=== PATIENT | female | born 1960 | race Caucasian/White ===

== ENCOUNTER 2016-10-16 04:15 | Observation (INO) | payer OTHER ==
--- NOTE | 2016-10-16 04:24 | ED ---
Chest Pain HPI - General Source: patient, RN notes reviewed Limitations: no limitations - History of Present Illness MD Complaint: chest pain Onset/Timin -: hour(s) Onset: during rest Pain Location: left chest Pain Radiation: LUE Severity: moderate Quality: aching Consistency: constant Improves With: nitroglycerin Worsens With: nothing Anginal Symptoms: nausea Treatments Prior to Arrival: aspirin, nitroglycerin, oxygen <Julio Loaiza - Last Filed: 10/16/16 04:29> - General Source: RN notes reviewed, old records reviewed <Max Ruiz - Last Filed: 10/16/16 09:16> - General Stated Complaint: Chest discomfort Time Seen by Provider: 10/16/16 04:17 - History of Present Illness Initial Comments: 55 female ER for evaluation of chest pain (Max Ruiz) Review of Systems ROS Other: All systems not noted in ROS Statement are negative. Constitutional: Denies: fever, chills Respiratory: Denies: cough, dyspnea Cardiovascular: Reports: chest pain. Denies: palpitations, edema, syncope Gastrointestinal: Reports: nausea. Denies: abdominal pain, vomiting, diarrhea, melena, hematochezia Genitourinary: Denies: dysuria, hematuria Musculoskeletal: Denies: back pain Skin: Denies: rash Neurological: Denies: headache, weakness, numbness <Julio Loaiza - Last Filed: 10/16/16 04:29> ROS Other: All systems not noted in ROS Statement are negative. <Max Ruiz - Last Filed: 10/16/16 09:16> ROS Statement: Those systems with pertinent positive or pertinent negative responses have been documented in the HPI. EKG Findings - EKG Results: EKG: interpreted by MARY APPIAH, sinus rhythm (Rate 70 bpm), normal axis, normal QRS, normal ST/T, no acute changes <Julio Loaiza - Last Filed: 10/16/16 04:29> General Exam General appearance: alert, in no apparent distress, anxious Head exam: Present: atraumatic Eye exam: Present: normal appearance. Absent: scleral icterus, conjunctival injection ENT exam: Present: normal oropharynx Neck exam: Present: normal inspection Respiratory exam: Present: normal lung sounds bilaterally, chest wall tenderness. Absent: respiratory distress, wheezes, rales, rhonchi, stridor, decreased breath sounds, prolonged expiratory Cardiovascular Exam: Present: regular rate, normal rhythm, normal heart sounds. Absent: systolic murmur, diastolic murmur, rubs, gallop GI/Abdominal exam: Present: soft. Absent: distended, tenderness, guarding, rebound, mass Extremities exam: Present: normal inspection, normal capillary refill. Absent: pedal edema, calf tenderness Back exam: Present: normal inspection. Absent: CVA tenderness (R), CVA tenderness (L) Neurological exam: Present: alert Psychiatric exam: Present: anxious Skin exam: Present: warm, dry, intact, normal color. Absent: rash <Julio Loaiza - Last Filed: 10/16/16 04:29> General appearance: alert, in no apparent distress Head exam: Present: atraumatic, normocephalic, normal inspection Eye exam: Present: normal appearance, PERRL, EOMI. Absent: scleral icterus, conjunctival injection, periorbital swelling ENT exam: Present: normal exam, mucous membranes moist Neck exam: Present: normal inspection. Absent: tenderness, meningismus, lymphadenopathy Respiratory exam: Present: normal lung sounds bilaterally. Absent: respiratory distress, wheezes, rales, rhonchi, stridor Cardiovascular Exam: Present: regular rate, normal rhythm, normal heart sounds. Absent: systolic murmur, diastolic murmur, rubs, gallop, clicks GI/Abdominal exam: Present: soft, normal bowel sounds. Absent: distended, tenderness, guarding, rebound, rigid Extremities exam: Present: normal inspection, full ROM, normal capillary refill. Absent: tenderness, pedal edema, joint swelling, calf tenderness Back exam: Present: normal inspection Neurological exam: Present: alert, oriented X3, CN II-XII intact Psychiatric exam: Present: normal affect, normal mood Skin exam: Present: warm, dry, intact, normal color. Absent: rash <Max Ruiz - Last Filed: 10/16/16 09:16> Course <Julio Loaiza - Last Filed: 10/16/16 04:29> <Max Ruiz - Last Filed: 10/16/16 09:16> Vital Signs 10/16/16 10/16/16 10/16/16 04:31 05:34 06:37 Temperature 97.9 F Pulse Rate 67 72 72 Respiratory 16 16 16 Rate Blood Pressure 96/54 101/58 105/61 O2 Sat by Pulse 96 98 97 Oximetry 10/16/16 07:58 Temperature 97.8 F Pulse Rate 66 Respiratory 16 Rate Blood Pressure 106/56 O2 Sat by Pulse 95 Oximetry - Reevaluation(s) Reevaluation #1: 10/16/16 09:15 At this time patient is without chest pain or shortness of breath (Max Ruiz) Chest Pain MDM <Julio Loaiza - Last Filed: 10/16/16 04:29> <Max Ruiz - Last Filed: 10/16/16 09:16> - MDM 55 female here with chest pain, retrosternal chest pain or shortness of breath, mildly elevated d-dimer negative CTA troponin is negative. Patient can be discharged home (Max Ruiz) Disposition <Julio Loaiza - Last Filed: 10/16/16 04:29> <Max Ruiz - Last Filed: 10/16/16 09:16> Clinical Impression: Chest pain, Atypical chest pain Disposition: HOME SELF-CARE Condition: Good Instructions: Chest Pain (ED) Referrals: Alexander Clement DO [Primary Care Provider] - 1-2 days
[2016-10-16 05:03] LABS: Basophils % (A) 1 %; CHCM 35.2; Eosinophils # (A) 0.2 k/uL (0-0.7); Eosinophils % (A) 4 %; HCT 41.3 % (34.0-46.0); HDW 2.47; Luc # (Auto) 0.11; Luc % (Auto) 2; Lymphocytes # (A) 1.7 k/uL (1.0-4.8); Lymphocytes % (A) 33 %; MCH 31.9 pg (25.0-35.0); MCHC 33.9 g/dL (31.0-37.0); MCV 94.1 fL (80.0-100.0); Monocytes # (A) 0.4 k/uL (0-1.0); Monocytes % (A) 7 %; Neutrophils # (A) 2.8 k/uL (1.3-7.7); Neutrophils % (A) 54 %; RBC 4.39 m/uL (3.80-5.40); WBC 5.2 k/uL (3.8-10.6); WBC (Perox) 5.35
[2016-10-16 05:13] LABS: ALT 20 U/L (9-52); AST 18 U/L (14-36); Alkaline Phosphatase 78 U/L (38-126); Amylase 78 U/L (30-110); Anion Gap 9 mmol/L; Blood Urea Nitrogen 14 mg/dL (7-17); Calcium 8.5 mg/dL (8.4-10.2); Carbon Dioxide 23 mmol/L (22-30); Chloride 111 mmol/L (98-107); Glucose 94 mg/dL (74-99); Magnesium 1.8 mg/dL (1.6-2.3); Non-African American GFR(MDRD) >60 (>60 ml/min/1.73 sqM); Sodium 143 mmol/L (137-145); Total Bilirubin 0.5 mg/dL (0.2-1.3); Total Protein 6.1 g/dL (6.3-8.2)
[2016-10-16 05:23] LABS: Creatine Kinase 147 U/L (30-135)
--- NOTE | 2016-10-16 05:26 | XR ---
EXAMINATION TYPE: XR chest 2V DATE OF EXAM: 10/16/2016 4:45 AM COMPARISON: 07/01/2013 HISTORY: Chest pain TECHNIQUE: Frontal and lateral views of the chest are obtained. FINDINGS: There is no focal pneumonia pleural effusion, or pneumothorax seen. Faint stable scarring and nodularity is noted in the left lung base. The cardiac silhouette size is within normal limits. The osseous structures are intact. IMPRESSION: 1. No acute cardiopulmonary process. 2. No significant interval change.
[2016-10-16] MEDS ORDERED: RX INFO: IV CONTRAST WAS GIVEN 1 EACH MISC MISCELLANE PRN (05:32)
[2016-10-16 05:36] LABS: Creatine Kinase MB 1.3 ng/mL (0.0-2.4); Troponin I <0.012 ng/mL (0.000-0.034)
--- NOTE | 2016-10-16 07:35 | CT ---
CT CHEST FOR PULMONARY EMBOLISM. EXAMINATION TYPE: CT chest angio for PE DATE OF EXAM: 10/16/2016 7:20 AM INDICATION: Lt side Chest pain CT DLP: 458.9 mGycm, Automated exposure control for dose reduction was used. CONTRAST: Patient injected with 72 mL of Omnipaque 350. COMPARISON: NONE TECHNIQUE: CT of the chest is performed on a spiral scan at 2 mm thick sections. Study is performed with intravenous contrast timed for evaluation for pulmonary embolism. This will limit additional po rtions of the evaluation. 3-D MIP images reconstructed by the technologist are reviewed on the compu ter in the coronal and sagittal planes. FINDINGS: No persistent filling defects are evident to suggest an acute pulmonary embolism. There is a 1.6 cm pretracheal lymph node. Multiple small lymph nodes are adjacent to the aortic arch. Enlarged aortopulmonic window lymph node measuring 1.5 cm is present. A 1.5 cm right suprahilar lymp h node is likely present. There appears to be adenopathy within the subcarinal region which may be th ickened. The ascending aorta diameter at the level of the main pulmonary artery is 3.8 cm. The main pulmonary artery diameter at the bifurcation is 2.7 cm. There is a 1.3 cm density within the periphery of the left lung is contains calcification measuring 5 00 Hounsfield units. Lung windows have some minimal compressive atelectasis within the dependent port ion. Limited CT section through the upper abdomen are unremarkable. IMPRESSIONS: 1. No acute pulmonary embolism. 2. Enlarged mediastinal adenopathy. 3. Probable granuloma left peripheral lung
[2016-10-16] MEDS ORDERED: NITROGLYCERIN SL TABS 0.4 MG TAB SUBLINGUAL PRN (09:21)
[2016-10-16] MEDS ORDERED: HEPARIN SODIUM,PORCINE 5,000 UNIT/ML 1 ML VIAL IV ONE (09:21)
[2016-10-16] MEDS ORDERED: ASPIRIN 81 MG CHEW PO STA (09:21)
[2016-10-16] MEDS ORDERED: HEPARIN SODIUM,PORCINE 5,000 UNIT/ML 1 ML VIAL IV PRN (09:21)
--- NOTE | 2016-10-16 09:21 | ED ---
Medical Decision Making - Medical Decision Making 55 female ER for evaluation again, patient was reevaluated prior to discharge, still with heavy chest pain sitting on her chest with shortness of breath and diaphoresis. At this time patient will be kept for cardiac observation, again CT is negative EKG shows no ST elevation, troponin was also negative, will start patient on anticoagulation with serial troponin testing - Lab Data Result diagrams: 10/16/16 04:51 10/16/16 04:51 Lab Results 10/16/16 10/16/16 10/16/16 Range/Units 04:51 04:51 04:51 WBC 5.2 (3.8-10.6) k/uL RBC 4.39 (3.80-5.40) m/uL Hgb 14.0 (11.4-16.0) gm/dL Hct 41.3 (34.0-46.0) % MCV 94.1 (80.0-100.0) fL MCH 31.9 (25.0-35.0) pg MCHC 33.9 (31.0-37.0) g/dL RDW 12.0 (11.5-15.5) % Plt Count 121 L (150-450) k/uL Neutrophils % 54 % Lymphocytes % 33 % Monocytes % 7 % Eosinophils % 4 % Basophils % 1 % Neutrophils # 2.8 (1.3-7.7) k/uL Lymphocytes # 1.7 (1.0-4.8) k/uL Monocytes # 0.4 (0-1.0) k/uL Eosinophils # 0.2 (0-0.7) k/uL Basophils # 0.0 (0-0.2) k/uL D-Dimer (<0.60) mg/L FEU Sodium 143 (137-145) mmol/L Potassium 4.0 (3.5-5.1) mmol/L Chloride 111 H (98-107) mmol/L Carbon Dioxide 23 (22-30) mmol/L Anion Gap 9 mmol/L BUN 14 (7-17) mg/dL Creatinine 0.74 (0.52-1.04) mg/dL Est GFR (MDRD) Af Amer >60 (>60 ml/min/1.73 sqM) Est GFR (MDRD) Non-Af >60 (>60 ml/min/1.73 sqM) Glucose 94 (74-99) mg/dL Calcium 8.5 (8.4-10.2) mg/dL Magnesium 1.8 (1.6-2.3) mg/dL Total Bilirubin 0.5 (0.2-1.3) mg/dL AST 18 (14-36) U/L ALT 20 (9-52) U/L Alkaline Phosphatase 78 (38-126) U/L Total Creatine Kinase 147 H (30-135) U/L CK-MB (CK-2) 1.3 (0.0-2.4) ng/mL CK-MB (CK-2) Rel Index 0.9 Troponin I <0.012 (0.000-0.034) ng/mL Total Protein 6.1 L (6.3-8.2) g/dL Albumin 3.3 L (3.5-5.0) g/dL Amylase 78 (30-110) U/L Lipase 92 (23-300) U/L 10/16/16 Range/Units 04:51 WBC (3.8-10.6) k/uL RBC (3.80-5.40) m/uL Hgb (11.4-16.0) gm/dL Hct (34.0-46.0) % MCV (80.0-100.0) fL MCH (25.0-35.0) pg MCHC (31.0-37.0) g/dL RDW (11.5-15.5) % Plt Count (150-450) k/uL Neutrophils % % Lymphocytes % % Monocytes % % Eosinophils % % Basophils % % Neutrophils # (1.3-7.7) k/uL Lymphocytes # (1.0-4.8) k/uL Monocytes # (0-1.0) k/uL Eosinophils # (0-0.7) k/uL Basophils # (0-0.2) k/uL D-Dimer 0.72 H (<0.60) mg/L FEU Sodium (137-145) mmol/L Potassium (3.5-5.1) mmol/L Chloride (98-107) mmol/L Carbon Dioxide (22-30) mmol/L Anion Gap mmol/L BUN (7-17) mg/dL Creatinine (0.52-1.04) mg/dL Est GFR (MDRD) Af Amer (>60 ml/min/1.73 sqM) Est GFR (MDRD) Non-Af (>60 ml/min/1.73 sqM) Glucose (74-99) mg/dL Calcium (8.4-10.2) mg/dL Magnesium (1.6-2.3) mg/dL Total Bilirubin (0.2-1.3) mg/dL AST (14-36) U/L ALT (9-52) U/L Alkaline Phosphatase (38-126) U/L Total Creatine Kinase (30-135) U/L CK-MB (CK-2) (0.0-2.4) ng/mL CK-MB (CK-2) Rel Index Troponin I (0.000-0.034) ng/mL Total Protein (6.3-8.2) g/dL Albumin (3.5-5.0) g/dL Amylase (30-110) U/L Lipase (23-300) U/L Critical Care Time Critical Care Time: Yes Total Critical Care Time: 31 Disposition Clinical Impression: Chest pain Disposition: ADMITTED IP TO THIS [facility] Condition: Undetermined Instructions: Chest Pain (ED) Referrals: Alexander Clement DO [Primary Care Provider] - 1-2 days
[2016-10-16] MEDS ORDERED: HYDROmorphone 1 MG/ML 1 ML SYRINGE IVP STA (09:24)
[2016-10-16] MEDS ORDERED: HYDROmorphone 1 MG/ML 1 ML SYRINGE IVP PRN (09:24)
[2016-10-16] MEDS ORDERED: HEPARIN SODIUM,PORCINE/D5W PMX 25,000 UNIT in DEXTROSE/WATER 1 500ML.BAG IV SCH (09:30)
[2016-10-16] MEDS: SODIUM CHLORIDE 0.9% 1,000 ML IV SCH ×2 (10:16→22:01)
[2016-10-16 11:27] LABS: Creatine Kinase 124 U/L (30-135)
[2016-10-16 11:40] LABS: Troponin I <0.012 ng/mL (0.000-0.034)
[2016-10-16] MEDS ORDERED: FLUoxetine HCL 20 MG CAP PO SCH (12:00)
[2016-10-16] MEDS: FOLIC ACID 1 MG TAB PO SCH (12:23)
[2016-10-16] MEDS: POTASSIUM CHLORIDE ER 10 MEQ TAB.ER.PRT PO SCH ×2 (12:24→22:01)
[2016-10-16] MEDS: ONDANSETRON ODT 4 MG TAB PO SCH ×3 (12:24→22:01)
[2016-10-16] MEDS: PANTOPRAZOLE 40 MG TABLET PO SCH (12:24)
[2016-10-16] MEDS: PREGABALIN 75 MG CAP PO SCH ×2 (12:24→22:01)
[2016-10-16] MEDS: DIPYRIDAMOLE-ASPIRIN 200-25 MG 1 EACH CPMP.12HR PO SCH ×2 (12:25→22:01)
[2016-10-16] MEDS: BACLOFEN 10 MG TAB PO SCH ×3 (12:25→22:01)
[2016-10-16] MEDS: FAMOTIDINE 20 MG TAB PO SCH ×2 (12:25→22:01)
[2016-10-16 17:58] LABS: Creatine Kinase 106 U/L (30-135)
[2016-10-16] MEDS: DESVENLAFAXINE SUCCINATE 50 MG TAB.ER.24H PO SCH (18:05)
[2016-10-16 18:10] LABS: Creatine Kinase MB 0.8 ng/mL (0.0-2.4); Troponin I <0.012 ng/mL (0.000-0.034)
--- NOTE | 2016-10-16 18:37 | HP ---
DATE OF ADMISSION: 10/16/2016 PRESENTING COMPLAINT: Chest pain. HISTORY OF PRESENTING COMPLAINT: This is a very pleasant 55-year-old patient of Dr. Clement who has a prior stroke with residual right-sided weakness, subtle weakness in the right arm and right leg. Also speech is affected. Patient also takes medication for GERD, depression, some muscle spasms. Patient presents with a heavy pressure, like somebody sitting on her chest, lasting for over 12 hours, pain going down the left arm, some shortness of breath. No dizziness. No perspiration. Patient is admitted for unstable angina, put on IV heparin. Patient has no prior cardiac history, but a family history on her mother's side. REVIEW OF SYSTEMS: CONSTITUTIONAL: Tired. HEENT: None. RESPIRATORY: As above. CARDIOVASCULAR: As above. GASTROINTESTINAL: None. GENITOURINARY: None. MUSCULOSKELETAL: Some aches and pains in the joints. DERMATOLOGICAL: None. HEMATOLOGICAL: None. LYMPHATICS: None. PSYCHIATRY: Depression. NEUROLOGICAL: Weakness of the right arm and leg. PAST MEDICAL HISTORY: 1. Stroke with right-sided weakness. 2. Depression. 3. Some muscle spasms. PAST SURGICAL HISTORY: As charted in electronic records. HOME MEDICATIONS: 1. Potassium 8 mEq p.o. b.i.d. 2. Zofran 4 mg p.o. t.i.d. 3. Prilosec 40 mg p.o. daily. 4. Motrin 800 mg p.o. t.i.d. 5. Hyoscyamine 0.125 mg sublingually q.4 p.r.n. 6. Zantac 150 mg p.o. b.i.d. 7. Lyrica 75 mg p.o. b.i.d. 8. Folic acid 1 mg p.o. daily. 9. Prozac 20 mg p.o. daily. 10. Aggrenox 1 capsule p.o. b.i.d. 11. Baclofen 10 mg p.o. t.i.d. 12. Lipitor 10 mg at bedtime. ALLERGIES: 1. CELEBREX. 2. CIPRO. 3. SULFA. 4. MORPHINE. 5. PYRIDIUM. On examination, temperature 97.9, pulse 57, respiratory rate 16, blood pressure 96/54, pulse ox 96% on room air. GENERAL APPEARANCE: Well built, BMI of 38.1. Lying in bed. Not in distress. EYES: Pupils equal. Conjunctivae normal. HEENT: Oral cavity normal. NECK: JVD not raised. Mass not palpable. RESPIRATORY: Effort normal. Lungs are clear. CARDIOVASCULAR: First and second sounds normal. No edema. ABDOMEN: Soft, nontender. Liver and spleen not palpable. LYMPHATIC: No lymph node palpable in neck or axillae. PSYCHIATRY: Alert and oriented x3. Mood and affect slightly low. NEUROLOGICAL: Speech is slightly slurred. Power in the right arm and right leg is 4/5. Decreased sensation on the right side, too. INVESTIGATIONS: White count 5.2, hemoglobin 14.0, potassium 4.0. Troponin less than 0.012 x2. Chest x-ray not able to show anything acute. EKG: Normal sinus rhythm. ASSESSMENT: 1. Possible unstable angina in a patient whose risk factors include a prior stroke, obesity, body mass index of 38.1 and a strong history on her mother's side. 2. Right hemiparesis from an old stroke. 3. Depression not otherwise specified. 4. Obesity; body mass index 38.1. 5. Family history on mother's side. Mother had her first heart attack in her 60s. SOCIAL HISTORY: . Does not smoke or drink alcohol. PLAN: Home medications are resumed. Patient is put on IV heparin and aspirin. Cardiology is consulted. Serial cardiac enzymes are in place. Patient will at least need a stress test if this is ruled out. Care was discussed with the patient.
[2016-10-16] MEDS ORDERED: ATORVASTATIN 10 MG TAB PO SCH (21:00)
[2016-10-16] MEDS ORDERED: DOBUTamine DRIP for NUC MED 500 MG in DEXTROSE/WATER 1 250ML.BAG IV ONE (21:26)
--- NOTE | 2016-10-16 22:14 | CONS ---
DATE OF CONSULTATION: Catina Kothari is a 55-year-old female who presented with severe pain in the chest lasting for quite some time. Nitroglycerin relieved it partially and then it came back once again in the emergency room. She underwent a CT of the chest which did not show any pulmonary embolism. She is tender over the chest on the left side and somewhat exquisitely over the left costochondral junctions. Her ECG shows sinus mechanism without any ST-segment abnormalities. Three cardiac enzymes are normal. Hemoglobin is normal. Electrolytes are normal. REVIEW OF SYSTEMS: No fever, chills, rigors. No cough or expectoration. No nausea, vomiting or diarrhea. No hematuria or dysuria. No seizures. Past history of stroke. Past history of possible ASD. She had a stroke on June 24, 2013. She had closure of this ASD two weeks later, and then she had another stroke in the month of July following that. She also has a past history of fibromyalgia. Lipid panel unknown. Medications were reviewed and include: 1. Atorvastatin. 2. Baclofen. 3. Folic acid. 4. Fluoxetine. 5. Pregabalin. 6. Lyrica. 7. Ranitidine. 8. Hyoscyamine. 9. Omeprazole. 10. Potassium. On examination, her blood pressure is 120/60 mmHg. Pulse rate is in the 50s. She is afebrile. Head and neck examination is normal. Heart sounds S1, S2 are soft. Breath sounds are normal. Lungs are clear on auscultation. Extremities are warm. No edema. Abdomen is soft, nontender. She is tender over the left chest wall. IMPRESSION: 1. Atypical chest discomfort, relieved with nitroglycerin. 2. History of cerebrovascular accident x2, one before the possible ASD closure, one after the ASD closure. SUGGEST: Lipid panel. Dobutamine stress echo tomorrow. She has not had an acute myocardial infarction.
[2016-10-17] MEDS: SODIUM CHLORIDE 0.9% 1,000 ML IV SCH (06:42)
[2016-10-17 07:40] LABS: Mean Platelet Volume 6.9
[2016-10-17 07:48] LABS: Cholesterol 171 mg/dL (<200); HDL Cholesterol 32 mg/dL (40-60); Triglycerides 135 mg/dL (<150)
[2016-10-17] MEDS ORDERED: ASPIRIN 325 MG TAB PO SCH (09:00)
[2016-10-17] MEDS: PREGABALIN 75 MG CAP PO SCH (11:03)
[2016-10-17] MEDS: FAMOTIDINE 20 MG TAB PO SCH (11:04)
[2016-10-17] MEDS: DESVENLAFAXINE SUCCINATE 50 MG TAB.ER.24H PO SCH (11:04)
[2016-10-17] MEDS: ONDANSETRON ODT 4 MG TAB PO SCH (11:04)
[2016-10-17] MEDS: PANTOPRAZOLE 40 MG TABLET PO SCH (11:04)
[2016-10-17] MEDS: DIPYRIDAMOLE-ASPIRIN 200-25 MG 1 EACH CPMP.12HR PO SCH (11:05)
[2016-10-17] MEDS: FOLIC ACID 1 MG TAB PO SCH (11:05)
[2016-10-17] MEDS: BACLOFEN 10 MG TAB PO SCH (11:05)
[2016-10-17] MEDS: POTASSIUM CHLORIDE ER 10 MEQ TAB.ER.PRT PO SCH (11:06)
--- NOTE | 2016-10-17 11:36 | ECHOS ---
DATE OF SERVICE: 10/17/2016 AGE: 55Y SEX: F HT: 66 WT: 236 lbs. Protocol Stanley: Others: Dobutamine Stress Echo Stage: Dur. of Exercise: *Heart Rate Blood Pressure *Rest: 74 Rest: 120/62 * *Max. Achieved: 146 Maximum BP: 174/110 85% PMHR: 139 100% PMHR: 164 *METS: INDICATIONS: Chest pain. MEDICATIONS: Atorvastatin, Baclofen, Lyrica, ranitidine, omeprazole. Mrs. Kothari is a 55-year-old female with history of hypertension and diabetes being evaluated for symptoms of chest pain. STRESS DATA: Baseline EKG showed sinus rhythm with normal AK interval and QRS duration. A standard dose of dobutamine was initiated and titrated to maximum of 30 mcg, achieving a maximum heart rate of 146 with a blood pressure of 174/110. EKGs did not reveal any significant changes from the baseline. ECHO DATA: Baseline echo images show normal wall motion and thickening. Exercise echo images with dobutamine at low-dose and high-dose showed augmentation of the wall motion and thickening in all the segments. FINAL IMPRESSION: 1. Negative dobutamine stress test. 2. Negative dobutamine stress echo.
[2016-10-17 12:28] VITALS: BP 121/72; PULSE 73; RESP 18; TEMP 98.9
[2016-10-17 13:30] VITALS: BMI 38.0
--- NOTE | 2016-10-18 16:34 | ECHOF ---
Referral Reason:Aortic Stenosis MEASUREMENTS -------- HEIGHT: 165.1 cm WEIGHT: 107.1 kg BP: RVIDd: 2.9 cm (< 3.3) IVSd: 1.5 cm (0.6 - 1.1) LVIDd: 2.2 cm (3.9 - 5.3) LVPWd: 1.3 cm (0.6 - 1.1) LAESV Index (A-L): 21.87 ml/m Ao Diam: 3.5 cm (2.0 - 3.7) MV EXCURSION: 17.701 mm (> 18.000) MV EF SLOPE: 64 mm/s (70 - 150) EPSS: 0.6 cm MV E Emiliano: 0.87 m/s MV DecT: 199 ms MV A Emiliano: 0.85 m/s MV E/A Ratio: 1.02 AV maxP.55 mmHg AV meanP.46 mmHg RAP: 5.00 mmHg RVSP: 34.27 mmHg FINDINGS -------- Sinus rhythm. This was a technically adequate study. There is mild concentric left ventricular hypertrophy. Overall left ventricular systolic function is low-normal with, an EF between 50 - 55 %. The right ventricle is normal in size. Normal LA size by volume 22+/-6 ml/m2. The right atrial size is normal. Aortic valve is trileaflet and is moderately thickened. There is moderate to severe aortic valve sclerosis. There is moderate aortic stenosis present. Peak/mean gradient across the Aortic Valve is 46.55mmHg / 23.46mmHg. Aov is stenotic with decrease opening. Mild mitral annular calcification present. Mild mitral regurgitation is present. Mild tricuspid regurgitation present. There is no evidence of pulmonary hypertension. The right ventricular systolic pressure, as measured by Doppler, is 34.27mmHg. There is no pulmonic regurgitation present. The aortic root size is normal. There is no pericardial effusion. CONCLUSIONS -------- 1. There is mild concentric left ventricular hypertrophy. 2. Mild tricuspid regurgitation present. 3. There is no evidence of pulmonary hypertension. 4. The right ventricular systolic pressure, as measured by Doppler, is 34.27mmHg. 5. Overall left ventricular systolic function is low-normal with, an EF between 50 - 55 %. 6. Aortic valve is trileaflet and is moderately thickened. 7. There is moderate to severe aortic valve sclerosis. 8. There is moderate aortic stenosis present. 9. Peak/mean gradient across the Aortic Valve is 46.55mmHg / 23.46mmHg. 10. Aov is stenotic with decrease opening. 11. Mild mitral annular calcification present. 12. Mild mitral regurgitation is present. APPLICATIONS INTERN: Glory Wynne RDCS
--- NOTE | 2016-10-18 16:54 | DS ---
DATE OF ADMISSION: 10/16/2016 DATE OF DISCHARGE: 10/17/2016 FINAL DIAGNOSES: 1. Stenosis, left anterior chest wall pain; could be musculoskeletal. 2. Right hemiparesis from old stroke. 3. Depression, not otherwise specified. 4. Obesity, body mass index 38.1. HOSPITAL COURSE: This patient presented with chest pain. Stress test was negative. Patient did undergo a dobutamine stress echocardiogram that was negative. Patient was feeling better today. On exam, lungs are clear. CARDIOVASCULAR: First and second seconds normal. DISCHARGE MEDICATIONS: 1. Lipitor 10 mg q.h.s. 2. Baclofen 10 mg p.o. t.i.d. 3. Aggrenox 1 capsule p.o. b.i.d. 4. Folic acid 1 mg daily. 5. Hyoscyamine 0.125 sublingual q.4 p.r.n. 6. Motrin 800 mg p.o. t.i.d. 7. Prilosec 40 mg p.o. daily. 8. Zofran 4 mg t.i.d. 9. Potassium 8 meq b.i.d. 10. Zantac 150 mg p.o. b.i.d. 11. Pristiq ER 50 mg daily. 12. Lyrica 75 mg p.o. b.i.d. Follow up with Dr. Clement in 3 days. On exam, lungs are clear. CARDIOVASCULAR: First and second sounds normal.
== END 2016-10-17 15:30 | disposition home or self-care (01) ==
LOC: EC 04:15 → 3SUR 09:21 → 3OBS 18:43
PROVIDERS: ADMIT Hospitalist; ATTEND Hospitalist
DX: R07.89 Other chest pain (principal); I69.351 Hemiplegia and hemiparesis following cerebral infarction affecting right dominant side; F32.9 Major depressive disorder, single episode, unspecified; E66.9 Obesity, unspecified; Z68.38 Body mass index [BMI] 38.0-38.9, adult; M62.838 Other muscle spasm; K21.9 Gastro-esophageal reflux disease without esophagitis; R61 Generalized hyperhidrosis; R06.02 Shortness of breath; R11.0 Nausea; Z79.899 Other long term (current) drug therapy; Z88.1 Allergy status to other antibiotic agents; Z88.5 Allergy status to narcotic agent; Z88.2 Allergy status to sulfonamides; Z88.8 Allergy status to other drugs, medicaments and biological substances
CPT/HCPCS: 36415; 94760; 93005; 93017; 93306; 93350; 85379; 80061; 80053; 82150; 82550; 82553; 83690; 83735; 84484; 85025; 85049; 85730 ×2; 71020; 71275; 99291; 96365; 96366 ×9; 96375; 96376; G0378 ×2; J1250 ×2; J1644 ×2; Q9967; J1170; 96361

== ENCOUNTER → 2016-12-11 | Outpatient (CLI) | payer OTHER ==
--- NOTE | 2016-12-11 18:07 | XR ---
EXAMINATION TYPE: XR shoulder complete LT DATE OF EXAM: 12/11/2016 5:43 PM COMPARISON: NONE HISTORY: Shoulder pain TECHNIQUE: 3 views FINDINGS: I see no fracture nor dislocation. There is mild spurring of the inferior glenoid labrum. T here are no pathologic calcifications at the greater tuberosity. IMPRESSION: Minimal spurring otherwise negative left shoulder exam.
== END ==
LOC: RADXRMAIN 17:29
PROVIDERS: ATTEND Family Medicine
DX: M77.9 Enthesopathy, unspecified (principal)

== ENCOUNTER → 2017-02-06 | Outpatient (CLI) | payer OTHER ==
--- NOTE | 2017-02-06 14:37 | MR ---
EXAMINATION TYPE: MR shoulder LT wo con DATE OF EXAM: 02/06/2017 2:24 PM COMPARISON: NONE HISTORY: Left shoulder pain TECHNIQUE: Multiplanar multispin echo imaging of the left shoulder was performed. FINDINGS: Rotator cuff : There is heterogeneity of the supraspinatus tendon with full thickness partial tear pr esent. No evidence for retracted component at this time. Mild tendinosis of subscapularis tendon. Inf raspinatus tendon is intact. Bursa: Small amount of fluid is seen within the subacromial subdeltoid bursa. Musculature: There is no muscular tear, contusion, or atrophy. Acromioclavicular joint : Subacromial spurring with lateral downsloping results in impingement. Moder ate AC joint arthropathy. Osseous structures : There are no fractures or regions of abnormal bone mar row signal intensity. Long biceps tendon : The biceps tendon is normally situated within the bicipital groove. No complete or partial biceps tendon tear is present. Small amount of fluid is seen within the biceps tendon hutton th which may reflect biceps teno- synovitis. Glenohumeral Joint fluid : There is no glenohumeral joint effusion. Cartilage and Bone : No focal hyaline cartilage defects are noted. No Hill-Sachs, reverse Hill-Sachs, or bony Bankart lesions are seen. Labrum : There are no SLAP or soft tissue Bankart lesions. No paralabral cysts are seen. OTHER FINDINGS : There is serpiginous abnormal bone marrow signal identified involving the humeral ne ck and extending into the proximal humeral diaphysis. This is felt to reflect bone marrow infarcts. IMPRESSION: 1. Full thickness partial tear supraspinatus tendon with superimposed tendinopathy and underlying imp ingement. 2. 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
== END | disposition home or self-care (01) ==
LOC: RADMRIMAIN 13:47
PROVIDERS: ATTEND Nurse Practitioner Family
DX: S46.012A Strain of muscle(s) and tendon(s) of the rotator cuff of left shoulder, initial encounter (principal); M75.22 Bicipital tendinitis, left shoulder

== ENCOUNTER → 2017-04-24 | Outpatient (CLI) | payer OTHER ==
[2017-04-24 10:29] LABS: Partial Thromboplastin Time 22.9 sec (22.0-30.0); Prothrombin Time 10.2 sec (9.0-12.0)
== END | disposition home or self-care (01) ==
LOC: LABWHC1 09:48
PROVIDERS: ATTEND Physical Medicine & Rehabilitation
DX: M54.2 Cervicalgia (principal); M50.121 Cervical disc disorder at C4-C5 level with radiculopathy; M50.122 Cervical disc disorder at C5-C6 level with radiculopathy; M50.123 Cervical disc disorder at C6-C7 level with radiculopathy; M50.222 Other cervical disc displacement at C5-C6 level; M50.223 Other cervical disc displacement at C6-C7 level; M25.511 Pain in right shoulder; M25.512 Pain in left shoulder; Z86.73 Personal history of transient ischemic attack (TIA), and cerebral infarction without residual deficits; Z79.01 Long term (current) use of anticoagulants
CPT/HCPCS: 36415; 85610; 85730

== ENCOUNTER → 2017-05-02 | Outpatient (CLI) | payer OTHER ==
--- NOTE | 2017-05-02 10:20 | XR ---
EXAMINATION TYPE: XR abdomen 2V DATE OF EXAM: 05/02/2017 COMPARISON: NONE HISTORY: Pain TECHNIQUE: Two view abdominal series FINDINGS: The osseous structures are intact. The bowel gas pattern is nonspecific. Findings suggest sacroiliit is. Calcification pelvis likely vascular. Arthropathy of the hips. Density along the right inferior p ubic ramus is nonspecific.. Radiopaque density overlying the right retrocardiac region and stable fro m previous chest x-ray. Correlate for previous cardiac valve surgery. IMPRESSION: 1. Nonspecific abdomen.
== END | disposition home or self-care (01) ==
LOC: RADXRMAIN 09:50
PROVIDERS: ATTEND Physician Assistant
DX: R10.9 Unspecified abdominal pain (principal)
CPT/HCPCS: 74020

== ENCOUNTER → 2017-05-08 | Outpatient (CLI) | payer OTHER ==
[2017-05-08 13:36] LABS: Partial Thromboplastin Time 22.9 sec (22.0-30.0); Prothrombin Time 10.1 sec (9.0-12.0)
== END | disposition home or self-care (01) ==
LOC: LABWHC1 12:42
PROVIDERS: ATTEND Physical Medicine & Rehabilitation
DX: M54.2 Cervicalgia (principal); M50.122 Cervical disc disorder at C5-C6 level with radiculopathy; M50.121 Cervical disc disorder at C4-C5 level with radiculopathy; M50.123 Cervical disc disorder at C6-C7 level with radiculopathy; M47.812 Spondylosis without myelopathy or radiculopathy, cervical region; M50.221 Other cervical disc displacement at C4-C5 level; M50.222 Other cervical disc displacement at C5-C6 level; M50.223 Other cervical disc displacement at C6-C7 level; M25.511 Pain in right shoulder; M25.512 Pain in left shoulder
CPT/HCPCS: 36415; 85610; 85730

== ENCOUNTER → 2017-10-12 | Outpatient (CLI) | payer OTHER ==
--- NOTE | 2017-10-12 17:30 | NM ---
EXAMINATION TYPE: NM hepatobiliary w EF DATE OF EXAM: 10/12/2017 COMPARISON: NONE HISTORY: TECHNIQUE: After the intravenous administration of 5.35 mCi Tc 99m Mebrofenin hepatobiliary scintigra phy is performed. Immediate images post injection. FINDINGS: There is normal tracer uptake in the liver which shows no focal defect. There is tracer in the gallbl adder at 15 minutes and in the small bowel at 15 minutes which excludes obstruction of the biliary tr ee. Tracers mostly cleared from the liver at one hour. The poststimulation images show gallbladder ejection fraction of 91%. IMPRESSION: Normal exam. Normal gallbladder ejection fraction.
== END | disposition home or self-care (01) ==
LOC: RADNMMAIN 14:53
PROVIDERS: ATTEND Family Medicine
DX: R10.13 Epigastric pain (principal)
CPT/HCPCS: 78226

== ENCOUNTER → 2017-11-09 | Outpatient (CLI) | payer OTHER ==
[2017-11-09 08:40] LABS: HCT 43.7 % (34.0-46.0); HGB 14.4 gm/dL (11.4-16.0); MCHC 32.9 g/dL (31.0-37.0); MCV 94.1 fL (80.0-100.0); Mean Platelet Volume 6.7; Platelet Count 159 k/uL (150-450); RBC 4.64 m/uL (3.80-5.40); RDW 12.7 % (11.5-15.5); WBC 4.7 k/uL (3.8-10.6)
[2017-11-09 08:44] LABS: Prothrombin Time 10.1 sec (9.0-12.0)
[2017-11-09 08:50] LABS: Appearance,Urine Cloudy (Clear); Bilirubin,Urine Negative (Negative); Blood,Urine Small (Negative); Color,Urine Yellow; Glucose,Urine (UA) Negative (Negative); Hyaline Casts,Urine 4 /lpf (0-2); Ketones,Urine Negative (Negative); Leukocyte Esterase,Urine Moderate (Negative); Mucus,Urine Moderate /hpf; PH, Urine 5.5 (5.0-8.0); Protein,Urine Trace (Negative); RBC,Urine 4 /hpf (0-5); Specific Gravity,Urine 1.017 (1.001-1.035); Squamous Epithelial Cell,Urine 25 /hpf (0-4); Urobilinogen,Urine <2.0 mg/dL (<2.0); WBC,Urine 9 /hpf (0-5)
[2017-11-09 09:00] LABS: ALT 31 U/L (9-52); AST 26 U/L (14-36); Albumin 3.7 g/dL (3.5-5.0); Alkaline Phosphatase 86 U/L (38-126); Anion Gap 9 mmol/L; Bilirubin, Delta 0.3 mg/dL (0.0-0.2); Bilirubin,Unconjugated 0.6 mg/dL (0.0-1.1); Blood Urea Nitrogen 11 mg/dL (7-17); Calcium 9.5 mg/dL (8.4-10.2); Carbon Dioxide 25 mmol/L (22-30); Chloride 109 mmol/L (98-107); Cholesterol 196 mg/dL (<200); Glucose 94 mg/dL (74-99); HDL Cholesterol 43 mg/dL (40-60); LDL Cholesterol,Calculated 114 mg/dL (0-99); Sodium 143 mmol/L (137-145); Total Bilirubin 0.9 mg/dL (0.2-1.3); Total Protein 6.6 g/dL (6.3-8.2); Triglycerides 195 mg/dL (<150)
== END | disposition home or self-care (01) ==
LOC: LABWHC1 08:11
PROVIDERS: ATTEND Internal Medicine Cardiovascular Disease
DX: I25.10 Atherosclerotic heart disease of native coronary artery without angina pectoris (principal); Z79.01 Long term (current) use of anticoagulants
CPT/HCPCS: 36415; 80053; 80061; 81001; 82248; 85027; 85610

== ENCOUNTER 2017-11-30 01:56 | Emergency (ER) | payer OTHER ==
[2017-11-30 02:04] VITALS: TEMP 97.7
[2017-11-30] MEDS ORDERED: FAMOTIDINE 20 MG/2 ML VIAL IV STA (02:14)
[2017-11-30] MEDS ORDERED: diphenhydrAMINE 50 MG/ML 1 ML VIAL IVP STA (02:14)
[2017-11-30] MEDS ORDERED: methylPREDNISolone SOD SUCCI 125 MG/2 ML VIAL IV STA (02:14)
[2017-11-30] MEDS ORDERED: LORazepam 2 MG/ML INJ IV STA ×2 (02:14→03:20)
--- NOTE | 2017-11-30 02:23 | ED ---
Allergic Reaction HPI - General Chief complaint: Allergic Reaction Stated complaint: poss med reaction, SABRINA Time Seen by Provider: 11/30/17 02:09 Source: patient Mode of arrival: ambulatory Limitations: no limitations - History of Present Illness Initial Comments: 56-year-old female patient presents to the emergency department today for evaluation of generalized itching, shortness of breath, difficulty swallowing. Patient states that she took [place] around 8:30 this evening. Developed symptoms around 11 PM. She states that she did take [place] previously and did have symptoms of itching however was also taking Valium and was unsure which medication caused the reaction. Patient states she did take a Benadryl tonight around 11:30. She states it did not help her symptoms at all. She denies any rash. Denies any difficulty speaking. Patient denies any recent fever, chills, chest pain, abdominal pain, nausea, vomiting, diarrhea, constipation, back pain , numbness, tingling, dizziness, weakness, hematuria, dysuria, urinary urgency, urinary frequency, headache, visual changes, or any other complaints. - Related Data Home Medications Medication Instructions Recorded Confirmed Atorvastatin Calcium [Lipitor] 10 mg PO HS 10/16/16 10/16/16 Baclofen 10 mg PO TID 10/16/16 10/16/16 Dipyridamole-Aspirin 200-25 mg 1 each PO BID 10/16/16 10/16/16 [Aggrenox 25MG -200MG] Folic Acid 1 mg PO DAILY 10/16/16 10/16/16 Hyoscyamine Sulfate [Hyoscyamine 0.125 mg SL Q4H PRN 10/16/16 10/16/16 Sulfate SL] Ibuprofen [Motrin] 800 mg PO TID 10/16/16 10/16/16 Omeprazole [PriLOSEC] 40 mg PO DAILY 10/16/16 10/16/16 Ondansetron Odt [Zofran ODT] 4 mg PO TID 10/16/16 10/16/16 Potassium Chloride [Klor-Con 8] 8 meq PO BID 10/16/16 10/16/16 Ranitidine HCl [Zantac] 150 mg PO BID 10/16/16 10/16/16 Previous Rx's Medication Instructions Recorded Desvenlafaxine Succinate [Pristiq 50 mg PO DAILY tab.er.24h 10/17/16 ER] Pregabalin [Lyrica] 75 mg PO BID cap 10/17/16 Famotidine [Pepcid] 20 mg PO DAILY #3 tablet 11/30/17 predniSONE 50 mg PO DAILY #3 tablet 11/30/17 Allergies Allergy/AdvReac Type Severity Reaction Status Date / Time acetaminophen [From [place]] Allergy Itching Verified 11/30/17 02:05 celecoxib [From Celebrex] Allergy Unknown Verified 11/30/17 02:05 ciprofloxacin [From Cipro] Allergy Unknown Verified 11/30/17 02:05 hydrocodone [From [place]] Allergy Itching Verified 11/30/17 02:05 Sulfa (Sulfonamide Allergy Unknown Verified 11/30/17 02:05 Antibiotics) morphine AdvReac Nausea Verified 11/30/17 02:05 phenazopyridine AdvReac Unknown Verified 11/30/17 02:05 [From Pyridium] Review of Systems ROS Statement: Those systems with pertinent positive or pertinent negative responses have been documented in the HPI. ROS Other: All systems not noted in ROS Statement are negative. Past Medical History Past Medical History: CVA/TIA, Fibromyalgia, Sleep Apnea/CPAP/BIPAP Additional Past Medical History / Comment(s): chronic back pain,"tremors",uti, rt side weaker since stroke and has some short term memory problems/ sarcoidosis , no cpap used, had a hole in heart(sx) History of Any Multi-Drug Resistant Organisms: None Reported Past Surgical History: Back Surgery, Hysterectomy, Tonsillectomy Additional Past Surgical History / Comment(s): deviated septum repaired, zaida cataracts, "hole in heart repaired", Neck surgery 10/01/17 Past Anesthesia/Blood Transfusion Reactions: Postoperative Nausea & Vomiting ( PONV) Past Psychological History: No Psychological Hx Reported Smoking Status: Never smoker Past Alcohol Use History: None Reported Past Drug Use History: None Reported - Past Family History Mother Family Medical History: Coronary Artery Disease (CAD), Myocardial Infarction ([place] ) Additional Family Medical History / Comment(s): grandmother,greatgrand mother and grandfather form mi Father History Unknown: Yes Additional Family Medical History / Comment(s): committed suicide General Exam Limitations: no limitations General appearance: alert, in no apparent distress, anxious, other (This is a well-developed, well-nourished adult female patient who is quite anxious during exam. Vital signs upon presentation are temperature 97.7F, pulse 83, respirations 24, blood pressure 171/78, pulse ox 100% on room air.) Eye exam: Present: normal appearance, PERRL, EOMI. Absent: scleral icterus, conjunctival injection, periorbital swelling ENT exam: Present: normal exam, normal oropharynx, mucous membranes moist, TM's normal bilaterally, other ([place] normal size, no tonsillar hypertrophy or throat swelling noted) Neck exam: Present: normal inspection, other (No swelling noted). Absent: tenderness, meningismus, lymphadenopathy Respiratory exam: Present: normal lung sounds bilaterally, other (Respirations are even and unlabored. No accessory muscle use. No evidence of respiratory distress.). Absent: respiratory distress, wheezes, rales, rhonchi, stridor Cardiovascular Exam: Present: regular rate, normal rhythm, normal heart sounds. Absent: systolic murmur, diastolic murmur, rubs, gallop, clicks GI/Abdominal exam: Present: soft, normal bowel sounds. Absent: distended, tenderness, guarding, rebound, rigid Neurological exam: Present: alert, oriented X3, CN II-XII intact Psychiatric exam: Present: anxious Skin exam: Present: warm, dry, intact, normal color. Absent: rash Course Vital Signs 11/30/17 11/30/17 02:00 03:01 Temperature 97.7 F Pulse Rate 83 70 Respiratory 24 17 Rate Blood Pressure 171/78 127/76 O2 Sat by Pulse 100 95 Oximetry Medical Decision Making - Medical Decision Making 56-year-old female patient presented to the emergency department today for evaluation of possible ALLERGIC reaction. Physical examination is unremarkable. Lungs are clear to auscultation with good air movement. Patient has no evidence of rash. Patient was given IV Solu-Medrol, Pepcid, and Benadryl here in the department. Patient was also quite anxious we did administer Ativan. Patient is feeling better at time of reevaluation. Breathing without difficulty. Vital signs are stable. We'll discharge her home at this time with a prescription for Pepcid and prednisone. She is instructed to continue taking Benadryl as needed. She is instructed to not take [place] any longer. She is instructed to follow-up with her primary care physician for recheck in one to days pitches instructed to return here immediately for any new, worsening, or concerning symptoms. She verbalizes understanding and agrees with this plan. Disposition Clinical Impression: Allergic reaction Disposition: HOME SELF-CARE Condition: Good Instructions: General Allergic Reaction (ED) Additional Instructions: Take medications as directed. Avoid use of [place] in the future. Return for any new, worsening, or concerning symptoms. Follow-up with her primary care physician for recheck in 1-2 days. Prescriptions: Famotidine [Pepcid] 20 mg PO DAILY #3 tablet predniSONE 50 mg PO DAILY #3 tablet Referrals: Alexander Clement DO [Primary Care Provider] - 1-2 days
[2017-11-30 03:03] VITALS: BP 127/76; PULSE 70; RESP 17
== END 2017-11-30 03:47 | disposition home or self-care (01) ==
LOC: EC 01:56
DX: T78.40XA Allergy, unspecified, initial encounter (principal); F41.9 Anxiety disorder, unspecified; G47.30 Sleep apnea, unspecified; Z99.89 Dependence on other enabling machines and devices; M79.7 Fibromyalgia; Z79.899 Other long term (current) drug therapy; Z79.1 Long term (current) use of non-steroidal anti-inflammatories (NSAID); Z79.82 Long term (current) use of aspirin; Z88.6 Allergy status to analgesic agent; Z88.1 Allergy status to other antibiotic agents; Z88.5 Allergy status to narcotic agent; Z88.2 Allergy status to sulfonamides; Z88.8 Allergy status to other drugs, medicaments and biological substances; Z86.73 Personal history of transient ischemic attack (TIA), and cerebral infarction without residual deficits
CPT/HCPCS: 99284; 96374; 96375 ×3; 96376; J2060; J1200; J2930

== ENCOUNTER 2017-12-06 10:22 | Emergency (ER) | payer OTHER ==
[2017-12-06] MEDS ORDERED: SODIUM CHLORIDE 0.9% 500 ML IV STA (10:39)
--- NOTE | 2017-12-06 11:00 | ED ---
General Adult HPI - General Stated complaint: Chest Pain/SOB Time Seen by Provider: 12/06/17 10:24 Source: RN notes reviewed, old records reviewed - History of Present Illness Initial comments: This is a 56-year-old female the ER for evaluation of chest pain today. Patient has severe anterior chest pain, patient states he feels better after pain medication on arrival. Patient has no high blood pressure normal cholesterol no diabetes. No significant history of chest pain or shortness of breath. Patient also complaining of severe abdominal pain. Patient states her bowel pain is a chronic acute on chronic issue for her. Chest pain is relation to valve replacement surgery that she is suspected to have some time next months. Patient denies any fevers. She is very emotional during conversation history taking. Crying. - Related Data Home Medications Medication Instructions Recorded Confirmed Dipyridamole-Aspirin 200-25 mg 1 cap PO BID 10/16/16 12/06/17 [Aggrenox 25MG -200MG] Potassium Chloride [Klor-Con 8] 8 meq PO BID 10/16/16 12/06/17 Magnesium Gluconate [Magonate] 500 mg PO DAILY 12/06/17 12/06/17 [place] Q-10 1 tab PO DAILY 12/06/17 12/06/17 Vitamin B Complex 1 cap PO DAILY 12/06/17 12/06/17 Vitamin D3(Unknown) 1 tab PO DAILY 12/06/17 12/06/17 Vitamin K-2 1 tab PO DAILY 12/06/17 12/06/17 Previous Rx's Medication Instructions Recorded Pregabalin [Lyrica] 75 mg PO BID cap 10/17/16 Allergies Allergy/AdvReac Type Severity Reaction Status Date / Time acetaminophen [From [place]] Allergy Itching Verified 12/06/17 11:10 celecoxib [From Celebrex] Allergy Unknown Verified 12/06/17 11:10 ciprofloxacin [From Cipro] Allergy Unknown Verified 12/06/17 11:10 hydrocodone [From [place]] Allergy Itching Verified 12/06/17 11:10 Sulfa (Sulfonamide Allergy Unknown Verified 12/06/17 11:10 Antibiotics) morphine AdvReac Nausea Verified 12/06/17 11:10 phenazopyridine AdvReac Unknown Verified 12/06/17 11:10 [From Pyridium] Review of Systems ROS Statement: Those systems with pertinent positive or pertinent negative responses have been documented in the HPI. ROS Other: All systems not noted in ROS Statement are negative. Past Medical History Past Medical History: CVA/TIA, Fibromyalgia, Sleep Apnea/CPAP/BIPAP Additional Past Medical History / Comment(s): chronic back pain,"tremors",uti, rt side weaker since stroke and has some short term memory problems/ sarcoidosis , no cpap used, had a hole in heart(sx) History of Any Multi-Drug Resistant Organisms: None Reported Past Surgical History: Back Surgery, Hysterectomy, Tonsillectomy Additional Past Surgical History / Comment(s): deviated septum repaired, zaida cataracts, "hole in heart repaired", Neck surgery 10/01/17 Past Anesthesia/Blood Transfusion Reactions: Postoperative Nausea & Vomiting ( PONV) Past Psychological History: No Psychological Hx Reported Smoking Status: Never smoker Past Alcohol Use History: None Reported Past Drug Use History: None Reported - Past Family History Mother Family Medical History: Coronary Artery Disease (CAD), Myocardial Infarction ([place] ) Additional Family Medical History / Comment(s): grandmother,greatgrand mother and grandfather form mi Father History Unknown: Yes Additional Family Medical History / Comment(s): committed suicide General Exam General appearance: alert, in no apparent distress Head exam: Present: atraumatic, normocephalic, normal inspection Eye exam: Present: normal appearance, PERRL, EOMI. Absent: scleral icterus, conjunctival injection, periorbital swelling ENT exam: Present: normal exam, mucous membranes moist Neck exam: Present: normal inspection. Absent: tenderness, meningismus, lymphadenopathy Respiratory exam: Present: normal lung sounds bilaterally. Absent: respiratory distress, wheezes, rales, rhonchi, stridor Cardiovascular Exam: Present: regular rate, normal rhythm, normal heart sounds. Absent: systolic murmur, diastolic murmur, rubs, gallop, clicks GI/Abdominal exam: Present: soft, normal bowel sounds. Absent: distended, tenderness, guarding, rebound, rigid Extremities exam: Present: normal inspection, full ROM, normal capillary refill. Absent: tenderness, pedal edema, joint swelling, calf tenderness Back exam: Present: normal inspection Neurological exam: Present: alert, oriented X3, CN II-XII intact Psychiatric exam: Present: normal affect, normal mood Skin exam: Present: warm, dry, intact, normal color. Absent: rash Course Vital Signs 12/06/17 12/06/17 12/06/17 11:06 11:40 12:34 Temperature 96.9 F L Pulse Rate 108 H 80 Respiratory 20 18 18 Rate Blood Pressure 108/68 140/70 O2 Sat by Pulse 97 97 Oximetry - Reevaluation(s) Reevaluation #1: 12/06/17 12:26 Medical records reviewed Reevaluation #2: 12/06/17 14:03 Patient had episode of altered mental state here in the ER, symptoms after giving Valium. Patient did respond appropriately to stimulation and is now awake and alert Reevaluation #3: 12/06/17 14:03 Spoke with patient regarding findings of CAT scan, patient is aware, family is aware and updated. Questions are answered Reevaluation #4: 12/06/17 14:04 Spoke with on-call here at this hospital, request transfer to [facility], patient does have cardiology at [facility] hospital currently Dr Briseno EKG Findings - EKG Comments: EKG Findings:: EKG shows sinus rhythm rate of 80, AK 1:30, QRS 72, QTc 439 Medical Decision Making - Medical Decision Making 56 female the ER for evaluation of chest and abdominal pain. 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 This is symptomatic. We will transfer patient for vascular surgery and radiology interventional radiology evaluation - Lab Data Result diagrams: 12/06/17 10:30 12/06/17 10:30 Lab Results 12/06/17 12/06/17 12/06/17 Range/Units 10:30 10:30 10:30 WBC 6.8 (3.8-10.6) k/uL RBC 5.14 (3.80-5.40) m/uL Hgb 15.9 (11.4-16.0) gm/dL Hct 48.0 H (34.0-46.0) % MCV 93.3 (80.0-100.0) fL MCH 30.9 (25.0-35.0) pg MCHC 33.1 (31.0-37.0) g/dL RDW 13.1 (11.5-15.5) % Plt Count 102 L (150-450) k/uL Neutrophils % 50 % Lymphocytes % 37 % Monocytes % 9 % Eosinophils % 1 % Basophils % 1 % Neutrophils # 3.4 (1.3-7.7) k/uL Lymphocytes # 2.5 (1.0-4.8) k/uL Monocytes # 0.6 (0-1.0) k/uL Eosinophils # 0.1 (0-0.7) k/uL Basophils # 0.0 (0-0.2) k/uL PT (9.0-12.0) sec INR (<1.2) APTT (22.0-30.0) sec D-Dimer (<0.60) mg/L FEU Sodium 141 (137-145) mmol/L Potassium 4.6 (3.5-5.1) mmol/L Chloride 106 (98-107) mmol/L Carbon Dioxide 23 (22-30) mmol/L Anion Gap 12 mmol/L BUN 20 H (7-17) mg/dL Creatinine 0.87 (0.52-1.04) mg/dL Est GFR (CKD-EPI)AfAm 86 (>60 ml/min/1.73 sqM) Est GFR (CKD-EPI)NonAf 74 (>60 ml/min/1.73 sqM) Glucose 114 H (74-99) mg/dL Calcium 9.7 (8.4-10.2) mg/dL Phosphorus 2.2 L (2.5-4.5) mg/dL Magnesium 2.2 (1.6-2.3) mg/dL Total Bilirubin 1.5 H (0.2-1.3) mg/dL AST 60 H (14-36) U/L ALT 62 H (9-52) U/L Alkaline Phosphatase 90 (38-126) U/L Total Creatine Kinase 58 (30-135) U/L CK-MB (CK-2) 0.5 (0.0-2.4) ng/mL CK-MB (CK-2) Rel Index 0.9 Troponin I 0.028 (0.000-0.034) ng/mL C-Reactive Protein (<10.0) mg/L NT-Pro-B Natriuret Pep pg/mL Total Protein 7.4 (6.3-8.2) g/dL Albumin 4.3 (3.5-5.0) g/dL Lipase (23-300) U/L 12/06/17 12/06/17 12/06/17 Range/Units 10:30 10:30 10:30 WBC (3.8-10.6) k/uL RBC (3.80-5.40) m/uL Hgb (11.4-16.0) gm/dL Hct (34.0-46.0) % MCV (80.0-100.0) fL MCH (25.0-35.0) pg MCHC (31.0-37.0) g/dL RDW (11.5-15.5) % Plt Count (150-450) k/uL Neutrophils % % Lymphocytes % % Monocytes % % Eosinophils % % Basophils % % Neutrophils # (1.3-7.7) k/uL Lymphocytes # (1.0-4.8) k/uL Monocytes # (0-1.0) k/uL Eosinophils # (0-0.7) k/uL Basophils # (0-0.2) k/uL PT 10.4 (9.0-12.0) sec INR 1.1 (<1.2) APTT 22.4 (22.0-30.0) sec D-Dimer 4.96 H (<0.60) mg/L FEU Sodium (137-145) mmol/L Potassium (3.5-5.1) mmol/L Chloride (98-107) mmol/L Carbon Dioxide (22-30) mmol/L Anion Gap mmol/L BUN (7-17) mg/dL Creatinine (0.52-1.04) mg/dL Est GFR (CKD-EPI)AfAm (>60 ml/min/1.73 sqM) Est GFR (CKD-EPI)NonAf (>60 ml/min/1.73 sqM) Glucose (74-99) mg/dL Calcium (8.4-10.2) mg/dL Phosphorus (2.5-4.5) mg/dL Magnesium (1.6-2.3) mg/dL Total Bilirubin (0.2-1.3) mg/dL AST (14-36) U/L ALT (9-52) U/L Alkaline Phosphatase (38-126) U/L Total Creatine Kinase (30-135) U/L CK-MB (CK-2) (0.0-2.4) ng/mL CK-MB (CK-2) Rel Index Troponin I (0.000-0.034) ng/mL C-Reactive Protein <5.0 (<10.0) mg/L NT-Pro-B Natriuret Pep 116 pg/mL Total Protein (6.3-8.2) g/dL Albumin (3.5-5.0) g/dL Lipase 110 (23-300) U/L - Radiology Data Radiology results: report reviewed (Chest x-ray negative CTA chest negative, CT brain negative, CT abdomen pelvis positive for IVC thrombosis), image reviewed Disposition Clinical Impression: Chest pain, Abdominal pain, IVC thrombosis Disposition: OTHER INSTITUTION NOT DEFINED Condition: Fair Referrals: Alexander Clement DO [Primary Care Provider] - 1-2 days - Out of Hospital Transfer - Req. Specs Out of Hospital Transfer - Requested Specifics: Other Emergency Center ([facility])
[2017-12-06 11:16] LABS: Basophils % (A) 1 %; Eosinophils # (A) 0.1 k/uL (0-0.7); Eosinophils % (A) 1 %; HGB 15.9 gm/dL (11.4-16.0); Lymphocytes # (A) 2.5 k/uL (1.0-4.8); Lymphocytes % (A) 37 %; MCH 30.9 pg (25.0-35.0); MCHC 33.1 g/dL (31.0-37.0); MCV 93.3 fL (80.0-100.0); Mean Platelet Volume 7.2; Monocytes # (A) 0.6 k/uL (0-1.0); Monocytes % (A) 9 %; Neutrophils # (A) 3.4 k/uL (1.3-7.7); Neutrophils % (A) 50 %; Platelet Count 102 k/uL (150-450); RBC 5.14 m/uL (3.80-5.40); RDW 13.1 % (11.5-15.5); WBC 6.8 k/uL (3.8-10.6)
[2017-12-06 11:29] LABS: INR 1.1 (<1.2); Prothrombin Time 10.4 sec (9.0-12.0)
[2017-12-06 11:32] LABS: Albumin 4.3 g/dL (3.5-5.0); Calcium 9.7 mg/dL (8.4-10.2); Magnesium 2.2 mg/dL (1.6-2.3); Phosphorus 2.2 mg/dL (2.5-4.5); Total Bilirubin 1.5 mg/dL (0.2-1.3); Total Protein 7.4 g/dL (6.3-8.2)
[2017-12-06 11:34] LABS: D-Dimer 4.96 mg/L FEU (<0.60)
[2017-12-06] MEDS ORDERED: DIAZEPAM 5 MG/ML 2 ML INJ IVP STA (11:34)
[2017-12-06] MEDS ORDERED: PANTOPRAZOLE 40 MG/10 ML VIAL IVP STA (11:34)
[2017-12-06] MEDS ORDERED: DICYCLOMINE 10 MG/ML 2 ML AMP IM STA (11:34)
[2017-12-06] MEDS ORDERED: RX INFO: IV CONTRAST WAS GIVEN 1 EACH MISC MISCELLANE PRN ×2 (11:34→11:45)
[2017-12-06 11:38] LABS: Partial Thromboplastin Time 22.4 sec (22.0-30.0)
--- NOTE | 2017-12-06 11:38 | XR ---
EXAMINATION TYPE: XR chest 2V DATE OF EXAM: 12/06/2017 COMPARISON: 10/16/2016 TECHNIQUE: PA and lateral views submitted. HISTORY: Weakness FINDINGS: The lungs are clear and there is no pneumothorax, pleural effusion, or focal pneumonia. Postsurgica l change overlying the cervical spine. There is a stable appearing mass within the left lower lobe. A rthropathy of the shoulders and hypertrophic and degenerative change of the spine. IMPRESSION: 1. No acute process. 2. Stable left lower lobe pulmonary nodule likely related to granuloma.
[2017-12-06 11:44] LABS: Potassium 4.6 mmol/L (3.5-5.1)
[2017-12-06 11:45] LABS: Creatine Kinase MB 0.5 ng/mL (0.0-2.4); Troponin I 0.028 ng/mL (0.000-0.034)
[2017-12-06] MEDS ORDERED: SODIUM CHLORIDE 0.9% 1,000 ML IV STA (11:46)
[2017-12-06 11:52] LABS: C Reactive Protein <5.0 mg/L (<10.0); Lipase 110 U/L (23-300)
--- NOTE | 2017-12-06 13:00 | CT ---
EXAMINATION TYPE: CT abdomen pelvis w con DATE OF EXAM: 12/06/2017 COMPARISON: NONE HISTORY: 56-year-old female with generalized pain, nausea, diarrhea TECHNIQUE: Contiguous axial scanning of the abdomen and pelvis following administration of 100 ml Omn ipaque 300 IV contrast. Delayed images through the kidneys and coronal/sagittal reconstructions perf ormed. CT DLP: 1821.47 mGycm Automated exposure control for dose reduction was used. FINDINGS: Heart is normal size without pericardial effusion. 1.3 cm calcified granuloma posterior left base and some mild strandy dependent atelectasis. Tiny hiatal hernia. No focal liver lesion or biliary ductal dilatation. Portal venous system is patent The gallbladder measures at the upper limits of normal in size at 3.9 cm wide. Faint dependent calcul i are suggested, axial image 37. No surrounding inflammatory changes. Prominent 8 mm debbie hepatic lymph node axial image 26 and prominent 9 mm left upper para-aortic lymp h node axial image 32. Findings are probably reactive/post inflammatory. Otherwise, no mesenteric or retroperitoneal lymphadenopathy. Mild atherosclerotic calcifications in the abdominal aorta without aneurysm. Adrenal glands, kidneys, spleen, pancreas show no gross abnormality. There is intraluminal filling defect within the IVC extending from the level of the renal veins down to the level of the confluence of the left common iliac artery stenting a total length in the IVC of 12.8 cm and in the left common iliac vein of 7 cm. Refer to coronal image 40 and 48 for some represen tative images. Also, axial image 60 and 41 for some artists' booking representative images. Mild stool burden. No pericolonic inflammatory change. Bladder urine distended. Uterus surgically absent. Both ovaries are visualized and appear unremarkabl e. No abnormal fluid collection in the pelvis. No pelvic lymphadenopathy. Bones: Mild degenerative changes left SI joint. Degenerative disc disease and endplate spondylosis L5 -S1. Additional endplate spondylosis lower thoracic spine. IMPRESSION: 1. 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 2. BORDERLINE HYDROPIC GALLBLADDER WITH SUGGESTION OF CHOLELITHIASIS. THE GALLBLADDER DISTENTION MAY RELATE TO FASTING STATE. IF RIGHT UPPER QUADRANT PAIN OR CONCERN FOR EARLY ACUTE CHOLECYSTITIS, FOLLO W-UP ULTRASOUND OR HIDA SCAN.
--- NOTE | 2017-12-06 13:11 | CT ---
EXAMINATION TYPE: CT angio chest DATE OF EXAM: 12/06/2017 COMPARISON: 10/16/2016 HISTORY: 56-year-old female SOB, elevated d dimer TECHNIQUE: Contiguous axial scanning of the chest performed with IV Contrast, patient injected with 1 00 mL of Omnipaque 300. Coronal/sagittal MIP reconstructions performed. CT DLP: 521.97 mGycm Automated exposure control for dose reduction was used. FINDINGS: Heart normal size without pericardial effusion. Ascending aorta ectatic and 3.8 cm conventional arch vessel branching anatomy. Satisfactory opacification of the pulmonary artery system. There is some respiratory motion artifacts limiting assessment of the lower lobes. No pulmonary embolus seen allowing for this limitation. Mediastinal and hilar lymphadenopathy redemonstrated. Some of these lymph nodes show faint internal c alcifications. In the right superior paratracheal region, this measures 1.2 cm, likely smaller from 1 .4 cm on 10/16/2016, 1.4 cm lower right paratracheal region, stable, 9 mm AP window, stable, 1.3 cm le ft tracheobronchial angle, minimally larger from 1.2 cm on 10/16/2016, 1.6 cm right hilum, stable, and 1.3 cm subcarinal region, slightly smaller from 1.4 cm. Mild diffuse bronchial wall thickening. Some groundglass densities in the lower lobes appear dependen tly located. No simona consolidation. Redemonstrated calcified 1.3 cm posterior left basilar pulmonary nodule suggestive of a calcified gra nuloma. Abdomen reported separately. Bones: Partially visualized ACDF hardware. Mild endplate spondylosis mid to lower thoracic spine. No osseous destructive process. IMPRESSION: 1. SOME RESPIRATORY MOTION ARTIFACTS. NO PULMONARY EMBOLUS SEEN ALLOWING FOR THIS LIMITATION. 2. REDEMONSTRATED MEDIASTINAL AND HILAR LYMPHADENOPATHY MEASURING UP TO 1.6 CM. THESE LYMPH NODES ARE LARGELY STABLE FROM 10/16/2016 AND SHOW VARYING DEGREES OF INTERNAL CALCIFICATION. FINDINGS SUGGEST S EQUELA OF PRIOR GRANULOMATOUS DISEASE INCLUDING PRIOR FUNGAL INFECTION AND SARCOIDOSIS. CLINICALLY CO RRELATE. 3. MILD DIFFUSE BRONCHIAL WALL THICKENING SUGGESTS BRONCHITIS OR ASTHMA. GROUNDGLASS IN THE LOWER LOB ES HAS A DEPENDENT DISTRIBUTION SUGGESTING GENERALIZED ATELECTASIS. DEVELOPING PNEUMONITIS CONSIDERED LESS LIKELY.
--- NOTE | 2017-12-06 13:45 | CT ---
EXAMINATION TYPE: CT brain w con DATE OF EXAM: 12/06/2017 COMPARISON: 06/26/2013 HISTORY: Altered mental changes Contrast: 100 cc of Omnipaque 350 CT DLP: 1017.9 mGycm Automated exposure control for dose reduction was used. CONTRAST: CT scan of the head is performed with IV Contrast, patient injected with 100 mL of Omnipaque 350. FINDINGS: Ventricular system is midline. There is no displacement. There is an area of low attenuation involvin g the left parietal lobe which is stable from the previous compatible with remote ischemia. There is diminished enhancement of the left MCA trifurcation branches. Calvarium intact. Faint low-attenuation within the white matter is nonspecific. No obvious acute intraparenchymal hemorrhage. Assessment for subdural hemorrhage and subarachnoid hem orrhage limited by contrast administration. IMPRESSION: Remote infarct involving the left parietal lobe. There is diminished enhancement of the branches of t he trifurcation of the left MCA. Recommend MRI for further assessment. Nonspecific white matter changes correlate with MRI.
[2017-12-06] MEDS ORDERED: ACETAMINOPHEN IV (For NPO) 1,000 MG in EMPTY BAG 1 BAG IVPB STA (15:07)
--- NOTE | 2017-12-06 16:44 | US ---
EXAMINATION TYPE: US gallbladder DATE OF EXAM: 12/06/2017 COMPARISON: CT same day CLINICAL HISTORY: 56-year-old female Pain. EC patient with severe epigastric pain x 4 months. TECHNIQUE: Multiple sonographic images of the right upper quadrant are obtained. FINDINGS: [employer] notes: Large body habitus Liver Length: 14.2 cm Gallbladder Wall: 0.2 cm; gallbladder length approximately 7.7cm in supine image CBD: 0.4 cm Right Kidney: 9.4 x 4.9 x 5.0 cm Pancreas: The pancreatic head and tail is obscured by shadowing from bowel gas. Liver: Echogenic and attenuating appearance may be artifactual due to patient's large body habitus. F atty infiltration is possible. Gallbladder: multiple shadowing stones. The majority are mobile though when the patient is placed and left lateral decubitus, some stones remain at the gallbladder neck region. Gallbladder is not abnorm ally distended on the present exam and there is no wall thickening. Evidence for sonographic Curtis's sign: Yes CBD: wnl Right Kidney: No hydronephrosis IMPRESSION: Cholelithiasis. There is positive sonographic Curtis sign and on left lateral decubitus, some stones remain at the gallbladder neck region. There is no abnormal distention, wall thickening, or perichole cystic fluid at this time. If concern for early acute cholecystitis, follow-up ultrasound or NICK paredes
[2017-12-06 17:08] VITALS: BP 136/72; PULSE 88; RESP 18; TEMP 98.9
== END 2017-12-06 17:09 | disposition other institution (70) ==
LOC: EC 10:22
DX: I82.220 Acute embolism and thrombosis of inferior vena cava (principal); M79.7 Fibromyalgia; Z86.73 Personal history of transient ischemic attack (TIA), and cerebral infarction without residual deficits; Z82.49 Family history of ischemic heart disease and other diseases of the circulatory system; Z79.899 Other long term (current) drug therapy; Z88.1 Allergy status to other antibiotic agents; Z88.2 Allergy status to sulfonamides; Z88.5 Allergy status to narcotic agent; Z88.6 Allergy status to analgesic agent; Z88.8 Allergy status to other drugs, medicaments and biological substances
CPT/HCPCS: 36415; 93005; 85379; 83880; 80053; 82550; 82553; 83690; 83735; 84100; 84484; 85025; 85610; 85730; 86140; 71046; 76705; 70460; 71275; 74177; 99285; 96374; 96375 ×2; 96361 ×2; 96372; J0500; J3360; Q9967; J0131; C9113

== ENCOUNTER 2017-12-12 08:21 | Observation (INO) | payer OTHER ==
[2017-12-12] MEDS ORDERED: MORPHINE SULFATE/PF 10MG/10ML VL IVP STA (08:58)
[2017-12-12] MEDS ORDERED: SODIUM CHLORIDE 0.9% 1,000 ML IV STA ×2 (08:58)
[2017-12-12] MEDS ORDERED: NITROGLYCERIN OINT 1 INCH/GM PACKET TOPICAL STA (08:58)
[2017-12-12] MEDS ORDERED: PANTOPRAZOLE 40 MG/10 ML VIAL IVP STA (09:04)
[2017-12-12] MEDS ORDERED: ONDANSETRON 4 MG/2 ML VIAL IVP STA (09:04)
[2017-12-12] MEDS ORDERED: fentaNYL (PF) 50 MCG/ML 2 ML AMP IV ONE (09:23)
[2017-12-12 09:26] LABS: Basophils % (A) 1 %; Eosinophils # (A) 0.1 k/uL (0-0.7); Eosinophils % (A) 3 %; HCT 41.8 % (34.0-46.0); HGB 14.6 gm/dL (11.4-16.0); Lymphocytes # (A) 1.5 k/uL (1.0-4.8); Lymphocytes % (A) 34 %; MCHC 34.9 g/dL (31.0-37.0); MCV 91.7 fL (80.0-100.0); Monocytes # (A) 0.3 k/uL (0-1.0); Monocytes % (A) 8 %; Neutrophils # (A) 2.3 k/uL (1.3-7.7); Neutrophils % (A) 52 %; Platelet Count 143 k/uL (150-450); RBC 4.56 m/uL (3.80-5.40); RDW 13.4 % (11.5-15.5); WBC 4.4 k/uL (3.8-10.6)
[2017-12-12 09:34] LABS: ALT 38 U/L (9-52); AST 26 U/L (14-36); Alkaline Phosphatase 101 U/L (38-126); Amylase 88 U/L (30-110); Anion Gap 11 mmol/L; Blood Urea Nitrogen 14 mg/dL (7-17); Calcium 9.7 mg/dL (8.4-10.2); Carbon Dioxide 22 mmol/L (22-30); Chloride 109 mmol/L (98-107); Glucose 99 mg/dL (74-99); Lipase 136 U/L (23-300); Magnesium 1.9 mg/dL (1.6-2.3); Potassium 4.1 mmol/L (3.5-5.1); Sodium 142 mmol/L (137-145); Total Bilirubin 1.3 mg/dL (0.2-1.3); Total Protein 6.8 g/dL (6.3-8.2)
[2017-12-12 09:46] LABS: Creatine Kinase 132 U/L (30-135)
[2017-12-12 09:52] LABS: D-Dimer 2.3 mg/L FEU (<0.60)
--- NOTE | 2017-12-12 09:54 | XR ---
EXAMINATION TYPE: XR chest 2V DATE OF EXAM: 12/12/2017 COMPARISON: Chest x-ray and CTA chest December 06, 2017. Older x-ray back through June 24, 2013. HISTORY: Chest pain. TECHNIQUE: Frontal and lateral views of the chest are obtained. FINDINGS: There is no focal air space opacity, pleural effusion, or pneumothorax seen. The cardiac silhouette size is within normal limits. Atrial septal closure device is redemonstrated seen best on lateral view, somewhat obscured by overlying EKG leads on frontal view. Post surgical change in the l ower cervical spine is redemonstrated. There is stable 1 cm nodule posterior left lower lobe unchange d from [address] consistent with benign etiology. IMPRESSION: No acute cardiopulmonary process.
--- NOTE | 2017-12-12 09:54 | XR ---
Abdomen HISTORY: Pain Frontal view of the abdomen on [address] abdomen pelvis dated 12/06/2017 There is a nodular density at the level of the left heart border measuring 14 mm compatible with left lower lobe granuloma. There is no evident bowel obstruction or pneumoperitoneum. Degenerative disc c hanges are present in the visualized spine, there is a scoliosis. Inferior vena cava filter is presen t. Tip of the filter is at the level of the L1 vertebral body, filter is tilted. IMPRESSION: Nonobstructive bowel gas pattern, follow-up as indicated. Inferior vena cava filter as de scribed, orientation could be due to luminal clot.
[2017-12-12 09:58] LABS: Creatine Kinase MB 0.8 ng/mL (0.0-2.4); Partial Thromboplastin Time 23.7 sec (22.0-30.0); Prothrombin Time 9.8 sec (9.0-12.0); Troponin I <0.012 ng/mL (0.000-0.034)
[2017-12-12 10:37] LABS: Appearance,Urine Clear (Clear); Bilirubin,Urine Negative (Negative); Blood,Urine Trace (Negative); Color,Urine Light Yellow; Glucose,Urine (UA) Negative (Negative); Ketones,Urine Negative (Negative); Leukocyte Esterase,Urine Negative (Negative); Nitrite,Urine Negative (Negative); PH, Urine 6.5 (5.0-8.0); Protein,Urine Negative (Negative); RBC,Urine 1 /hpf (0-5); Specific Gravity,Urine 1.005 (1.001-1.035); Urobilinogen,Urine <2.0 mg/dL (<2.0); WBC,Urine <1 /hpf (0-5)
--- NOTE | 2017-12-12 11:02 | ED ---
Chest Pain HPI - General Chief Complaint: Chest Pain Stated Complaint: chest pain, sob Time Seen by Provider: 12/12/17 08:34 Source: patient Mode of arrival: ambulatory Limitations: no limitations - History of Present Illness Initial Comments: CT edges O female has a history of CVA and TIA and sleep apnea was diagnosed with a pulmonary embolism, she was transferred to the EMS where she was taken care of by Dr. Andi Briseno at [facility], she was diagnosed with the pulmonary embolism she is on aliquots right nail 10 mg by mouth twice a day also complaining about the left upper quadrant area pain she has this pain going on for quite some time she said she had a lot of CAT scans done, chest pain is worse with a deep breaths. Right now she denies any headaches no blurred vision no slurred speech, does have a left upper quadrant pain him a no frequency urgency dysuria no symptoms of TIA or CVA - Related Data Home Medications Medication Instructions Recorded Confirmed Potassium Chloride [Klor-Con 8] 8 meq PO BID 10/16/16 12/12/17 Magnesium Gluconate [Magonate] 500 mg PO DAILY 12/06/17 12/12/17 ALPRAZolam [Xanax] 0.5 mg PO BID PRN 12/12/17 12/12/17 Apixaban [Eliquis] 10 mg PO BID 12/12/17 12/12/17 Folic Acid 0.4 mg PO DAILY 12/12/17 12/12/17 Previous Rx's Medication Instructions Recorded Pregabalin [Lyrica] 75 mg PO BID cap 10/17/16 Allergies Allergy/AdvReac Type Severity Reaction Status Date / Time acetaminophen [From [place]] Allergy Itching Verified 12/12/17 08:55 adhesive tape Allergy Rash/Hives Verified 12/12/17 08:55 celecoxib [From Celebrex] Allergy Unknown Verified 12/12/17 08:55 ciprofloxacin [From Cipro] Allergy Unknown Verified 12/12/17 08:55 hydrocodone [From [place]] Allergy Itching Verified 12/12/17 08:55 Sulfa (Sulfonamide Allergy Unknown Verified 12/12/17 08:55 Antibiotics) morphine AdvReac Nausea Verified 12/12/17 08:55 phenazopyridine AdvReac Unknown Verified 12/12/17 08:55 [From Pyridium] Review of Systems ROS Statement: Those systems with pertinent positive or pertinent negative responses have been documented in the HPI. ROS Other: All systems not noted in ROS Statement are negative. EKG Findings - EKG Comments: EKG Findings:: EKG is normal sinus rhythm ventricular rate is 82 WV interval is 148 QRS duration is 84 QT/QTC 390/460 review of this EKG does not reveal any ST elevation or ST depression Past Medical History Past Medical History: CVA/TIA, Fibromyalgia, Sleep Apnea/CPAP/BIPAP Additional Past Medical History / Comment(s): chronic back pain,"tremors",uti, rt side weaker since stroke and has some short term memory problems/ sarcoidosis , no cpap used, had a hole in heart(sx). 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 History of Any Multi-Drug Resistant Organisms: None Reported Past Surgical History: Back Surgery, Hysterectomy, Tonsillectomy Additional Past Surgical History / Comment(s): deviated septum repaired, zaida cataracts, "hole in heart repaired", Neck surgery 10/01/17 Past Anesthesia/Blood Transfusion Reactions: Postoperative Nausea & Vomiting ( PONV) Past Psychological History: No Psychological Hx Reported Smoking Status: Never smoker Past Alcohol Use History: None Reported Past Drug Use History: None Reported - Past Family History Mother Family Medical History: Coronary Artery Disease (CAD), Myocardial Infarction ([place] ) Additional Family Medical History / Comment(s): grandmother,greatgrand mother and grandfather form mi Father History Unknown: Yes Additional Family Medical History / Comment(s): committed suicide General Exam - General Exam Comments Initial Comments: General: The patient is awake and alert, in no distress, and does not appear acutely ill. Skin: Skin is warm and dry and no rashes or lesions are noted. Eye: Pupils are equal, round and reactive to light, extra-ocular movements are intact; there is normal conjunctiva bilaterally. Ears, nose, mouth and throat: There are moist mucous membranes and no oral lesions. Neck: The neck is supple, there is no tenderness or JVD. Cardiovascular: There is a regular rate and rhythm. No murmur, rub or gallop is appreciated. Respiratory: To auscultation bilateral, no wheezing no rhonchi no distress respiratory fair noticed Gastrointestinal: Tender in epigastric area and left upper quadrant area positive bowel sounds no guarding no rebounds Back: There is no tenderness to palpation in the midline. There is no obvious deformity. Musculoskeletal: Normal ROM, no tenderness, There is no pedal edema. There is no calf tenderness or swelling. No cords were appreciated. Neurological: CN II-XII intact, Cranial nerves III through XII are intact. There are no obvious motor or sensory deficits. Coordination appears grossly intact. Speech is normal. Psychiatric: Cooperative, appropriate mood & affect, normal judgment. Limitations: no limitations Course Vital Signs 12/12/17 12/12/17 12/12/17 08:30 09:36 10:20 Temperature 96.8 F L Pulse Rate 85 80 68 Respiratory 22 20 18 Rate Blood Pressure 152/85 156/95 149/67 O2 Sat by Pulse 98 97 98 Oximetry Sitting or abdominal pain I recommended CT of the abdomen, patient wants to hold off the CT she said she had a lot of computed tomography scan never had any scopes done considering that I will consult to Dr. Galeano/Alvin also spoke with the Dr. Andi Briseno from [facility], he said as far as elevated d-dimer is certain, she is on aliquis 10 mg by mouth twice a day he will see her on Sunday he is opposed to repeating the CT angiogram. I recommended to put her in the hospital for 3 sets of cardiac markers since she presented with the chest pain she agreed with the be admitted to under Dr. Farley's service since Dr. phelan is out-of-town and she will see cardiology Disposition Clinical Impression: Chest pain, Chronic abdominal pain Disposition: ADMITTED IP TO THIS [facility] Condition: Good Referrals: Alexander Clement DO [Primary Care Provider] - 1-2 days
[2017-12-12] MEDS ORDERED: NITROGLYCERIN SL TABS 0.4 MG TAB SUBLINGUAL PRN (11:46)
[2017-12-12] MEDS ORDERED: APIXABAN 5 MG TAB PO STA (12:16)
[2017-12-12 15:11] VITALS: BMI 35.6
[2017-12-12 15:15] LABS: Creatine Kinase 91 U/L (30-135)
[2017-12-12 15:28] LABS: Creatine Kinase MB 0.5 ng/mL (0.0-2.4); Troponin I <0.012 ng/mL (0.000-0.034)
--- NOTE | 2017-12-12 16:14 | P.HPIM ---
History of Present Illness 57-year-old female was recently diagnosed with pulmonary embolism extensive DVT extending from the right lower limb, involving the the inferior vena cava came in with compensative chest pain which never completely resolved and also abdominal pain which is chronic. Chest pain is precordial precordial nonexertional with some pleuritic competent, not associated with food patient was a had a stress test and extensive cardiac evaluation multiple cardiac surgeries along with closure of PFO. Patient extensively evaluated with abdominal CAT scans in the past patient is complaining of diffuse mostly in the left upper quadrant abdominal pain which is chronic /. Pain which is better now patient denied any cough runny nose fever chills. Patient denied any diarrhea nausea vomiting Review of Systems REVIEW OF SYSTEMS: CONSTITUTIONAL: No fever, no malaise, no fatigue. HEENT: No recent visual problems or hearing problems. Denied any sore throat. CARDIOVASCULAR: No orthopnea, PND, no palpitations, no syncope. PULMONARY: No shortness of breath, no cough, no hemoptysis. GASTROINTESTINAL: No diarrhea, no nausea, no vomiting, NEUROLOGICAL: No headaches, no weakness, no numbness. HEMATOLOGICAL: Denies any bleeding or petechiae. GENITOURINARY: Denies any burning micturition, frequency, or urgency. MUSCULOSKELETAL/RHEUMATOLOGICAL: Denies any joint pain, swelling, or any muscle pain. ENDOCRINE: Denies any polyuria or polydipsia. The rest of the 14-point review of systems is negative. Past Medical History Past Medical History: CVA/TIA, Fibromyalgia, GERD/Reflux, Memory Impairment, Sleep Apnea/CPAP/BIPAP Additional Past Medical History / Comment(s): 12/06/17 Pt transferred from [facility] ER to [facility] for a "large blood clot in my abdomin"-IVC thrombosis- had surgery/ discharged 12/09/17. Other hx: 2013 CVA x 2 with some R arm/R leg weakness and dysphasia when tired and some short term memory impairment, "hole in my heart" with surgical repair, chronic L upper abdominal pain for 2 yrs and has had cat scans/Hida scan which didn't show cause, numbness/tingling bilateral feet, TATUM without device at this time but did use Cpap in the past, R eye glaucoma with surgery, low back pain, past tremors, History of Any Multi-Drug Resistant Organisms: None Reported Past Surgical History: Adenoidectomy, Back Surgery, Hysterectomy, Tonsillectomy Additional Past Surgical History / Comment(s): 12/06/17 R groin access and IVC blood clot "broken up.", 09/2017 cervical fusion, lumbar surgery, [place], "hole in heart" repaired at [facility], deviated septum sx, bilateral cataract removal/lens, R eye laser sx for glaucoma, colonoscopy-normal,. Past Anesthesia/Blood Transfusion Reactions: Postoperative Nausea & Vomiting ( PONV) Past Psychological History: Anxiety Additional Psychological History / Comment(s): Pt resides with her spouse of 36yrs. She uses no assistive device. She has not driven in 3 months d/t health reasons but normally, did drive. Smoking Status: Never smoker Past Alcohol Use History: None Reported Past Drug Use History: None Reported - Past Family History Mother Family Medical History: Coronary Artery Disease (CAD), Myocardial Infarction ([place] ) Additional Family Medical History / Comment(s): grandmother,greatgrand mother and grandfather form mi Father History Unknown: Yes Additional Family Medical History / Comment(s): committed suicide Brother(s) Family Medical History: Coronary Artery Disease (CAD), Myocardial Infarction ([place] ) Additional Family Medical History / Comment(s): Brother at 59yrs from [place]/ cardiac arrest. Medications and Allergies Home Medications Medication Instructions Recorded Confirmed Type Potassium Chloride [Klor-Con 8] 8 meq PO BID 10/16/16 12/12/17 History Pregabalin [Lyrica] 75 mg PO BID cap 10/17/16 12/12/17 Rx Magnesium Gluconate [Magonate] 500 mg PO DAILY 12/06/17 12/12/17 History ALPRAZolam [Xanax] 0.5 mg PO BID PRN 12/12/17 12/12/17 History Apixaban [Eliquis] 10 mg PO BID 12/12/17 12/12/17 History Folic Acid 0.4 mg PO DAILY 12/12/17 12/12/17 History Allergies Allergy/AdvReac Type Severity Reaction Status Date / Time acetaminophen [From [place]] Allergy Itching Verified 12/12/17 08:55 adhesive tape Allergy Rash/Hives Verified 12/12/17 08:55 celecoxib [From Celebrex] Allergy Unknown Verified 03/21/18 08:55 ciprofloxacin [From Cipro] Allergy Unknown Verified 12/12/17 08:55 hydrocodone [From [place]] Allergy Itching Verified 12/12/17 08:55 Sulfa (Sulfonamide Allergy Unknown Verified 12/12/17 08:55 Antibiotics) morphine AdvReac Nausea Verified 12/12/17 08:55 phenazopyridine AdvReac Unknown Verified 12/12/17 08:55 [From Pyridium] Physical Exam Vitals: Vital Signs Temp Pulse Pulse Resp BP BP Pulse Ox 12/12/17 13:58 97.5 F L 64 90/51 96 12/12/17 12:58 97.9 F 69 18 125/76 98 12/12/17 11:48 68 18 126/82 97 12/12/17 10:20 68 18 149/67 98 12/12/17 09:36 80 20 156/95 97 12/12/17 08:30 96.8 F L 85 22 152/85 98 Intake and Output 12/12/17 12/12/17 12/12/17 06:59 14:59 22:59 Other: Weight 103.2 kg 103.2 kg PHYSICAL EXAMINATION: GENERAL: The patient is alert and oriented x3, not in any acute distress. Well developed, well nourished. HEENT: Pupils are round and equally reacting to light. EOMI. No scleral icterus. No conjunctival pallor. Normocephalic, atraumatic. No pharyngeal erythema. No thyromegaly. CARDIOVASCULAR: S1 and S2 present. No murmurs, rubs, or gallops. PULMONARY: Chest is clear to auscultation, no wheezing or crackles. ABDOMEN: Soft, nontender, nondistended, normoactive bowel sounds. No palpable organomegaly. MUSCULOSKELETAL: No joint swelling or deformity. EXTREMITIES: No cyanosis, clubbing, or pedal edema. NEUROLOGICAL: Gross neurological examination did not reveal any focal deficits. SKIN: No rashes. Results CBC & Chem 7: 12/12/17 08:30 12/12/17 08:30 Labs: Abnormal Lab Results - Last 24 Hours (Table) 12/12/17 12/12/17 12/12/17 Range/Units 08:30 08:30 08:30 Plt Count 143 L (150-450) k/uL D-Dimer 2.30 H (<0.60) mg/L FEU Chloride 109 H (98-107) mmol/L Urine Blood (Negative) 12/12/17 Range/Units 10:16 Plt Count (150-450) k/uL D-Dimer (<0.60) mg/L FEU Chloride (98-107) mmol/L Urine Blood Trace H (Negative) Thrombosis Risk Factor Assmnt - Choose All That Apply Any of the Below Risk Factors Present?: Yes Each Factor Represents 1 point: Acute CA, Age 41-60 years Other Risk Factors: Yes Each Risk Factor Represents 3 Points: History of DVT/PE Other congenital or acquired thrombophilia - If yes, enter type in comment: No Thrombosis Risk Factor Assessment Total Risk Factor Score: 5 Thrombosis Risk Factor Assessment Level: High Risk Assessment and Plan Plan: -Chest pain probably related to the previous pulmonary embolism patient is already on anticoagulation which will be continued. We will rule out acute coronary syndromes repeat 2 more sets of troponins if they're negative patient will be monitored overnight possibility of discharge tomorrow. -Abdominal pain underwent extensive evaluation etiology is unclear may be related to IVC clot for which patient underwent the intralesional thrombolytic therapy. -CVA/TIA in the past -Fibromyalgia Sleep apnea: Patient will be continued on continued on CPAP machine
[2017-12-12] MEDS ORDERED: traMADol 50 MG TAB PO PRN (16:42)
--- NOTE | 2017-12-12 19:00 | CONS ---
CONSULTATION This is a 57-year-old lady who has a history of migraine headaches and had a PFO closure performed by Dr. Aung Briseno in 2012. She was complaining of some abdominal discomfort and apparently came to [facility] about a week ago and was found to have a pulmonary embolism based on a chest CT angiography on 12/06/2017. At that time, no clear-cut pulmonary embolism was seen and the study was somewhat limited. Apparently, she was then transferred to [facility] at her request. The patient and her explained to me that after transfer to [facility], she was found to have a thrombus in the inferior vena cava extending from the left common iliac vein and she was then transferred from here to [facility] and underwent an ultrasound procedure to perform thrombolysis of the venous thrombus. Apparently this was performed at [facility] by Dr. Briseno. Since then, she has been discharged home, but presents here with complaints of having some abdominal discomfort and also chest discomfort. Her D-dimer is elevated, but this may be related to the clot that was seen about 6 days ago. She does not have any chest discomfort to suggest angina. Her EKG is normal. She is resting comfortably. She is now on Eliquis 10 mg b.i.d. She also apparently has a question of aortic stenosis as well which seems to be mild to moderate. She is being followed noninvasively for this. PAST MEDICAL HISTORY: 1. Recently, about a week ago she had an inferior vena cava thrombus and was transferred to [facility] for an ultrasound procedure to thrombolyse the venous clot. 2. History of mild to moderate aortic stenosis. 3. History of an unremarkable dobutamine echo about a year ago. 4. She also has some chronic pain syndrome and takes Lyrica as well. MEDICATIONS: At home include: 1. Folic acid. 2. Xanax. 3. Lyrica. 4. Potassium 8 mEq daily. 5. Magnesium supplements and. 6. Eliquis 10 mg b.i.d. for her recent IVC thrombus/DVT. LABORATORY DATA: Here suggests that her initial troponin is normal. There are no other significant abnormalities except D-dimer, which is understandably high because of a recent thrombus. EXAMINATION: Blood pressure is 124/70, pulse rate is 70 per minute, regular. HEENT: Unremarkable. Fundus was not examined by me. NECK: Supple. No JVD. I do not hear a carotid bruit. There is no thyromegaly. Heart reveals S1, S2 heard normally. There is an ejection systolic murmur at the base of the heart. Second heart sound is well preserved. Lungs are clear. Abdomen is soft. There is some mild tenderness. Bowel sounds are normal. Lower extremities reveal palpable pulses. No edema. Central nervous system is normal. EKG revealed a sinus mechanism with Q-waves in inferior leads and also poor R-wave progression. Lead placement may be inaccurate. IMPRESSION: 1. Abdominal pain with a recent inferior vena cava thrombus, status post lysis with ultrasound. 2. History of mild to moderate aortic stenosis, clinically appears mild. 3. Chronic pain syndrome. 4. No evidence to suggest ongoing acute myocardial ischemia. 5. This patient also underwent a patent foramen ovale closure in 2012, details unavailable. RECOMMENDATION: I am recommending that we perform an echocardiogram, serial troponins and based on clinical course, I will make further recommendations. The patient is already on Eliquis. No further anticoagulation is necessary. I discussed my thoughts in detail with the patient and her . Thank you very much for the consult. MMODL / IJN: [id number] /
[2017-12-12 19:39] VITALS: RESP 16
[2017-12-12] MEDS ORDERED: APIXABAN 5 MG TAB PO SCH (21:00)
[2017-12-12 21:06] LABS: Creatine Kinase 83 U/L (30-135)
[2017-12-12 21:20] LABS: Creatine Kinase MB 0.3 ng/mL (0.0-2.4); Troponin I <0.012 ng/mL (0.000-0.034)
[2017-12-12] MEDS: ALPRAZolam 0.5 MG TAB PO PRN (21:23)
[2017-12-12] MEDS: PREGABALIN 75 MG CAP PO SCH (21:23)
[2017-12-12] MEDS: POTASSIUM CHLORIDE ER 10 MEQ TAB.ER.PRT PO SCH (21:24)
[2017-12-13 02:37] LABS: Cholesterol 185 mg/dL (<200); HDL Cholesterol 44 mg/dL (40-60); LDL Cholesterol,Calculated 110 mg/dL (0-99); Triglycerides 153 mg/dL (<150)
[2017-12-13] MEDS ORDERED: APIXABAN 5 MG TAB PO SCH (09:30)
--- NOTE | 2017-12-13 10:36 | ECHOF ---
Referral Reason:chest pain MEASUREMENTS -------- HEIGHT: 170.2 cm WEIGHT: 103.0 kg BP: 125/76 RVIDd: 2.8 cm (< 3.3) IVSd: 1.2 cm (0.6 - 1.1) LVIDd: 4.5 cm (3.9 - 5.3) LVPWd: 1.2 cm (0.6 - 1.1) IVSs: 1.6 cm LVIDs: 3.2 cm LVPWs: 1.8 cm LA Diam: 3.4 cm (2.7 - 3.8) LAESV Index (A-L): 16.23 ml/m Ao Diam: 3.6 cm (2.0 - 3.7) AV Cusp: 2.1 cm (1.5 - 2.6) EPSS: 1.2 cm MV E Emiliano: 0.85 m/s MV DecT: 219 ms MV A Emiliano: 1.12 m/s MV E/A Ratio: 0.76 AV maxP.79 mmHg AV meanP.43 mmHg MV EF SLOPE: 35.77 mm/s (70 - 150) MV EXCURSION: 0.66 cm (> 18.000) FINDINGS -------- Sinus rhythm. This was a technically adequate study. The left ventricular size is normal. There is borderline concentric left ventricular hypertrophy. Overall left ventricular systolic function is normal with, an EF between 55 - 60 %. The right ventricle is normal in size and function. Normal LA size by volume 22+/-6 ml/m2. The right atrium is normal in size. Aortic valve is trileaflet and is moderately thickened. There is mild aortic stenosis present. Pe ak/mean gradient across the Aortic Valve is 28.79mmHg / 16.43mmHg. The mitral valve leaflets are mildly thickened. Mild mitral annular calcification present. There is trace to mild mitral regurgitation. The tricuspid valve appears structurally normal. There is no pulmonic regurgitation present. The aortic root size is normal. IVC Not well visulized. There is no pericardial effusion. CONCLUSIONS -------- 1. Sinus rhythm. 2. This was a technically adequate study. 3. The left ventricular size is normal. 4. There is borderline concentric left ventricular hypertrophy. 5. Overall left ventricular systolic function is normal with, an EF between 55 - 60 %. 6. The right ventricle is normal in size and function. 7. Normal LA size by volume 22+/-6 ml/m2. 8. The right atrium is normal in size. 9. Aortic valve is trileaflet and is moderately thickened. 10. There is mild aortic stenosis present. 11. Peak/mean gradient across the Aortic Valve is 28.79mmHg / 16.43mmHg. 12. The mitral valve leaflets are mildly thickened. 13. Mild mitral annular calcification present. 14. There is trace to mild mitral regurgitation. 15. The tricuspid valve appears structurally normal. 16. There is no pulmonic regurgitation present. 17. The aortic root size is normal. 18. IVC Not well visulized. 19. There is no pericardial effusion. HAND DECORATOR: MEGAN Park
[2017-12-13] MEDS: PREGABALIN 75 MG CAP PO SCH (11:14)
[2017-12-13] MEDS: POTASSIUM CHLORIDE ER 10 MEQ TAB.ER.PRT PO SCH (11:15)
--- NOTE | 2017-12-13 11:38 | P.CONS ---
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 CT abdomen and pelvis 1 week ago confirmed thrombosis. Consult requested for abdominal pain. Patient states she's had chronic abdominal pain for at least 2 years duration mostly in the mid epigastric upper abdominal region ranging down to the left side. Last colonoscopy at least 5 years ago maybe longer. No recent EGD. No history of alcoholism. No history of gastric surgeries. Denies changes in bowel habits. No weight loss. Denies some emesis analgesia melena. Hemoglobin 14.63 white count 4.4. Platelet 143. INR 1.0. Total bilirubin transaminases within normal limits. Ultrasound abdomen one week ago reported cholelithiasis. CBD 0.4 cm. Review of Systems Constitutional: Denies fever, chills, sweats, weight gain, or loss. HEENT: Memory impairment. Negative for migraines, blurred vision or loss, earaches, drainage, tinnitus, oral mucosal lesions, dysphagia, or odynophagia. CARDIAC: Negative for chest pain, arrhythmias, or palpitation. RESPIRATORY: Sleep apnea. Negative for shortness of breath, hemoptysis, cough, or sputum production. GI: See HPI for pertinent findings. : Negative for hematuria, urgency, frequency, polyuria, or dysuria. GYNc: Negative vaginal discharge. MUSCULOSKELETAL: Fibromyalgia. Negative for muscle aches, swelling, arthritis, and arthralgias. NEUROLOGIC: CVA/TIA.. ENDOCRINE: Negative for thyroid problems. SKIN: Negative for rash or itching. PSYCHIATRIC: Negative history for depression and anxiety Past Medical History Past Medical History: CVA/TIA, Fibromyalgia, GERD/Reflux, Memory Impairment, Sleep Apnea/CPAP/BIPAP Additional Past Medical History / Comment(s): 12/06/17 Pt transferred from [facility] ER to [facility] for a "large blood clot in my abdomin"-IVC thrombosis- had surgery/ discharged 12/09/17. Other hx: 2013 CVA x 2 with some R arm/R leg weakness and dysphasia when tired and some short term memory impairment, "hole in my heart" with surgical repair, chronic L upper abdominal pain for 2 yrs and has had cat scans/Hida scan which didn't show cause, numbness/tingling bilateral feet, TATUM without device at this time but did use Cpap in the past, R eye glaucoma with surgery, low back pain, past tremors, History of Any Multi-Drug Resistant Organisms: None Reported Past Surgical History: Adenoidectomy, Back Surgery, Hysterectomy, Tonsillectomy Additional Past Surgical History / Comment(s): 12/06/17 R groin access and IVC blood clot "broken up.", 09/2017 cervical fusion, lumbar surgery, [place], "hole in heart" repaired at [facility], deviated septum sx, bilateral cataract removal/lens, R eye laser sx for glaucoma, colonoscopy-normal,. Past Anesthesia/Blood Transfusion Reactions: Postoperative Nausea & Vomiting ( PONV) Past Psychological History: Anxiety Additional Psychological History / Comment(s): Pt resides with her spouse of 36yrs. She uses no assistive device. She has not driven in 3 months d/t health reasons but normally, did drive. Smoking Status: Never smoker Past Alcohol Use History: None Reported Past Drug Use History: None Reported - Past Family History Mother Family Medical History: Coronary Artery Disease (CAD), Myocardial Infarction ([place] ) Additional Family Medical History / Comment(s): grandmother,greatgrand mother and grandfather form mi Father History Unknown: Yes Additional Family Medical History / Comment(s): committed suicide Brother(s) Family Medical History: Coronary Artery Disease (CAD), Myocardial Infarction ([place] ) Additional Family Medical History / Comment(s): Brother at 59yrs from [place]/ cardiac arrest. Medications and Allergies Home Medications Medication Instructions Recorded Confirmed Type Potassium Chloride [Klor-Con 8] 8 meq PO BID 10/16/16 12/12/17 History Pregabalin [Lyrica] 75 mg PO BID cap 10/17/16 12/12/17 Rx Magnesium Gluconate [Magonate] 500 mg PO DAILY 12/06/17 12/12/17 History ALPRAZolam [Xanax] 0.5 mg PO BID PRN 12/12/17 12/12/17 History Apixaban [Eliquis] 10 mg PO BID 12/12/17 12/12/17 History Folic Acid 0.4 mg PO DAILY 12/12/17 12/12/17 History Allergies Allergy/AdvReac Type Severity Reaction Status Date / Time acetaminophen [From [place]] Allergy Itching Verified 12/12/17 08:55 adhesive tape Allergy Rash/Hives Verified 12/12/17 08:55 celecoxib [From Celebrex] Allergy Unknown Verified 12/12/17 08:55 ciprofloxacin [From Cipro] Allergy Unknown Verified 12/12/17 08:55 hydrocodone [From [place]] Allergy Itching Verified 12/12/17 08:55 Sulfa (Sulfonamide Allergy Unknown Verified 12/12/17 08:55 Antibiotics) morphine AdvReac Nausea Verified 12/12/17 08:55 phenazopyridine AdvReac Unknown Verified 12/12/17 08:55 [From Pyridium] Physical Exam Vitals: Vital Signs Temp Pulse Pulse Resp BP BP Pulse Ox 12/13/17 08:00 16 12/13/17 07:58 98 F 71 16 89/51 93 L 12/13/17 04:00 97.8 F 63 16 111/63 96 12/12/17 23:32 98.6 F 67 16 99/52 95 12/12/17 20:00 75 16 12/12/17 19:38 98.6 F 75 16 128/58 94 L 12/12/17 13:58 97.5 F L 64 90/51 96 12/12/17 12:58 97.9 F 69 18 125/76 98 12/12/17 11:48 68 18 126/82 97 Intake and Output 12/12/17 12/13/17 12/13/17 22:59 06:59 14:59 Intake Total 240 Balance 240 Intake: Oral 240 Other: Voiding Method Toilet Toilet Weight 103.2 kg General appearance: The patient is alert, oriented, in no acute distress. HET: Head is normocephalic and atraumatic. Pupils are equal and reactive. Oropharynx is clear without lesions. Neck: Supple without lymphadenopathy. Trachea midline. Heart: S1 S2. Regular rate and rhythm. Lungs: No crackles or wheezes are heard. Abdomen: Soft, mild tenderness to left midabdomen and right upper quadrant, nondistended with bowel sounds. No peritoneal signs. No palpable organomegaly or masses. Extremities: Normal skin color and turgor. No cyanosis, rash, ulceration, clubbing, or edema. Radial and pedal pulses are 2/4 bilaterally. Neurological: No focal deficits. Strength and sensation are grossly intact. Results CBC & Chem 7: 12/12/17 08:30 12/12/17 08:30 Labs: Abnormal Lab Results - Last 24 Hours (Table) 12/12/17 Range/Units 08:30 Triglycerides 153 H (<150) mg/dL LDL Cholesterol, Calc 110 H (0-99) mg/dL CT scan - abdomen: report reviewed (Dr. Shah) US - abdomen: report reviewed (Dr. Shah) Assessment and Plan (1) Chronic abdominal pain Narrative/Plan: 57-year-old female admitted with acute on chronic abdominal pain 2 years duration with recent left common iliac thrombosis requiring IVC and anticoagulation at outside facility one week ago. Current Visit: Yes Status: Acute Code(s): R10.9 - UNSPECIFIED ABDOMINAL PAIN ; G89.29 - OTHER CHRONIC PAIN SNOMED Code(s): 370178291 (2) Cholelithiasis Current Visit: Yes Status: Acute Code(s): K80.20 - CALCULUS OF GALLBLADDER W /O CHOLECYSTITIS W/O OBSTRUCTION SNOMED Code(s): 421879471 (3) IVC thrombosis Current Visit: No Status: Acute Code(s): I82.220 - ACUTE EMBOLISM AND THROMBOSIS OF INFERIOR VENA CAVA SNOMED Code(s): 253674622 Plan: 1. Recommend outpatient EGD colonoscopy for evaluation of chronic abdominal pain once she is reevaluated by her surgeon at [facility] next week. Patient will need clearance from primary as well as from her specialist at the [facility] discontinuing her anticoagulation prior to endoscopic exams. Return to office in 2-3 weeks for reevaluation and discussion of outpatient endoscopic exams. Discharge per medicine. Thank you for this kind referral and the opportunity to participate in the care of your patient. This consultation was discussed with Dr. Shah. The impression and plan of care have been directed as dictated.
--- NOTE | 2017-12-13 11:43 | PN ---
PROGRESS NOTE This is a 57-year-old lady who was admitted yesterday with atypical chest pain and also abdominal pain. Her abdominal pain has improved. Chest pain has resolved completely. Troponins are normal. About a week ago, she had an inferior vena cava clot which was addressed by ultrasound lysis by Dr. Briseno at [facility] about a week or so ago. She has multiple areas of bruising all over. She is resting comfortably without symptoms. She also has aortic stenosis, which I believe is mild clinically. Her blood pressure is 110/70, pulse rate is 70 per minute. There is no JVD or carotid bruit. There is a short systolic murmur at the base with preserved second heart sound. Lungs are clear. Abdomen and lower extremity exam is unchanged. Echo revealed a mean gradient of less than 20 mmHg across the aortic valve with normal LV function and right ventricle is also normal. IMPRESSION: 1. 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 2. Atypical chest pain with normal troponins. 3. Status post patent foramen ovale closure in 2013. No recent issues. Apparently coronary angiography was normal at that time per patient and . 4. Abdominal discomfort, which seems to have improved. RECOMMENDATION: I am recommending that patient can be discharged today with a reduced dose of Eliquis at 5 mg b.i.d. I am also suggesting that she should not have any intervention for the aortic valve, which she keeps on telling me that she is going to have an intervention performed. I explained to her the stenosis is mild and she should not have any intervention at this time as she is also asymptomatic from the aortic stenosis standpoint. She will follow up with her aspnet developer and primary care physician, both of whom are out of town. From a cardiac standpoint, no other specific intervention is necessary at this time. MMODL / IJN: [id number] /
[2017-12-13 11:53] VITALS: BP 129/67; PULSE 86; TEMP 98.2
[2017-12-13] MEDS ORDERED: MAGNESIUM OXIDE 400 MG TAB PO SCH (12:00)
[2017-12-13] MEDS ORDERED: FOLIC ACID 1 MG TAB PO SCH (12:00)
[2017-12-13] MEDS: ALPRAZolam 0.5 MG TAB PO PRN (12:57)
--- NOTE | 2017-12-14 06:49 | DS ---
DISCHARGE SUMMARY DATE OF ADMISSION: 12/12/17 DATE OF DISCHARGE: 12/13/17. FINAL DIAGNOSES: 1. Anterior chest wall pain probably musculoskeletal. 2. Recent inferior vena cava thrombus for which patient is on Eliquis. 3. [place] filter. 4. Obesity, BMI 35.6. 5. Chronic fibromyalgia. 6. Gastroesophageal reflux disease. HOSPITAL COURSE: This patient was very recently at [facility] and by Dr. Briseno underwent clot removal of the inferior vena cava though some of it was still there she informs me. She was put on Eliquis and did get a [place] filter. She is due to see him on Sunday. The patient has had some chest pain on and off for a long time and she said per Dr. Briseno she is supposed to have a possibly intervention to the aortic valve, but a 2- D echocardiogram done here did not show any significant aortic valve disease. I discussed this with Dr. Varun Miles from cardiology who okayed the patient to be discharged. The patient has also had chronic abdominal pain which is now worse when she came in. Seen by Dr. Shah's team. Will do an outpatient endoscopy on the patient. Otherwise, patient is feeling back to her baseline. EXAMINATION: LUNGS: Fair entry. ABDOMEN: Soft, minimal tenderness. PSYCH: Alert and oriented x3. CONSULTATION: 1. Dr. Shah from GI. 2. Dr. Varun Miles from Cardiology. DC MEDICATIONS: 1. Potassium 80 mEq b.i.d. 2. Lyrica 75 mg b.i.d. 3. Magnesium 500 mg p.o. daily. 4. Xanax 0.5 mg p.o. b.i.d. 5. Eliquis to continue. 6. Folic acid 0.4 mg daily. The patient is due to see Dr. Briseno in 2 days. FOLLOWUP: Follow up with Dr. Shah on 12/27/17. Follow Dr. Clement in 3 days. Discussion and discharge planning more than 35 minutes. MMODL / IJN: [id number] /
== END 2017-12-13 13:25 | disposition home or self-care (01) ==
LOC: EC 08:21 → 3OBS 11:46
PROVIDERS: ADMIT Hospitalist; ATTEND Hospitalist
DX: R07.89 Other chest pain (principal); I82.220 Acute embolism and thrombosis of inferior vena cava; Z95.828 Presence of other vascular implants and grafts; M79.7 Fibromyalgia; K21.9 Gastro-esophageal reflux disease without esophagitis; G47.33 Obstructive sleep apnea (adult) (pediatric); I35.0 Nonrheumatic aortic (valve) stenosis; G89.4 Chronic pain syndrome; R10.12 Left upper quadrant pain; K80.20 Calculus of gallbladder without cholecystitis without obstruction; E66.9 Obesity, unspecified; Z68.35 Body mass index [BMI] 35.0-35.9, adult; I69.359 Hemiplegia and hemiparesis following cerebral infarction affecting unspecified side; I69.321 Dysphasia following cerebral infarction; I69.311 Memory deficit following cerebral infarction; F41.9 Anxiety disorder, unspecified; Z79.01 Long term (current) use of anticoagulants; Z79.899 Other long term (current) drug therapy; Z88.6 Allergy status to analgesic agent; Z88.1 Allergy status to other antibiotic agents; Z88.5 Allergy status to narcotic agent; Z88.2 Allergy status to sulfonamides; Z88.8 Allergy status to other drugs, medicaments and biological substances; Z91.048 Other nonmedicinal substance allergy status; Z87.74 Personal history of (corrected) congenital malformations of heart and circulatory system; Z86.711 Personal history of pulmonary embolism; Z86.718 Personal history of other venous thrombosis and embolism; Z82.49 Family history of ischemic heart disease and other diseases of the circulatory system; Z81.8 Family history of other mental and behavioral disorders
CPT/HCPCS: 99285 ×2; 96374 ×2; 96375 ×3; 96361 ×7; 36415; 93005; 93306; 85379; 80061; 80053; 82150; 82550; 82553; 83605; 83690; 83735; 84484; 85025; 85610; 85730; 81001; 71046; 74018; G0378 ×2; J2405; J3010; C9113

== ENCOUNTER 2018-01-07 01:59 | Emergency (ER) | payer OTHER ==
[2018-01-07] MEDS ORDERED: MORPHINE SULFATE 4MG/4ML SYRG IVP STA ×2 (02:42→04:47)
[2018-01-07] MEDS ORDERED: SODIUM CHLORIDE 0.9% 500 ML IV STA (02:42)
[2018-01-07] MEDS ORDERED: ONDANSETRON 4 MG/2 ML VIAL IVP STA (02:42)
--- NOTE | 2018-01-07 03:01 | XR ---
EXAMINATION TYPE: XR KUB DATE OF EXAM: 01/07/2018 COMPARISON: 12/12/2017 HISTORY: Abdominal pain TECHNIQUE: 2 views FINDINGS: There is no sign of intestinal obstruction or pneumoperitoneum. Fecal pattern is normal. Astrid ng bases are clear. There is inferior vena cava filter noted. I see no pathologic calcifications over the kidneys. IMPRESSION: Nonacute abdomen. No change.
[2018-01-07 03:26] LABS: Basophils % (A) 1 %; Eosinophils # (A) 0.1 k/uL (0-0.7); Eosinophils % (A) 3 %; HCT 42.9 % (34.0-46.0); HGB 15.3 gm/dL (11.4-16.0); Lymphocytes % (A) 42 %; MCH 32.3 pg (25.0-35.0); MCHC 35.6 g/dL (31.0-37.0); MCV 90.7 fL (80.0-100.0); Monocytes # (A) 0.4 k/uL (0-1.0); Monocytes % (A) 9 %; Neutrophils % (A) 42 %; Platelet Count 106 k/uL (150-450); RBC 4.73 m/uL (3.80-5.40); WBC 4.7 k/uL (3.8-10.6)
[2018-01-07 03:29] LABS: Appearance,Urine Clear (Clear); Bacteria,Urine Rare /hpf; Bilirubin,Urine Negative (Negative); Blood,Urine Small (Negative); Color,Urine Yellow; Glucose,Urine (UA) Negative (Negative); Ketones,Urine Negative (Negative); Leukocyte Esterase,Urine Trace (Negative); Mucus,Urine Rare /hpf; Nitrite,Urine Negative (Negative); Protein,Urine Negative (Negative); RBC,Urine 1 /hpf (0-5); Specific Gravity,Urine 1.017 (1.001-1.035); Squamous Epithelial Cell,Urine 6 /hpf (0-4); Urobilinogen,Urine <2.0 mg/dL (<2.0); WBC,Urine 5 /hpf (0-5)
[2018-01-07 03:31] LABS: ALT 26 U/L (9-52); AST 26 U/L (14-36); Albumin 3.6 g/dL (3.5-5.0); Alkaline Phosphatase 85 U/L (38-126); Amylase 85 U/L (30-110); Anion Gap 11 mmol/L; Blood Urea Nitrogen 17 mg/dL (7-17); Calcium 9.6 mg/dL (8.4-10.2); Carbon Dioxide 25 mmol/L (22-30); Chloride 106 mmol/L (98-107); Glucose 97 mg/dL (74-99); Lipase 93 U/L (23-300); Potassium 3.8 mmol/L (3.5-5.1); Sodium 142 mmol/L (137-145); Total Bilirubin 0.6 mg/dL (0.2-1.3); Total Protein 6.4 g/dL (6.3-8.2)
[2018-01-07] MEDS ORDERED: RX INFO: IV CONTRAST WAS GIVEN 1 EACH MISC MISCELLANE PRN (04:00)
--- NOTE | 2018-01-07 04:15 | ED ---
Abdominal Pain HPI - General Chief Complaint: Abdominal Pain Stated Complaint: ABD PAIN Time Seen by Provider: 01/07/18 02:15 Source: patient Mode of arrival: ambulatory Limitations: no limitations - History of Present Illness Initial Comments: 57-year-old female patient presents to the emergency department today for complaints of severe right upper quadrant abdominal pain that radiates into her right flank. Patient states this pain started at around 11:30 this evening. States that she does have issues with abdominal pain however this is worse than usual. Patient reports that she was seen here and transferred to [facility] for a blood clot her abdomen. Patient states that at that visit her pain was generalized and this is more located to the right upper quadrant. Patient states she is nauseated but has not vomited. She denies any fever or chills. She denies any constipation or diarrhea. Patient denies any hematemesis, hematochezia, or melena. She denies any hematuria, dysuria, urinary frequency, urinary urgency. Patient denies any recent rash, shortness breath, chest pain, numbness, tingling, dizziness, weakness, hematuria, dysuria, urinary urgency, urinary frequency, headache, visual changes, or any other complaints. - Related Data Home Medications Medication Instructions Recorded Confirmed Potassium Chloride [Klor-Con 8] 8 meq PO BID 10/16/16 12/12/17 Magnesium Gluconate [Magonate] 500 mg PO DAILY 12/06/17 12/12/17 ALPRAZolam [Xanax] 0.5 mg PO BID PRN 12/12/17 12/12/17 Apixaban [Eliquis] 10 mg PO BID 12/12/17 12/12/17 Folic Acid 0.4 mg PO DAILY 12/12/17 12/12/17 Previous Rx's Medication Instructions Recorded Pregabalin [Lyrica] 75 mg PO BID cap 10/17/16 Allergies Allergy/AdvReac Type Severity Reaction Status Date / Time adhesive tape Allergy Rash/Hives Verified 01/07/18 02:09 celecoxib [From Celebrex] Allergy Unknown Verified 01/07/18 02:09 ciprofloxacin [From Cipro] Allergy Unknown Verified 01/07/18 02:09 Sulfa (Sulfonamide Allergy Unknown Verified 01/07/18 02:09 Antibiotics) morphine AdvReac Nausea Verified 01/07/18 02:09 phenazopyridine AdvReac Unknown Verified 01/07/18 02:09 [From Pyridium] Review of Systems ROS Statement: Those systems with pertinent positive or pertinent negative responses have been documented in the HPI. ROS Other: All systems not noted in ROS Statement are negative. Past Medical History Past Medical History: CVA/TIA, Fibromyalgia, GERD/Reflux, Memory Impairment, Sleep Apnea/CPAP/BIPAP Additional Past Medical History / Comment(s): 12/06/17 Pt transferred from [facility] ER to [facility] for a "large blood clot in my abdomin"-IVC thrombosis- had surgery/ discharged 12/09/17. Other hx: 2013 CVA x 2 with some R arm/R leg weakness and dysphasia when tired and some short term memory impairment, "hole in my heart" with surgical repair, chronic L upper abdominal pain for 2 yrs and has had cat scans/Hida scan which didn't show cause, numbness/tingling bilateral feet, TATUM without device at this time but did use Cpap in the past, R eye glaucoma with surgery, low back pain, past tremors, History of Any Multi-Drug Resistant Organisms: None Reported Past Surgical History: Adenoidectomy, Back Surgery, Hysterectomy, Tonsillectomy Additional Past Surgical History / Comment(s): 12/06/17 R groin access and IVC blood clot "broken up.", 09/2017 cervical fusion, lumbar surgery, [place], "hole in heart" repaired at [facility], deviated septum sx, bilateral cataract removal/lens, R eye laser sx for glaucoma, colonoscopy-normal,. Past Anesthesia/Blood Transfusion Reactions: Postoperative Nausea & Vomiting ( PONV) Past Psychological History: Anxiety Smoking Status: Never smoker Past Alcohol Use History: None Reported Past Drug Use History: None Reported - Past Family History Mother Family Medical History: Coronary Artery Disease (CAD), Myocardial Infarction ([place] ) Additional Family Medical History / Comment(s): grandmother,greatgrand mother and grandfather form mi Father History Unknown: Yes Additional Family Medical History / Comment(s): committed suicide Brother(s) Family Medical History: Coronary Artery Disease (CAD), Myocardial Infarction ([place] ) Additional Family Medical History / Comment(s): Brother at 59yrs from [place]/ cardiac arrest. General Exam Limitations: no limitations General appearance: alert, in no apparent distress, other (This is a well- developed, obese female patient in mild distress related to pain. Vital signs upon presentation are 297.0F, pulse 80, respirations 18, blood pressure 122/89 , pulse ox 97% on room air.) Eye exam: Present: normal appearance, PERRL, EOMI. Absent: scleral icterus, conjunctival injection, periorbital swelling ENT exam: Present: normal exam, normal oropharynx, mucous membranes moist Respiratory exam: Present: normal lung sounds bilaterally. Absent: respiratory distress, wheezes, rales, rhonchi, stridor Cardiovascular Exam: Present: regular rate, normal rhythm, normal heart sounds. Absent: systolic murmur, diastolic murmur, rubs, gallop, clicks GI/Abdominal exam: Present: soft, tenderness (Tenderness over the left lower quadrant, right upper quadrant, and right lower quadrant.), normal bowel sounds. Absent: distended, guarding, rebound, rigid Back exam: Present: normal inspection. Absent: CVA tenderness (R), CVA tenderness (L) Neurological exam: Present: alert, oriented X3, CN II-XII intact Psychiatric exam: Present: normal affect, normal mood Skin exam: Present: warm, dry, intact, normal color. Absent: rash Course Vital Signs 01/07/18 01/07/18 01/07/18 02:06 03:24 04:34 Temperature 97.0 F L 98.0 F 98.3 F Pulse Rate 80 68 76 Respiratory 18 16 18 Rate Blood Pressure 122/89 163/63 137/85 O2 Sat by Pulse 97 97 99 Oximetry Medical Decision Making - Medical Decision Making 57-year-old female patient presents to emergency department today for evaluation of right upper quadrant abdominal pain. Physical examination did reveal some generalized abdominal tenderness. Labs reviewed and are unremarkable. Urinalysis did show trace blood. CT of the abdomen and pelvis with contrast was obtained and showed no acute intra-abdominal process however did show an enlarged gallbladder which was consistent with her previous scan in November. Patient is feeling mildly improved. We did offer admission for further evaluation however patient requests to be discharged as she does have doctor's appointment this week that she cannot miss. Patient is seeing Dr. Shah outpatient, she is instructed to follow-up with him as soon as possible. She is instructed to follow-up with her primary care physician for recheck in 1-2 days. Return parameters discussed in detail. She verbalizes understanding and agrees this plan. - Lab Data Result diagrams: 01/07/18 03:04 01/07/18 03:04 Lab Results 01/07/18 01/07/18 01/07/18 Range/Units 03:04 03:04 03:04 WBC 4.7 (3.8-10.6) k/uL RBC 4.73 (3.80-5.40) m/uL Hgb 15.3 (11.4-16.0) gm/dL Hct 42.9 (34.0-46.0) % MCV 90.7 (80.0-100.0) fL MCH 32.3 (25.0-35.0) pg MCHC 35.6 (31.0-37.0) g/dL RDW 13.0 (11.5-15.5) % Plt Count 106 L (150-450) k/uL Neutrophils % 42 % Lymphocytes % 42 % Monocytes % 9 % Eosinophils % 3 % Basophils % 1 % Neutrophils # 2.0 (1.3-7.7) k/uL Lymphocytes # 2.0 (1.0-4.8) k/uL Monocytes # 0.4 (0-1.0) k/uL Eosinophils # 0.1 (0-0.7) k/uL Basophils # 0.0 (0-0.2) k/uL Sodium 142 (137-145) mmol/L Potassium 3.8 (3.5-5.1) mmol/L Chloride 106 (98-107) mmol/L Carbon Dioxide 25 (22-30) mmol/L Anion Gap 11 mmol/L BUN 17 (7-17) mg/dL Creatinine 0.80 (0.52-1.04) mg/dL Est GFR (CKD-EPI)AfAm >90 (>60 ml/min/1.73 sqM) Est GFR (CKD-EPI)NonAf 82 (>60 ml/min/1.73 sqM) Glucose 97 (74-99) mg/dL Plasma Lactic Acid Lee (0.7-2.0) mmol/L Calcium 9.6 (8.4-10.2) mg/dL Total Bilirubin 0.6 (0.2-1.3) mg/dL AST 26 (14-36) U/L ALT 26 (9-52) U/L Alkaline Phosphatase 85 (38-126) U/L Total Protein 6.4 (6.3-8.2) g/dL Albumin 3.6 (3.5-5.0) g/dL Amylase 85 (30-110) U/L Lipase 93 (23-300) U/L Urine Color Yellow Urine Appearance Clear (Clear) Urine pH 5.0 (5.0-8.0) Ur Specific [place] 1.017 (1.001-1.035) Urine Protein Negative (Negative) Urine Glucose (UA) Negative (Negative) Urine Ketones Negative (Negative) Urine Blood Small H (Negative) Urine Nitrite Negative (Negative) Urine Bilirubin Negative (Negative) Urine Urobilinogen <2.0 (<2.0) mg/dL Ur Leukocyte Esterase Trace H (Negative) Urine RBC 1 (0-5) /hpf Urine WBC 5 (0-5) /hpf Urine WBC Clumps Rare H (None) /hpf Ur Squamous Epith Cells 6 H (0-4) /hpf Urine Bacteria Rare H (None) /hpf Urine Mucus Rare H (None) /hpf // Range/Units 03:04 WBC (3.8-10.6) k/uL RBC (3.80-5.40) m/uL Hgb (11.4-16.0) gm/dL Hct (34.0-46.0) % MCV (80.0-100.0) fL MCH (25.0-35.0) pg MCHC (31.0-37.0) g/dL RDW (11.5-15.5) % Plt Count (150-450) k/uL Neutrophils % % Lymphocytes % % Monocytes % % Eosinophils % % Basophils % % Neutrophils # (1.3-7.7) k/uL Lymphocytes # (1.0-4.8) k/uL Monocytes # (0-1.0) k/uL Eosinophils # (0-0.7) k/uL Basophils # (0-0.2) k/uL Sodium (137-145) mmol/L Potassium (3.5-5.1) mmol/L Chloride (98-107) mmol/L Carbon Dioxide (22-30) mmol/L Anion Gap mmol/L BUN (7-17) mg/dL Creatinine (0.52-1.04) mg/dL Est GFR (CKD-EPI)AfAm (>60 ml/min/1.73 sqM) Est GFR (CKD-EPI)NonAf (>60 ml/min/1.73 sqM) Glucose (74-99) mg/dL Plasma Lactic Acid Lee 1.3 (0.7-2.0) mmol/L Calcium (8.4-10.2) mg/dL Total Bilirubin (0.2-1.3) mg/dL AST (14-36) U/L ALT (9-52) U/L Alkaline Phosphatase (38-126) U/L Total Protein (6.3-8.2) g/dL Albumin (3.5-5.0) g/dL Amylase (30-110) U/L Lipase (23-300) U/L Urine Color Urine Appearance (Clear) Urine pH (5.0-8.0) Ur Specific [place] (1.001-1.035) Urine Protein (Negative) Urine Glucose (UA) (Negative) Urine Ketones (Negative) Urine Blood (Negative) Urine Nitrite (Negative) Urine Bilirubin (Negative) Urine Urobilinogen (<2.0) mg/dL Ur Leukocyte Esterase (Negative) Urine RBC (0-5) /hpf Urine WBC (0-5) /hpf Urine WBC Clumps (None) /hpf Ur Squamous Epith Cells (0-4) /hpf Urine Bacteria (None) /hpf Urine Mucus (None) /hpf - Radiology Data Radiology results: report reviewed, image reviewed 2 views of the abdomen showed no sign of intestinal obstruction or pneumoperitoneum. Fecal pattern is normal. Lung bases are clear. There is inferior vena cava filter noted. I see no pathologic calcifications over the kidneys. Impression by Dr. Hargrove shows nonacute abdomen. No change. CT of the abdomen and pelvis with contrast was obtained. Report was reviewed in its entirety. Impression by Dr. Hargrove shows borderline enlarged gallbladder similar to last exam. No dilated ducts. No evidence of appendicitis. Disposition Clinical Impression: Abdominal pain Disposition: HOME SELF-CARE Condition: Good Instructions: Abdominal Pain (ED) Additional Instructions: Take home pain medications as directed. Call Dr. Shah for an appointment in the morning. Follow-up with your primary care physician for recheck in 1-2 days. Return here immediately for any new, worsening, or concerning symptoms. Referrals: Alexander Clement DO [Primary Care Provider] - 1-2 days Time of Disposition: 05:07
[2018-01-07 04:36] VITALS: BP 137/85; PULSE 76; RESP 18; TEMP 98.3
--- NOTE | 2018-01-07 04:37 | CT ---
EXAMINATION TYPE: CT abdomen pelvis w con DATE OF EXAM: 01/07/2018 COMPARISON: 12/06/2017 HISTORY: Right flank pain CT DLP: 1692.50 mGycm Automated exposure control for dose reduction was used. TECHNIQUE: Helical acquisition of images was performed from the lung bases through the pelvis. CONTRAST: Performed without Oral Contrast and with IV Contrast, patient injected with 100 mL of Isovue 300. FINDINGS: There is a 1 cm calcified granuloma in the left lower lobe. There is mild subsegmental atelectasis at the lung bases. Liver and spleen appear normal. Bile ducts are not dilated. There is inferior vena cava filter noted. There is no sign of a pancreatic mass. There is no retroperitoneal adenopathy. There is no ascites. There is no adrenal mass. Kidneys show satisfactory contrast opacification. There is no hydronephrosi s. Abdominal aorta is atheromatous. Enlarged gallbladder. No dilated ducts. This is of uncertain sign ificance. Appendix is not seen. There is no sign of appendicitis. Bladder distends smoothly. There is a small amount of air in the urinary bladder. There is no sign of a pelvic mass. Gallbladder measures 4.2 cm in diameter. There is no sign of free air. Spondylotic ch josee in the lumbar spine with narrowing at L5-S1 disc. No fracture seen. IMPRESSION: THERE IS BORDERLINE ENLARGED GALLBLADDER SIMILAR TO LAST EXAM. NO DILATED DUCTS. There is a small amount of air in the urinary bladder that could relate to catheterization. This is n ew compared to last exam.
== END 2018-01-07 05:24 | disposition home or self-care (01) ==
LOC: EC 01:59
DX: R10.11 Right upper quadrant pain (principal); R11.0 Nausea; G47.30 Sleep apnea, unspecified; Z99.89 Dependence on other enabling machines and devices; Z86.73 Personal history of transient ischemic attack (TIA), and cerebral infarction without residual deficits; Z79.01 Long term (current) use of anticoagulants; Z91.048 Other nonmedicinal substance allergy status; Z88.6 Allergy status to analgesic agent; Z88.1 Allergy status to other antibiotic agents; Z88.2 Allergy status to sulfonamides; Z88.5 Allergy status to narcotic agent; Z88.8 Allergy status to other drugs, medicaments and biological substances
CPT/HCPCS: 99285; 96374; 96375; 96376; 36415; 80053; 82150; 83605; 83690; 85025; 81001; 74018; 74177; J2405; Q9967; J2270

== ENCOUNTER 2018-01-14 13:01 | Day surgery (SDC) | payer OTHER ==
[2018-01-10 09:15] VITALS: BMI 35.5
[~2018-01-14 13:01] MED LIST: LACTATED RINGERS 1,000 ML IV SCH; LIDOCAINE 1% 20 ML VIAL (10MG/ML) FOR IV START INTRADERMA PRN; MIDAZOLAM 2 MG/2 ML VIAL IV PRN
[2018-01-14 13:46] VITALS: TEMP 97.7
[2018-01-14] MEDS ORDERED: LIDOCAINE 1% INJ 10MG/ML (20 ML MDV) ONE (14:11)
[2018-01-14] MEDS ORDERED: PROPOFOL 10 MG/ML 20 ML VIAL IV ONE (14:11)
[2018-01-14 14:52] VITALS: RESP 18
--- NOTE | 2018-01-14 15:00 | P.PCN ---
Date of Procedure: 01/14/18 Procedure(s) Performed: Procedure: 1. Esophagogastroduodenoscopy and biopsy. 2. Colonoscopy and polypectomy. Preoperative diagnosis: Epigastric pain and history of reflux with recent change in bowel habits. Postoperative diagnosis: 1. Sliding hiatal hernia with low-grade esophagitis butno strictures or Barth's esophagus. 2. Mild gastritis. 3. Colonoscopy reveals sigmoid diverticulosis and small splenic flexure polyp which was snared but no large polyps or cancer or other pathology. 4. Biopsies obtained from the duodenum, antrum, esophagus. Preparation HalfLytely prep. Sedation: Was provided by anesthesia. Brief clinical history: The patient is a 57-year-old female with chronic reflux symptoms and intermittent epigastric pains that have been worse since August. More recently she has been complaining of a sensation. This evaluation is to assess for complicated reflux disease colon neoplasia or other pathology. Procedure: With the patient on her left lateral decubitus position and after informed consent and adequate sedation, I passed the Olympus-GIF 160 video upper endoscope through the cricopharyngeus down the esophagus. GE junction was around 36 cm from the incisors and there was a 1-2 cm sliding hiatal hernia and low-grade distal esophagitis with a short linear erosion terminating at the level of the GE junction. There were no strictures or Barth's esophagus. The endoscope was then passed into the stomach which was insufflated with air and inspected in detail including the retroflex view in the cardia. There was mottling and erythema in the antrum but no ulcers or erosions. Pyloric channel , duodenal bulb, post bulbar area and descending duodenum appeared within normal limits. I obtained biopsies from the duodenum, antrum and esophagus then the endoscope was withdrawn and I proceeded with the colonoscopy. Perianal area did not show any fissures or fistulas. There were no masses felt on digital rectal examination. The Olympus CFQ 160L video colonoscope was then inserted in the rectum in the usual fashion and advanced to the cecum. There was a small polyp around the splenic flexure which was snared and retrieved by suction and there was sigmoid diverticular disease noted with no evidence of acute diverticulitis or strictures. I retroflexed the endoscope in the rectum before the endoscope was withdrawn. The patient tolerated the procedure well. Plan: I summarized the findings to the patient. Will await pathology results and make additional recommendations. We will keep you updated on her progress. I anticipate repeating her colonoscopy in 5 years.
[2018-01-14 15:08] VITALS: BP 122/88; PULSE 84
== END 2018-01-14 15:23 | disposition home or self-care (01) ==
LOC: ORWHC2ENDO 13:01
DX: K29.50 Unspecified chronic gastritis without bleeding (principal); K31.89 Other diseases of stomach and duodenum; K21.0 Gastro-esophageal reflux disease with esophagitis; K22.10 Ulcer of esophagus without bleeding; D12.3 Benign neoplasm of transverse colon; K44.9 Diaphragmatic hernia without obstruction or gangrene; K57.30 Diverticulosis of large intestine without perforation or abscess without bleeding; M79.7 Fibromyalgia; G47.33 Obstructive sleep apnea (adult) (pediatric); I69.351 Hemiplegia and hemiparesis following cerebral infarction affecting right dominant side; Z99.89 Dependence on other enabling machines and devices; Z79.01 Long term (current) use of anticoagulants; Z79.891 Long term (current) use of opiate analgesic; Z79.82 Long term (current) use of aspirin; Z79.899 Other long term (current) drug therapy; Z88.1 Allergy status to other antibiotic agents; Z88.5 Allergy status to narcotic agent; Z88.8 Allergy status to other drugs, medicaments and biological substances; Z88.2 Allergy status to sulfonamides; Z91.048 Other nonmedicinal substance allergy status
CPT/HCPCS: 45385; 43239; J2250; J2001; J2704; 88305; 88312

== ENCOUNTER 2018-01-15 10:14 | Observation (INO) | payer OTHER ==
--- NOTE | 2018-01-15 10:32 | ED ---
General Adult HPI - General Chief complaint: Chest Pain Stated complaint: CHEST PAIN Time Seen by Provider: 01/15/18 10:17 Source: EMS, RN notes reviewed, old records reviewed Mode of arrival: EMS Limitations: no limitations - History of Present Illness Initial comments: This is a 49-year-old female to the ER for evaluation of mental status, chest pain. Abdominal pain. Multiple complaints. Patient's brought in by is concerned of patient's mental status. Patient not acting appropriately ever since getting anesthesia yesterday. Patient herself is able to answer questions but is slow to respond, complains of abdominal pain which he she is still being evaluated for outpatient basis. - Related Data Home Medications Medication Instructions Recorded Confirmed Potassium Chloride [Klor-Con 8] 8 meq PO BID 10/16/16 01/15/18 ALPRAZolam [Xanax] 0.25 mg PO BID PRN 12/12/17 01/15/18 Apixaban [Eliquis] 5 mg PO BID 12/12/17 01/15/18 Folic Acid 0.4 mg PO DAILY 12/12/17 01/15/18 Amitriptyline HCl [Elavil] 25 mg PO HS 01/10/18 01/15/18 Aspirin [Adult Low Dose Aspirin EC] 81 mg PO DAILY 01/10/18 01/15/18 HYDROmorphone [Dilaudid] 1 - 2 mg PO Q8H PRN 01/10/18 01/15/18 Omeprazole [PriLOSEC] 20 mg PO AC-BID PRN 01/10/18 01/15/18 Magnesium Glycinate 450mg 450 mg PO DAILY 01/15/18 01/15/18 Pregabalin [Lyrica] 50 mg PO DAILY 01/15/18 01/15/18 Allergies Allergy/AdvReac Type Severity Reaction Status Date / Time adhesive tape Allergy Rash/Hives Verified 01/15/18 10:50 celecoxib [From Celebrex] Allergy Unknown Verified 01/15/18 10:50 ciprofloxacin [From Cipro] Allergy Unknown Verified 01/15/18 10:50 Sulfa (Sulfonamide Allergy Unknown Verified 01/15/18 10:50 Antibiotics) morphine AdvReac Vomiting Verified 01/15/18 10:50 phenazopyridine AdvReac Unknown Verified 01/15/18 10:50 [From Pyridium] Review of Systems ROS Statement: Those systems with pertinent positive or pertinent negative responses have been documented in the HPI. ROS Other: All systems not noted in ROS Statement are negative. 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 PFO, "hole in my heart" with surgical repair. chronic L upper abdominal pain for 2 yrs ON/OFF, THEN CONTINUOUS SINCE 08/2017. TATUM W/ NO TX CURRENTLY. HX R eye glaucoma. low back pain. past tremors. SHORTNESS OF BREATH. History of Any Multi-Drug Resistant Organisms: None Reported Past Surgical History: Adenoidectomy, Back Surgery, Hysterectomy, Tonsillectomy Additional Past Surgical History / Comment(s): 12/06/17 R groin access and IVC blood clot "broken up.", 09/2017 cervical fusion, lumbar surgery, [place], PFO "hole in heart" repaired [place] [facility] [place], deviated septum sx, bilateral cataract removal/lens, R eye laser sx for glaucoma, colonoscopy-normal. NEEDLE BIOPSY LUNG 01/09/18. Past Anesthesia/Blood Transfusion Reactions: Postoperative Nausea & Vomiting ( PONV) Past Psychological History: Anxiety Smoking Status: Never smoker Past Alcohol Use History: None Reported Past Drug Use History: None Reported - Past Family History Mother Family Medical History: Coronary Artery Disease (CAD), Myocardial Infarction (MT ) Additional Family Medical History / Comment(s): grandmother,greatgrand mother and grandfather form [place] Father History Unknown: Yes Additional Family Medical History / Comment(s): committed suicide Brother(s) Family Medical History: Coronary Artery Disease (CAD), Myocardial Infarction (MT ) Additional Family Medical History / Comment(s): Brother at 59yrs from [place]/ cardiac arrest. General Exam Limitations: altered mental status General appearance: alert, in no apparent distress Head exam: Present: atraumatic, normocephalic, normal inspection Eye exam: Present: normal appearance, PERRL, EOMI. Absent: scleral icterus, conjunctival injection, periorbital swelling ENT exam: Present: normal exam, mucous membranes moist Neck exam: Present: normal inspection. Absent: tenderness, meningismus, lymphadenopathy Respiratory exam: Present: normal lung sounds bilaterally. Absent: respiratory distress, wheezes, rales, rhonchi, stridor Cardiovascular Exam: Present: regular rate, normal rhythm, normal heart sounds. Absent: systolic murmur, diastolic murmur, rubs, gallop, clicks GI/Abdominal exam: Present: soft, normal bowel sounds. Absent: distended, tenderness, guarding, rebound, rigid Extremities exam: Present: normal inspection, full ROM, normal capillary refill. Absent: tenderness, pedal edema, joint swelling, calf tenderness Back exam: Present: normal inspection Neurological exam: Present: alert, oriented X3, CN II-XII intact Psychiatric exam: Present: normal affect, normal mood Skin exam: Present: warm, dry, intact, normal color. Absent: rash Course Vital Signs 01/15/18 01/15/18 01/15/18 10:16 10:21 11:21 Temperature 98.5 F Pulse Rate 83 90 Respiratory 16 16 Rate Blood Pressure 117/71 130/70 O2 Sat by Pulse 93 L 98 Oximetry 01/15/18 12:24 Temperature Pulse Rate 88 Respiratory 16 Rate Blood Pressure 131/99 O2 Sat by Pulse 98 Oximetry - Reevaluation(s) Reevaluation #1: 01/15/18 14:13 Patient with no significant improvement in mental status Reevaluation #2: 01/15/18 14:13 Patient's medical history and prior hospitalizations are reviewed EKG Findings - EKG Comments: EKG Findings:: EKG shows normal sinus rhythm rate of 90, ND 164, QRS 78, QTc was 452 Medical Decision Making - Medical Decision Making 49 female the ER for evaluation, acting appropriately, still respond, decreased mental state, complaining of chest pain. Patient difficult to get history, did have anesthesia yesterday with upper and lower GI, complex recent medical history. Patient will be admitted for monitoring of mental status - Lab Data Result diagrams: 01/15/18 10:25 01/15/18 10:25 Lab Results 01/15/18 01/15/18 01/15/18 Range/Units 10:25 10:25 10:25 WBC 4.7 (3.8-10.6) k/uL RBC 4.87 (3.80-5.40) m/uL Hgb 14.8 (11.4-16.0) gm/dL Hct 44.6 (34.0-46.0) % MCV 91.6 (80.0-100.0) fL MCH 30.4 (25.0-35.0) pg MCHC 33.1 (31.0-37.0) g/dL RDW 13.1 (11.5-15.5) % Plt Count 118 L (150-450) k/uL Neutrophils % 55 % Lymphocytes % 32 % Monocytes % 8 % Eosinophils % 3 % Basophils % 0 % Neutrophils # 2.6 (1.3-7.7) k/uL Lymphocytes # 1.5 (1.0-4.8) k/uL Monocytes # 0.4 (0-1.0) k/uL Eosinophils # 0.1 (0-0.7) k/uL Basophils # 0.0 (0-0.2) k/uL PT (9.0-12.0) sec INR (<1.2) APTT (22.0-30.0) sec Sodium 144 (137-145) mmol/L Potassium 4.0 (3.5-5.1) mmol/L Chloride 107 (98-107) mmol/L Carbon Dioxide 23 (22-30) mmol/L Anion Gap 14 mmol/L BUN 15 (7-17) mg/dL Creatinine 0.87 (0.52-1.04) mg/dL Est GFR (CKD-EPI)AfAm 85 (>60 ml/min/1.73 sqM) Est GFR (CKD-EPI)NonAf 74 (>60 ml/min/1.73 sqM) Glucose 101 H (74-99) mg/dL Calcium 9.1 (8.4-10.2) mg/dL Magnesium 1.9 (1.6-2.3) mg/dL Total Bilirubin 1.7 H (0.2-1.3) mg/dL AST 21 (14-36) U/L ALT 26 (9-52) U/L Alkaline Phosphatase 75 (38-126) U/L Total Creatine Kinase 41 (30-135) U/L CK-MB (CK-2) 0.5 (0.0-2.4) ng/mL CK-MB (CK-2) Rel Index 1.2 Troponin I <0.012 (0.000-0.034) ng/mL Total Protein 6.1 L (6.3-8.2) g/dL Albumin 3.8 (3.5-5.0) g/dL Lipase 97 (23-300) U/L Urine Color Urine Appearance (Clear) Urine pH (5.0-8.0) Ur Specific [place] (1.001-1.035) Urine Protein (Negative) Urine Glucose (UA) (Negative) Urine Ketones (Negative) Urine Blood (Negative) Urine Nitrite (Negative) Urine Bilirubin (Negative) Urine Urobilinogen (<2.0) mg/dL Ur Leukocyte Esterase (Negative) Urine RBC (0-5) /hpf Urine WBC (0-5) /hpf Ur Squamous Epith Cells (0-4) /hpf Urine Mucus (None) /hpf Influenza Type A RNA (Not Detectd) Influenza Type B (PCR) (Not Detectd) 01/15/18 01/15/18 01/15/18 Range/Units 10:25 11:30 12:20 WBC (3.8-10.6) k/uL RBC (3.80-5.40) m/uL Hgb (11.4-16.0) gm/dL Hct (34.0-46.0) % MCV (80.0-100.0) fL MCH (25.0-35.0) pg MCHC (31.0-37.0) g/dL RDW (11.5-15.5) % Plt Count (150-450) k/uL Neutrophils % % Lymphocytes % % Monocytes % % Eosinophils % % Basophils % % Neutrophils # (1.3-7.7) k/uL Lymphocytes # (1.0-4.8) k/uL Monocytes # (0-1.0) k/uL Eosinophils # (0-0.7) k/uL Basophils # (0-0.2) k/uL PT 10.5 (9.0-12.0) sec INR 1.1 (<1.2) APTT 22.8 (22.0-30.0) sec Sodium (137-145) mmol/L Potassium (3.5-5.1) mmol/L Chloride (98-107) mmol/L Carbon Dioxide (22-30) mmol/L Anion Gap mmol/L BUN (7-17) mg/dL Creatinine (0.52-1.04) mg/dL Est GFR (CKD-EPI)AfAm (>60 ml/min/1.73 sqM) Est GFR (CKD-EPI)NonAf (>60 ml/min/1.73 sqM) Glucose (74-99) mg/dL Calcium (8.4-10.2) mg/dL Magnesium (1.6-2.3) mg/dL Total Bilirubin (0.2-1.3) mg/dL AST (14-36) U/L ALT (9-52) U/L Alkaline Phosphatase (38-126) U/L Total Creatine Kinase (30-135) U/L CK-MB (CK-2) (0.0-2.4) ng/mL CK-MB (CK-2) Rel Index Troponin I (0.000-0.034) ng/mL Total Protein (6.3-8.2) g/dL Albumin (3.5-5.0) g/dL Lipase (23-300) U/L Urine Color Yellow Urine Appearance Clear (Clear) Urine pH 5.5 (5.0-8.0) Ur Specific [place] 1.020 (1.001-1.035) Urine Protein Negative (Negative) Urine Glucose (UA) Negative (Negative) Urine Ketones 1+ H (Negative) Urine Blood Small H (Negative) Urine Nitrite Negative (Negative) Urine Bilirubin Negative (Negative) Urine Urobilinogen <2.0 (<2.0) mg/dL Ur Leukocyte Esterase Trace H (Negative) Urine RBC 3 (0-5) /hpf Urine WBC 1 (0-5) /hpf Ur Squamous Epith Cells 3 (0-4) /hpf Urine Mucus Rare H (None) /hpf Influenza Type A RNA Not Detected (Not Detectd) Influenza Type B (PCR) Not Detected (Not Detectd) - Radiology Data Radiology results: report reviewed (Chest x-rays negative for acute disease), image reviewed Disposition Clinical Impression: Abdominal pain, Atypical chest pain, Altered mental state, Delirium Disposition: ADMITTED IP TO THIS [facility] Condition: Fair Is patient prescribed a controlled substance at d/c from ED?: No Referrals: Alexander Clement DO [Primary Care Provider] - 1-2 days
[2018-01-15 10:34] LABS: Basophils % (A) 0 %; Eosinophils # (A) 0.1 k/uL (0-0.7); Eosinophils % (A) 3 %; HCT 44.6 % (34.0-46.0); HGB 14.8 gm/dL (11.4-16.0); Lymphocytes # (A) 1.5 k/uL (1.0-4.8); Lymphocytes % (A) 32 %; MCH 30.4 pg (25.0-35.0); MCHC 33.1 g/dL (31.0-37.0); MCV 91.6 fL (80.0-100.0); Mean Platelet Volume 7.1; Monocytes # (A) 0.4 k/uL (0-1.0); Monocytes % (A) 8 %; Neutrophils # (A) 2.6 k/uL (1.3-7.7); Neutrophils % (A) 55 %; Platelet Count 118 k/uL (150-450); RBC 4.87 m/uL (3.80-5.40); RDW 13.1 % (11.5-15.5); WBC 4.7 k/uL (3.8-10.6)
[2018-01-15 10:44] LABS: INR 1.1 (<1.2); Partial Thromboplastin Time 22.8 sec (22.0-30.0); Prothrombin Time 10.5 sec (9.0-12.0)
[2018-01-15 10:45] LABS: Albumin 3.8 g/dL (3.5-5.0); Calcium 9.1 mg/dL (8.4-10.2); Magnesium 1.9 mg/dL (1.6-2.3); Total Bilirubin 1.7 mg/dL (0.2-1.3); Total Protein 6.1 g/dL (6.3-8.2)
--- NOTE | 2018-01-15 10:53 | XR ---
EXAMINATION TYPE: XR chest 2V DATE OF EXAM: 01/15/2018 COMPARISON: 12/12/2017 HISTORY: Chest Pain TECHNIQUE: Frontal and lateral views of the chest are obtained. FINDINGS: Scattered senescent parenchymal changes noted. Chronic nodule left lower lobe. No evidence for infiltrate. No evidence for atelectasis. Heart size is stable. Mediastinal structures are stable and grossly unremarkable. No evidence for hilar prominence. Degenerative changes dorsal spine. IMPRESSION: 1. No evidence for acute pulmonary disease.
[2018-01-15 11:17] LABS: Creatine Kinase 41 U/L (30-135)
[2018-01-15 11:29] LABS: Creatine Kinase MB 0.5 ng/mL (0.0-2.4); Troponin I <0.012 ng/mL (0.000-0.034)
[2018-01-15 12:35] LABS: Appearance,Urine Clear (Clear); Bilirubin,Urine Negative (Negative); Blood,Urine Small (Negative); Color,Urine Yellow; Glucose,Urine (UA) Negative (Negative); Ketones,Urine 1+ (Negative); Leukocyte Esterase,Urine Trace (Negative); Mucus,Urine Rare /hpf; Nitrite,Urine Negative (Negative); PH, Urine 5.5 (5.0-8.0); Protein,Urine Negative (Negative); RBC,Urine 3 /hpf (0-5); Squamous Epithelial Cell,Urine 3 /hpf (0-4); Urobilinogen,Urine <2.0 mg/dL (<2.0); WBC,Urine 1 /hpf (0-5)
[2018-01-15] MEDS ORDERED: PANTOPRAZOLE 40 MG TABLET PO PRN (14:31)
[2018-01-15] MEDS ORDERED: HYDROmorphone 2 MG TAB PO PRN (14:33)
[2018-01-15] MEDS: ALPRAZolam 0.5 MG TAB PO PRN (14:44)
[2018-01-15 17:30] LABS: Creatine Kinase 34 U/L (30-135)
[2018-01-15 17:41] LABS: Creatine Kinase MB 0.4 ng/mL (0.0-2.4); Troponin I <0.012 ng/mL (0.000-0.034)
[2018-01-15] MEDS: APIXABAN 5 MG TAB PO SCH (20:36)
[2018-01-15] MEDS: POTASSIUM CHLORIDE ER 10 MEQ TAB.ER.PRT PO SCH (20:36)
[2018-01-15] MEDS ORDERED: PREGABALIN 50 MG CAP PO STA (20:51)
[2018-01-15] MEDS ORDERED: AMITRIPTYLINE HCL 25 MG TAB PO SCH (21:00)
--- NOTE | 2018-01-15 22:02 | MR ---
EXAMINATION TYPE: MR brain wo con DATE OF EXAM: 01/15/2018 COMPARISON: NONE HISTORY: Weakness Standard multiplanar, multisequence MRI departmental protocol Multiplanar, multisequence images of the brain were acquired. Diffusion weighted imaging was performe d. FINDINGS: On the T2 and FLAIR images there is some gyriform irregular area of increased signal in the left anterior temporal lobe consistent with old or subacute infarct. There is some enlargement of th e left sylvian fissure compared to the right consistent with some atrophy. There is no midline shift. Diffusion images show decreased signal in the left temporal lobe. There is no sign of intracranial h emorrhage. Corpus callosum appears normal. Brainstem is intact. There is no mass effect. IMPRESSION: There is old or subacute left temporal lobe 3 cm infarct that is not changed in size compared to the head CT scan of 12/06/2017. No sign of an acute infarct.
--- NOTE | 2018-01-15 22:19 | MR ---
EXAMINATION TYPE: MR angio neck wo/w con DATE OF EXAM: 01/15/2018 COMPARISON: Carotid ultrasound June 25, 2013. HISTORY: Carotid disease per order. Chest pain with confusion and lightheadedness. Possible CVA. CONTRAST: Standard multiplanar, multisequence MRI departmental protocol utilizing 10 mL intravenous Gadavist ga dolinium contrast. FINDINGS: Arch vessel takeoffs is not included making evaluation suboptimal. The right common carotid artery shows normal origin from the right brachiocephalic artery. There is no significant stenosis i n the right common carotid artery including at right carotid bulb. There is patent right external car otid artery without significant stenosis. There is no significant stenosis visualized portion of the right internal carotid artery up to level of [place]. There is no significant plaque or stenosis in visualized portion of left common and internal carotid artery including a level of carotid bulb. There is patent external carotid artery without significant stenosis. Portion of right vertebral artery is not visualized presumed due to blooming artifact seen best image 37 series 301. Visualized portion of both vertebral arteries otherwise are patent to basilar junctio n. There is codominant vertebrobasilar system seen. IMPRESSION: Slightly suboptimal study without significant stenosis seen in common or internal carotid arteries bi laterally.
--- NOTE | 2018-01-15 22:37 | HP ---
HISTORY AND PHYSICAL DATE OF ADMISSION: 01/15/2018 DATE OF SERVICE: 01/15/2018. PRESENTING COMPLAINT: This is a very pleasant 57-year-old patient of Dr. Clement. Patient has a rather extensive medical history. 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 Briseno in the [place] area, and a lot of clot was extracted. The patient eventually did get a [place] filter. Chronic stable medical conditions also include fibromyalgia, GERD, and has chronic abdominal pain; in fact, last week she had EGD and colonoscopy done by Dr. Shah that were unremarkable. Patient also has a history of P[place] in [place] [facility] [place] 2 [place] had a lymph node biopsy for sarcoidosis that she was informed was apparently negative. Patient has been rather concerned about her medications and tried to scale back. Did stop her Lyrica abruptly, which Dr. Clement was trying to wean off. The patient was on the phone this morning with her daughter and felt a bit foggy and speech was not right. Also she felt a bit of squeezing sensation in the chest that was short-lived, for a few seconds. The pain did not radiate to the neck or arm. There was no sweating or perspiration. Patient denied any weakness in any arm or leg, though patient has some chronic weakness on the right arm from prior stroke. The patient's is at the bedside. The patient's speech did significantly improve. REVIEW OF SYSTEMS: CONSTITUTIONAL: None. HEENT: As above. RESPIRATORY: None. CARDIOVASCULAR: As above. GASTROINTESTINAL: Heartburn. GENITOURINARY: None. MUSCULOSKELETAL: Some pain in the joints. DERMATOLOGICAL: None. HEMATOLOGICAL: None. LYMPHATICS: None. PSYCHIATRY: Very anxious. NEUROLOGICAL: As above and some chronic right-sided weakness. PAST MEDICAL HISTORY: 1. IVC thrombus. 2. [place] filter. 3. Fibromyalgia. 4. GERD. 5. Obstructive sleep apnea; does not use CPAP machine. 6. Chronic abdominal pain. 7. Stroke with residual right-sided weakness. 8. PFO repair in 2012. 9. Lymph node biopsy recently, reported to be negative for sarcoidosis. PAST SURGICAL HISTORY: 1. Adenoidectomy. 2. Back surgery. 3. Hysterectomy. 4. Tonsillectomy. 5. EGD and colonoscopy yesterday with polypectomy. 6. Lung lymph node biopsy. 7. IVC clot removed. 8. PFC repair at [facility] [place]. 9. Cervical fusion. 10.Lumbar surgery. 11.Bilateral cataract removal. 12.Right laser surgery for glaucoma. SOCIAL HISTORY: . 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 No smoking. No alcohol. FAMILY HISTORY: Coronary artery disease. Mother of heart attack at age of 64. Maternal grandmother of a heart attack at age of 63. HOME MEDICATIONS: 1. Lyrica 50 mg a day. 2. Klor-Con 80 mEq p.o. b.i.d. 3. Prilosec 20 mg b.i.d. p.r.n. 4. Magnesium 450 mg p.o. daily. 5. Dilaudid 1-2 mg p.o. q.8 p.r.n., which also patient has tried not to take. 6. Folic acid 0.4 mg p.o. daily. 7. Aspirin 81 mg p.o. daily. 8. Eliquis 5 mg p.o. b.i.d. 9. Elavil 25 mg at bedtime. 10.Xanax 0.25 p.o. b.i.d. p.r.n. ALLERGIES: 1. ADHESIVE TAPE. 2. CELEBREX. 3. CIPRO. 4. SULFA. 5. MORPHINE. 6. PYRIDIUM. PHYSICAL EXAMINATION: Temperature 97.3, pulse 91, respiration 18, blood pressure 127/71, pulse ox 96% on 2 L. GENERAL APPEARANCE: Well built; BMI 35.6. Lying in bed. Anxious-appearing. EYES: Pupils equal. Conjunctivae normal. HEENT: External appearance of nose and ears normal. Oral cavity normal. NECK: JVD not raised. Mass not palpable. RESPIRATORY: Effort normal. Lungs are clear. CARDIOVASCULAR: First and second sounds normal. No edema. ABDOMEN: Minimal tenderness. Soft. Liver and spleen not palpable. LYMPHATIC: No lymph node palpable in neck or axillae. PSYCHIATRY: Alert and oriented x3. Mood and affect anxious-appearing. NEUROLOGICAL: Pupils equal. Cranial nerves grossly intact. Power and sensation grossly intact. Speech is a little bit slow, but otherwise pretty clear. INVESTIGATIONS: White count 4.7, hemoglobin 14.8, potassium 4.0. EKG normal sinus rhythm. ASSESSMENT: 1. This is a patient who presented this morning with some change in speech and foggy feeling. Patient has been rather anxious; also had some trickle of chest pressure that lasted for a very short time. Symptoms all could be psychosomatic, as that is her basic disposition, but will rule out a stroke. Patient is already on aspirin and Eliquis. 2. IVC thrombus with thrombectomy and a [place] filter. 3. Chronic fibromyalgia. 4. Gastroesophageal reflux disease. 5. Chronic abdominal pain. Workup has been negative until now. 6. Stroke with some mild right-sided weakness which is chronic. 7. Obesity with body mass index of 35.6. PLAN: Will do an urgent MRI of the brain and angiography of the carotids. Home medications are resumed. Patient is already on aspirin and Lipitor. Did talk to the patient and her at length. I asked her to try different modalities to keep her mind calm. Will also get a psychiatry consultation for the same. Will also order a 2D echocardiogram. MMCHRISTIEL / IJN: [id number] /
[2018-01-15 22:46] LABS: Creatine Kinase 38 U/L (30-135)
[2018-01-15 22:59] LABS: Troponin I <0.012 ng/mL (0.000-0.034)
[2018-01-15 23:07] LABS: Creatine Kinase MB 0.4 ng/mL (0.0-2.4)
[2018-01-16 03:33] LABS: Cholesterol 172 mg/dL (<200); HDL Cholesterol 36 mg/dL (40-60); LDL Cholesterol,Calculated 114 mg/dL (0-99); Triglycerides 109 mg/dL (<150)
[2018-01-16 07:52] VITALS: RESP 18
[2018-01-16] MEDS ORDERED: PREGABALIN 50 MG CAP PO SCH (09:00)
[2018-01-16] MEDS ORDERED: FOLIC ACID 1 MG TAB PO SCH (09:00)
[2018-01-16] MEDS ORDERED: MAGNESIUM OXIDE 400 MG TAB PO SCH (09:00)
[2018-01-16] MEDS ORDERED: ASPIRIN 81 MG PO SCH (09:00)
[2018-01-16] MEDS: APIXABAN 5 MG TAB PO SCH (10:06)
[2018-01-16] MEDS: POTASSIUM CHLORIDE ER 10 MEQ TAB.ER.PRT PO SCH (10:27)
[2018-01-16] MEDS: ALPRAZolam 0.5 MG TAB PO PRN (11:18)
[2018-01-16 11:50] VITALS: BP 132/68; PULSE 85; TEMP 97.6
[2018-01-16 13:06] VITALS: BMI 35.5
--- NOTE | 2018-01-16 13:18 | P.CONS ---
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 She underwent outpatient EGD colonoscopy screening Sunday for evaluation of abdominal pain with findings of sliding hiatal hernia with low-grade esophagitis no evidence of Barth's or peptic ulcer disease, colonic diverticulosis, snare splenic flexure polypectomy biopsies tubular adenoma. Admitted with mental status changes still reports same type of chronic abdominal pain prior to colonoscopy; no changes in quality or intensity. She was provided amitriptyline 7-10 days prior to EGD colonoscopy without much improvement. Intermittent constipation no diarrhea. Denies fever or hematemesis hematochezia melena. Pain is generalized but focused mostly in the lower abdomen infraumbilical region. White count 4.7. Hemoglobin 14.8. Platelet 118. Urinalysis small amount of blood trace leukocyte esterase. Brain MRI old or subacute left temporal infarct no sign of acute infarct. Neck MRA slight suboptimal study without significant stenosis. Review of Systems Constitutional: Denies fever, chills, sweats, weight gain, or loss. HEENT: Memory impairment. Negative for migraines, blurred vision or loss, earaches, drainage, tinnitus, oral mucosal lesions, dysphagia, or odynophagia. CARDIAC: Negative for chest pain, arrhythmias, or palpitation. RESPIRATORY: Sleep apnea. Negative for shortness of breath, hemoptysis, cough, or sputum production. GI: See HPI for pertinent findings. : Negative for hematuria, urgency, frequency, polyuria, or dysuria. GYNc: Negative vaginal discharge. MUSCULOSKELETAL: Fibromyalgia. Negative for muscle aches, swelling, arthritis, and arthralgias. NEUROLOGIC: CVA/TIA.. ENDOCRINE: Negative for thyroid problems. SKIN: Negative for rash or itching. PSYCHIATRIC: Negative history for depression and anxiety Past Medical History Past Medical History: CVA/TIA, Fibromyalgia, GERD/Reflux, Memory Impairment, Sleep Apnea/CPAP/BIPAP Additional Past Medical History / Comment(s): 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 History of Any Multi-Drug Resistant Organisms: None Reported Past Surgical History: Adenoidectomy, Back Surgery, Hysterectomy, Tonsillectomy Additional Past Surgical History / Comment(s): EGD with bx/colonoscopy with polypectomy-no result known yet, 01/09/18 needle biopsy lungs d/t enlarged lymph nodes-no result known yet, 12/06/17 R groin accessed and IVC clot "broken up and removed but some pieces left", GFF, [place] [facility] [place] cervical fusion, lumbar surgery, deviated septal surgery, bilateral cataract removal with lens, R eye laser surgery for glaucoma, benign skin lesion removed. Past Anesthesia/Blood Transfusion Reactions: Postoperative Nausea & Vomiting ( PONV) Smoking Status: Never smoker - Past Family History Mother Family Medical History: Coronary Artery Disease (CAD), Myocardial Infarction ([place] ) Additional Family Medical History / Comment(s): Mother at the age of 64yrs from [place]. Maternal grandmother from a [place] at the age of 63 yrs. Father History Unknown: Yes Additional Family Medical History / Comment(s): committed suicide Brother(s) Family Medical History: Coronary Artery Disease (CAD), Myocardial Infarction ([place] ) Additional Family Medical History / Comment(s): Brother at 59yrs from [place]/ cardiac arrest. Medications and Allergies Home Medications Medication Instructions Recorded Confirmed Type Potassium Chloride [Klor-Con 8] 8 meq PO BID 10/16/16 01/15/18 History Apixaban [Eliquis] 5 mg PO BID 12/12/17 01/15/18 History Folic Acid 0.4 mg PO DAILY 12/12/17 01/15/18 History Amitriptyline HCl [Elavil] 25 mg PO HS 01/10/18 01/15/18 History Aspirin [Adult Low Dose Aspirin EC] 81 mg PO DAILY 01/10/18 01/15/18 History HYDROmorphone [Dilaudid] 1 - 2 mg PO Q8H PRN 01/10/18 01/15/18 History Omeprazole [PriLOSEC] 20 mg PO AC-BID PRN 01/10/18 01/15/18 History Magnesium Glycinate 450mg 450 mg PO DAILY 01/15/18 01/15/18 History Pregabalin [Lyrica] 50 mg PO DAILY 01/15/18 01/15/18 History ALPRAZolam [Xanax] 0.25 mg PO HS #0 01/16/18 01/15/18 Rx Citalopram Hydrobromide [CeleXA] 10 mg PO DAILY #30 tab 01/16/18 Rx Dicyclomine [Bentyl] 10 mg PO TID #30 cap 01/16/18 Rx Allergies Allergy/AdvReac Type Severity Reaction Status Date / Time adhesive tape Allergy Rash/Hives Verified 01/15/18 10:50 celecoxib [From Celebrex] Allergy Unknown Verified 01/15/18 10:50 ciprofloxacin [From Cipro] Allergy Unknown Verified 01/15/18 10:50 Sulfa (Sulfonamide Allergy Unknown Verified 01/15/18 10:50 Antibiotics) morphine AdvReac Vomiting Verified 01/15/18 10:50 phenazopyridine AdvReac Unknown Verified 01/15/18 10:50 [From Pyridium] Physical Exam Vitals: Vital Signs Temp Pulse Pulse Resp BP BP BP 01/16/18 11:15 97.6 F 85 18 132/68 01/16/18 07:20 98.1 F 69 18 99/54 01/16/18 04:00 74 16 01/16/18 00:00 70 16 01/15/18 23:53 98.2 F 74 16 113/58 01/15/18 20:00 74 16 01/15/18 18:55 103 H 16 126/76 01/15/18 15:30 84 16 124/69 01/15/18 14:39 97.3 F L 91 18 127/71 Pulse Ox 01/16/18 11:15 97 01/16/18 07:20 95 01/16/18 04:00 01/16/18 00:00 01/15/18 23:53 100 01/15/18 20:00 01/15/18 18:55 97 01/15/18 15:30 95 01/15/18 14:39 96 Intake and Output 01/15/18 01/16/18 01/16/18 22:59 06:59 14:59 Intake Total 1520 100 240 Balance 1520 100 240 Intake: Oral 1520 100 240 Other: Voiding Method Toilet Toilet Toilet # Voids 2 1 Weight 102.965 kg Results CBC & Chem 7: 01/15/18 10:25 01/15/18 10:25 Labs: Abnormal Lab Results - Last 24 Hours (Table) 01/15/18 Range/Units 10:25 LDL Cholesterol, Calc 114 H (0-99) mg/dL HDL Cholesterol 36 L (40-60) mg/dL Microbiology - Last 24 Hours (Table) 01/15/18 12:20 Urine Culture - Preliminary Urine,Voided Assessment and Plan (1) Abdominal pain Narrative/Plan: Chronic abdominal pain 2 years duration intermittent constipation possible IBS- D status post EGD colonoscopy 2 days ago with no evidence of peptic ulcer disease, colonic diverticulosis snare splenic flexure polypectomy. Status: Acute Code(s): R10.9 - UNSPECIFIED ABDOMINAL PAIN SNOMED Code(s): 78806455 (2) Altered mental state Status: Acute Code(s): R41.82 - ALTERED MENTAL STATUS, UNSPECIFIED SNOMED Code(s): 363123268 Plan: 1. Continue amitriptyline. She is scheduled to be reevaluated in the GI office on January 24. 2. Diet as tolerated. 3. Bentyl 10 mg 3 times daily. Thank you for this kind referral and the opportunity to participate in the care of your patient. This consultation was discussed with Dr. Patel. The impression and plan of care have been directed as dictated.
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
[2018-01-16] MEDS ORDERED: DICYCLOMINE 10 MG CAP PO SCH (16:00)
--- NOTE | 2018-01-16 20:42 | DS ---
DISCHARGE SUMMARY DATE OF ADMISSION: January 15, 2018. DATE OF DISCHARGE: January 16, 2018. FINAL DIAGNOSES: 1. Possible transient ischemic attack. 2. History of IVC thrombus with thrombectomy and a Girma filter placement and chronically on Eliquis. 3. Chronic fibromyalgia. 4. Gastroesophageal reflux disease. 5. Chronic abdominal pain, could be irritable bowel syndrome. 6. Chronic weakness on the right side from stroke. 7. Obesity; BMI 35.6. 8. Unspecified depressive disorder and unspecified anxiety disorder. HOSPITAL COURSE: This patient presented with some uncontrolled anxiety, seen by Dr. Quiroz. Started on Celexa. Xanax to be stopped in 1 week's time. Also patient had some change in his speech and felt weak. MRI did not show any acute stroke. MRA of the neck did not show any carotid stenosis. The patient has also had chronic abdominal pain, just had the EGD and colonoscopy by Dr. Shah. Seen by GI service, was put on Bentyl. Did talk to patient at length about stress leave mechanisms including mindfulness and she also is getting help from her who is also a spirits model. The patient doing much better today. EXAMINATION: Lungs are clear. Cardiovascular: 1st and 2nd sounds normal. ABDOMEN: Soft, nontender, tolerating a diet. DISCHARGE MEDICATIONS: 1. Klor-Con 8 mEq p.o. b.i.d. 2. Eliquis 5 mg b.i.d. 3. Folic acid 0.4 mg a day. 4. Elavil 25 mg p.o. q.h.s. 5. Aspirin 81 mg p.o. daily. 6. Dilaudid as before. 7. Prilosec 20 mg a.c. b.i.d. p.r.n. 8. Magnesium 450 mg p.o. daily. 9. Lyrica 50 mg p.o. daily. 10.Xanax 0.25 p.o. q.h.s. for 7 days and then stop. 11.Celexa 10 mg p.o. daily. 12.Bentyl 10 mg t.i.d. Follow with Dr. Shah on January 24, 2018. FOLLOW UP: With Dr. Clement in 2-3 days. Follow up with psychiatrist in 1-[address] Clement. MMODL / IJN: [id number] /
[2018-01-17] MEDS ORDERED: CITALOPRAM HYDROBROMIDE 10 MG TAB PO SCH (09:00)
== END 2018-01-16 16:05 | disposition home or self-care (01) ==
LOC: EC 10:14 → 3OBS 14:09
PROVIDERS: ADMIT Hospitalist; ATTEND Hospitalist
DX: R41.82 Altered mental status, unspecified (principal); R10.84 Generalized abdominal pain; R47.9 Unspecified speech disturbances; R07.89 Other chest pain; M79.7 Fibromyalgia; I69.351 Hemiplegia and hemiparesis following cerebral infarction affecting right dominant side; Z68.35 Body mass index [BMI] 35.0-35.9, adult; E66.9 Obesity, unspecified; F41.9 Anxiety disorder, unspecified; F32.9 Major depressive disorder, single episode, unspecified; K21.0 Gastro-esophageal reflux disease with esophagitis; K59.00 Constipation, unspecified; R41.3 Other amnesia; D86.9 Sarcoidosis, unspecified; I69.321 Dysphasia following cerebral infarction; G89.29 Other chronic pain; G47.33 Obstructive sleep apnea (adult) (pediatric); Z88.1 Allergy status to other antibiotic agents; Z88.5 Allergy status to narcotic agent; Z88.2 Allergy status to sulfonamides; Z88.8 Allergy status to other drugs, medicaments and biological substances; Z91.048 Other nonmedicinal substance allergy status; Z79.899 Other long term (current) drug therapy; Z79.82 Long term (current) use of aspirin; Z79.01 Long term (current) use of anticoagulants; Z82.49 Family history of ischemic heart disease and other diseases of the circulatory system; Z82.41 Family history of sudden cardiac death; Z95.828 Presence of other vascular implants and grafts; Z86.718 Personal history of other venous thrombosis and embolism; Z86.010 Personal history of colon polyps; Z87.74 Personal history of (corrected) congenital malformations of heart and circulatory system
CPT/HCPCS: 99285 ×2; 36415; 93005; 80061; 80053; 82550; 82553; 83690; 83735; 84484; 85025; 85610; 85730; 81001; 87086; 87077; 87186; 87502; 71046; 70549; 70551; G0378 ×2; A9581

== ENCOUNTER 2018-01-19 05:57 | Observation (INO) | payer OTHER ==
[2018-01-19] MEDS ORDERED: SODIUM CHLORIDE 0.9% 1,000 ML IV STA (06:21)
[2018-01-19] MEDS: ALPRAZolam 1 MG TAB PO STA ×2 (06:35→06:47)
--- NOTE | 2018-01-19 06:55 | ED ---
General Adult HPI - General Chief complaint: Recheck/Abnormal Lab/Rx Stated complaint: anxiety Time Seen by Provider: 01/19/18 06:09 Source: patient Mode of arrival: wheelchair Limitations: no limitations - History of Present Illness Initial comments: 57 years old female woke up this morning with the shakes in anxiety recently she has been trying to come off for multiple medications that includes gabapentin, Lyrica, Xanax and a Dilaudid loss and exposed about 18 hours ago she is quite shaky and quite agitated and she is requesting help to get off of these medications she noticed palpitation. She was recently hospitalized. Denies any neck stiffness no chest pain anxious no shortness of breath no pleuritic chest pain no abdominal pain no frequency urgency dysuria no symptoms of TIA or CVA - Related Data Home Medications Medication Instructions Recorded Confirmed Potassium Chloride [Klor-Con 8] 8 meq PO BID 10/16/16 01/15/18 Apixaban [Eliquis] 5 mg PO BID 12/12/17 01/15/18 Folic Acid 0.4 mg PO DAILY 12/12/17 01/15/18 Amitriptyline HCl [Elavil] 25 mg PO HS 01/10/18 01/15/18 Aspirin [Adult Low Dose Aspirin EC] 81 mg PO DAILY 01/10/18 01/15/18 HYDROmorphone [Dilaudid] 1 - 2 mg PO Q8H PRN 01/10/18 01/15/18 Omeprazole [PriLOSEC] 20 mg PO AC-BID PRN 01/10/18 01/15/18 Magnesium Glycinate 450mg 450 mg PO DAILY 01/15/18 01/15/18 Pregabalin [Lyrica] 50 mg PO DAILY 01/15/18 01/15/18 Previous Rx's Medication Instructions Recorded ALPRAZolam [Xanax] 0.25 mg PO HS #0 01/16/18 Citalopram Hydrobromide [CeleXA] 10 mg PO DAILY #30 tab 01/16/18 Dicyclomine [Bentyl] 10 mg PO TID #30 cap 01/16/18 Allergies Allergy/AdvReac Type Severity Reaction Status Date / Time adhesive tape Allergy Rash/Hives Verified 01/19/18 06:03 celecoxib [From Celebrex] Allergy Unknown Verified 01/19/18 06:03 ciprofloxacin [From Cipro] Allergy Unknown Verified 01/19/18 06:03 Sulfa (Sulfonamide Allergy Unknown Verified 01/19/18 06:03 Antibiotics) morphine AdvReac Vomiting Verified 01/19/18 06:03 phenazopyridine AdvReac Unknown Verified 01/19/18 06:03 [From Pyridium] Review of Systems ROS Statement: Those systems with pertinent positive or pertinent negative responses have been documented in the HPI. ROS Other: All systems not noted in ROS Statement are negative. 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 History of Any Multi-Drug Resistant Organisms: None Reported Past Surgical History: Adenoidectomy, Back Surgery, Hysterectomy, Tonsillectomy Additional Past Surgical History / Comment(s): EGD with bx/colonoscopy with polypectomy-no result known yet, 01/09/18 needle biopsy lungs d/t enlarged lymph nodes-no result known yet, 12/06/17 R groin accessed and IVC clot "broken up and removed but some pieces left", GFF, PFO repair at [facility] [place], 09/2017 cervical fusion, lumbar surgery, deviated septal surgery, bilateral cataract removal with lens, R eye laser surgery for glaucoma, benign skin lesion removed. Past Anesthesia/Blood Transfusion Reactions: Postoperative Nausea & Vomiting ( PONV) Past Psychological History: Anxiety, Depression Smoking Status: Never smoker Past Alcohol Use History: None Reported Past Drug Use History: None Reported - Past Family History Mother Family Medical History: Coronary Artery Disease (CAD), [place] ([place] ) Additional Family Medical History / Comment(s): Mother at the age of 64yrs from [place]. Maternal grandmother from a [place] at the age of 63 yrs. Father History Unknown: Yes Additional Family Medical History / Comment(s): committed suicide Brother(s) Family Medical History: Coronary Artery Disease (CAD), [place]ocardial Infarction [place] ) Additional Family Medical History / Comment(s): Brother at 59yrs from [place]/ cardiac arrest. General Exam - General Exam Comments Initial Comments: General: The patient is awake and alert, she is quite anxious and quite shaky Skin: Skin is warm and dry and no rashes or lesions are noted. Eye: Pupils are equal, round and reactive to light, extra-ocular movements are intact; there is normal conjunctiva bilaterally. Ears, nose, mouth and throat: There are moist mucous membranes and no oral lesions. Neck: The neck is supple, there is no tenderness or JVD. Cardiovascular: There is a regular rate and rhythm. Noticed tachycardia Respiratory: To auscultation bilateral, no wheezing no rhonchi no distress respiratory fair noticed Gastrointestinal: Soft, non-distended, non-tender abdomen without masses or organomegaly noted. There is no rebound or guarding present. Bowel sounds are unremarkable. Back: There is no tenderness to palpation in the midline. There is no obvious deformity. Musculoskeletal: Normal ROM, no tenderness, There is no pedal edema. There is no calf tenderness or swelling. No cords were appreciated. Neurological: CN II-XII intact, Cranial nerves III through XII are intact. There are no obvious motor or sensory deficits. Coordination appears grossly intact. Speech is normal. Psychiatric: Cooperative, very anxious, shaking denies any suicidal or homicidal ideation but definitely tears Limitations: no limitations Course Vital Signs 01/19/18 01/19/18 05:59 06:58 Temperature 97.7 F Pulse Rate 105 H Respiratory 18 Rate Blood Pressure 196/93 136/75 O2 Sat by Pulse 98 Oximetry She was quite distressed her blood pressure was about 200 systolic when she was in the ER and she was tachycardic and she was shaking all over she has stopped taking her Dilaudid Xanax R, she feels that she cannot handle this at home and requesting admission to the hospital, she be admitted to Dr. Farley service Medical Decision Making - Lab Data Result diagrams: 01/19/18 06:53 01/19/18 06:53 Lab Results 01/19/18 01/19/18 Range/Units 06:53 06:53 WBC 5.8 (3.8-10.6) k/uL RBC 4.79 (3.80-5.40) m/uL Hgb 14.8 (11.4-16.0) gm/dL Hct 43.5 (34.0-46.0) % MCV 90.8 (80.0-100.0) fL MCH 30.9 (25.0-35.0) pg MCHC 34.1 (31.0-37.0) g/dL RDW 12.9 (11.5-15.5) % Plt Count 111 L (150-450) k/uL Neutrophils % 63 % Lymphocytes % 26 % Monocytes % 8 % Eosinophils % 1 % Basophils % 0 % Neutrophils # 3.6 (1.3-7.7) k/uL Lymphocytes # 1.5 (1.0-4.8) k/uL Monocytes # 0.4 (0-1.0) k/uL Eosinophils # 0.0 (0-0.7) k/uL Basophils # 0.0 (0-0.2) k/uL Sodium 146 H (137-145) mmol/L Potassium 3.7 (3.5-5.1) mmol/L Chloride 111 H (98-107) mmol/L Carbon Dioxide 21 L (22-30) mmol/L Anion Gap 14 mmol/L BUN 15 (7-17) mg/dL Creatinine 0.74 (0.52-1.04) mg/dL Est GFR (CKD-EPI)AfAm >90 (>60 ml/min/1.73 sqM) Est GFR (CKD-EPI)NonAf >90 (>60 ml/min/1.73 sqM) Glucose 101 H (74-99) mg/dL Calcium 9.3 (8.4-10.2) mg/dL Magnesium 1.9 (1.6-2.3) mg/dL Total Bilirubin 1.0 (0.2-1.3) mg/dL AST 24 (14-36) U/L ALT 26 (9-52) U/L Alkaline Phosphatase 66 (38-126) U/L Total Protein 6.1 L (6.3-8.2) g/dL Albumin 3.7 (3.5-5.0) g/dL Disposition Clinical Impression: Hypertension, Acute drug withdrawal syndrome Disposition: ADMITTED IP TO THIS [facility] Condition: Good Referrals: Alexander Clement DO [Primary Care Provider] - 1-2 days
[2018-01-19 07:25] LABS: Basophils % (A) 0 %; Eosinophils % (A) 1 %; HCT 43.5 % (34.0-46.0); HGB 14.8 gm/dL (11.4-16.0); Lymphocytes # (A) 1.5 k/uL (1.0-4.8); Lymphocytes % (A) 26 %; MCH 30.9 pg (25.0-35.0); MCHC 34.1 g/dL (31.0-37.0); MCV 90.8 fL (80.0-100.0); Mean Platelet Volume 7.4; Monocytes # (A) 0.4 k/uL (0-1.0); Monocytes % (A) 8 %; Neutrophils # (A) 3.6 k/uL (1.3-7.7); Neutrophils % (A) 63 %; Platelet Count 111 k/uL (150-450); RBC 4.79 m/uL (3.80-5.40); RDW 12.9 % (11.5-15.5); WBC 5.8 k/uL (3.8-10.6)
[2018-01-19 07:35] LABS: ALT 26 U/L (9-52); AST 24 U/L (14-36); Albumin 3.7 g/dL (3.5-5.0); Alkaline Phosphatase 66 U/L (38-126); Anion Gap 14 mmol/L; Blood Urea Nitrogen 15 mg/dL (7-17); Calcium 9.3 mg/dL (8.4-10.2); Carbon Dioxide 21 mmol/L (22-30); Chloride 111 mmol/L (98-107); Glucose 101 mg/dL (74-99); Magnesium 1.9 mg/dL (1.6-2.3); Potassium 3.7 mmol/L (3.5-5.1); Sodium 146 mmol/L (137-145); Total Protein 6.1 g/dL (6.3-8.2)
[2018-01-19] MEDS ORDERED: SODIUM CHLORIDE 0.9% 1,000 ML IV ONE (08:04)
[2018-01-19] MEDS ORDERED: PANTOPRAZOLE 40 MG TABLET PO PRN (08:06)
[2018-01-19] MEDS ORDERED: ALPRAZolam 0.25 MG TAB PO PRN (08:08)
[2018-01-19] MEDS ORDERED: cloNIDine HCL 0.1 MG TAB PO STA (08:10)
[2018-01-19] MEDS: APIXABAN 5 MG TAB PO SCH ×2 (10:45→20:06)
[2018-01-19] MEDS: POTASSIUM CHLORIDE ER 10 MEQ TAB.ER.PRT PO SCH ×2 (10:46→20:06)
[2018-01-19] MEDS: MAGNESIUM OXIDE 400 MG TAB PO SCH (10:46)
[2018-01-19] MEDS: DICYCLOMINE 10 MG CAP PO SCH ×3 (10:46→20:06)
[2018-01-19] MEDS: ASPIRIN 81 MG PO SCH (10:46)
[2018-01-19] MEDS: CITALOPRAM HYDROBROMIDE 10 MG TAB PO SCH (10:46)
[2018-01-19 12:55] VITALS: BMI 35.5
[2018-01-19] MEDS: PREGABALIN 50 MG CAP PO SCH ×3 (12:56→20:06)
--- NOTE | 2018-01-19 14:22 | P.HPIM ---
History of Present Illness This is a pleasant 37 years old lady with past medical history of CVA/TIA, with residual right hemiplegia,, right eye glaucoma over 6-8 months duration she's follow up with an top icer and has been stable since her last appointment 2 months ago and her next appointment is going to be on February 2018 , fibromyalgia was coronary For 2 years prior to that she was on gabapentin which she liked but her doctor stopped it for her, GERD, sleep apnea not on CPAP/BiPAP , history of inguinal clots on liquids, chronic lower abdominal pain she was recently hospitalized in or to [facility], underwent EGD and colonoscopy and she has follow-up appointments with GI as an outpatient, her abdominal pain in stable, no nausea vomiting, she has some constipation Patient was on Brittany for 2 years patient thought that its contributed to her room gradually progressive vision as she has history of glaucoma so she didn't want to continue monitoring her doctor start tapering her toes and she is coming down from 100 mg twice daily day now is taking 50 mg once a day supposedly till next Sunday She was taking Dilaudid 1 mg once daily for 2 weeks and then stopped it another 2 weeks ago and her doctor put her on Xanax 0.25 mg once a day yesterday she stopped taking the Xanax and she started having with towel symptoms kind of picture with tremor and generalized abdominal pain that's when she decided to come to the emergency room Patient states she is also taking baby aspirin, Patient denies seizure, she feels somewhat anxious but not over psychosis or depression In the emergency room patient got 1 mg of Xanax when the ED physician noticed her blood pressure was uncontrolled and high Review of Systems 14 point system review were negative excess was mentioned in the HPI Past Medical History Past Medical History: CVA/TIA, Fibromyalgia, GERD/Reflux, Memory Impairment, Sleep Apnea/CPAP/BIPAP Additional Past Medical History / Comment(s): 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 History of Any Multi-Drug Resistant Organisms: None Reported Past Surgical History: Adenoidectomy, Back Surgery, Hysterectomy, Tonsillectomy Additional Past Surgical History / Comment(s): EGD with bx/colonoscopy with polypectomy-no result known yet, 01/09/18 needle biopsy lungs d/t enlarged lymph nodes-no result known yet, 12/06/17 R groin accessed and IVC clot "broken up and removed but some pieces left", GFF, PFO repair at [facility] [place], 09/2017 cervical fusion, lumbar surgery, deviated septal surgery, bilateral cataract removal with lens, R eye laser surgery for glaucoma, benign skin lesion removed. Past Anesthesia/Blood Transfusion Reactions: Postoperative Nausea & Vomiting ( PONV) Past Psychological History: Anxiety, Depression Additional Psychological History / Comment(s): Pt resides with her spouse of 36yrs. She uses no assistive device. She has not driven in 3 months d/t health reasons but normally, did drive. Smoking Status: Never smoker Past Alcohol Use History: None Reported Past Drug Use History: None Reported - Past Family History Mother Family Medical History: Coronary Artery Disease (CAD), Myocardial Infarction ([place] ) Additional Family Medical History / Comment(s): Mother at the age of 64yrs from [place]. Maternal grandmother from a [place] at the age of 63 yrs. Father History Unknown: Yes Additional Family Medical History / Comment(s): committed suicide Brother(s) Family Medical History: Coronary Artery Disease (CAD), [place]ocardial Infarction ([place] ) Additional Family Medical History / Comment(s): Brother at 59yrs from [place]/ cardiac arrest. Medications and Allergies Home Medications Medication Instructions Recorded Confirmed Type Potassium Chloride [Klor-Con 8] 8 meq PO BID 10/16/16 01/19/18 History Apixaban [Eliquis] 5 mg PO BID 12/12/17 01/19/18 History Folic Acid 0.4 mg PO DAILY 12/12/17 01/19/18 History Aspirin [Adult Low Dose Aspirin EC] 81 mg PO DAILY 01/10/18 01/19/18 History Magnesium Glycinate 450mg 450 mg PO DAILY 01/15/18 01/19/18 History Pregabalin [Lyrica] 50 mg PO DAILY 01/15/18 01/19/18 History ALPRAZolam [Xanax] 0.25 mg PO HS #0 01/16/18 01/19/18 Rx Citalopram Hydrobromide [CeleXA] 10 mg PO DAILY #30 tab 01/16/18 01/19/18 Rx Dicyclomine [Bentyl] 10 mg PO TID #30 cap 01/16/18 01/19/18 Rx Allergies Allergy/AdvReac Type Severity Reaction Status Date / Time adhesive tape Allergy Rash/Hives Verified 01/19/18 10:50 celecoxib [From Celebrex] Allergy Unknown Verified 01/19/18 10:50 ciprofloxacin [From Cipro] Allergy Unknown Verified 01/19/18 10:50 Sulfa (Sulfonamide Allergy Unknown Verified 01/19/18 10:50 Antibiotics) morphine AdvReac Vomiting Verified 01/19/18 10:50 phenazopyridine AdvReac Unknown Verified 01/19/18 10:50 [From Pyridium] Physical Exam Vitals: Vital Signs Temp Pulse Pulse Resp BP BP Pulse Ox 01/19/18 13:10 73 16 01/19/18 12:16 97.9 F 73 16 127/73 97 01/19/18 12:10 98.0 F 82 16 132/84 99 01/19/18 10:48 95 18 113/78 98 01/19/18 09:00 70 18 103/63 96 01/19/18 08:18 97.9 F 65 18 125/76 98 01/19/18 06:58 136/75 01/19/18 05:59 97.7 F 105 H 18 196/93 98 Intake and Output 01/18/18 01/19/18 01/19/18 22:59 06:59 14:59 Other: Voiding Method Toilet Weight 102.965 kg 102.965 kg Constitutional: No acute distress, conversant, pleasant Eyes: Anicteric sclerae, moist conjunctiva, no lid-lag PERRLA ENMT: NC/AT Oropharynx clear, no erythema, exudates Neck: Supple, FROM, no masses, or JVD No carotid bruits No thyromegaly Lungs: Clear to auscultation Clear to percussion Normal respiratory effort, no accessory muscle use Cardiovascular: Heart regular in rate and rhythm, No murmurs, gallops, or rubs No peripheral edema Abdominal: Soft - Lower abdominal tenderness, no guarding, rebound or rigidity Abdomen moving with respiration Normoactive bowel sounds No hepatomegaly, No splenomegaly No palpable mass No abdominal wall hernia noted Skin: Normal temperature, tone, texture, turgor No induration No subcutaneous nodules No rash, lesions No ulcers Extremities: No digital cyanosis No clubbing Pedal pulses intact and symmetrical Radial pulses intact and symmetrical Normal gait and station No calf tenderness Psychiatric: Alert and oriented to person, place and time Appropriate affect Intact judgement Neuro: Muscles Strength 5/5 in all 4 extremities Sensation to light touch grossly present throughout Cranial nerves II-XII grossly intact No focal sensory deficits Results CBC & Chem 7: 01/19/18 06:53 01/19/18 06:53 Labs: Abnormal Lab Results - Last 24 Hours (Table) 01/19/18 01/19/18 Range/Units 06:53 06:53 Plt Count 111 L (150-450) k/uL Sodium 146 H (137-145) mmol/L Chloride 111 H (98-107) mmol/L Carbon Dioxide 21 L (22-30) mmol/L Glucose 101 H (74-99) mg/dL Total Protein 6.1 L (6.3-8.2) g/dL Thrombosis Risk Factor Assmnt - Choose All That Apply Any of the Below Risk Factors Present?: Yes Each Factor Represents 1 point: Age 41-60 years, Obesity (BMI >25) Other Risk Factors: No Other congenital or acquired thrombophilia - If yes, enter type in comment: No Thrombosis Risk Factor Assessment Total Risk Factor Score: 2 Thrombosis Risk Factor Assessment Level: Low Risk Assessment and Plan Assessment: Benzodiazepines withdrawal lyrica withdrawal Chronic abdominal pain History of inguinal hernia on liquids Plan: Patient's her symptoms of generalized abdominal pain and tremor of the hands and head were significantly improved after starting Xanax in the emergency room , we'll put her on Benzodiazepine prn, continue with IV hydration, seizure precaution and keep monitoring
[2018-01-19] MEDS ORDERED: LORazepam 2 MG/ML INJ IV PRN (15:35)
[2018-01-19] MEDS: FOLIC ACID 1 MG TAB PO SCH (16:13)
[2018-01-19] MEDS ORDERED: ALPRAZolam 0.25 MG TAB PO SCH (21:00)
[2018-01-19] MEDS: AMITRIPTYLINE HCL 25 MG TAB PO SCH (22:24)
[2018-01-20] MEDS: DICYCLOMINE 10 MG CAP PO SCH ×3 (09:25→20:42)
[2018-01-20] MEDS: ASPIRIN 81 MG PO SCH (09:25)
[2018-01-20] MEDS: APIXABAN 5 MG TAB PO SCH ×2 (09:25→20:42)
[2018-01-20] MEDS: MAGNESIUM OXIDE 400 MG TAB PO SCH (09:25)
[2018-01-20] MEDS: PREGABALIN 50 MG CAP PO SCH (09:25)
[2018-01-20] MEDS: CITALOPRAM HYDROBROMIDE 10 MG TAB PO SCH (09:25)
[2018-01-20] MEDS: POTASSIUM CHLORIDE ER 10 MEQ TAB.ER.PRT PO SCH ×2 (09:25→20:42)
--- NOTE | 2018-01-20 11:20 | P.CN ---
Psychiatric Consult - . Consult date: 01/20/18 Consult:: 01/20/18 11:09 Patient was seen today. Patient was seen by Dr. moon. on 01/16/2018 please refer to that note for complete details. Patient currently reports feeling anxious. She reports she had been through multiple surgeries recently . she has multiple medical problems. She reports feeling overwhelmed with all of these medical problems. She stated that Xanax hasn't been helping her with her anxiety. She has asked for Valium. She stated she wants to be happy again. She denies current suicidal or homicidal ideations. She describes her anxiety as feeling shaky. She reports difficulty sleeping at night. She reports Xanax is not helping her to sleep well at night. She reports good appetite. She reports being compliant with the Celexa as prescribed. She denies feeling hopeless or worthless. She is 57-year-old female. She appears in fair grooming and hygiene. She maintains good eye contact. No abnormal movements noted. Her speech is linear and goal directed her thought process is I need to Valium to be happy again. Her mood is reported as anxious and affect appropriate. She denies current auditory or visual hallucinations. Denies paranoia. He is alert and oriented 4. She denies current suicidal or homicidal ideations. Insight and judgment are fair. Diagnosis Adjustment disorder with anxious mood. Plan Increase the dose of Celexa to 20 mg by mouth daily Will recommend Klonopin 0.5 mg by mouth daily at bedtime Follow-up with outpatient mental health clinic
[2018-01-20] MEDS: FOLIC ACID 1 MG TAB PO SCH (16:19)
--- NOTE | 2018-01-20 17:08 | P.PN ---
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 and has been stable since her last appointment 2 months ago and her next appointment is going to be on February 2018 , fibromyalgia was coronary For 2 years prior to that she was on gabapentin which she liked but her doctor stopped it for her, GERD, sleep apnea not on CPAP/BiPAP , history of inguinal clots on liquids, chronic lower abdominal pain she was recently hospitalized in or to [facility], underwent EGD and colonoscopy and she has follow-up appointments with GI as an outpatient, her abdominal pain in stable, no nausea vomiting, she has some constipation Patient was on Brittany for 2 years patient thought that its contributed to her room gradually progressive vision as she has history of glaucoma so she didn't want to continue monitoring her doctor start tapering her toes and she is coming down from 100 mg twice daily day now is taking 50 mg once a day supposedly till next Sunday She was taking Dilaudid 1 mg once daily for 2 weeks and then stopped it another 2 weeks ago and her doctor put her on Xanax 0.25 mg once a day yesterday she stopped taking the Xanax and she started having with towel symptoms kind of picture with tremor and generalized abdominal pain that's when she decided to come to the emergency room Patient states she is also taking baby aspirin, Patient denies seizure, she feels somewhat anxious but not over psychosis or depression In the emergency room patient got 1 mg of Xanax when the ED physician noticed her blood pressure was uncontrolled and high Subjective: Patient is seen and examined by me at bedside No new complaints No CP/SOB, no change in urine or bowel habits, no fever Objective - Vital Signs Vital signs: Vital Signs Temp 98.1 F 01/20/18 16:00 Pulse 81 01/20/18 16:00 Resp 16 01/20/18 16:00 BP 111/63 01/20/18 16:00 Pulse Ox 92 L 01/20/18 16:00 Intake & Output 01/19/18 01/20/18 01/20/18 18:59 06:59 18:59 Weight 102.965 kg 102.965 kg Other: Voiding Method Toilet Toilet Toilet # Voids 1 - Exam Constitutional: No acute distress, conversant, pleasant Eyes: Anicteric sclerae, moist conjunctiva, no lid-lag PERRLA ENMT: NC/AT Oropharynx clear, no erythema, exudates Neck: Supple, FROM, no masses, or JVD No carotid bruits No thyromegaly Lungs: Clear to auscultation Clear to percussion Normal respiratory effort, no accessory muscle use Cardiovascular: Heart regular in rate and rhythm, No murmurs, gallops, or rubs No peripheral edema Abdominal: Soft - Lower abdominal tenderness, no guarding, rebound or rigidity Abdomen moving with respiration Normoactive bowel sounds No hepatomegaly, No splenomegaly No palpable mass No abdominal wall hernia noted Skin: Normal temperature, tone, texture, turgor No induration No subcutaneous nodules No rash, lesions No ulcers Extremities: No digital cyanosis No clubbing Pedal pulses intact and symmetrical Radial pulses intact and symmetrical Normal gait and station No calf tenderness Psychiatric: Alert and oriented to person, place and time Appropriate affect Intact judgement Neuro: Muscles Strength 5/5 in all 4 extremities Sensation to light touch grossly present throughout Cranial nerves II-XII grossly intact No focal sensory deficits - Labs CBC & Chem 7: 01/19/18 06:53 01/19/18 06:53 Assessment and Plan Assessment: Benzodiazepines withdrawal lyrica withdrawal Chronic abdominal pain adjustment disorder with anxious mood Plan: Patient's her symptoms of generalized abdominal pain and tremor of the hands and head were significantly improved after starting Xanax in the emergency room , we'll put her on Benzodiazepine prn, continue with IV hydration, seizure precaution and keep monitoring Psychiatric evaluation is appreciated, mostly patient have adjustment disorder with anxious mood, and the recommended to increase the dose of Celexa to 20 mg daily and add clonidine 0.5 mg daily at bedtime and follow-up as an outpatient, discussed with patient and has been at bedside and patient request this recommendation and they agree For her my fibromyalgia she is off Lyrica right now, patient wants to start gabapentin because it worked for her before, we will start small dose and as for follow-up DC Xanax, and Lyrica up and patient request Recommend PT OT evaluation Start IV hydration The above problems and management plan was discussed with the patient and she verbalized understanding and acceptance
[2018-01-20] MEDS: GABAPENTIN 100 MG CAP PO SCH ×2 (18:14→20:42)
[2018-01-20] MEDS: DEXTROSE 5%-0.45% NACL 1,000 ML IV SCH (18:14)
[2018-01-20] MEDS: clonazePAM 0.5 MG TAB PO SCH (20:41)
[2018-01-20] MEDS: AMITRIPTYLINE HCL 25 MG TAB PO SCH (23:35)
[2018-01-21] MEDS: MAGNESIUM OXIDE 400 MG TAB PO SCH (07:54)
[2018-01-21] MEDS: CITALOPRAM HYDROBROMIDE 20 MG TAB PO SCH (07:54)
[2018-01-21] MEDS: GABAPENTIN 100 MG CAP PO SCH ×3 (07:54→20:47)
[2018-01-21] MEDS: APIXABAN 5 MG TAB PO SCH ×2 (07:54→20:47)
[2018-01-21] MEDS: ASPIRIN 81 MG PO SCH (07:54)
[2018-01-21] MEDS: DEXTROSE 5%-0.45% NACL 1,000 ML IV SCH ×2 (07:55→20:48)
[2018-01-21] MEDS: POTASSIUM CHLORIDE ER 10 MEQ TAB.ER.PRT PO SCH ×2 (07:55→20:47)
[2018-01-21] MEDS: DICYCLOMINE 10 MG CAP PO SCH ×3 (07:55→20:47)
[2018-01-21 08:01] LABS: Basophils % (A) 1 %; Eosinophils # (A) 0.1 k/uL (0-0.7); Eosinophils % (A) 2 %; HCT 43.8 % (34.0-46.0); HGB 14.8 gm/dL (11.4-16.0); Lymphocytes # (A) 1.7 k/uL (1.0-4.8); Lymphocytes % (A) 42 %; MCH 31.2 pg (25.0-35.0); MCHC 33.8 g/dL (31.0-37.0); MCV 92.5 fL (80.0-100.0); Mean Platelet Volume 7.2; Monocytes # (A) 0.3 k/uL (0-1.0); Monocytes % (A) 8 %; Neutrophils # (A) 1.8 k/uL (1.3-7.7); Neutrophils % (A) 44 %; Platelet Count 116 k/uL (150-450); RBC 4.73 m/uL (3.80-5.40); RDW 12.8 % (11.5-15.5)
[2018-01-21 08:19] LABS: Calcium 9.4 mg/dL (8.4-10.2); Potassium 4.1 mmol/L (3.5-5.1)
[2018-01-21] MEDS ORDERED: PREGABALIN 50 MG CAP PO SCH (09:00)
[2018-01-21] MEDS: FOLIC ACID 1 MG TAB PO SCH (12:39)
[2018-01-21] MEDS: clonazePAM 0.5 MG TAB PO SCH (20:47)
[2018-01-21] MEDS: AMITRIPTYLINE HCL 25 MG TAB PO SCH (20:47)
--- NOTE | 2018-01-21 22:30 | P.PN ---
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 she's follow up with an thermocouple tester and has been stable since her last appointment 2 months ago and her next appointment is going to be on February 2018 , fibromyalgia was coronary For 2 years prior to that she was on gabapentin which she liked but her doctor stopped it for her, GERD, sleep apnea not on CPAP/BiPAP , history of inguinal clots on liquids, chronic lower abdominal pain she was recently hospitalized in or to [facility], underwent EGD and colonoscopy and she has follow-up appointments with GI as an outpatient, her abdominal pain in stable, no nausea vomiting, she has some constipation Patient was on Brittany for 2 years patient thought that its contributed to her room gradually progressive vision as she has history of glaucoma so she didn't want to continue monitoring her doctor start tapering her toes and she is coming down from 100 mg twice daily day now is taking 50 mg once a day supposedly till next Sunday She was taking Dilaudid 1 mg once daily for 2 weeks and then stopped it another 2 weeks ago and her doctor put her on Xanax 0.25 mg once a day yesterday she stopped taking the Xanax and she started having with towel symptoms kind of picture with tremor and generalized abdominal pain that's when she decided to come to the emergency room Patient states she is also taking baby aspirin, Patient denies seizure, she feels somewhat anxious but not over psychosis or depression In the emergency room patient got 1 mg of Xanax when the ED physician noticed her blood pressure was uncontrolled and high Subjective: Patient is seen and examined by me at bedside No new complaints No CP/SOB, no change in urine or bowel habits, no fever pt was feeling better this morning , became increasingly anxious towards expected discharge today, in the afternoon , she has many irregular twitching from her anxiety, although she said at the end to discharge her , it was felt it is unsafe to discharge the pt in such condition , psych consult and f/u is called by staff it was not felt to be malingering Objective - Vital Signs Vital signs: Vital Signs Temp 98.7 F 01/21/18 20:00 Pulse 87 01/21/18 20:00 Resp 16 01/21/18 20:00 BP 126/76 01/21/18 20:00 Pulse Ox 97 01/21/18 20:00 Intake & Output 01/21/18 01/21/18 01/22/18 06:59 18:59 06:59 Intake Total 440 Balance 440 Weight 102.965 kg Intake: Oral 240 Other 200 Other: Voiding Method Toilet Toilet # Voids 1 - Exam Constitutional: No acute distress, conversant, pleasant Eyes: Anicteric sclerae, moist conjunctiva, no lid-lag PERRLA ENMT: NC/AT Oropharynx clear, no erythema, exudates Neck: Supple, FROM, no masses, or JVD No carotid bruits No thyromegaly Lungs: Clear to auscultation Clear to percussion Normal respiratory effort, no accessory muscle use Cardiovascular: Heart regular in rate and rhythm, No murmurs, gallops, or rubs No peripheral edema Abdominal: Soft - Lower abdominal tenderness, no guarding, rebound or rigidity Abdomen moving with respiration Normoactive bowel sounds No hepatomegaly, No splenomegaly No palpable mass No abdominal wall hernia noted Skin: Normal temperature, tone, texture, turgor No induration No subcutaneous nodules No rash, lesions No ulcers Extremities: No digital cyanosis No clubbing Pedal pulses intact and symmetrical Radial pulses intact and symmetrical Normal gait and station No calf tenderness Psychiatric: Alert and oriented to person, place and time Appropriate affect Intact judgement Neuro: Muscles Strength 5/5 in all 4 extremities Sensation to light touch grossly present throughout Cranial nerves II-XII grossly intact No focal sensory deficits - Labs CBC & Chem 7: 01/21/18 07:16 01/21/18 07:16 Labs: Abnormal Lab Results - Last 24 Hours (Table) 01/21/18 Range/Units 07:16 Plt Count 116 L (150-450) k/uL Assessment and Plan Assessment: Benzodiazepines withdrawal lyrica withdrawal Chronic abdominal pain adjustment disorder with anxious mood Plan: Patient's her symptoms of generalized abdominal pain and tremor of the hands and head were significantly improved after klonopin however pt became increasingly agitated consider psych f/u c/w gabapentin PT note is reviewed pt agrees to stay for further monitoring and management The above problems and management plan was discussed with the patient and she verbalized understanding and acceptance
[2018-01-22 08:17] VITALS: RESP 18
[2018-01-22] MEDS: MAGNESIUM OXIDE 400 MG TAB PO SCH (08:26)
[2018-01-22] MEDS: DICYCLOMINE 10 MG CAP PO SCH ×3 (08:26→21:01)
[2018-01-22] MEDS: POTASSIUM CHLORIDE ER 10 MEQ TAB.ER.PRT PO SCH ×2 (08:26→21:01)
[2018-01-22] MEDS: ASPIRIN 81 MG PO SCH (08:26)
[2018-01-22] MEDS: GABAPENTIN 100 MG CAP PO SCH ×2 (08:26→17:27)
[2018-01-22] MEDS: APIXABAN 5 MG TAB PO SCH ×2 (08:26→21:01)
[2018-01-22] MEDS: CITALOPRAM HYDROBROMIDE 20 MG TAB PO SCH (08:27)
[2018-01-22] MEDS: FOLIC ACID 1 MG TAB PO SCH (11:25)
[2018-01-22 17:21] VITALS: BP 126/80; PULSE 85; TEMP 98.8
[2018-01-22] MEDS: clonazePAM 0.5 MG TAB PO SCH (21:01)
[2018-01-22] MEDS: AMITRIPTYLINE HCL 25 MG TAB PO SCH (21:01)
--- NOTE | 2018-01-25 22:04 | P.DS ---
Providers Date of admission: 01/19/18 08:06 Attending physician: Wesley Farley Consults: 01/19/18 14:29 Consult Physician Routine Consulting Provider: Kike Zeng Consult Reason/Comments: withdrawal Do you want consulting provider notified?: Yes 01/21/18 19:57 Consult Physician Routine Consulting Provider: Kike Zeng Consult Reason/Comments: RE-EVALUATE FOR INCREASED ANXIETY Do you want consulting provider notified?: Yes Primary care physician: Alexander [facility] Hospital Course: This is a pleasant 57 years old lady with past medical history of CVA/TIA, with residual right hemiplegia,, right eye glaucoma over 6-8 months duration she's follow up with an chargemaster specialist and has been stable since her last appointment 2 months ago and her next appointment is going to be on February 2018 , fibromyalgia was going on For 2 years prior to that she was on gabapentin which she liked but her doctor stopped it for her, GERD, sleep apnea not on CPAP/BiPAP , history of inguinal clots on Eliquis, chronic lower abdominal pain she was recently hospitalized in or to [facility], underwent EGD and colonoscopy and she has follow-up appointments with GI as an outpatient, her abdominal pain in stable, no nausea vomiting, she has some constipation Patient was on Lyrica for 2 years patient thought that its contributed to her gradually progressive vision difficulty though pt states it has been stable over the last two months as she has history of glaucoma so she didn't want to continue monitoring her doctor start tapering her toes and she is coming down from 100 mg twice daily day now is taking 50 mg once a day supposedly till next Sunday She was taking Dilaudid 1 mg once daily for 2 weeks and then stopped it another 2 weeks ago and her doctor put her on Xanax 0.25 mg once a day earlier she stopped taking the Xanax and she started having with symptoms of tremor and generalized body pain that's when she decided to come to the emergency room In the emergency room patient got 1 mg of Xanax when the ED physician noticed her blood pressure was uncontrolled and high, her symptoms were resolved and, psychiatrist evaluated the pt and diagnosed her with (( adjustment disorder with anxious mood)) and the recommended to increase the dose of Celexa to 20 mg daily and add Klonopin 0.5 mg daily at bedtime and follow-up as an outpatient, discussed with patient and at bedside and patient request this recommendation and they agree For her my fibromyalgia she is off Lyrica right now, patient wants to start gabapentin because it worked for her before, we will start small dose and as for follow-up we DC Xanax, and Lyrica upon patient request Physical therapist recommended home with no therapy pt showed interval improvement , her body pains are significantly improved with some residual fibromyalgia pain, no more tremor on the day of discharge pt became increasingly anxious by the evening time she started to have anxious shaking of her body and arm without losing consciousness and when had to calm her down for her to stop and pt decided she is not ready for dc and wants to see the psychiatrist again , next day the pt RN called the psych dunbar and informed her twice that the psychiatrist will to come to see her the same day however it was late evening and the psychiatrist did not show up the pt and at bed side wanted to leave (as per staff) and contacted the physician satellite instruction facilitator who discharged her over the phone, I called Catina Garner next day she told me she has already went to her pcp doctor who did not help her and stated she had pain all over her body , I advised pt to call 911and come to ED and explained to her the risks including but limited to or organ dysfunction and she verbalized understanding but refused to follow my advice , I offered to give her prescription for Neurontin , klonopin or even lyrica but she refused stated she has already came to ED 5-6 times and that cost her money, I told the pt to call her pcp as an alternative or go to urgent care , she replied her doctor works at urgent care and she does not think her pcp will help her as she already visited her pcp i advised pt to f/u with her psychiatrist kayla too Patient Condition at Discharge: Good Plan - Discharge Summary Discharge Rx Participant: No New Discharge Prescriptions: No Action Potassium Chloride [Klor-Con 8] 8 meq PO BID Folic Acid 0.4 mg PO DAILY Apixaban [Eliquis] 5 mg PO BID Aspirin [Adult Low Dose Aspirin EC] 81 mg PO DAILY Magnesium Glycinate 450mg 450 mg PO DAILY Citalopram Hydrobromide [CeleXA] 10 mg PO DAILY #30 tab Dicyclomine [Bentyl] 10 mg PO TID #30 cap ALPRAZolam [Xanax] 0.25 mg PO HS #0 Discharge Medication List Potassium Chloride [Klor-Con 8] 8 meq PO BID 10/16/16 [History] Apixaban [Eliquis] 5 mg PO BID 12/12/17 [History] Folic Acid 0.4 mg PO DAILY 12/12/17 [History] Aspirin [Adult Low Dose Aspirin EC] 81 mg PO DAILY 01/10/18 [History] Magnesium Glycinate 450mg 450 mg PO DAILY 01/15/18 [History] ALPRAZolam [Xanax] 0.25 mg PO HS #0 01/16/18 [Rx] Citalopram Hydrobromide [CeleXA] 10 mg PO DAILY #30 tab 01/16/18 [Rx] Dicyclomine [Bentyl] 10 mg PO TID #30 cap 01/16/18 [Rx] Follow up Appointment(s)/Referral(s): Alexander Clement DO [Primary Care Provider] - 1-2 days (Reschedule appointment ) Patient Instructions/Handouts: Anxiety (GEN) Activity/Diet/Wound Care/Special Instructions: [facility] [address] [phone] Appointment date: February 06, 2018 Appointment time is 11:30 - please arrive at 11:00am Dr Gomes will call in script tomorrow for Neurontin Discharge Disposition: HOME SELF-CARE
== END 2018-01-22 21:30 | disposition home or self-care (01) ==
LOC: EC 05:57 → 3OBS 08:06
PROVIDERS: ADMIT Hospitalist; ATTEND Hospitalist
DX: F13.239 Sedative, hypnotic or anxiolytic dependence with withdrawal, unspecified (principal); F19.239 Other psychoactive substance dependence with withdrawal, unspecified; I10 Essential (primary) hypertension; F43.22 Adjustment disorder with anxiety; I69.351 Hemiplegia and hemiparesis following cerebral infarction affecting right dominant side; H40.9 Unspecified glaucoma; K21.9 Gastro-esophageal reflux disease without esophagitis; M79.7 Fibromyalgia; G47.33 Obstructive sleep apnea (adult) (pediatric); G89.29 Other chronic pain; R10.84 Generalized abdominal pain; R41.3 Other amnesia; D86.9 Sarcoidosis, unspecified; K57.90 Diverticulosis of intestine, part unspecified, without perforation or abscess without bleeding; K59.00 Constipation, unspecified; E66.9 Obesity, unspecified; Z68.35 Body mass index [BMI] 35.0-35.9, adult; T42.4X6A Underdosing of benzodiazepines, initial encounter; T42.6X6A Underdosing of other antiepileptic and sedative-hypnotic drugs, initial encounter; Z91.128 Patient's intentional underdosing of medication regimen for other reason; Z79.82 Long term (current) use of aspirin; Z79.01 Long term (current) use of anticoagulants; Z79.899 Other long term (current) drug therapy; Z88.6 Allergy status to analgesic agent; Z88.1 Allergy status to other antibiotic agents; Z88.5 Allergy status to narcotic agent; Z88.2 Allergy status to sulfonamides; Z91.048 Other nonmedicinal substance allergy status; Z82.49 Family history of ischemic heart disease and other diseases of the circulatory system; Z86.010 Personal history of colon polyps; Z87.74 Personal history of (corrected) congenital malformations of heart and circulatory system; Z81.8 Family history of other mental and behavioral disorders
CPT/HCPCS: 36415; 80048; 80053; 83735; 84484; 85025; 93005; 96361; 96374; 99284

== ENCOUNTER → 2018-06-12 | Outpatient (CLI) | payer OTHER ==
--- NOTE | 2018-06-13 13:48 | ECHOF ---
Referral Reason:G44.209 tension headache MEASUREMENTS -------- HEIGHT: 170.2 cm WEIGHT: 88.9 kg BP: IVSd: 1.4 cm (0.6 - 1.1) LVIDd: 3.6 cm (3.9 - 5.3) LVPWd: 1.1 cm (0.6 - 1.1) IVSs: 1.5 cm LVIDs: 2.6 cm LVPWs: 1.4 cm LA Diam: 3.1 cm (2.7 - 3.8) LAESV Index (A-L): 21.11 ml/m Ao Diam: 3.6 cm (2.0 - 3.7) AV Cusp: 1.1 cm (1.5 - 2.6) LA Diam: 2.6 cm (2.7 - 3.8) EPSS: 0.3 cm MV E Emiliano: 0.76 m/s MV DecT: 215 ms MV A Emiliano: 0.86 m/s MV E/A Ratio: 0.88 AV maxP.59 mmHg AV meanP.54 mmHg RAP: 5.00 mmHg RVSP: 22.74 mmHg MV EF SLOPE: 112.85 mm/s (70 - 150) MV EXCURSION: 1.73 cm (> 18.000) FINDINGS -------- Sinus rhythm. This was a technically adequate study. The left ventricular size is normal. There is mild concentric left ventricular hypertrophy. Overa ll left ventricular systolic function is low-normal with, an EF between 50 - 55 %. The right ventricle is normal in size. The left atrial size is normal. The right atrial size is normal. Pt Had ASD Closure: not sure of year. There is no evidence of aortic regurgitation. There is hnzttbkn-ql-jbkzut aortic stenosis present. Peak/mean gradient across the Aortic Valve is 40.59mmHg / 26.54mmHg. AOV is possible Bicuspid. Mild mitral annular calcification present. No mitral regurgitation. Mild tricuspid regurgitation present. There is no evidence of pulmonary hypertension. The right v entricular systolic pressure, as measured by Doppler, is 22.74mmHg. There is no pulmonic regurgitation present. The aortic root size is normal. There is no pericardial effusion. CONCLUSIONS -------- 1. Sinus rhythm. 2. This was a technically adequate study. 3. The left ventricular size is normal. 4. There is mild concentric left ventricular hypertrophy. 5. Overall left ventricular systolic function is low-normal with, an EF between 50 - 55 %. 6. The right ventricle is normal in size. 7. The left atrial size is normal. 8. The right atrial size is normal. 9. Pt Had ASD Closure: not sure of year. 10. There is no evidence of aortic regurgitation. 11. There is mmvorzrq-jt-zazyao aortic stenosis present. 12. Peak/mean gradient across the Aortic Valve is 40.59mmHg / 26.54mmHg. 13. AOV is possible Bicuspid. 14. Mild mitral annular calcification present. 15. No mitral regurgitation. 16. Mild tricuspid regurgitation present. 17. There is no evidence of pulmonary hypertension. 18. The right ventricular systolic pressure, as measured by Doppler, is 22.74mmHg. 19. There is no pulmonic regurgitation present. 20. The aortic root size is normal. 21. There is no pericardial effusion. HEAD HOLDER: Glory Wynne RDCS
== END | disposition home or self-care (01) ==
LOC: RADECHMAIN 11:31
PROVIDERS: ATTEND Psychiatry & Neurology Neurology
DX: I07.1 Rheumatic tricuspid insufficiency (principal); I35.0 Nonrheumatic aortic (valve) stenosis; I05.9 Rheumatic mitral valve disease, unspecified; Q21.1 Atrial septal defect; G44.209 Tension-type headache, unspecified, not intractable; J45.909 Unspecified asthma, uncomplicated; I63.312 Cerebral infarction due to thrombosis of left middle cerebral artery; M79.7 Fibromyalgia; G40.309 Generalized idiopathic epilepsy and epileptic syndromes, not intractable, without status epilepticus; M54.9 Dorsalgia, unspecified; G25.0 Essential tremor
CPT/HCPCS: 93306

== ENCOUNTER → 2018-07-12 | Outpatient (CLI) | payer OTHER ==
--- NOTE | 2018-07-15 13:50 | MM ---
Reason for exam: screening (asymptomatic). Last mammogram was performed 2 years and 5 months ago. Physical Findings: A clinical breast exam by your physician is recommended on an annual basis and results should be correlated with mammographic findings. MG Screening Mammo w CAD Bilateral CC, MLO, and XCCL view(s) were taken. Prior study comparison: January 27, 2016, mammogram, performed at [facility]. January 10, 2011, mammogram, performed at [facility]. There is a low density oval circumscribed left mass at anterior depth in the lower inner quadrant. There is a new 3mm group of calcifications at 12 o'clock posterior depth. ASSESSMENT: Incomplete: need additional imaging evaluation, BI-RAD 0 RECOMMENDATION: Special view mammogram of both breasts. If lesion persists on supplemental views, image directed ultrasound is recommended. [facility] will attempt to contact patient to return for supplemental views and ultrasound if indicated.
== END | disposition home or self-care (01) ==
LOC: RADMAMWWP 14:47
PROVIDERS: ATTEND Family Medicine
DX: Z12.31 Encounter for screening mammogram for malignant neoplasm of breast (principal)
CPT/HCPCS: 77067

== ENCOUNTER → 2018-07-24 | Outpatient (CLI) | payer OTHER ==
--- NOTE | 2018-07-25 09:24 | MM ---
Reason for exam: additional evaluation requested from abnormal screening. Last mammogram was performed less than 1 month ago. Physical Findings: Nurse did not find any significant physical abnormalities on exam. MG Work Up Mamm w CAD BILAT Bilateral spot compression CC, spot compression MLO, and LM view(s) were taken. CC with magnification and LM with magnification view(s) were taken of the right breast. Prior study comparison: July 12, 2018, bilateral MG screening mammo w CAD. January 27, 2016, mammogram, performed at [facility]. There are scattered fibroglandular densities. Right: new indeterminate calcifications, biopsy is recommended. Left: nodular less conspicuous, 6 month follow up recommended. These results were verbally communicated with the patient and result sheet given to the patient on 07/24/18. ASSESSMENT: Suspicious, BI-RAD 4 - Right RECOMMENDATION: Stereotactic core biopsy of the right breast. Called Dr. Clement with mammographic findings and has scheduled an appointment for the patient for 08/08/18 at 8:[address] Rendon. Biopsy scheduled for 08/20/18 at 8:00. PRELIMINARY REPORT CALLED AND FAXED TO DR. RENDON ON 07/25/18.
== END | disposition home or self-care (01) ==
LOC: RADMAMWWP 08:41
PROVIDERS: ATTEND Family Medicine
DX: R92.8 Other abnormal and inconclusive findings on diagnostic imaging of breast (principal)
CPT/HCPCS: 77066

== ENCOUNTER → 2018-08-08 | Outpatient (CLI) | payer OTHER ==
[2018-08-08 09:01] VITALS: BP 123/64; PULSE 75; RESP 18; TEMP 96.3; BMI 30.5
--- NOTE | 2018-08-08 09:44 | P.GSHP ---
History of Present Illness H&P Date: 08/08/18 Chief Complaint: mammographic abnormality of hte right breast The patient is a 57-year-old white female who had a routine bilateral screening mammogram performed on . Based on this the patient was recommended to have bilateral diagnostic additional views performed. On the additional views she was noted to have a 3 mm group of calcifications at 12:00 in the right breast. In the left breast with G had initially seen a small nodular area this was less conspicuous and six-month follow-up was recommended. The patient denies any trauma to her breast. She didn't does not feel anything of concern in her breast. She has no nipple discharge of concern. She has no history of recent infection in her breasts. Family history: Negative for cancer Hormonal history: Menarche: 11 Pregnancies: 2, first at 25, she did not breast-feed Menopause: Hysterectomy at 46 her ovaries were not removed this was done for bleeding control pills: For approximately 5 years Hormones: Negative Past surgical history: 1. back surgery 2. neck surgery 3. cataracts bilateral 4. deviated septum 5. tonsil 6. hysterectomy partial 7. heart repair/ a patch placed for defect 8. edna filter placed Past medical history: 1. CVA times two/ right sided lack of feeling 2. memory short term deficiet 3. DVT a greenfiled placed 4. recent TIA 5. patient needs aortic valve replaced Medications: 1. eliquis 2. plavix 3. baby aspirin see list Other medications to be noted Social history: Smoke: Negative Alcohol: Negative Drugs: Negative - Constitutional Comment: weakness related to CVA Constitutional: Reports weakness - EENT Comment: glaucoma right eye Eyes: right blurred vision, bilateral as per HPI Ears: bilateral: decreased hearing Ears, nose, mouth and throat: Denies headache, Denies sore throat - Breasts Breasts: bilateral: as per HPI - Cardiovascular Cardiovascular: Reports as per HPI - Respiratory Comment: lung biopsy positive sarcoid Respiratory: Denies cough, Denies 7 - Gastrointestinal Gastrointestinal: Denies abdominal pain, Denies diarrhea, Denies nausea, Denies vomiting - Genitourinary (Female) Comment: UTI in past Genitourinary: Reports kidney stones - Menstruation Menstruation: Reports post hysterectomy - Musculoskeletal Comment: bulging disc Musculoskeletal: Reports muscle weakness - Integumentary Integumentary: Denies pruritus, Denies rash - Neurological Comment: CVA, TIA - Psychiatric Psychiatric: Reports anxiety, Reports depression - Endocrine Endocrine: Reports weight change - Hematologic/Lymphatic Hematologic/Lymphatic: Reports as per HPI - Allergic/Immunologic Allergic/Immunologic: Reports as per HPI Past Medical History Past Medical History: CVA/TIA, Fibromyalgia, GERD/Reflux, Memory Impairment, Sleep Apnea/CPAP/BIPAP Additional Past Medical History / Comment(s): CVA x 2 with some R arm/leg weakness and mild dysphasia, 12/06/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 History of Any Multi-Drug Resistant Organisms: None Reported Past Surgical History: Adenoidectomy, Back Surgery, Hysterectomy, Tonsillectomy Additional Past Surgical History / Comment(s): 01/14/18 EGD with bx/colonoscopy with polypectomy benign, 01/09/18 needle biopsy lungs d/t enlarged lymph nodes benign, 12/06/17 R groin accessed and IVC clot "broken up and removed but some pieces left", GFF, PFO repair at [facility], 09/2017 cervical fusion, lumbar surgery 1988, deviated septal surgery, bilateral cataract removal with lens, R eye laser surgery for glaucoma, benign skin lesion removed. Past Anesthesia/Blood Transfusion Reactions: Postoperative Nausea & Vomiting ( PONV) Past Psychological History: Anxiety, Depression Additional Psychological History / Comment(s): Pt resides with her spouse of 36yrs. She uses no assistive device. She has not driven in 3 months d/t health reasons but normally, did drive. Smoking Status: Never smoker Past Alcohol Use History: None Reported Past Drug Use History: None Reported - Past Family History Mother Family Medical History: Coronary Artery Disease (CAD), Myocardial Infarction ([place] ) Additional Family Medical History / Comment(s): Mother at the age of 64yrs from [place]. Maternal grandmother from a [place] at the age of 63 yrs. Father History Unknown: Yes Additional Family Medical History / Comment(s): committed suicide Brother(s) Family Medical History: Coronary Artery Disease (CAD), Myocardial Infarction ([place] ) Additional Family Medical History / Comment(s): Brother at 59yrs from [place]/ cardiac arrest. Sister(s) Additional Family Medical History / Comment(s): multiple sclerosis Medications and Allergies Home Medications Medication Instructions Recorded Confirmed Type Potassium Chloride [Klor-Con 8] 8 meq PO BID 10/16/16 08/08/18 History Apixaban [Eliquis] 5 mg PO BID 12/12/17 08/08/18 History Folic Acid 0.4 mg PO DAILY 12/12/17 08/08/18 History Aspirin [Adult Low Dose Aspirin EC] 81 mg PO DAILY 01/10/18 08/08/18 History Magnesium Glycinate 450mg 450 mg PO DAILY 01/15/18 08/08/18 History Cholecalciferol (Vitamin D3) 1 tab PO QAM 07/30/18 08/08/18 History [Vitamin D3] Clopidogrel [Plavix] 1 tab PO QAM 07/30/18 08/08/18 History Cranberry Fruit Concentrate 1 tab PO BID 07/30/18 08/08/18 History [Cranberry] Gabapentin [Neurontin] 100 mg PO BID 07/30/18 08/08/18 History busPIRone HCL [Buspar] 1 tab PO BID 07/30/18 08/08/18 History Citalopram Hydrobromide [CeleXA] 10 mg PO QAM 08/08/18 08/08/18 History Allergies Allergy/AdvReac Type Severity Reaction Status Date / Time adhesive tape Allergy Rash/Hives Verified 08/08/18 08:46 celecoxib [From Celebrex] Allergy Unknown Verified 08/08/18 08:46 ciprofloxacin [From Cipro] Allergy Unknown Verified 08/08/18 08:46 Sulfa (Sulfonamide Allergy Unknown Verified 08/08/18 08:46 Antibiotics) morphine AdvReac Vomiting Verified 08/08/18 08:46 phenazopyridine AdvReac Unknown Verified 08/08/18 08:46 [From Pyridium] Surgical - Exam Vital Signs Temp Pulse Resp BP Pulse Ox 96.3 F L 75 18 123/64 97 08/08/18 08:49 08/08/18 08:49 08/08/18 08:49 08/08/18 08:49 08/08/18 08:49 BMI 30.5 - General well developed, well nourished, no distress - Eyes normal ocular movement - ENT normal pinna - Neck no masses, trachea midline - Respiratory normal respiratory effort, clear to auscultation - Cardiovascular Rhythm: regular Heart Sounds: normal: S1, S2 - Abdomen Abdomen: soft - Integumentary normal turger - Musculoskeletal normal gait - Psychiatric oriented to time, oriented to person, oriented to place, speech is normal, memory intact breast exam: Right breast: Multi-positional exam no dominant masses or nodules of concern Right axilla: No adenopathy of concern Left breast: Mild ecchymosis, multi-positional exam no dominant masses or nodules of concern Left axilla: No adenopathy of concern Results mammogram reports reviewed Assessment and Plan Assessment: Impression: 1. abnormal mammogram right 2. anticoagulated 3. needs aortic valve replacement 4. prior CVA 5. prior TIA 6. cataracts Plan: 1. Stereotactic core biopsy right breast 2. Bilateral mammogram at 6 months depending on results of sterotactic core biopsy 3. Medical management of medical problems Risk and benefits of the procedure have been discussed with the patient and her sister. They understand and wish to proceed. Alternatives including open surgical biopsy or watchful waiting have been discussed but not recommended. Of greatest concern is the fact that the patient is on Plavix, aspirin, and Ellik course. She has discussed with her street cleaning equipment operator and we'll stop the Plavix and aspirin for 7 days prior to the procedure. She will stop the Ellik was for 48 hours prior to the procedure. I have asked her about bridging with Lovenox and she said her street cleaning equipment operator did not recommend this. The procedure is scheduled for the near future. CC: Dr. Jennifer Clement
== END ==
LOC: WWCWWP 08:39
PROVIDERS: ATTEND Surgery
DX: Z53.9 Procedure and treatment not carried out, unspecified reason (principal)

== ENCOUNTER → 2018-08-20 | Day surgery (SDC) | payer OTHER ==
[2018-08-20 07:48] VITALS: RESP 16; BMI 30.5
--- NOTE | 2018-08-20 09:10 | P.PCN ---
Date of Procedure: 08/20/18 Preoperative Diagnosis: Mammographic abnormality right breast Postoperative Diagnosis: Same, microcalcifications right breast, lesion located in the upper mid breast Procedure(s) Performed: Stereotactic core biopsy right breast Anesthesia: local Surgeon: Teresita Rendon Estimated Blood Loss (ml): 3 Pathology: other (Breast tissue) Condition: stable Disposition: same day Indications for Procedure: New indeterminant microcalcifications right breast Operative Findings: Microcalcifications noted and radiographs specimen Description of Procedure: The patient was taken to the stereotactic core biopsy room. She had previously undergone a breast biopsy in which no dominant masses or nodules of concern were noted in either breast. No adenopathy of concern was noted in the axilla. Her mammograms were reviewed. There was a new area of microcalcification which is indeterminate in the right breast in the upper mid breast. Risk and benefits of the procedure including alternatives were discussed with the patient. The patient wished to proceed. The patient was positioned on the stereotactic core biopsy table. Secondary to the location of the lesion in the breast hour initial attempt was to locate this from a CC from above position. Unfortunately there were blood vessels in this area causing us to reposition the patient. The patient was repositioned from a medial to lateral approach. In the medial to lateral approach the lesion was identified on caseworker film. Stereotactic pair was then obtained. The lesion was targeted. The skin was prepped using Betadine. 1% lidocaine 20 mL was utilized to anesthetize the area. The needle was driven to the correct coordinates. Pre-fire films were obtained. On the prefire films there was concern that the lesion was not in the correct location. The needle was withdrawn. The lesion was retargeted, again using a medial to lateral approach. The breast was reprepped at this time using alcohol. The needle was able to be inserted in the same puncture site. The needle was driven to the correct targets. Prefire films were obtained. The needle was noted to be in the correct location. The needle was fired and post-fire films were obtained. The needle again was noted to be in the correct location. Core biopsies were obtained from the 3 through 9 o'clock position. Radiograph of the specimen revealed the area of concern had been sampled. The needle used was a 9-gauge vacuum-assisted rotating needle. The area sampled was marked using a secure ale top panama hat smearer. The specimen was sent to pathology. The patient tolerated the procedure in stable condition. There were no immediate postoperative complications. The patient will follow-up with Dr. Barth in 1 week.
[2018-08-20 09:48] VITALS: BP 117/79; PULSE 67; TEMP 97.7
--- NOTE | 2018-08-20 17:30 | MM ---
EXAMINATION TYPE: MG stereo VAD BX RT DATE OF EXAM: 08/20/2018 COMPARISON: Mammogram 07/24/2018 CLINICAL HISTORY: Abnormal mammogram with calcifications TECHNIQUE: Stereotactic guided core biopsy of right breast. FINDINGS: The procedure was performed by the surgeon. Targeting was provided by surgery. Specimen is presented contains multiple calcifications within the specimen. Postprocedure mammogram was obtained mammotome clip is in the expected region of the resected calcifications. IMPRESSION: 1. Successful stereotactic core biopsy right breast calcifications Recommendations: 1. Recommendations are pending pathology results. Pathology Results: Benign RIGHT BREAST, STEREOTACTIC CORE BIOPSY: Nodular fat necrosis with inflammation, histiocytes and fibrosis. Negative for malignancy. Recommendation Follow up mammogram of the right breast in 6 months. OMARI
== END ==
LOC: RADMAMWWP 07:20
PROVIDERS: ATTEND Surgery
DX: N64.1 Fat necrosis of breast (principal); N60.31 Fibrosclerosis of right breast; R92.8 Other abnormal and inconclusive findings on diagnostic imaging of breast
CPT/HCPCS: 88305; 19081; A4648; J2001

== ENCOUNTER → 2018-08-29 | Outpatient (CLI) | payer OTHER ==
[2018-08-29 09:35] VITALS: BP 120/79; PULSE 66; RESP 16; TEMP 98.2; BMI 30.5
--- NOTE | 2018-08-29 11:08 | P.PN ---
Subjective Progress Note Date: 08/29/18 Principal diagnosis: Status post stereotactic core biopsy of the right breast 37-year-old white female status post right breast are detected core biopsy. The procedure was performed on 1120 718. Pathology was benign nodular fat necrsis with inflamation. She has no complaints related to the procedure. Objective - Vital Signs Vital signs: Vital Signs Temp 98.2 F 08/29/18 09:26 Pulse 66 08/29/18 09:26 Resp 16 08/29/18 09:26 BP 120/79 08/29/18 09:26 Pulse Ox 98 08/29/18 09:26 Intake & Output 08/28/18 08/29/18 08/29/18 18:59 06:59 18:59 Weight 88.451 kg - Constitutional General appearance: Present: thin - EENT Eyes: Present: EOMI ENT: Present: hearing grossly normal - Respiratory Respiratory: bilateral: CTA - Cardiovascular Rhythm: regular Heart sounds: normal: S1, S2 - Gastrointestinal General gastrointestinal: Present: soft - Integumentary Integumentary Comment(s): Mild ecchymosis no hematoma no infection - Musculoskeletal Musculoskeletal: Present: gait normal - Psychiatric Psychiatric: Present: A&O x's 3, appropriate affect, intact judgment & insight Assessment and Plan Assessment: Impression: 1. Benign stereotactic core biopsy right breast 2. Patient for bilateral mammogram in 6 months Plan: 1. bilateral mammogram in 6 months 2. physican visit in 6 months CC: DR. Clement
== END ==
LOC: WWCWWP 08:41
PROVIDERS: ATTEND Surgery
DX: Z53.9 Procedure and treatment not carried out, unspecified reason (principal)

== ENCOUNTER 2018-10-06 11:12 | Emergency (ER) | payer OTHER ==
[2018-10-06] MEDS ORDERED: MECLIZINE 12.5 MG TAB PO STA (11:57)
[2018-10-06] MEDS ORDERED: SODIUM CHLORIDE 0.9% 1,000 ML IV STA (11:57)
--- NOTE | 2018-10-06 12:03 | ED ---
Dizziness HPI - General Chief Complaint: Dizziness Stated Complaint: DIZZINESS Time Seen by Provider: 10/06/18 11:32 Source: patient, RN notes reviewed Mode of arrival: wheelchair Limitations: no limitations - History of Present Illness Initial Comments: This is a 57-year-old female with a history of multiple medical problems including a stroke from a PFO in 2012 is now status post PFO repair she did have from this some right-sided residual deficits and speech problems especially when she is tired from (resolved she states she woke up yesterday morning with dizziness that persisted throughout the day and continue this morning when she woke up. She gets dizzy with moving her eyes somewhat but mostly with moving her head left to right and up and down. She has some trouble walking. Denies any headache blurry vision neck or back pain chest pain abdominal pain no deficits to her upper or lower extremities fevers chills nausea vomiting sweats. No recent upper respiratory infections. She was seen in outpatient clinic and evaluated and sent here for further evaluation for dizziness. She states that the dizziness is really bad when she moves her head some what when she stands up and a little bit when she sits up. She denies any dysuria hematuria she did have a UTI about one month ago. No other complaints at this time no other modifying factors she does state however that with her last stroke she did have similar dizziness after the strokes occurred. MD Complaint: dizziness, difficulty walking - Related Data Home Medications Medication Instructions Recorded Confirmed Potassium Chloride [Klor-Con 8] 8 meq PO BID 10/16/16 10/06/18 Apixaban [Eliquis] 5 mg PO BID 12/12/17 10/06/18 Aspirin [Adult Low Dose Aspirin EC] 81 mg PO DAILY 01/10/18 10/06/18 Clopidogrel [Plavix] 75 mg PO DAILY 07/30/18 10/06/18 Cranberry Fruit Concentrate 450 mg PO DAILY 07/30/18 10/06/18 [Cranberry] Gabapentin [Neurontin] 100 mg PO TID 07/30/18 10/06/18 busPIRone HCL [Buspar] 7.5 mg PO BID 07/30/18 10/06/18 Cholecalciferol [Vitamin D3] 5,000 unit PO DAILY 10/06/18 10/06/18 Citalopram Hydrobromide [CeleXA] 20 mg PO DAILY 10/06/18 10/06/18 Folic Acid 1 mg PO DAILY 10/06/18 10/06/18 Allergies Allergy/AdvReac Type Severity Reaction Status Date / Time adhesive tape Allergy Rash/Hives Verified 10/06/18 12:44 celecoxib [From Celebrex] Allergy Unknown Verified 10/06/18 12:44 ciprofloxacin [From Cipro] Allergy Unknown Verified 10/06/18 12:44 Sulfa (Sulfonamide Allergy Unknown Verified 10/06/18 12:44 Antibiotics) morphine AdvReac Vomiting Verified 10/06/18 12:44 phenazopyridine AdvReac Unknown Verified 10/06/18 12:44 [From Pyridium] Review of Systems ROS Statement: Those systems with pertinent positive or pertinent negative responses have been documented in the HPI. ROS Other: All systems not noted in ROS Statement are negative. Past Medical History Past Medical History: CVA/TIA, Fibromyalgia, Memory Impairment, Sleep Apnea/CPAP /BIPAP Additional Past Medical History / Comment(s): CVA x 2 with some R arm/leg weakness and mild dysphasia. 12/06/2017 IVC filter blood clot left femoral. sarcoidosis involving lungs. PFO with surgery. chronic L abdominal pain past 2 yrs but constant since 08/2017. R eye glaucoma. hiatal hernia. colon polyp removed 01/14/18. occasional low back pain. tremors but states with anxiety. TATUM no longer needs to use CPAP History of Any Multi-Drug Resistant Organisms: None Reported Past Surgical History: Adenoidectomy, Back Surgery, Hysterectomy, Tonsillectomy Additional Past Surgical History / Comment(s): 01/14/18 EGD with bx/colonoscopy with polypectomy benign, 01/09/18 needle biopsy lungs d/t enlarged lymph nodes benign, 12/06/17 R groin accessed and IVC clot "broken up and removed but some pieces left", GFF, PFO repair [place] [facility] [place] 09/2017 cervical fusion, lumbar surgery 1988, deviated septal surgery, bilateral cataract removal with lens, R eye laser surgery for glaucoma, benign skin lesion removed. Past Anesthesia/Blood Transfusion Reactions: Postoperative Nausea & Vomiting ( PONV) Past Psychological History: Anxiety, Depression Smoking Status: Never smoker Past Alcohol Use History: None Reported Past Drug Use History: None Reported - Past Family History Mother Family Medical History: Coronary Artery Disease (CAD), Myocardial Infarction ([place] ) Additional Family Medical History / Comment(s): Mother at the age of 64yrs from [place]. Maternal grandmother from a [place] at the age of 63 yrs. Father History Unknown: Yes Additional Family Medical History / Comment(s): committed suicide Brother(s) Family Medical History: Coronary Artery Disease (CAD), Myocardial Infarction ([place] ) Additional Family Medical History / Comment(s): Brother at 59yrs from [place]/ cardiac arrest. Sister(s) Additional Family Medical History / Comment(s): multiple sclerosis General Exam - General Exam Comments Initial Comments: This is a well-developed well-nourished awake alert oriented 3 female Limitations: no limitations General appearance: alert, in no apparent distress Head exam: Present: atraumatic, normocephalic, normal inspection Eye exam: Present: normal appearance, PERRL, EOMI. Absent: scleral icterus, conjunctival injection, periorbital swelling ENT exam: Present: normal exam, mucous membranes moist, other (Answer poorly visualized due to cerumen however no gross abnormalities are noted) Neck exam: Present: normal inspection, full ROM, other (No stridor JVD or bruits ). Absent: tenderness, meningismus, lymphadenopathy Respiratory exam: Present: normal lung sounds bilaterally. Absent: respiratory distress, wheezes, rales, rhonchi, stridor Cardiovascular Exam: Present: regular rate, normal rhythm, normal heart sounds. Absent: systolic murmur, diastolic murmur, rubs, gallop, clicks GI/Abdominal exam: Present: soft, normal bowel sounds. Absent: distended, tenderness, guarding, rebound, rigid, bruit, pulsatile mass Extremities exam: Present: normal inspection, full ROM, normal capillary refill. Absent: tenderness, pedal edema, joint swelling, calf tenderness Back exam: Present: normal inspection Neurological exam: Present: alert, oriented X3, CN II-XII intact Psychiatric exam: Present: normal affect, normal mood Skin exam: Present: warm, dry, intact, normal color. Absent: rash Course Vital Signs 10/06/18 10/06/18 10/06/18 11:17 12:15 13:25 Temperature 97.9 F Pulse Rate 66 77 Pulse Rate [ 66 Sitting] Pulse Rate [ 76 Standing] Pulse Rate [ 62 Supine] Respiratory 18 14 18 Rate Blood Pressure 144/85 188/119 Blood Pressure 123/73 [Sitting] Blood Pressure 135/93 [Standing] Blood Pressure 126/69 [Supine] O2 Sat by Pulse 98 95 Oximetry 10/06/18 10/06/18 10/06/18 13:45 14:00 14:15 Temperature Pulse Rate Pulse Rate [ Sitting] Pulse Rate [ Standing] Pulse Rate [ 67 63 64 Supine] Respiratory 20 18 18 Rate Blood Pressure Blood Pressure [Sitting] Blood Pressure [Standing] Blood Pressure 139/83 138/80 134/66 [Supine] O2 Sat by Pulse Oximetry 10/06/18 10/06/18 14:30 14:45 Temperature Pulse Rate Pulse Rate [ Sitting] Pulse Rate [ Standing] Pulse Rate [ 66 64 Supine] Respiratory 18 18 Rate Blood Pressure Blood Pressure [Sitting] Blood Pressure [Standing] Blood Pressure 138/64 139/64 [Supine] O2 Sat by Pulse Oximetry - Reevaluation(s) Reevaluation #1: 10/06/18 13:24 Patient has sudden onset of difficulty with speech and some right upper extremity weakness compared to her earlier exam also some shaking of her lower extremities. Her cognition also seems depressed compared to her original exam. A code stroke was called. I did review the initial plain brain CT no obvious abnormalities are seen official reading is pending. A CT angios of the head neck has been ordered. Reevaluation #2: 10/06/18 13:45 Patient did have an NIH score of 6 Reevaluation #3: 10/06/18 13:47 Reevaluation patient after return from CAT scan reveals no improvement at this time. Reevaluation #4: 10/06/18 15:19 Reevaluation patient reveals improvement in her symptoms. Her speech is return motor strength is returning her tremor that she had her lower extremities have resolved. I did an extensive discussion with Dr. Cespedes regarding the findings both CTs were negative for acute findings at this time. Patient does require inpatient evaluation this is not available at this facility at this time. Family has requested transfer to [facility] as her neurologist Dr. Gallagher works here. I did discuss the case with Dr. Bennett who is her partner covering today she is agreed to accept the patient transfer for consultation I also did discuss the case with Dr. Major who is the ER physician was agreed to accept the patient in transfer ER to ER. Reevaluation #5: 10/06/18 15:24 Of note the patient was not a candidate for TPA she is on eliguis EKG Findings - EKG Results: EKG: interpreted by TD, sinus rhythm (Sinus bradycardia 58. Interval 170 QRS duration 80 QT since QTC 446/437 nonspecific inferior changes) Medical Decision Making - Medical Decision Making I did a long discussion with the family regarding the findings. I did reevaluate the patient on multiple occasions she has improved she'll be transferred to [facility] for evaluation by neurology. - Lab Data Result diagrams: 10/06/18 12:52 10/06/18 12:52 Lab Results 10/06/18 10/06/18 10/06/18 Range/Units 12:52 12:52 12:52 WBC 5.1 (3.8-10.6) k/uL RBC 4.66 (3.80-5.40) m/uL Hgb 15.1 (11.4-16.0) gm/dL Hct 45.4 (34.0-46.0) % MCV 97.4 (80.0-100.0) fL MCH 32.5 (25.0-35.0) pg MCHC 33.3 (31.0-37.0) g/dL RDW 15.1 (11.5-15.5) % Plt Count 153 (150-450) k/uL Neutrophils % 61 % Lymphocytes % 31 % Monocytes % 5 % Eosinophils % 1 % Basophils % 1 % Neutrophils # 3.1 (1.3-7.7) k/uL Lymphocytes # 1.6 (1.0-4.8) k/uL Monocytes # 0.2 (0-1.0) k/uL Eosinophils # 0.1 (0-0.7) k/uL Basophils # 0.0 (0-0.2) k/uL PT 10.8 (9.0-12.0) sec INR 1.0 (<1.2) Sodium 140 (137-145) mmol/L Potassium 4.4 (3.5-5.1) mmol/L Chloride 109 H (98-107) mmol/L Carbon Dioxide 27 (22-30) mmol/L Anion Gap 4 mmol/L BUN 16 (7-17) mg/dL Creatinine 0.70 (0.52-1.04) mg/dL Est GFR (CKD-EPI)AfAm >90 (>60 ml/min/1.73 sqM) Est GFR (CKD-EPI)NonAf >90 (>60 ml/min/1.73 sqM) Glucose 97 (74-99) mg/dL Calcium 9.6 (8.4-10.2) mg/dL Magnesium 2.1 (1.6-2.3) mg/dL Total Bilirubin 0.8 (0.2-1.3) mg/dL AST 21 (14-36) U/L ALT 23 (9-52) U/L Alkaline Phosphatase 91 (38-126) U/L Total Creatine Kinase (30-135) U/L CK-MB (CK-2) (0.0-2.4) ng/mL CK-MB (CK-2) Rel Index Troponin I (0.000-0.034) ng/mL Total Protein 6.9 (6.3-8.2) g/dL Albumin 4.1 (3.5-5.0) g/dL Urine Color Urine Appearance (Clear) Urine pH (5.0-8.0) Ur Specific [place] (1.001-1.035) Urine Protein (Negative) Urine Glucose (UA) (Negative) Urine Ketones (Negative) Urine Blood (Negative) Urine Nitrite (Negative) Urine Bilirubin (Negative) Urine Urobilinogen (<2.0) mg/dL Ur Leukocyte Esterase (Negative) Urine RBC (0-5) /hpf Urine WBC (0-5) /hpf Ur Squamous Epith Cells (0-4) /hpf Urine Mucus (None) /hpf 10/06/18 10/06/18 Range/Units 12:52 14:20 WBC (3.8-10.6) k/uL RBC (3.80-5.40) m/uL Hgb (11.4-16.0) gm/dL Hct (34.0-46.0) % MCV (80.0-100.0) fL MCH (25.0-35.0) pg MCHC (31.0-37.0) g/dL RDW (11.5-15.5) % Plt Count (150-450) k/uL Neutrophils % % Lymphocytes % % Monocytes % % Eosinophils % % Basophils % % Neutrophils # (1.3-7.7) k/uL Lymphocytes # (1.0-4.8) k/uL Monocytes # (0-1.0) k/uL Eosinophils # (0-0.7) k/uL Basophils # (0-0.2) k/uL PT (9.0-12.0) sec INR (<1.2) Sodium (137-145) mmol/L Potassium (3.5-5.1) mmol/L Chloride (98-107) mmol/L Carbon Dioxide (22-30) mmol/L Anion Gap mmol/L BUN (7-17) mg/dL Creatinine (0.52-1.04) mg/dL Est GFR (CKD-EPI)AfAm (>60 ml/min/1.73 sqM) Est GFR (CKD-EPI)NonAf (>60 ml/min/1.73 sqM) Glucose (74-99) mg/dL Calcium (8.4-10.2) mg/dL Magnesium (1.6-2.3) mg/dL Total Bilirubin (0.2-1.3) mg/dL AST (14-36) U/L ALT (9-52) U/L Alkaline Phosphatase (38-126) U/L Total Creatine Kinase 58 (30-135) U/L CK-MB (CK-2) 0.5 (0.0-2.4) ng/mL CK-MB (CK-2) Rel Index 0.9 Troponin I <0.012 (0.000-0.034) ng/mL Total Protein (6.3-8.2) g/dL Albumin (3.5-5.0) g/dL Urine Color Light Yellow Urine Appearance Clear (Clear) Urine pH 6.0 (5.0-8.0) Ur Specific [place] 1.016 (1.001-1.035) Urine Protein Negative (Negative) Urine Glucose (UA) Negative (Negative) Urine Ketones Negative (Negative) Urine Blood Trace H (Negative) Urine Nitrite Negative (Negative) Urine Bilirubin Negative (Negative) Urine Urobilinogen <2.0 (<2.0) mg/dL Ur Leukocyte Esterase Small H (Negative) Urine RBC 4 (0-5) /hpf Urine WBC 3 (0-5) /hpf Ur Squamous Epith Cells 1 (0-4) /hpf Urine Mucus Rare H (None) /hpf - Radiology Data Radiology results: report reviewed (I did review the imaging and reports no evidence of acute findings.), image reviewed Critical Care Time Critical Care Time: Yes Critical Care Time: 45 minutes of critical care time which includes initial presentation with history physical labs x-rays multiple reevaluation of the patient to responsive therapy discussion with Dr. Gonzalez on [address] Bennett and discussion with Dr. Major as well as multiple reevaluation the patient again and discussed with multiple family members. Review of old charting available transfer forms and documentation of the above. yes Disposition Clinical Impression: Transient ischemic attack (TIA) Disposition: OTHER INSTITUTION NOT DEFINED Condition: Stable Referrals: Alexander Clement DO [Primary Care Provider] - 1-2 days - Out of Hospital Transfer - Req. Specs Out of Hospital Transfer - Requested Specifics: Other Emergency Center
[2018-10-06 13:07] LABS: Basophils % (A) 1 %; Eosinophils # (A) 0.1 k/uL (0-0.7); Eosinophils % (A) 1 %; HCT 45.4 % (34.0-46.0); HGB 15.1 gm/dL (11.4-16.0); Lymphocytes # (A) 1.6 k/uL (1.0-4.8); Lymphocytes % (A) 31 %; MCH 32.5 pg (25.0-35.0); MCHC 33.3 g/dL (31.0-37.0); MCV 97.4 fL (80.0-100.0); Mean Platelet Volume 8.2; Monocytes # (A) 0.2 k/uL (0-1.0); Monocytes % (A) 5 %; Neutrophils # (A) 3.1 k/uL (1.3-7.7); Neutrophils % (A) 61 %; Platelet Count 153 k/uL (150-450); RBC 4.66 m/uL (3.80-5.40); RDW 15.1 % (11.5-15.5); WBC 5.1 k/uL (3.8-10.6)
[2018-10-06 13:18] LABS: ALT 23 U/L (9-52); AST 21 U/L (14-36); Albumin 4.1 g/dL (3.5-5.0); Alkaline Phosphatase 91 U/L (38-126); Anion Gap 4 mmol/L; Blood Urea Nitrogen 16 mg/dL (7-17); Calcium 9.6 mg/dL (8.4-10.2); Carbon Dioxide 27 mmol/L (22-30); Chloride 109 mmol/L (98-107); Glucose 97 mg/dL (74-99); Magnesium 2.1 mg/dL (1.6-2.3); Potassium 4.4 mmol/L (3.5-5.1); Sodium 140 mmol/L (137-145); Total Bilirubin 0.8 mg/dL (0.2-1.3); Total Protein 6.9 g/dL (6.3-8.2)
[2018-10-06 13:27] LABS: Creatine Kinase 58 U/L (30-135); Prothrombin Time 10.8 sec (9.0-12.0)
--- NOTE | 2018-10-06 13:33 | CT ---
EXAMINATION TYPE: CT brain wo con DATE OF EXAM: 10/06/2018 COMPARISON: Previous study dated 12/06/2017. HISTORY: Dizziness without injury CT DLP: 1068.4 mGycm Automated exposure control for dose reduction was used. FINDINGS: There is a stable infarct in the left parietal lobe anteriorly. Central structures are midline. There is no evidence of hydrocephalus. No acute focal lesion, mass ef fect or midline shift is seen. I do not see evidence of intracranial blood. Visualized portions of the paranasal sinuses and mastoids are clear. IMPRESSION: 1. NO ACUTE INTRACRANIAL ABNORMALITY. 2. OLD LEFT PARIETAL INFARCT.
[2018-10-06 13:39] LABS: Creatine Kinase MB 0.5 ng/mL (0.0-2.4); Troponin I <0.012 ng/mL (0.000-0.034)
--- NOTE | 2018-10-06 13:39 | XR ---
EXAMINATION TYPE: XR chest 2V DATE OF EXAM: 10/06/2018 HISTORY: cough. REFERENCE: Previous study dated 01/15/2018. FINDINGS: There is a stable left sided lung nodule. The lungs are otherwise clear. Pleural spaces are clear. The heart is not enlarged. Incidental note is made of a previous ACDF in the lower cervical s pine. IMPRESSION: NO INTERVAL CHANGE IN THE APPEARANCE OF THE CHEST.
--- NOTE | 2018-10-06 14:17 | CT ---
EXAMINATION TYPE: CT angio head neck DATE OF EXAM: 10/06/2018 HISTORY: Code stroke COMPARISON: CT brain 10/06/2018 CT DLP: 470.7 mGycm. Automated Exposure Control for Dose Reduction was Utilized. TECHNIQUE: CTA scan of the neck is performed with IV Contrast, patient injected with 65 mL of Isovue 370, axial images are obtained, coronal and sagittal reformatted images are reviewed. Three-D recons tructed images are created on an independent workstation and reviewed. FINDINGS: Carotid/Vascular Structures: Normal three-vessel aortic arch. The bilateral vertebral arteries are pa tent and join to form the basilar artery as expected. The bilateral common carotid arteries are paten t. Origin of the bilateral external carotid arteries are patent. Less then 50% luminal narrowing at t he origin of the right internal carotid artery. No hemodynamically significant luminal narrowing of t he left common carotid artery. The picayune of [place] is intact. The middle cerebral arteries, anterior cerebral arteries and posterio r cerebral arteries are patent. Remote ischemia in the left parietal lobe is unchanged. Other: Limited evaluation of lung apices is unremarkable. The visualized portions of the descending a brijesh are within normal limits. Multilevel degenerative changes are seen throughout the spine. Anterior fixation of C5-7. IMPRESSION: 1. No hemodynamically significant arterial narrowing identified in the neck. 2. No large vessel intracranial arterial narrowing. 3. Less than 50% luminal narrowing of the proximal right internal carotid artery.
[2018-10-06 14:26] VITALS: RESP 18
[2018-10-06 14:41] LABS: Appearance,Urine Clear (Clear); Bilirubin,Urine Negative (Negative); Blood,Urine Trace (Negative); Color,Urine Light Yellow; Glucose,Urine (UA) Negative (Negative); Ketones,Urine Negative (Negative); Leukocyte Esterase,Urine Small (Negative); Mucus,Urine Rare /hpf; Nitrite,Urine Negative (Negative); Protein,Urine Negative (Negative); RBC,Urine 4 /hpf (0-5); Specific Gravity,Urine 1.016 (1.001-1.035); Squamous Epithelial Cell,Urine 1 /hpf (0-4); Urobilinogen,Urine <2.0 mg/dL (<2.0); WBC,Urine 3 /hpf (0-5)
[2018-10-06] MEDS ORDERED: LORazepam 2 MG/ML INJ IV STA (15:29)
[2018-10-06 16:34] VITALS: BP 124/72; PULSE 66; TEMP 98
[2018-10-06 17:06] LABS: Glucose,Whole Blood 95 mg/dL (75-99)
== END 2018-10-06 16:52 | disposition short-term general hospital (02) ==
LOC: EC 11:12
DX: G45.9 Transient cerebral ischemic attack, unspecified (principal); R29.706 NIHSS score 6; G47.33 Obstructive sleep apnea (adult) (pediatric); F41.9 Anxiety disorder, unspecified; F32.9 Major depressive disorder, single episode, unspecified; M79.7 Fibromyalgia; Z79.01 Long term (current) use of anticoagulants; Z79.82 Long term (current) use of aspirin; Z79.02 Long term (current) use of antithrombotics/antiplatelets; Z79.899 Other long term (current) drug therapy; Z88.1 Allergy status to other antibiotic agents; Z88.2 Allergy status to sulfonamides; Z88.5 Allergy status to narcotic agent; Z88.8 Allergy status to other drugs, medicaments and biological substances; Z91.048 Other nonmedicinal substance allergy status; Z87.74 Personal history of (corrected) congenital malformations of heart and circulatory system
CPT/HCPCS: 36415; 93005; 80053; 82550; 82553; 83735; 84484; 85025; 85610; 81001; 71046; 70496; 70450; 70498; 99291; 96374; 96361 ×3; J2060; Q9967

== ENCOUNTER → 2019-03-25 | Outpatient (CLI) | payer OTHER ==
[2019-03-25 16:16] LABS: Basophils % (A) 0 %; Eosinophils # (A) 0.1 k/uL (0-0.7); Eosinophils % (A) 3 %; HGB 14.2 gm/dL (11.4-16.0); Lymphocytes # (A) 2.2 k/uL (1.0-4.8); Lymphocytes % (A) 39 %; MCH 30.7 pg (25.0-35.0); MCHC 32.3 g/dL (31.0-37.0); Mean Platelet Volume 6.6; Monocytes # (A) 0.4 k/uL (0-1.0); Monocytes % (A) 7 %; Neutrophils # (A) 2.8 k/uL (1.3-7.7); Neutrophils % (A) 49 %; Platelet Count 155 k/uL (150-450); RBC 4.63 m/uL (3.80-5.40); RDW 12.9 % (11.5-15.5); WBC 5.7 k/uL (3.8-10.6)
[2019-03-25 16:26] LABS: ALT 15 U/L (9-52); AST 26 U/L (14-36); African American GFR (CKD) >90 (>60 ml/min/1.73 sqM); Alkaline Phosphatase 82 U/L (38-126); Anion Gap 6 mmol/L; Blood Urea Nitrogen 17 mg/dL (7-17); Calcium 9.2 mg/dL (8.4-10.2); Carbon Dioxide 25 mmol/L (22-30); Chloride 110 mmol/L (98-107); Glucose 94 mg/dL (74-99); Potassium 4.3 mmol/L (3.5-5.1); Sodium 141 mmol/L (137-145); Total Bilirubin 0.6 mg/dL (0.2-1.3); Total Protein 6.8 g/dL (6.3-8.2)
--- NOTE | 2019-03-25 16:26 | CT ---
EXAMINATION TYPE: CT abdomen pelvis wo con DATE OF EXAM: 03/25/2019 COMPARISON: Prior CT 01/07/2018 HISTORY: RLQ/flank pain. hx of stones. CT DLP: 1039 mGycm Automated exposure control for dose reduction was used. TECHNIQUE: Helical acquisition of images from the lung bases through the pelvis. FINDINGS: Lack of contrast could compromise sensitivity. Densities present at the interatrial locatio n likely due to septal defect repair. Calcified left hilar node is present. Inferior vena cava filter is present. LUNG BASES: Calcified left lower lobe lung nodule is present. No pleural or pericardial effusion. AORTA: No significant abnormality is appreciated. LIVER/GB: Dependent hyperdensity in the gallbladder compatible with stones. Liver is unremarkable on this noncontrast exam. PANCREAS: No significant abnormality is seen. SPLEEN: No significant abnormality is seen. ADRENALS: No significant abnormality is seen. KIDNEYS: No evident renal stone or hydronephrosis, no ureteral calculus. REPRODUCTIVE ORGANS: Not seen URINARY BLADDER: No significant abnormality is seen. BOWEL: Some diverticular changes present, probable calcified diverticulum in the pelvis. The appendi x is not seen. Some small bowel loops in the left upper quadrant show questionable wall thickening. FREE AIR: No Free Air is visible. ASCITES: None visible. PELVIC ADENOPATHY: None visualized. RETROPERITONEAL ADENOPATHY: Retroperitoneal node in the periaortic location shows a short axis measu rement of 11 mm.. OSSEOUS STRUCTURES: Degenerative disc changes and facet arthropathy at the lower lumbar spine. IMPRESSION: NONCONTRAST EXAM. CORRELATE FOR POSSIBLE ENTERITIS. PROBABLE CHOLELITHIASIS. OLD GRANULOMATOUS DISEAS E. Additional findings above.
== END | disposition home or self-care (01) ==
LOC: RADCTMAIN 15:30
PROVIDERS: ATTEND Nurse Practitioner Adult Health
DX: D71 Functional disorders of polymorphonuclear neutrophils (principal); R10.31 Right lower quadrant pain
CPT/HCPCS: 36415; 74176; 80053; 85025

== ENCOUNTER → 2019-05-01 | Outpatient (CLI) | payer OTHER ==
--- NOTE | 2019-05-01 14:25 | MM ---
Reason for exam: additional evaluation requested from prior study. Last mammogram was performed 9 months ago. History: Patient is postmenopausal. Benign MG stereo VAD BX RT of the right breast, August 20, 2018. Physical Findings: Nurse did not find any significant physical abnormalities on exam. MG Diagnostic Mammo w CAD VICK Bilateral CC and MLO view(s) were taken. Prior study comparison: July 24, 2018, bilateral MG work up mamm w CAD BILAT. July 12, 2018, bilateral MG screening mammo w CAD. There are scattered fibroglandular densities. There are benign appearing round calcifications in the right breast. There is no discrete abnormality. These results were verbally communicated with the patient and result sheet given to the patient on 05/01/19. ASSESSMENT: Benign, BI-RAD 2 RECOMMENDATION: Return to routine screening mammogram schedule for both breasts.
== END ==
LOC: RADMAMWWP 12:57
PROVIDERS: ATTEND Surgery
DX: R92.8 Other abnormal and inconclusive findings on diagnostic imaging of breast (principal)
CPT/HCPCS: 77066

== ENCOUNTER → 2019-05-01 | Outpatient (CLI) | payer OTHER ==
[2019-05-01 15:42] LABS: Appearance,Urine Clear (Clear); Bilirubin,Urine Negative (Negative); Blood,Urine Small (Negative); Color,Urine Yellow; Glucose,Urine (UA) Negative (Negative); Ketones,Urine Negative (Negative); Leukocyte Esterase,Urine Moderate (Negative); Mucus,Urine Moderate /hpf; Nitrite,Urine Negative (Negative); PH, Urine 5.5 (5.0-8.0); Protein,Urine Negative (Negative); RBC,Urine 15 /hpf (0-5); Specific Gravity,Urine 1.028 (1.001-1.035); Squamous Epithelial Cell,Urine 2 /hpf (0-4); WBC,Urine 2 /hpf (0-5)
== END | disposition home or self-care (01) ==
LOC: LABWHC1 14:03
PROVIDERS: ATTEND Urology
DX: R31.21 Asymptomatic microscopic hematuria (principal); R82.8 Abnormal findings on cytological and histological examination of urine
CPT/HCPCS: 81001

== ENCOUNTER 2019-05-27 09:09 | Emergency (ER) | payer OTHER ==
[2019-05-27 09:13] VITALS: RESP 18
--- NOTE | 2019-05-27 09:25 | ED ---
Wound/Laceration HPI - General Chief Complaint: Wound/Laceration Stated Complaint: fall, facial injury Time Seen by Provider: 05/27/19 09:20 Source: patient Mode of arrival: wheelchair Limitations: no limitations - History of Present Illness Initial Comments: 58-year-old female with history of "clotting disorder', currently on Plavix eliquis and aspirin presents emergency department for fall with forehead laceration. Patient states that at 7:30 AM she went to get up from her bed when she tripped falling into the nightstand striking her forehead. Patient denies loss of consciousness. Patient states she did have one episode of vomiting. She states that she did have a slight headache at first however patient states that has subsided. Patient denies any nausea any additional episodes of vomiting she denies any neck pain injury to the upper or lower extremities or back. Patient states that she felt the laceration to her forehead might need r epair and that is why she presents emergency department for evaluation. Patient has no other complaints, upon arrival patient appears well-no obvious focal deficits. - Related Data Home Medications Medication Instructions Recorded Confirmed Potassium Chloride [Klor-Con 8] 8 meq PO BID 10/16/16 05/27/19 Apixaban [Eliquis] 5 mg PO BID 12/12/17 05/27/19 Aspirin [Adult Low Dose Aspirin EC] 81 mg PO DAILY 01/10/18 05/27/19 Clopidogrel [Plavix] 75 mg PO DAILY 07/30/18 05/27/19 Gabapentin [Neurontin] 100 mg PO TID 07/30/18 05/27/19 Citalopram Hydrobromide [CeleXA] 20 mg PO DAILY 10/06/18 05/27/19 Folic Acid 1 mg PO DAILY 10/06/18 05/27/19 L.acidoph,Paracasei, B.lactis 1 cap PO DAILY 05/27/19 05/27/19 [Probiotic] Allergies Allergy/AdvReac Type Severity Reaction Status Date / Time adhesive tape Allergy Rash/Hives Verified 05/27/19 10:20 celecoxib [From Celebrex] Allergy Unknown Verified 05/27/19 10:20 ciprofloxacin [From Cipro] Allergy Unknown Verified 05/27/19 10:20 Sulfa (Sulfonamide Allergy Unknown Verified 05/27/19 10:20 Antibiotics) morphine AdvReac Vomiting Verified 05/27/19 10:20 phenazopyridine AdvReac Unknown Verified 05/27/19 10:20 [From Pyridium] Review of Systems ROS Statement: Those systems with pertinent positive or pertinent negative responses have been documented in the HPI. ROS Other: All systems not noted in ROS Statement are negative. 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 12/06/2017 IVC filter blood clot left femoral. sarcoidosis involving lungs. PFO with surgery. chronic L abdominal pain past 2 yrs but constant since 08/2017. R eye glaucoma. hiatal hernia. colon polyp removed 01/14/18. occasional low back pain. tremors but states with anxiety. TATUM no longer needs to use CPAP History of Any Multi-Drug Resistant Organisms: None Reported Past Surgical History: Adenoidectomy, Back Surgery, Hysterectomy, Tonsillectomy Additional Past Surgical History / Comment(s): 01/14/18 EGD with bx/colonoscopy with polypectomy benign, 01/09/18 needle biopsy lungs d/t enlarged lymph nodes benign, 12/06/17 R groin accessed and IVC clot "broken up and removed but some pieces left", GFF, PFO repair at [facility] [place], 09/2017 cervical fusion, lumbar surgery 1988, deviated septal surgery, bilateral cataract removal with lens, R eye laser surgery for glaucoma, benign skin lesion removed. Past Anesthesia/Blood Transfusion Reactions: Postoperative Nausea & Vomiting (PONV) Past Psychological History: Anxiety, Depression Smoking Status: Never smoker Past Alcohol Use History: None Reported Past Drug Use History: None Reported - Past Family History Mother Family Medical History: Coronary Artery Disease (CAD), Myocardial Infarction ([place]) Additional Family Medical History / Comment(s): Mother at the age of 64yrs from [place]. Maternal grandmother from a [place] at the age of 63 yrs. Father History Unknown: Yes Additional Family Medical History / Comment(s): committed suicide Brother(s) Family Medical History: Coronary Artery Disease (CAD), Myocardial Infarction ([place]) Additional Family Medical History / Comment(s): Brother at 59yrs from [place]/cardiac arrest. Sister(s) Additional Family Medical History / Comment(s): multiple sclerosis General Exam - General Exam Comments Initial Comments: General: The patient is awake and alert, in no distress, and does not appear acutely ill. Eye: +3 mm pupils are equal, round and reactive to light, extra-ocular movements are intact. No nystagmus. There is normal conjunctiva bilaterally. No signs of icterus. Ears, nose, mouth and throat: There are moist mucous membranes and no oral lesions. No raccoon or Vega sign. No tenderness midline or paravertebral cervical spine. Patient is able to fully range the cervical spine without discomfort. Neck: The neck is supple, there is no tenderness or JVD. Cardiovascular: There is a regular rate and rhythm. No murmur, rub or gallop is appreciated. Respiratory: Lungs are clear to auscultation, respirations are non-labored, br eath sounds are equal. No wheezes, stridor, rales, or rhonchi. Gastrointestinal: Soft, non-distended, non-tender abdomen without masses or organomegaly noted. There is no rebound or guarding present. Musculoskeletal: normal inspection of the cervical thoracic and lumbar spine or paravertebral midline tenderness. Normal ROM, no tenderness. Strength 5/5 of the upper and lower extremities equal and comparison bilaterally . Sensation intact of the UE however more prominent of the left UE (residual deficit from previous stroke-patient states sensation at base line). No drift of the UE or LE. Finger to nose and heel to navarro coordinated. +2 radial pulses equal bilaterally 2+. Neurological: A&O x 3. CN II-XII intact, There are no obvious motor or sensory deficits. Coordination appears grossly intact. Speech is normal. Skin: Skin is warm and dry and no rashes. 2cm laceration of the forehead center, surrounding hematoma, no exposure of skull. bleeding controlled. Psychiatric: Cooperative, appropriate mood & affect, normal judgment. Limitations: no limitations Course Vital Signs 05/27/19 05/27/19 09:11 11:20 Temperature 98.0 F 98.5 F Pulse Rate 60 67 Respiratory 18 18 Rate Blood Pressure 121/84 128/76 O2 Sat by Pulse 99 99 Oximetry Procedures - Laceration Laceration #1 Consent Obtained: verbal consent Indication: laceration Site: face (center of forehead above eyebrow line. ) Size (cm): 2 Description: linear Depth: simple, single layer Anesthetic Used: lidocaine 1% Anesthesia Technique: local infiltration Amount (mls): 3 Pre-repair: wound explored, irrigated extensively, deep structures intact Type of Sutures: nylon Size of Sutures: 6-0 Number of Sutures: 6 Technique: simple, interrupted Patient Tolerated Procedure: well, no complications Additional Comments: Prior to closure wound was extensively irrigated and cleansed with iodine. Medical Decision Making - Medical Decision Making Well appearing 58-year-old female presenting for follow-up head injury. Patient on multiple anticoagulants. Patient had no LOC. Fall from standing. Laceration with hematoma to forehead. No clinical signs of skull fracture. Patient does have decreased sensation of the entire right side of her body which she states is residual from previous CVA, otherwise patient is no focal neurological deficits appears well no headache no dizziness nausea. Patient had one episode of vomiting no additional. CT of the brain and C-spine revealed no acute o sseous or intracranial process. No evidence of hemorrhage. Patient laceration was repaired. Tetanus updated. Discussed case with attending provider Dr. Rod who recommends patient hold eliquis for 24 hours. Patient verbalized understanding of plan and return parameters. Patient at this time is requesting discharge, she appears well, continues to be asymptomatic at this time do feel patient is stable for discharge with primary care follow-up in 2-3 days. Disposition Clinical Impression: Laceration of head, Head injury, Fall, Traumatic hematoma of forehead Disposition: HOME SELF-CARE Condition: Good Instructions (If sedation given, give patient instructions): Care For Your Stitches (ED), Head Injury (ED), Facial Laceration (ED) Additional Instructions: Please use medication as discussed. Please follow-up with family doctor in the next 2 days, please follow-up in 5 days for suture removal. Please return to emergency room if the symptoms increase or worsen or for any other concerns--headache, vomiting, dizziness Is patient prescribed a controlled substance at d/c from ED?: No Referrals: Alexander Clement DO [Primary Care Provider] - 1-2 days Time of Disposition: 10:41
[2019-05-27] MEDS ORDERED: LIDOCAINE 1% INJ 10MG/ML (20 ML MDV) SQ ONE (09:32)
[2019-05-27] MEDS ORDERED: DIPH,PERTUS(ACELL)TETVAC-LF 0.5 ML VIAL IM ONE (09:32)
--- NOTE | 2019-05-27 10:01 | CT ---
EXAMINATION TYPE: CT brain cspine wo con DATE OF EXAM: 05/27/2019 COMPARISON: 10/06/2018 HISTORY: Fall today with frontal injury and laceration. CT DLP: 1492.4 mGycm Automated exposure control for dose reduction was used. TECHNIQUE: CT scan of the head and cervical spine are performed without contrast. FINDINGS: There is no acute intracranial hemorrhage, mass effect, or midline shift identified. Ther e is an area of low attenuation left parietal white matter compatible with remote ischemia which is s table from the prior exam. No midline shift or mass effect. There is loss the normal cervical lordosis. Due to artifact resolution evaluation the spinal canal no ndiagnostic. Grossly no compression deformities. Postsurgical changes at levels C5-C7. Uncovertebral joint hypertrophy C5-6 results in right-sided foraminal encroachment. There is posterior spondylosis and spurring encroaching upon the thecal sac at C6-C7 and suggestion of canal stenosis. Multilevel fa cet arthropathy and uncovertebral joint hypertrophy noted. There is prominence of the visualized portion of the ascending aorta. Calcified lymph nodes in the ri ght paratracheal region noted. Atherosclerotic change of the carotid arteries one of the screws of th e anterior fixation plate at C5 level somewhat laterally aligned relative to the right margin of the vertebral body correlate clinically. No priors available for comparison IMPRESSION: 1. There is no acute fracture or dislocation evident in the cervical spine. Postsurgical changes as d iscussed above with multilevel degenerative disc disease, facet arthropathy and uncovertebral joint h ypertrophy. 2. No acute intracranial hemorrhage, mass effect, or midline shift is seen. Stable remote infarct lef t parietal lobe. 3. Calcified lymph nodes in the mediastinum suggestive of granulomatous disease.
[2019-05-27 11:40] VITALS: BP 128/76; PULSE 67; TEMP 98.5
== END 2019-05-27 11:20 | disposition home or self-care (01) ==
LOC: EC 09:09
DX: S01.81XA Laceration without foreign body of other part of head, initial encounter (principal); M79.7 Fibromyalgia; F41.9 Anxiety disorder, unspecified; F32.9 Major depressive disorder, single episode, unspecified; G47.33 Obstructive sleep apnea (adult) (pediatric); Z99.89 Dependence on other enabling machines and devices; Z86.73 Personal history of transient ischemic attack (TIA), and cerebral infarction without residual deficits; Z79.01 Long term (current) use of anticoagulants; Z79.82 Long term (current) use of aspirin; Z79.02 Long term (current) use of antithrombotics/antiplatelets; Z79.899 Other long term (current) drug therapy; Z91.048 Other nonmedicinal substance allergy status; Z88.6 Allergy status to analgesic agent; Z88.1 Allergy status to other antibiotic agents; Z88.2 Allergy status to sulfonamides; Z88.5 Allergy status to narcotic agent; Z88.8 Allergy status to other drugs, medicaments and biological substances; Z23 Encounter for immunization; W01.10XA Fall on same level from slipping, tripping and stumbling with subsequent striking against unspecified object, initial encounter; Y92.009 Unspecified place in unspecified non-institutional (private) residence as the place of occurrence of the external cause
CPT/HCPCS: 72125; 70450; 90715; 99283; 12011; 90471; J2001

== ENCOUNTER 2019-07-18 15:07 | Emergency (ER) | payer OTHER ==
[2019-07-18 15:35] VITALS: RESP 18
--- NOTE | 2019-07-18 17:30 | US ---
EXAMINATION TYPE: US venous doppler duplex LE DATE OF EXAM: 07/18/2019 5:14 PM COMPARISON: NONE CLINICAL HISTORY: bilat leg pain. Bilateral leg pain, pt states h/o DVT left leg x 2-3 years ago, has IVC filter in place SIDE PERFORMED: Bilateral TECHNIQUE: The lower extremity deep venous system is examined utilizing real time linear array sonog florentin with graded compression, doppler sonography and color-flow sonography. VESSELS IMAGED: External Iliac Vein (EIV) Common Femoral Vein Deep Femoral Vein Greater Saphenous Vein * Femoral Vein Popliteal Vein Small Saphenous Vein * Proximal Calf Veins (* superficial vessels) FINDINGS: Grayscale, color doppler, spectral doppler imaging performed of the deep veins of the lower extremities. There is normal flow, compressibility, vascular waveforms. IMPRESSION: Negative for DVT, bilateral lower extremities.
--- NOTE | 2019-07-18 18:19 | ED ---
General Adult HPI - General Chief complaint: Extremity Injury, Lower Stated complaint: Leg pain Time Seen by Provider: 07/18/19 16:24 Source: patient Mode of arrival: wheelchair Limitations: no limitations - History of Present Illness Initial comments: Patient is 58-year-old female with history of fibromyalgia and clotting disorder is presenting to the emergency department with a chief complaint of lower extremity pain. Patient reports this is not well for about the past 2 weeks with gradual increase in severity. Patient reports constant pain everywhere on the bilateral lower extremities with no alleviating or exacerbating factors. Patient reports difficulty with ambulation due to the pain. Patient reports a history of DVT on bilateral lower extremities. Patient also reports pain in bilateral calf regions. Patient also reports a tremor prior to ED arrival that has resolved since. Patient also reports decrease in sensation in the right lower and upper extremities due to her most recent CVA. Patient denies lower extremities edema. Patient reports that she already takes gabapentin for nerve pain. - Related Data Home Medications Medication Instructions Recorded Confirmed Potassium Chloride [Klor-Con 8] 8 meq PO BID 10/16/16 05/27/19 Apixaban [Eliquis] 5 mg PO BID 12/12/17 05/27/19 Aspirin [Adult Low Dose Aspirin EC] 81 mg PO DAILY 01/10/18 05/27/19 Clopidogrel [Plavix] 75 mg PO DAILY 07/30/18 05/27/19 Gabapentin [Neurontin] 100 mg PO TID 07/30/18 05/27/19 Citalopram Hydrobromide [CeleXA] 20 mg PO DAILY 10/06/18 05/27/19 Folic Acid 1 mg PO DAILY 10/06/18 05/27/19 L.acidoph,Paracasei, B.lactis 1 cap PO DAILY 05/27/19 05/27/19 [Probiotic] Allergies Allergy/AdvReac Type Severity Reaction Status Date / Time adhesive tape Allergy Rash/Hives Verified 07/18/19 15:35 celecoxib [From Celebrex] Allergy Unknown Verified 07/18/19 15:35 ciprofloxacin [From Cipro] Allergy Unknown Verified 07/18/19 15:35 Sulfa (Sulfonamide Allergy Unknown Verified 07/18/19 15:35 Antibiotics) morphine AdvReac Vomiting Verified 07/18/19 15:35 phenazopyridine AdvReac Unknown Verified 07/18/19 15:35 [From Pyridium] Review of Systems ROS Statement: Those systems with pertinent positive or pertinent negative responses have been documented in the HPI. ROS Other: All systems not noted in ROS Statement are negative. Past Medical History Past Medical History: CVA/TIA, Fibromyalgia, Memory Impairment, Sleep Apnea/CPAP/BIPAP Additional Past Medical History / Comment(s): CVA x 2 with some R arm/leg w eakness and mild dysphasia. 12/06/2017 IVC filter blood clot left femoral. sarcoidosis involving lungs. PFO with surgery. chronic L abdominal pain past 2 yrs but constant since 08/2017. R eye glaucoma. hiatal hernia. colon polyp removed 01/14/18. occasional low back pain. tremors but states with anxiety. TATUM no longer needs to use CPAP History of Any Multi-Drug Resistant Organisms: None Reported Past Surgical History: Adenoidectomy, Back Surgery, Cholecystectomy, Hysterectomy, Tonsillectomy Additional Past Surgical History / Comment(s): 01/14/18 EGD with bx/colonoscopy with polypectomy benign, 01/09/18 needle biopsy lungs d/t enlarged lymph nodes benign, 12/06/17 R groin accessed and IVC clot "broken up and removed but some pieces left", GFF, [place] [facility] [place] cervical fusion, lumbar surgery 1988, deviated septal surgery, bilateral cataract removal with lens, R eye laser surgery for glaucoma, benign skin lesion removed. Past Anesthesia/Blood Transfusion Reactions: Postoperative Nausea & Vomiting (PONV) Past Psychological History: Anxiety, Depression Smoking Status: Never smoker Past Alcohol Use History: None Reported Past Drug Use History: None Reported - Past Family History Mother Family Medical History: Coronary Artery Disease (CAD), Myocardial Infarction ([place]) Additional Family Medical History / Comment(s): Mother at the age of 64yrs from [place]. Maternal grandmother from a [place] at the age of 63 yrs. Father History Unknown: Yes Additional Family Medical History / Comment(s): committed suicide Brother(s) Family Medical History: Coronary Artery Disease (CAD), Myocardial Infarction ([place]) Additional Family Medical History / Comment(s): Brother at 59yrs from [place]/cardiac arrest. Sister(s) Additional Family Medical History / Comment(s): multiple sclerosis General Exam Limitations: no limitations General appearance: alert, in no apparent distress Head exam: Present: atraumatic, normocephalic, normal inspection Eye exam: Present: normal appearance Pupils: Present: normal accommodation ENT exam: Present: normal exam, mucous membranes moist, normal external ear exam Neck exam: Present: normal inspection, full ROM Respiratory exam: Present: normal lung sounds bilaterally Cardiovascular Exam: Present: regular rate, normal rhythm, normal heart sounds Extremities exam: Present: normal inspection, full ROM, tenderness (Diffuse tenderness of bilateral lower extremity with even the slightest palpation.), normal capillary refill, calf tenderness (Positive Homans bilaterally.), other (+2 ulnar and radial pulses bilaterally.). Absent: pedal edema, joint swelling Back exam: Present: normal inspection, full ROM Neurological exam: Present: alert, oriented X3 Psychiatric exam: Present: normal affect, normal mood Skin exam: Present: warm, intact, normal color. Absent: rash Course Vital Signs 07/18/19 15:32 Temperature 98.2 F Pulse Rate 83 Respiratory 18 Rate Blood Pressure 131/80 O2 Sat by Pulse 98 Oximetry Medical Decision Making - Medical Decision Making patient is a 58-year-old female with history of clotting disorder and fibromyalgia is presenting to the emergency department with a chief complaint of bilateral lower extremity pain. On physical examination patient appears to have pain even with the slightest touch. Although she does have full strength.. Patient has decreased sensation in the right lower extremity is her baseline. Considering the patient has a clotting disorder and a history of DVT, Doppler ultrasound bilateral lower extremities was obtained. Doppler ultrasound is negative for DVT. I advised the patient to follow-up with neurology for further management. The initial complaint of tremors has now resolved and it was not there on initial evaluation. Patient has no headaches, shortness of breath chest pain at this time. Strict return parameters were thoroughly discussed the patient is understanding and agreeable. Case discussed physician. Disposition Clinical Impression: Lower extremity pain, bilateral Disposition: HOME SELF-CARE Condition: Stable Instructions (If sedation given, give patient instructions): Leg Pain (ED) Additional Instructions: Please follow up with a neurologist. Please return to emergency department if symptoms worsen. Is patient prescribed a controlled substance at d/c from ED?: No Referrals: Alexander Clement DO [Primary Care Provider] - 1-2 days Time of Disposition: 18:18
[2019-07-18 19:08] VITALS: BP 141/89; PULSE 79; TEMP 98.3
== END 2019-07-18 19:08 | disposition home or self-care (01) ==
LOC: EC 15:07
DX: M79.604 Pain in right leg (principal); M79.605 Pain in left leg; M79.7 Fibromyalgia; F41.9 Anxiety disorder, unspecified; F32.9 Major depressive disorder, single episode, unspecified; G47.33 Obstructive sleep apnea (adult) (pediatric); Z79.01 Long term (current) use of anticoagulants; Z79.02 Long term (current) use of antithrombotics/antiplatelets; Z79.82 Long term (current) use of aspirin; Z79.899 Other long term (current) drug therapy; Z88.1 Allergy status to other antibiotic agents; Z88.2 Allergy status to sulfonamides; Z88.5 Allergy status to narcotic agent; Z91.048 Other nonmedicinal substance allergy status; Z88.8 Allergy status to other drugs, medicaments and biological substances; Z88.6 Allergy status to analgesic agent; Z86.718 Personal history of other venous thrombosis and embolism; Z86.73 Personal history of transient ischemic attack (TIA), and cerebral infarction without residual deficits
CPT/HCPCS: 93970; 99283

== ENCOUNTER → 2019-08-29 | Outpatient (CLI) | payer OTHER ==
--- NOTE | 2019-08-29 09:55 | US ---
EXAMINATION TYPE: US abdomen complete DATE OF EXAM: 08/29/2019 COMPARISON: CT 2019, US 2018 CLINICAL HISTORY: R10.11 RT UPPER QUADRANT PAIN. Intermittent right flank pain ever since gallbladder removed in March 2019. EXAM MEASUREMENTS: Liver Length: 14.7 cm CBD: 0.9 cm Spleen: 10.3 cm Right Kidney: 9.7 x 4.6 x 4.3 cm Left Kidney: 10.9 x 4.4 x 4.6 cm Difficult and limited study due to patient body habitus Pancreas: visualized portions appear hyperechoic, limited by overlying midline bowel gas Liver: There is increased echogenicity of the hepatic parenchyma with diminished visualization of th e portal triads most commonly relating to hepatic steatosis and limiting evaluation for underlying he patic masses. Gallbladder: surgically absent Evidence for sonographic Curtis's sign: no CBD: Upper limits of normal for post cholecystectomy, limited by overlying bowel gas Spleen: wnl Right Kidney: wnl Left Kidney: wnl Upper IVC: wnl Abd Aorta: wnl The intrahepatic portion of the IVC and proximal abdominal aorta are within normal limits. Gallbladde r surgically absent. Common bile duct is unremarkable. The visualized portions of the pancreas are h omogenous. The spleen is unremarkable. Kidneys are symmetric and free of hydronephrosis. No renal lesions are seen. IMPRESSION: 1. Sonographic findings most commonly related to hepatic steatosis. Correlate with liver function jose ts. 2. Common bile duct is upper limits of normal for postcholecystectomy status. MRCP could ensure no do wnstream stricture or calculus. 3. No fluid collection in the gallbladder fossa to suggest abscess or biloma status post cholecystect alice.
== END | disposition home or self-care (01) ==
LOC: RADUSWWP 08:46
PROVIDERS: ATTEND Family Medicine
DX: R10.11 Right upper quadrant pain (principal); Z90.49 Acquired absence of other specified parts of digestive tract
CPT/HCPCS: 76700

== ENCOUNTER → 2019-10-17 | Outpatient (CLI) | payer OTHER ==
--- NOTE | 2019-10-17 15:42 | CT ---
EXAMINATION TYPE: CT brain wo con DATE OF EXAM: 10/17/2019 HISTORY: slurred speech, hx of cva CT DLP: 1072.3 mGycm. Automated Exposure Control for Dose Reduction was Utilized. TECHNIQUE: CT scan of the head is performed without contrast. COMPARISON: Prior CT brain May 27, 2019 FINDINGS: There is no acute intracranial hemorrhage or midline shift identified. There is diffuse v entricular and sulcal prominence consistent with diffuse age-related cerebral atrophy. There is low- attenuation in the periventricular white matter consistent with chronic small vessel ischemic change. Old infarct left frontal temporal junction air image 32 is redemonstrated. The globes are intact an d the visualized sinuses are clear. IMPRESSION: No acute intracranial hemorrhage or midline shift. There is mild diffuse age-related ce rebral atrophy and chronic small vessel ischemic change along with old frontal temporal infarct are a ll redemonstrated. No significant change from prior.
== END | disposition home or self-care (01) ==
LOC: RADCTMAIN 15:12
PROVIDERS: ATTEND Family Medicine
DX: G31.1 Senile degeneration of brain, not elsewhere classified (principal)
CPT/HCPCS: 70450

== ENCOUNTER 2019-11-15 22:12 | Observation (INO) | payer OTHER ==
[2019-11-15 22:18] VITALS: RESP 18
[2019-11-15] MEDS ORDERED: SODIUM CHLORIDE 0.9% 1,000 ML IV STA (22:36)
[2019-11-15] MEDS ORDERED: ASPIRIN 81 MG PO STA (22:36)
[2019-11-15] MEDS ORDERED: NITROGLYCERIN SL TABS 0.4 MG TAB SUBLINGUAL STA (22:36)
--- NOTE | 2019-11-15 22:44 | ED ---
General Adult HPI - General Source: patient, family, RN notes reviewed, old records reviewed Mode of arrival: wheelchair Limitations: no limitations <Rashid Marsh - Last Filed: 11/16/19 02:07> <Jenn Hardy - Last Filed: 11/18/19 00:00> - General Chief complaint: Chest Pain Stated complaint: Chest pain Time Seen by Provider: 11/15/19 22:23 - History of Present Illness Initial comments: 58-year-old female patient past medical history of CVA secondary to PFO which was repaired, aortic stenosis, history of unknown clotting disorder, DVT with Souris filter placement anticoagulated on L Harrison, also on Plavix and aspirin daily presents to ED for chief complaint chest pain. Patient reports that occurred at rest, began 20 minutes prior to presentation. Described it as substernal, squeezing in nature. At time of evaluation it is much improved and minimal. Denies any previous coronary artery disease. Denies any complaints this time. Systemic: Pt denies fatigue, fever/chills, rash. Pt denies weakness, night sweats, weight loss. Neuro: Pt denies headache, visual disturbances, syncope or pre-syncope. HEENT: Pt denies ocular discharge or irritation, otalgia, rhinorrhea, pharyngitis or notable lymphadenopathy. Cardiopulmonary: Pt denies SOB, heart palpitations, dyspnea on exertion. Abdominal/GI: Pt denies abdominal pain, n/v/d. : Pt denies dysuria, burning w/ urination, frequency/urgency. Denies new onset urinary or bowel incontinence. MSK: Pt denies myalgia, loss of strength or function in extremities. Neuro: Pt denies new onset weakness, paresthesias. (Rashid Marsh) - Related Data Home Medications Medication Instructions Recorded Confirmed Potassium Chloride [Klor-Con 8] 8 meq PO BID 10/16/16 11/16/19 Apixaban [Eliquis] 5 mg PO BID 12/12/17 11/16/19 Aspirin [Adult Low Dose Aspirin EC] 81 mg PO DAILY 01/10/18 11/16/19 Clopidogrel [Plavix] 75 mg PO DAILY 07/30/18 11/16/19 Gabapentin [Neurontin] 100 mg PO BID 07/30/18 11/16/19 Citalopram Hydrobromide [CeleXA] 20 mg PO DAILY 10/06/18 11/16/19 Folic Acid 1 mg PO DAILY 10/06/18 11/16/19 Buprenorphine [Buprenorphine 1 patch TRANSDERM TU 11/16/19 11/16/19 10MCG/HR] Allergies Allergy/AdvReac Type Severity Reaction Status Date / Time adhesive tape Allergy Rash/Hives Verified 11/16/19 12:27 celecoxib [From Celebrex] Allergy Unknown Verified 11/16/19 12:27 ciprofloxacin [From Cipro] Allergy Unknown Verified 11/16/19 12:27 Sulfa (Sulfonamide Allergy Unknown Verified 11/16/19 12:27 Antibiotics) morphine AdvReac Vomiting Verified 11/16/19 12:27 phenazopyridine AdvReac Unknown Verified 11/16/19 12:27 [From Pyridium] Review of Systems ROS Other: All systems not noted in ROS Statement are negative. <Rashid Marsh - Last Filed: 11/16/19 02:07> ROS Other: All systems not noted in ROS Statement are negative. <Jenn Hardy - Last Filed: 11/18/19 00:00> ROS Statement: Those systems with pertinent positive or pertinent negative responses have been documented in the HPI. 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 12/06/2017 IVC filter blood clot left femoral. sarcoidosis involving lungs. PFO with surgery. chronic L abdominal pain past 2 yrs but constant since 08/2017. R eye glaucoma. hiatal hernia. colon polyp removed 01/14/18. occasional low back pain. tremors but states with anxiety. TATUM no longer needs to use CPAP History of Any Multi-Drug Resistant Organisms: None Reported Past Surgical History: Adenoidectomy, Back Surgery, Cholecystectomy, Hyste rectomy, Tonsillectomy Additional Past Surgical History / Comment(s): 01/14/18 EGD with bx/colonoscopy with polypectomy benign, 01/09/18 needle biopsy lungs d/t enlarged lymph nodes benign, 12/06/17 R groin accessed and IVC clot "broken up and removed but some pieces left", GFF, [place] [facility] [place]2017 cervical fusion, lumbar surgery 1988, deviated septal surgery, bilateral cataract removal with lens, R eye laser surgery for glaucoma, benign skin lesion removed. Past Anesthesia/Blood Transfusion Reactions: Postoperative Nausea & Vomiting (PONV) Past Psychological History: Anxiety, Depression Smoking Status: Never smoker Past Alcohol Use History: None Reported Past Drug Use History: None Reported - Past Family History Mother Family Medical History: Coronary Artery Disease (CAD), Myocardial Infarction ([place]) Additional Family Medical History / Comment(s): Mother at the age of 64yrs from [place]. Maternal grandmother from a [place] at the age of 63 yrs. Father History Unknown: Yes Additional Family Medical History / Comment(s): committed suicide Brother(s) Family Medical History: Coronary Artery Disease (CAD), Myocardial Infarction ([place]) Additional Family Medical History / Comment(s): Brother at 59yrs from [place]/cardiac arrest. Sister(s) Additional Family Medical History / Comment(s): multiple sclerosis <Rashid Marsh - Sudarshan Filed: 11/16/19 02:07> General Exam Limitations: no limitations <Rashid Marsh - Last Filed: 11/16/19 02:07> - General Exam Comments Initial Comments: Constitutional: NAD, AOX3, Pt has pleasant affect. HEENT: NC/AT, trachea midline, neck supple, no lymphadenopathy. Posterior pharynx non erythematous, without exudates. External ears appear normal, without discharge. Mucous membranes moist. Eyes PERRLA, EOM intact. There is no scleral icterus. No pallor noted. Cardiopulmonary: RRR, no murmurs, rubs or gallops, no JVD noted. Lungs CTAB in anterior and posterior rock. No peripheral edema. Abdominal exam: Abdomen soft and non-distended. Abdomen non-tender to palpation in all 4 quadrants. Bowel sounds active in LLQ. No hepatosplenomegaly. No ecchymosis Neuro: CN II-XII grossly intact. No nuchal rigidity. No raccon eyes, no horton sign, no hemotympanum. No cervical spinal tenderness. MSK: No posterior calf tenderness bilaterally, homans sign negative bilaterally. Posterior tibialis and radial pulse +2 bilaterally. Sensation intact in upper and lower extremities. Full active ROM in upper and lower extremities, 5/5 st regnth. (Rashid Marsh) Course Vital Signs 11/15/19 11/15/19 02 22:14 23:33 00:11 Temperature 98.7 F Pulse Rate 76 72 90 Respiratory 18 18 18 Rate Blood Pressure 144/91 140/87 137/85 O2 Sat by Pulse 96 96 94 L Oximetry Medical Decision Making - Lab Data Result diagrams: 11/15/19 23:34 11/15/19 23:34 - EKG Data -: EKG Interpreted by Me (and Dr. Hardy ) <Rashid Marsh - Last Filed: 11/16/19 02:07> - Lab Data Result diagrams: 11/15/19 23:34 11/15/19 23:34 <Jenn Hardy - Last Filed: 11/18/19 00:00> - Medical Decision Making 58-year-old female patient past medical history of CVA secondary to PFO which was repaired, aortic stenosis, history of unknown clotting disorder, DVT with Girma filter placement anticoagulated on L Harrison, also on Plavix and aspirin daily presents to ED for chief complaint chest pain. Patient reports that occurred at rest, began 20 minutes prior to presentation. Described it as substernal, squeezing in nature. At time of evaluation it is much improved and minimal. Denies any previous coronary artery disease. Denies any complaints this time. Patient will signs are stable, afebrile. Physical exam demonstrate acute pathology. Laboratory investigations are unremarkable. EKG is nonischemic. Troponin negative. Patient does have risk factors for coronary artery disease, will be admitted for. She'll troponin. Cardiology evaluation. Case discussed with Dr. Hardy. (Rashid Marsh) I was available for consultation in the emergency department. The history and physical exam were done by the midlevel provider. I was consulted for this patients care. I reviewed the case with the midlevel provider and based on their presentation of the patient, I agree with the assessment, medical decision making and plan of care as documented. I evaluated the patient myself. She does present with burning CP which began just prior to arrival. She has a heart score of 3 therefore we did recommend serial troponins for which the patient agreed. Patient admitted to Dr. Reyes who accepted admission. Chart was dictated using [employer] dictation software. Attempts were made to correct any dictation errors however some typographical errors may persist. (Jenn Hardy) - Lab Data Lab Results 11/15/19 11/15/19 11/15/19 Range/Units 23:34 23:34 23:34 WBC 5.4 (3.8-10.6) k/uL RBC 4.44 (3.80-5.40) m/uL Hgb 13.8 (11.4-16.0) gm/dL Hct 41.0 (34.0-46.0) % MCV 92.2 (80.0-100.0) fL MCH 31.2 (25.0-35.0) pg MCHC 33.8 (31.0-37.0) g/dL RDW 12.2 (11.5-15.5) % Plt Count 108 L (150-450) k/uL Neutrophils % 47 % Lymphocytes % 41 % Monocytes % 6 % Eosinophils % 2 % Basophils % 1 % Neutrophils # 2.6 (1.3-7.7) k/uL Lymphocytes # 2.2 (1.0-4.8) k/uL Monocytes # 0.3 (0-1.0) k/uL Eosinophils # 0.1 (0-0.7) k/uL Basophils # 0.0 (0-0.2) k/uL PT 10.2 (9.0-12.0) sec INR 1.0 (<1.2) APTT 25.1 (22.0-30.0) sec Sodium 136 L (137-145) mmol/L Potassium 3.8 (3.5-5.1) mmol/L Chloride 107 (98-107) mmol/L Carbon Dioxide 25 (22-30) mmol/L Anion Gap 4 mmol/L BUN 15 (7-17) mg/dL Creatinine 0.69 (0.52-1.04) mg/dL Est GFR (CKD-EPI)AfAm >90 (>60 ml/min/1.73 sqM) Est GFR (CKD-EPI)NonAf >90 (>60 ml/min/1.73 sqM) Glucose 104 H (74-99) mg/dL Calcium 8.8 (8.4-10.2) mg/dL Magnesium 1.8 (1.6-2.3) mg/dL Total Bilirubin 0.6 (0.2-1.3) mg/dL AST 22 (14-36) U/L ALT 10 (4-34) U/L Alkaline Phosphatase 86 (38-126) U/L Troponin I (0.000-0.034) ng/mL NT-Pro-B Natriuret Pep pg/mL Total Protein 6.2 L (6.3-8.2) g/dL Albumin 3.5 (3.5-5.0) g/dL 11/15/19 11/15/19 Range/Units 23:34 23:34 WBC (3.8-10.6) k/uL RBC (3.80-5.40) m/uL Hgb (11.4-16.0) gm/dL Hct (34.0-46.0) % MCV (80.0-100.0) fL MCH (25.0-35.0) pg MCHC (31.0-37.0) g/dL RDW (11.5-15.5) % Plt Count (150-450) k/uL Neutrophils % % Lymphocytes % % Monocytes % % Eosinophils % % Basophils % % Neutrophils # (1.3-7.7) k/uL Lymphocytes # (1.0-4.8) k/uL Monocytes # (0-1.0) k/uL Eosinophils # (0-0.7) k/uL Basophils # (0-0.2) k/uL PT (9.0-12.0) sec INR (<1.2) APTT (22.0-30.0) sec Sodium (137-145) mmol/L Potassium (3.5-5.1) mmol/L Chloride (98-107) mmol/L Carbon Dioxide (22-30) mmol/L Anion Gap mmol/L BUN (7-17) mg/dL Creatinine (0.52-1.04) mg/dL Est GFR (CKD-EPI)AfAm (>60 ml/min/1.73 sqM) Est GFR (CKD-EPI)NonAf (>60 ml/min/1.73 sqM) Glucose (74-99) mg/dL Calcium (8.4-10.2) mg/dL Magnesium (1.6-2.3) mg/dL Total Bilirubin (0.2-1.3) mg/dL AST (14-36) U/L ALT (4-34) U/L Alkaline Phosphatase (38-126) U/L Troponin I <0.012 (0.000-0.034) ng/mL NT-Pro-B Natriuret Pep 152 pg/mL Total Protein (6.3-8.2) g/dL Albumin (3.5-5.0) g/dL - EKG Data EKG Comments: Ventricular rate 80, CA interval 178, QRS 78, QT/QTC 352/45. Normal sinus rhythm, normal EKG, no concern for acute ischemia. (Rashid Marsh) Disposition Is patient prescribed a controlled substance at d/c from ED?: No <Rashid Marsh - Last Filed: 11/16/19 02:07> <Jenn Hardy - Last Filed: 11/18/19 00:00> Clinical Impression: Chest pain Disposition: ADMITTED IP TO THIS HOSP Condition: Stable
--- NOTE | 2019-11-15 23:26 | XR ---
EXAMINATION TYPE: XR chest 2V DATE OF EXAM: 11/15/2019 COMPARISON: 10/06/2018 HISTORY: Chest pain TECHNIQUE: 2 views FINDINGS: Heart is normal. Lungs are clear of infiltrate. There is previous cardiac surgery. There ar e chest leads. There is 1 cm nodular density left lower lobe that is quite dense and probably a granu jeff. Unchanged. Bony thorax is intact. IMPRESSION: No active cardiopulmonary disease. Normal heart. No change.
[2019-11-15 23:43] LABS: Basophils % (A) 1 %; Eosinophils # (A) 0.1 k/uL (0-0.7); Eosinophils % (A) 2 %; HGB 13.8 gm/dL (11.4-16.0); Lymphocytes # (A) 2.2 k/uL (1.0-4.8); Lymphocytes % (A) 41 %; MCH 31.2 pg (25.0-35.0); MCHC 33.8 g/dL (31.0-37.0); MCV 92.2 fL (80.0-100.0); Mean Platelet Volume 7.4; Monocytes # (A) 0.3 k/uL (0-1.0); Monocytes % (A) 6 %; Neutrophils # (A) 2.6 k/uL (1.3-7.7); Neutrophils % (A) 47 %; Platelet Count 108 k/uL (150-450); RBC 4.44 m/uL (3.80-5.40); RDW 12.2 % (11.5-15.5); WBC 5.4 k/uL (3.8-10.6)
[2019-11-15 23:55] LABS: ALT 10 U/L (4-34); AST 22 U/L (14-36); African American GFR (CKD) >90 (>60 ml/min/1.73 sqM); Albumin 3.5 g/dL (3.5-5.0); Alkaline Phosphatase 86 U/L (38-126); Anion Gap 4 mmol/L; Blood Urea Nitrogen 15 mg/dL (7-17); Calcium 8.8 mg/dL (8.4-10.2); Carbon Dioxide 25 mmol/L (22-30); Chloride 107 mmol/L (98-107); Glucose 104 mg/dL (74-99); Magnesium 1.8 mg/dL (1.6-2.3); Non-African American GFR(CKD) >90 (>60 ml/min/1.73 sqM); Potassium 3.8 mmol/L (3.5-5.1); Sodium 136 mmol/L (137-145); Total Bilirubin 0.6 mg/dL (0.2-1.3); Total Protein 6.2 g/dL (6.3-8.2)
[2019-11-16 00:09] LABS: Partial Thromboplastin Time 25.1 sec (22.0-30.0); Prothrombin Time 10.2 sec (9.0-12.0)
[2019-11-16] MEDS ORDERED: NITROGLYCERIN SL TABS 0.4 MG TAB SUBLINGUAL PRN (02:07)
[2019-11-16 07:32] VITALS: BP 108/73; PULSE 61; TEMP 97.8
--- NOTE | 2019-11-16 09:22 | P.CRDCN ---
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 The patie nt was in her usual state of health when she was in a green party yesterday when she started experiencing discomfort mainly in the epigastric area and beneath the left breast. She described her discomfort as sharp, and sometimes dull, without any radiation to the arms or neck or shoulders, and without any associated symptoms of shortness of breath, sweating, dizziness, or syncope. Currently she is chest pain-free. The EKG showed sinus rhythm without any significant ST or T-wave abnormalities. The blood work did not indicate any heart attack and as a matter of fact the patient was ruled out for acute coronary event. On examination she does have a systolic murmur consistent with aortic stenosis. The last echocardiogram was from 2018 when it showed normal left ventricular systolic function with evidence of moderate aortic stenosis. I had a long discussion with the patient regarding the next step including proceeding with a stress test but the patient stated that she does have an appointment with her primary final inspector truck trailer at [facility] this coming was then she would like to see him. I'm going to get the patient up and around and if she is asymptomatic she possibly can go home and follow-up with her primary final inspector truck trailer Past Medical History Past Medical History: CVA/TIA, Fibromyalgia, Memory Impairment, Sleep Apnea/CPAP/BIPAP Additional Past Medical History / Comment(s): CVA x 2 with some R arm/leg weakn ess and mild dysphasia. 12/06/2017 IVC filter blood clot left femoral. sarcoidosis involving lungs. PFO with surgery. chronic L abdominal pain past 2 yrs but constant since 08/2017. R eye glaucoma. hiatal hernia. colon polyp removed 01/14/18. occasional low back pain. tremors but states with anxiety. TATUM no longer needs to use CPAP History of Any Multi-Drug Resistant Organisms: None Reported Past Surgical History: Adenoidectomy, Back Surgery, Cholecystectomy, Hysterectomy, Tonsillectomy Additional Past Surgical History / Comment(s): 4/23/18 EGD with bx/colonoscopy with polypectomy benign, 01/09/18 needle biopsy lungs d/t enlarged lymph nodes benign, 12/06/17 R groin accessed and IVC clot "broken up and removed but some pieces left", GFF, PFO repair at [facility] [place], 09/2017 cervical fusion, lumbar surgery 1988, deviated septal surgery, bilateral cataract removal with lens, R eye laser surgery for glaucoma, benign skin lesion removed. Past Anesthesia/Blood Transfusion Reactions: Postoperative Nausea & Vomiting (PONV) Past Psychological History: Anxiety, Depression Additional Psychological History / Comment(s): Pt resides with her spouse of 36yrs. She uses no assistive device. Smoking Status: Never smoker Past Alcohol Use History: None Reported Past Drug Use History: None Reported - Past Family History Mother Family Medical History: Coronary Artery Disease (CAD), Myocardial Infarction ([place]) Additional Family Medical History / Comment(s): Mother at the age of 64yrs from [place]. Maternal grandmother from a [place] at the age of 63 yrs. Father History Unknown: Yes Additional Family Medical History / Comment(s): committed suicide Brother(s) Family Medical History: Coronary Artery Disease (CAD), Myocardial Infarction ([place]) Additional Family Medical History / Comment(s): Brother at 59yrs from [place]/cardiac arrest. Sister(s) Additional Family Medical History / Comment(s): multiple sclerosis Medications and Allergies Home Medications Medication Instructions Recorded Confirmed Type Potassium Chloride [Klor-Con 8] 8 meq PO BID 10/16/16 11/16/19 History Apixaban [Eliquis] 5 mg PO BID 12/12/17 11/16/19 History Aspirin [Adult Low Dose Aspirin EC] 81 mg PO DAILY 01/10/18 11/16/19 History Clopidogrel [Plavix] 75 mg PO DAILY 07/30/18 11/16/19 History Gabapentin [Neurontin] 100 mg PO BID 07/30/18 11/16/19 History Citalopram Hydrobromide [CeleXA] 20 mg PO DAILY 10/06/18 11/16/19 History Folic Acid 1 mg PO DAILY 10/06/18 11/16/19 History Buprenorphine [Buprenorphine 1 patch TRANSDERM WEEKLY 11/16/19 11/16/19 History 10MCG/HR] Allergies Allergy/AdvReac Type Severity Reaction Status Date / Time adhesive tape Allergy Rash/Hives Verified 11/15/19 22:18 celecoxib [From Celebrex] Allergy Unknown Verified 11/15/19 22:18 ciprofloxacin [From Cipro] Allergy Unknown Verified 11/15/19 22:18 Sulfa (Sulfonamide Allergy Unknown Verified 11/15/19 22:18 Antibiotics) morphine AdvReac Vomiting Verified 11/15/19 22:18 phenazopyridine AdvReac Unknown Verified 11/15/19 22:18 [From Pyridium] Physical Exam Vitals: Vital Signs Temp Pulse Pulse Resp BP BP Pulse Ox 11/16/19 07:30 97.8 F 61 18 108/73 100 11/16/19 03:39 60 18 11/16/19 02:45 98.2 F 60 18 148/81 99 11/16/19 00:11 90 18 137/85 94 L 11/15/19 23:33 72 18 140/87 96 11/15/19 22:14 98.7 F 76 18 144/91 96 Intake and Output 11/15/19 11/16/19 11/16/19 22:59 06:59 14:59 Other: # Voids 1 Weight 97.522 kg 95.4 kg - Constitutional General appearance: no acute distress - Respiratory Respiratory: bilateral: CTA - Cardiovascular Rhythm: regular Heart sounds: normal: S1, S2 Abnormal Heart Sounds: systolic murmur Results 11/15/19 23:34 11/15/19 23:34 Cardiac Enzymes 11/15/19 11/15/19 11/16/19 Range/Units 23:34 23:34 05:09 AST 22 (14-36) U/L Troponin I <0.012 <0.012 (0.000-0.034) ng/mL Coagulation 11/15/19 Range/Units 23:34 PT 10.2 (9.0-12.0) sec APTT 25.1 (22.0-30.0) sec CBC 11/15/19 Range/Units 23:34 WBC 5.4 (3.8-10.6) k/uL RBC 4.44 (3.80-5.40) m/uL Hgb 13.8 (11.4-16.0) gm/dL Hct 41.0 (34.0-46.0) % Plt Count 108 L (150-450) k/uL Comprehensive Metabolic Panel 11/15/19 Range/Units 23:34 Sodium 136 L (137-145) mmol/L Potassium 3.8 (3.5-5.1) mmol/L Chloride 107 (98-107) mmol/L Carbon Dioxide 25 (22-30) mmol/L BUN 15 (7-17) mg/dL Creatinine 0.69 (0.52-1.04) mg/dL Glucose 104 H (74-99) mg/dL Calcium 8.8 (8.4-10.2) mg/dL AST 22 (14-36) U/L ALT 10 (4-34) U/L Alkaline Phosphatase 86 (38-126) U/L Total Protein 6.2 L (6.3-8.2) g/dL Albumin 3.5 (3.5-5.0) g/dL Current Medications Generic Name Dose Route Start Last Admin Trade Name Freq PRN Reason Stop Dose Admin Aspirin 325 mg 11/17/19 09:00 Aspirin PO DAILY ROMAN Nitroglycerin 0.4 mg 11/16/19 02:07 Nitrostat SUBLINGUAL Q5M PRN Chest Pain Intake and Output 11/15/19 11/16/19 11/16/19 22:59 06:59 14:59 Other: # Voids 1 Weight 97.522 kg 95.4 kg 11/15/19 23:34 11/15/19 23:34 Assessment and Plan Assessment: Assessment #1 atypical chest discomfort which has resolved #2 moderate aortic stenosis #3 history of patent foramen ovale #4 history of IVC filter plan Plan #1 acute coronary syndrome was ruled out #2 the patient would like to be discharged home
--- NOTE | 2019-11-16 12:28 | P.HPIM ---
History of Present Illness H&P Date: 11/16/19 Chief Complaint: Chest pain History of present complaint: This is a very pleasant 58-year-old patient of Dr. Jennifer Clement. 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 Briseno. 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 Patient does not have any prior cardiac history. Patient developed yesterday pain below the left breast and in the epigastric area. Has some numbness tingling 2 right arm. Lasted for about an hour. No shortness of breath no dizziness no lightheadedness. Patient did feel a bit tired. Percent had a stress test quite a while ago. Symptoms completely resolved. Review of systems: GEN.: Tired EYES: None HEENT: None NECK: None RESPIRATORY: None CARDIOVASCULAR: As above GASTROINTESTINAL: None GENITOURINARY: None MUSCULOSKELETAL: None LYMPHATICS: None HEMATOLOGICAL: None PSYCHIATRY: None NEUROLOGICAL: Chronic right-sided weakness] Past medical history to include: CVA, fibromyalgia, obstructive sleep apnea-does not use CPAP, right-sided weakness from a prior stroke, IVC blood clot with a filter in November 2017, sarcoidosis, PFO surgery, hiatal hernia, Social history: . No smoking or alcohol. Physical examination: VITAL SIGNS: 98.7, 76, 18, 144/91, 96% room air GENERAL: BMI 32.9, sitting up, not in distress. EYES: Pupils equal. Conjunctiva normal. HEENT: External appearance of nose and ears normal, oral cavity grossly normal. NECK: JVD not raised; masses not palpable. HEART: First and second heart sounds are normal; no edema. LUNGS: Respiratory rate normal; clear to auscultation. ABDOMEN: Soft, nontender, liver spleen not palpable, no masses palpable. PSYCH: Alert and oriented x3; mood and affect normal. NEUROLOGICAL: [Cranial nerves grossly intact; no facial asymmetry, power on the right side 4/5 LYMPHATICS: No lymph nodes palpable in the axilla and neck INVESTIGATIONS, reviewed in the clinical context: White count 5.4 hemoglobin 10.8 platelets 108 potassium 3.8 crit 0.69 Troponin I 2 negative ProBNP 152 EKG tracing personally reviewed by me-normal sinus rhythm Chest x-ray film personally reviewed by me-lung rock clear Assessment: -Left anterior chest wall pain below the left breast in the epigastric area, with some atypical features rule out a cardiac cause. -Chronic fibromyalgia -Obstructive sleep apnea does not use CPAP -Right hemiparesis from prior stroke -History of IVC blood clot was removed with a IVC filter -Sarcoidosis of the lungs -History of PFO with surgery -Hiatal hernia -Anxiety depression otherwise specified Plan: Serial cardiac enzymes and place. Cardiology was consulted. Home medications resumed. Care was discussed with the patient. Patient probably needed an outpatient stress test. 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 12/06/2017 IVC filter blood clot left femoral. s arcoidosis involving lungs. PFO with surgery. chronic L abdominal pain past 2 yrs but constant since 08/2017. R eye glaucoma. hiatal hernia. colon polyp removed 01/14/18. occasional low back pain. tremors but states with anxiety. TATUM no longer needs to use CPAP History of Any Multi-Drug Resistant Organisms: None Reported Past Surgical History: Adenoidectomy, Back Surgery, Cholecystectomy, Hysterectomy, Tonsillectomy Additional Past Surgical History / Comment(s): 01/14/18 EGD with bx/colonoscopy with polypectomy benign, 01/09/18 needle biopsy lungs d/t enlarged lymph nodes benign, 12/06/17 R groin accessed and IVC clot "broken up and removed but some pieces left", GFF, PFO repair at [facility] [place], 09/2017 cervical fusion, lumbar surgery 1988, deviated septal surgery, bilateral cataract removal with lens, R eye laser surgery for glaucoma, benign skin lesion removed. Past Anesthesia/Blood Transfusion Reactions: Postoperative Nausea & Vomiting (PONV) Past Psychological History: Anxiety, Depression Additional Psychological History / Comment(s): Pt resides with her spouse of 36yrs. She uses no assistive device. Smoking Status: Never smoker Past Alcohol Use History: None Reported Past Drug Use History: None Reported - Past Family History Mother Family Medical History: Coronary Artery Disease (CAD), Myocardial Infarction ([place]) Additional Family Medical History / Comment(s): Mother at the age of 64yrs from [place]. Maternal grandmother from a [place] at the age of 63 yrs. Father History Unknown: Yes Additional Family Medical History / Comment(s): committed suicide Brother(s) Family Medical History: Coronary Artery Disease (CAD), Myocardial Infarction ([place]) Additional Family Medical History / Comment(s): Brother at 59yrs from [place]/cardiac arrest. Sister(s) Additional Family Medical History / Comment(s): multiple sclerosis Medications and Allergies Home Medications Medication Instructions Recorded Confirmed Type Potassium Chloride [Klor-Con 8] 8 meq PO BID 10/16/16 11/16/19 History Apixaban [Eliquis] 5 mg PO BID 12/12/17 11/16/19 History Aspirin [Adult Low Dose Aspirin EC] 81 mg PO DAILY 01/10/18 11/16/19 History Clopidogrel [Plavix] 75 mg PO DAILY 07/30/18 11/16/19 History Gabapentin [Neurontin] 100 mg PO BID 07/30/18 11/16/19 History Citalopram Hydrobromide [CeleXA] 20 mg PO DAILY 10/06/18 11/16/19 History Folic Acid 1 mg PO DAILY 10/06/18 11/16/19 History Buprenorphine [Buprenorphine 1 patch TRANSDERM WEEKLY 11/16/19 11/16/19 History 10MCG/HR] Allergies Allergy/AdvReac Type Severity Reaction Status Date / Time adhesive tape Allergy Rash/Hives Verified 11/15/19 22:18 celecoxib [From Celebrex] Allergy Unknown Verified 11/15/19 22:18 ciprofloxacin [From Cipro] Allergy Unknown Verified 11/15/19 22:18 Sulfa (Sulfonamide Allergy Unknown Verified 11/15/19 22:18 Antibiotics) morphine AdvReac Vomiting Verified 11/15/19 22:18 phenazopyridine AdvReac Unknown Verified 11/15/19 22:18 [From Pyridium] Physical Exam Vitals: Vital Signs Temp Pulse Pulse Resp BP BP Pulse Ox 11/16/19 07:30 97.8 F 61 18 108/73 100 11/16/19 03:39 60 18 11/16/19 02:45 98.2 F 60 18 148/81 99 11/16/19 00:11 90 18 137/85 94 L 11/15/19 23:33 72 18 140/87 96 11/15/19 22:14 98.7 F 76 18 144/91 96 Intake and Output 11/15/19 11/16/19 11/16/19 22:59 06:59 14:59 Other: Voiding Method Toilet # Voids 1 Weight 97.522 kg 95.4 kg Results CBC & Chem 7: 11/15/19 23:34 11/15/19 23:34 Labs: Abnormal Lab Results - Last 24 Hours (Table) 11/15/19 11/15/19 Range/Units 23:34 23:34 Plt Count 108 L (150-450) k/uL Sodium 136 L (137-145) mmol/L Glucose 104 H (74-99) mg/dL Total Protein 6.2 L (6.3-8.2) g/dL Thrombosis Risk Factor Assmnt - Choose All That Apply Any of the Below Risk Factors Present?: Yes Each Factor Represents 1 point: Acute [place], Age 41-60 years, Obesity (BMI >25) Other Risk Factors: Yes Each Risk Factor Represents 3 Points: History of DVT/PE Other congenital or acquired thrombophilia - If yes, enter type in comment: No Thrombosis Risk Factor Assessment Total Risk Factor Score: 6 Thrombosis Risk Factor Assessment Level: High Risk
[2019-11-16] MEDS ORDERED: GABAPENTIN 100 MG CAP PO SCH (12:30)
[2019-11-16] MEDS ORDERED: APIXABAN 5 MG TAB PO SCH (12:30)
[2019-11-16] MEDS ORDERED: CITALOPRAM HYDROBROMIDE 20 MG TAB PO SCH (12:30)
[2019-11-16] MEDS ORDERED: FOLIC ACID 1 MG TAB PO SCH (12:30)
[2019-11-16] MEDS ORDERED: CLOPIDOGREL 75 MG TAB PO SCH (12:30)
[2019-11-16] MEDS ORDERED: POTASSIUM CHLORIDE ER 10 MEQ TAB.ER.PRT PO SCH (21:00)
[2019-11-17] MEDS ORDERED: ASPIRIN 81 MG PO SCH (09:00)
[2019-11-17] MEDS ORDERED: ASPIRIN 325 MG TAB PO SCH (09:00)
--- NOTE | 2019-11-17 23:36 | P.DS ---
Providers Date of admission: 11/16/19 02:06 Expected date of discharge: 11/16/19 Attending physician: Valentino Reyes Consults: 11/16/19 02:07 Consult Physician Urgent Consulting Provider: Dalila Miles Consult Reason/Comments: chest pain Do you want consulting provider notified?: Yes Primary care physician: Alexander Clement [facility] Course: Chief Complaint: Chest pain History of present complaint: This is a very pleasant 58-year-old patient of Dr. Jennifer Clement. 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 Patient does not have any prior cardiac history. Patient developed yesterday pain below the left breast and in the epigastric area. Has some numbness tingling 2 right arm. Lasted for about an hour. No shortness of breath no dizziness no lightheadedness. Patient did feel a bit tired. had a stress test quite a while ago. Symptoms completely resolved. Patient seen by cardiology Dr. Hayes. Patient is to follow up with her own hat sprayer. Discussed with her. Consultation: Dr. Hayes From cardiology Physical examination: VITAL SIGNS: 97.8, 61, 18, 1 rate was 83, 100% on room air GENERAL: Sitting up, comfortable. EYES: Pupils equal. Conjunctiva normal. HEENT: External appearance of nose and ears normal, oral cavity grossly normal. NECK: JVD not raised; masses not palpable. HEART: First and second heart sounds are normal; no edema. LUNGS: Respiratory rate normal; clear to auscultation. ABDOMEN: Soft, nontender, liver spleen not palpable, no masses palpable. PSYCH: Alert and oriented x3; mood and affect normal. NEUROLOGICAL: [Cranial nerves grossly intact; no facial asymmetry, power on the right side 4/5 INVESTIGATIONS, reviewed in the clinical context: White count 5.4 hemoglobin 10.8 platelets 108 potassium 3.8 crit 0.69 Troponin I 3 negative ProBNP 152 EKG tracing personally reviewed by me-normal sinus rhythm Chest x-ray film personally reviewed by me-lung rock clear Assessment: -Left anterior chest wall pain below the left breast in the epigastric area, with some atypical features. -Chronic fibromyalgia -Obstructive sleep apnea does not use CPAP -Right hemiparesis from prior stroke -History of IVC blood clot was removed with a IVC filter -Sarcoidosis of the lungs -History of PFO with surgery -Hiatal hernia -Anxiety depression otherwise specified Disposition: Home Patient Condition at Discharge: Stable Plan - Discharge Summary Discharge Rx Participant: No New Discharge Prescriptions: Continue Potassium Chloride [Klor-Con 8] 8 meq PO BID Apixaban [Eliquis] 5 mg PO BID Aspirin [Adult Low Dose Aspirin EC] 81 mg PO DAILY Gabapentin [Neurontin] 100 mg PO BID Clopidogrel [Plavix] 75 mg PO DAILY Citalopram Hydrobromide [CeleXA] 20 mg PO DAILY Folic Acid 1 mg PO DAILY Buprenorphine [Buprenorphine 10MCG/HR] 1 patch TRANSDERM Discharge Medication List Potassium Chloride [Klor-Con 8] 8 meq PO BID 10/16/16 [History] Apixaban [Eliquis] 5 mg PO BID 12/12/17 [History] Aspirin [Adult Low Dose Aspirin EC] 81 mg PO DAILY 01/10/18 [History] Clopidogrel [Plavix] 75 mg PO DAILY 07/30/18 [History] Gabapentin [Neurontin] 100 mg PO BID 07/30/18 [History] Citalopram Hydrobromide [CeleXA] 20 mg PO DAILY 10/06/18 [History] Folic Acid 1 mg PO DAILY 10/06/18 [History] Buprenorphine [Buprenorphine 10MCG/HR] 1 patch TRANSDERM TU 11/16/19 [History] Follow up Appointment(s)/Referral(s): Alexander Clement DO [Primary Care Provider] - 1-2 days Patient Instructions/Handouts: Chest Pain (DC) Discharge Disposition: HOME SELF-CARE
== END 2019-11-16 12:10 | disposition home or self-care (01) ==
LOC: EC 22:12 → 1SOBS 11-16 02:06
PROVIDERS: ADMIT Hospitalist; ATTEND Hospitalist
DX: R07.89 Other chest pain (principal); M79.7 Fibromyalgia; G47.33 Obstructive sleep apnea (adult) (pediatric); I69.849 Monoplegia of lower limb following other cerebrovascular disease affecting unspecified side; D86.9 Sarcoidosis, unspecified; K44.9 Diaphragmatic hernia without obstruction or gangrene; I69.398 Other sequelae of cerebral infarction; R53.1 Weakness; R47.02 Dysphasia; H40.9 Unspecified glaucoma; Z90.710 Acquired absence of both cervix and uterus; I35.0 Nonrheumatic aortic (valve) stenosis; Z87.19 Personal history of other diseases of the digestive system; F41.8 Other specified anxiety disorders; Q21.1 Atrial septal defect; K21.9 Gastro-esophageal reflux disease without esophagitis; Z86.718 Personal history of other venous thrombosis and embolism; Z79.01 Long term (current) use of anticoagulants; Z79.02 Long term (current) use of antithrombotics/antiplatelets; Z79.899 Other long term (current) drug therapy; Z79.82 Long term (current) use of aspirin; Z82.0 Family history of epilepsy and other diseases of the nervous system; Z82.41 Family history of sudden cardiac death; Z82.49 Family history of ischemic heart disease and other diseases of the circulatory system; Z87.74 Personal history of (corrected) congenital malformations of heart and circulatory system; Z95.828 Presence of other vascular implants and grafts
CPT/HCPCS: 93005 ×2; 99285; 36415; 83880; 80053; 83735; 84484 ×2; 85025; 85610; 85730; 71046; G0378

== ENCOUNTER → 2020-03-25 | Outpatient (CLI) | payer OTHER ==
--- NOTE | 2020-03-25 16:33 | US ---
EXAMINATION TYPE: US kidneys/renal and bladder DATE OF EXAM: 03/25/2020 COMPARISON: 08/29/2019 CLINICAL HISTORY: 59-year-old female R10.9 Bilateral flank pain. Flank pain TECHNIQUE: Multiple sonographic images of the kidneys and bladder are obtained. FINDINGS: EXAM MEASUREMENTS: Right Kidney: 9.2 x 4.4 x 4.5 cm Left Kidney: 9.5 x 5.2 x 4.3 cm No hydronephrosis. Bladder: wnl Bilateral Jets seen: Yes IMPRESSION: No hydronephrosis.
== END | disposition home or self-care (01) ==
LOC: RADUSWWP 15:36
PROVIDERS: ATTEND Urology
DX: R10.9 Unspecified abdominal pain (principal)
CPT/HCPCS: 76770

== ENCOUNTER → 2020-05-11 | Outpatient (CLI) | payer OTHER ==
--- NOTE | 2020-05-11 10:17 | MR ---
EXAMINATION TYPE: MR MRCP DATE OF EXAM: 05/11/2020 COMPARISON: 08/29/2019 ultrasound HISTORY: Rt Upper Quad Pain Standard multiplanar, multisequence MRI departmental protocol Multiplanar, multisequence images of the MRCP were acquired. FINDINGS: CBD measures 1 cm at the upper limits of normal for postcholecystectomy patients. Postcholecystectomy changes noted. There is a 1 cm pulmonary nodule left lower lobe There is no hydronephrosis. No renal mass. Adrenal glands have a normal morphology. Pancreas has a no rmal appearance. Aorta and IVC of normal caliber. Bowel gas pattern nonspecific. No pathologic adenop athy. Hypertrophic changes of the spine. Heart size is enlarged. IMPRESSION: 1. Postcholecystectomy CBD at the upper limits of normal for postcholecystectomy patients. 2. There is a 1 cm left lower lobe pulmonary nodule for which CT scan of the chest is recommended.
== END | disposition home or self-care (01) ==
LOC: RADMRIMAIN 08:10
PROVIDERS: ATTEND Internal Medicine Gastroenterology
DX: R10.11 Right upper quadrant pain (principal); Z90.49 Acquired absence of other specified parts of digestive tract
CPT/HCPCS: 74181

== ENCOUNTER → 2020-07-15 | Outpatient (CLI) | payer OTHER ==
--- NOTE | 2020-07-15 18:00 | ECHOF ---
Referral Reason:I51.7 cardiomegaly MEASUREMENTS -------- HEIGHT: 170.2 cm WEIGHT: 95.3 kg BP: RVIDd: 3.2 cm (< 3.3) IVSd: 1.2 cm (0.6 - 1.1) LVIDd: 4.0 cm (3.9 - 5.3) LVPWd: 1.2 cm (0.6 - 1.1) IVSs: 1.3 cm LVIDs: 2.8 cm LVPWs: 1.2 cm LA Diam: 4.2 cm (2.7 - 3.8) LAESV Index (A-L): 31.09 ml/m Ao Diam: 3.4 cm (2.0 - 3.7) MV E Emiliano: 0.46 m/s MV DecT: 261 ms MV A Emiliano: 0.80 m/s MV E/A Ratio: 0.57 AV maxP.31 mmHg AV meanP.73 mmHg RAP: 5.00 mmHg RVSP: 27.57 mmHg FINDINGS -------- Sinus rhythm. This was a technically adequate study. The left ventricular size is normal. There is mild concentric left ventricular hypertrophy. Overa ll left ventricular systolic function is low-normal with, an EF between 50 - 55 %. The right ventricle is normal in size. The left atrium is mildly dilated. LA is midly dilated 29-33ml/m2. The right atrial size is normal. There is mild aortic regurgitation. There is moderate aortic stenosis present. Peak/mean gradient across the Aortic Valve is 48.31mmHg / 29.73mmHg. Can't exclude possible Bicuspid Aov. Mild mitral regurgitation is present. Mild tricuspid regurgitation present. Right ventricular systolic pressure is normal at < 35 mmHg. There is no pulmonic regurgitation present. The aortic root size is normal. There is no pericardial effusion. CONCLUSIONS -------- 1. The left ventricular size is normal. 2. There is mild concentric left ventricular hypertrophy. 3. Overall left ventricular systolic function is low-normal with, an EF between 50 - 55 %. 4. The right ventricle is normal in size. 5. The left atrium is mildly dilated. 6. LA is midly dilated 29-33ml/m2. 7. The right atrial size is normal. 8. There is mild aortic regurgitation. 9. There is moderate aortic stenosis present. 10. Peak/mean gradient across the Aortic Valve is 48.31mmHg / 29.73mmHg. 11. Can't exclude possible Bicuspid Aov. 12. Mild mitral regurgitation is present. 13. Mild tricuspid regurgitation present. 14. The aortic root size is normal. 15. There is no pericardial effusion. [place] OPERATOR: Glory Wynne RDCS
== END | disposition home or self-care (01) ==
LOC: RADECHMAIN 12:02
PROVIDERS: ATTEND Family Medicine
DX: I08.3 Combined rheumatic disorders of mitral, aortic and tricuspid valves (principal)
CPT/HCPCS: 93306

== ENCOUNTER → 2020-07-30 | Outpatient (CLI) | payer OTHER ==
[~2020-07-30] MED LIST changes: -LACTATED RINGERS 1,000 ML IV SCH; -LIDOCAINE 1% 20 ML VIAL (10MG/ML) FOR IV START INTRADERMA PRN; -MIDAZOLAM 2 MG/2 ML VIAL IV PRN; +REGADENOSON 0.4 MG/5 ML SYRINGE IV ONE
--- NOTE | 2020-07-30 14:17 | NM ---
EXAMINATION TYPE: NM stress lexiscan cardiolite DATE OF EXAM: 07/30/2020 COMPARISON: NONE HISTORY: Cardiomegaly, hypertension TECHNIQUE: After the intravenous administration of 10.5 mCi Tc 99m Sestamibi - Cardiolite resting SP ECT images acquired 45 minutes post injection. The patient received 0.4mg Lexiscan, 26.0 mCi Tc 99m Sestamibi - Stress images obtained [address] injection FINDINGS: Review of stress and rest SPECT images demonstrates no distinct perfusion abnormality. Gated analysi s shows normal wall motion with an estimated left ventricular ejection fraction of 64 %. IMPRESSION: No scintigraphic evidence for reversible ischemia.
--- NOTE | 2020-07-30 22:04 | EST ---
EXERCISE STRESS AGE: 59 SEX: Female HT: 67" WT: 210# PROTOCOL: Lexiscan Cardiolite STAGE: DURATION OF EXERCISE: HEART RATE REST: 56 BLOOD PRESSURE REST: 124/83 MAXIMUM HEART RATE ACHIEVED: 86 MAXIMUM BLOOD PRESSURE: 130/74 85% MPHR: 136 100% MPHR: 160 METS: INDICATIONS: Cardiomegaly. CLINICAL INFORMATION: Baseline EKG revealed normal sinus rhythm without significant ST-T changes. With Lexiscan administration the heart rate changed from 56 to 86 beats per minute and blood pressure changed from 124/83 to 130/74. EKG revealed minor nonspecific inferolateral ST and T-wave changes which are considered nonspecific. Resting EKG also had some T-wave flattening, making this an inconclusive stress test by EKG criteria. By EKG criteria, this is an inconclusive Lexiscan stress test with nonspecific ST-T changes. The nuclear scan results, which are more pertinent, will be reported by the radiologist. FERMIN / RODRIGO: [id number] /
== END | disposition home or self-care (01) ==
LOC: RADNMMAIN 08:11
PROVIDERS: ATTEND Family Medicine
DX: I51.7 Cardiomegaly (principal)
CPT/HCPCS: 93017; 78452; A9500; J2785

== ENCOUNTER 2021-01-03 10:34 | Inpatient (IN) | payer OTHER ==
[2021-01-03 10:59] LABS: Glucose,Whole Blood 89 mg/dL (75-99)
[2021-01-03 11:16] LABS: Basophils % (A) 1 %; Eosinophils # (A) 0.1 k/uL (0-0.7); Eosinophils % (A) 2 %; HCT 46.9 % (34.0-46.0); HGB 15.1 gm/dL (11.4-16.0); Lymphocytes # (A) 2.5 k/uL (1.0-4.8); Lymphocytes % (A) 44 %; MCHC 32.3 g/dL (31.0-37.0); MCV 96.2 fL (80.0-100.0); Mean Platelet Volume 6.7; Monocytes # (A) 0.3 k/uL (0-1.0); Monocytes % (A) 5 %; Neutrophils # (A) 2.7 k/uL (1.3-7.7); Neutrophils % (A) 47 %; Platelet Count 122 k/uL (150-450); RBC 4.87 m/uL (3.80-5.40); WBC 5.7 k/uL (3.8-10.6)
--- NOTE | 2021-01-03 11:21 | ED ---
Neuro HPI - General Chief Complaint: Neuro Symptoms/Deficit Stated Complaint: Right side weakness/slurred speach Source: patient Mode of arrival: wheelchair Limitations: no limitations, language barrier - History of Present Illness Is the patient presenting with stroke symptoms?: Yes Initial Comments: 60-year-old female past medical history of CVA who presents to the emergency room with reported right-sided weakness. Patient reports a previous CVA 2 with right-sided deficits. Sister is at bedside and helps clarified history. Reports that the patient has had significant improvement from previous strokes and only has mild right-sided weakness. Approximate one hour to hospital arrival the patient had sudden onset of right-sided weakness with inability to hold anything and right hand. Also had weakness in her right leg and some speech difficulties. Patient is on Eliquis, aspirin and Plavix. Patient has been taking the medications as directed without any missed doses. Patient denies any headaches or vision changes. No recent head trauma. Denies fevers or chills. No chest pain or shortness of breath. No other alleviating, nephrology social worker modifying factors - Related Data Home Medications: Home Medications Medication Instructions Recorded Confirmed Potassium Chloride [Klor-Con 8] 8 meq PO BID 10/16/16 01/03/21 Apixaban [Eliquis] 5 mg PO BID 12/12/17 01/03/21 Aspirin [Adult Low Dose Aspirin EC] 81 mg PO HS 01/10/18 01/03/21 Clopidogrel [Plavix] 75 mg PO DAILY 07/30/18 01/03/21 Citalopram Hydrobromide [CeleXA] 20 mg PO DAILY 10/06/18 01/03/21 Folic Acid 1 mg PO DAILY 10/06/18 01/03/21 Estradiol Cream [Estrace Cream 1 gm VAGINAL SUWE 01/03/21 01/03/21 0.01%] Gabapentin [Neurontin] 300 mg PO BID 01/03/21 01/03/21 L.acidoph,Paracasei, B.lactis 1 cap PO DAILY 01/03/21 01/03/21 [Probiotic] Young Living Inner Defense 1 cap PO DAILY 01/03/21 01/03/21 Allergies/Adverse Reactions: Allergies Allergy/AdvReac Type Severity Reaction Status Date / Time adhesive tape Allergy Rash/Hives Verified 01/03/21 12:00 celecoxib [From Celebrex] Allergy Unknown Verified 01/03/21 12:00 ciprofloxacin [From Cipro] Allergy Unknown Verified 01/03/21 12:00 Sulfa (Sulfonamide Allergy Unknown Verified 01/03/21 12:00 Antibiotics) morphine AdvReac Vomiting Verified 01/03/21 12:00 phenazopyridine AdvReac Unknown Verified 01/03/21 12:00 [From Pyridium] Review of Systems ROS Statement: Those systems with pertinent positive or pertinent negative responses have been documented in the HPI. ROS Other: All systems not noted in ROS Statement are negative. General Exam Limitations: no limitations, language barrier Stroke MDM - Lab Data Result diagrams: 01/03/21 10:58 01/03/21 10:58 Lab Results 01/03/21 01/03/21 01/03/21 Range/Units 10:53 10:58 10:58 WBC 5.7 (3.8-10.6) k/uL RBC 4.87 (3.80-5.40) m/uL Hgb 15.1 (11.4-16.0) gm/dL Hct 46.9 H (34.0-46.0) % MCV 96.2 (80.0-100.0) fL MCH 31.0 (25.0-35.0) pg MCHC 32.3 (31.0-37.0) g/dL RDW 13.0 (11.5-15.5) % Plt Count 122 L (150-450) k/uL MPV 6.7 Neutrophils % 47 % Lymphocytes % 44 % Monocytes % 5 % Eosinophils % 2 % Basophils % 1 % Neutrophils # 2.7 (1.3-7.7) k/uL Lymphocytes # 2.5 (1.0-4.8) k/uL Monocytes # 0.3 (0-1.0) k/uL Eosinophils # 0.1 (0-0.7) k/uL Basophils # 0.0 (0-0.2) k/uL PT 10.5 (9.0-12.0) sec INR 1.0 (<1.2) APTT 22.4 (22.0-30.0) sec Sodium (137-145) mmol/L Potassium (3.5-5.1) mmol/L Chloride (98-107) mmol/L Carbon Dioxide (22-30) mmol/L Anion Gap mmol/L BUN (7-17) mg/dL Creatinine (0.52-1.04) mg/dL Est GFR (CKD-EPI)AfAm (>60 ml/min/1.73 sqM) Est GFR (CKD-EPI)NonAf (>60 ml/min/1.73 sqM) Glucose (74-99) mg/dL POC Glucose (mg/dL) 89 (75-99) mg/dL POC Glu Giver ID Froylan Aly Calcium (8.4-10.2) mg/dL Total Bilirubin (0.2-1.3) mg/dL AST (14-36) U/L ALT (4-34) U/L Alkaline Phosphatase (38-126) U/L Troponin I (0.000-0.034) ng/mL Total Protein (6.3-8.2) g/dL Albumin (3.5-5.0) g/dL 01/03/21 01/03/21 Range/Units 10:58 10:58 WBC (3.8-10.6) k/uL RBC (3.80-5.40) m/uL Hgb (11.4-16.0) gm/dL Hct (34.0-46.0) % MCV (80.0-100.0) fL MCH (25.0-35.0) pg MCHC (31.0-37.0) g/dL RDW (11.5-15.5) % Plt Count (150-450) k/uL MPV Neutrophils % % Lymphocytes % % Monocytes % % Eosinophils % % Basophils % % Neutrophils # (1.3-7.7) k/uL Lymphocytes # (1.0-4.8) k/uL Monocytes # (0-1.0) k/uL Eosinophils # (0-0.7) k/uL Basophils # (0-0.2) k/uL PT (9.0-12.0) sec INR (<1.2) APTT (22.0-30.0) sec Sodium 140 (137-145) mmol/L Potassium 4.3 (3.5-5.1) mmol/L Chloride 106 (98-107) mmol/L Carbon Dioxide 29 (22-30) mmol/L Anion Gap 5 mmol/L BUN 16 (7-17) mg/dL Creatinine 0.92 (0.52-1.04) mg/dL Est GFR (CKD-EPI)AfAm 78 (>60 ml/min/1.73 sqM) Est GFR (CKD-EPI)NonAf 68 (>60 ml/min/1.73 sqM) Glucose 88 (74-99) mg/dL POC Glucose (mg/dL) (75-99) mg/dL POC Glu Giver ID Calcium 9.2 (8.4-10.2) mg/dL Total Bilirubin 1.0 (0.2-1.3) mg/dL AST 28 (14-36) U/L ALT 15 (4-34) U/L Alkaline Phosphatase 75 (38-126) U/L Troponin I <0.012 (0.000-0.034) ng/mL Total Protein 7.2 (6.3-8.2) g/dL Albumin 4.2 (3.5-5.0) g/dL - Medical Decision Making Upon arrival the patient is promptly placed in trauma bay 1. NIH is obtained and is 6. Patient is on multiple anticoagulants and antiplatelets and therefore she is not a candidate for TPA. Patient is medially sent over for a CT of her brain and cervical spine as well as CT angiography. Laboratory studies are performed and reviewed. CT demonstrates no acute intracranial abnormality. CT angiography demonstrates atherosclerotic calcifications at the right bifurcation and smooth mixed plaque at the left bifurcation. No large vessel thrombus. I did provide the patient with an aspirin. I spoke with Dr. Miles and he agrees patient is not a TPA candidate. Case is discussed with Dr. Reyes who accepts admission. Dr. Pennington consulted from neurology. Patient observed in the ER does have improvement in her symptoms. She is currently awaiting a bed on the floor EKG demonstrates normal sinus rhythm with a ventricular rate of 78.. HI interval 160. QRS 76. QTC 451. No acute ST segment elevations or depressions 01/03/21 11:22 Past Medical History Past Medical History: CVA/TIA, Fibromyalgia, Memory Impairment, Sleep Apnea/CPAP/BIPAP Additional Past Medical History / Comment(s): CVA x 2 with some R arm/leg weakness and mild dysphasia. 12/06/2017 IVC filter blood clot left femoral. sarcoidosis involving lungs. PFO with surgery. chronic L abdominal pain past 2 yrs but constant since 08/2017. R eye glaucoma. hiatal hernia. colon polyp r emoved 01/14/18. occasional low back pain. tremors but states with anxiety. TATUM no longer needs to use CPAP History of Any Multi-Drug Resistant Organisms: None Reported Past Surgical History: Adenoidectomy, Back Surgery, Cholecystectomy, Hysterecto my, Tonsillectomy Additional Past Surgical History / Comment(s): 01/14/18 EGD with bx/colonoscopy with polypectomy benign, 01/09/18 needle biopsy lungs d/t enlarged lymph nodes benign, 12/06/17 R groin accessed and IVC clot "broken up and removed but some pieces left", GFF, PFO repair at [facility], 09/2017 cervical fusion, lumbar surgery 1988, deviated septal surgery, bilateral cataract removal with lens, R eye laser surgery for glaucoma, benign skin lesion removed. Past Anesthesia/Blood Transfusion Reactions: Postoperative Nausea & Vomiting (PONV) Past Psychological History: Anxiety, Depression Smoking Status: Never smoker Past Alcohol Use History: None Reported Past Drug Use History: None Reported - Past Family History Mother Family Medical History: Coronary Artery Disease (CAD), Myocardial Infarction ([place]) Additional Family Medical History / Comment(s): Mother at the age of 64yrs from [place]. Maternal grandmother from a [place] at the age of 63 yrs. Father History Unknown: Yes Additional Family Medical History / Comment(s): committed suicide Brother(s) Family Medical History: Coronary Artery Disease (CAD), Myocardial Infarction ([place]) Additional Family Medical History / Comment(s): Brother at 59yrs from [place]/cardiac arrest. Sister(s) Additional Family Medical History / Comment(s): multiple sclerosis Course Vital Signs 01/03/21 01/03/21 01/03/21 10:37 10:53 11:33 Temperature 98 F Pulse Rate 87 76 63 Respiratory 18 20 12 Rate Blood Pressure 139/97 157/97 O2 Sat by Pulse 99 98 96 Oximetry 01/03/21 12:06 Temperature Pulse Rate 67 Respiratory 18 Rate Blood Pressure 141/84 O2 Sat by Pulse 96 Oximetry Disposition Clinical Impression: CVA (cerebral vascular accident), Right sided weakness Disposition: ADMITTED IP TO THIS [facility] Condition: Stable Is patient prescribed a controlled substance at d/c from ED?: No Decision to Admit Reason: Admit from EC Decision Date: 01/03/21 Decision Time: 12:10
[2021-01-03 11:24] LABS: Albumin 4.2 g/dL (3.5-5.0); Total Protein 7.2 g/dL (6.3-8.2)
[2021-01-03 11:26] LABS: Calcium 9.2 mg/dL (8.4-10.2); Potassium 4.3 mmol/L (3.5-5.1)
--- NOTE | 2021-01-03 11:29 | CT ---
EXAMINATION TYPE: CT brain wo con for TPA DATE OF EXAM: 01/03/2021 COMPARISON: 10/17/2019 HISTORY: 60-year-old female neurologic deficit, acute, stroke suspected. Slurred speech, Rt sided wea kness TECHNIQUE: Examination was done in axial plane without intravenous contrast. Coronal and sagittal r econstructions performed. CT DLP: 1044 mGycm Automated exposure control for dose reduction was used. FINDINGS: There is no evidence of acute intracranial hemorrhage, acute ischemic changes, mass, mass-effect, or extra-axial fluid collection. There is no effacement of cerebral sulci or basal subarachnoid cister ns. There is no hydrocephalus. There is no midline shift. Angela-white matter distinction is preserv ed. Redemonstrated left lateral frontal encephalomalacia. Paranasal sinuses and mastoid air cells well pneumatized. Orbits and globes are intact. IMPRESSION: No acute intracranial abnormality seen. Redemonstrated encephalomalacia from old infarct lateral left frontal lobe. If symptoms persist, follow-up CT or MRI.
[2021-01-03 11:32] LABS: Partial Thromboplastin Time 22.4 sec (22.0-30.0); Prothrombin Time 10.5 sec (9.0-12.0)
--- NOTE | 2021-01-03 11:45 | CT ---
EXAMINATION TYPE: CT angio head neck DATE OF EXAM: 01/03/2021 COMPARISON: 10/06/2018 HISTORY: 60-year-old female Rt sided weakness, slurred speech TECHNIQUE: Contiguous axial scanning of the head and neck performed with IV Contrast, patient injecte d with 65 mL of Isovue 370. Coronal/sagittal MIP reconstructions performed. 3-D reconstructions gener ated on a dedicated independent workstation. CT DLP: 576.6 mGycm Automated exposure control for dose reduction was used. FINDINGS: NECK: Underlying mediastinal lymphadenopathy redemonstrated. Some are partially calcified. Nodes measure up to 1.4 cm and appear unchanged. Ectatic ascending aorta 3.8 cm. And the charge was a branching anatomy. Right common carotid artery is patent. Moderate atherosclerotic change at the right bifurcation with mild, approximately 30% narrowing in th e right carotid bulb secondary to irregular or sclerotic calcifications. Remainder of the right ICA is patent. Left common carotid artery is patent. Mild atherosclerotic change in the left carotid bulb also with mild, approximate 30% narrowing in the carotid bulb though secondary to smooth with mixed plaque. Remainder of the left ICA is patent. Vertebral arteries are patent throughout her course. C5-C7 ACDF. HEAD: Mild smooth narrowing of the distal V4 segment right vertebral artery. Otherwise, vertebral and basil ar arteries as well as the remainder of the posterior circulation are patent. Mild smooth narrowing supraclinoid left ICA. Slightly hypoplastic A1 segment left anterior cerebral artery. Otherwise, free intracranial arteries and remainder of the anterior circulation appear patent. No aneurysmal change is seen. IMPRESSION: NECK: 1. ATHEROSCLEROTIC CALCIFICATIONS AT THE RIGHT BIFURCATION AND SMOOTH MIXED PLAQUE AT THE LEFT BIFURC ATION CAUSING MILD, APPROXIMATELY 30% NARROWING AT THE BILATERAL PROXIMAL ICA's. 2. MEDIASTINAL LYMPHADENOPATHY WHICH IS PARTIALLY CALCIFIED LARGELY UNCHANGED FROM 2019 AND MEASURING UP TO 1.4 CM. SUSPECT SEQUELA OF PRIOR GRANULOMATOUS DISEASE. HEAD: 3. MILD SMOOTH NARROWING DISTAL V4 SEGMENT RIGHT VERTEBRAL ARTERY AND ALSO SUPRACLINOID LEFT ICA. NO LARGE VESSEL INTRACRANIAL ARTERIAL OCCLUSION, SIGNIFICANT STENOSIS, OR ANEURYSMAL CHANGE IS SEEN.
--- NOTE | 2021-01-03 11:48 | XR ---
EXAMINATION TYPE: XR chest 2V DATE OF EXAM: 01/03/2021 COMPARISON: 10/26/2019 HISTORY: 60-year-old female confusion, altered mental status TECHNIQUE: AP and lateral views FINDINGS: Heart normal size. PFO closure device. Aorta and pulmonary vasculature within normal limits. Stable h ypodensity nodule posterior left base suggesting a 1.3 cm calcified granuloma. No simona consolidation or pleural effusion. Similar slight asymmetric elevation left hemidiaphragm. ACDF hardware. IMPRESSION: Stable 1.3 cm left basilar calcified granuloma. PFO closure device. No definite acute process.
[2021-01-03] MEDS ORDERED: ASPIRIN 325 MG TAB PO STA (11:59)
[2021-01-03] MEDS ORDERED: NALOXONE 0.4 MG/ML 1 ML VIAL IV PRN (12:10)
--- NOTE | 2021-01-03 14:05 | P.CNNES ---
History of Present Illness Consult date: 01/03/21 Requesting physician: Jenn Hardy Reason for Consult: Right sided weakness History of Present Illness: This is a 60-year-old woman with medical history of stroke X2 in 2012 (with residual mild weakness of upper and lower extremity as well as numbness), mild vascular dementia, pulmonary sarcoidosis, Proximal left DVT s/p green filter with PFO closure in 2015 that presented emergency department on 01/03/2021 for worsening right-sided weakness and tingling as well as difficulty getting her words out that started around 9 9:15 AM this morning. His morning while trying to hold the fork in her hand she noticed that she has difficulty doing that. As well as noticed just worsening of her baseline right-sided weakness and new tingling. Baseline she has numbness which is mild over the right side. Difficulty of getting her words has been improving. Otherwise denies any visual disturbance, difficulty swallowing. Patient stated that she is on aspirin 81 mg Plavix 75 mg and Eliquis 5 mg tablet the twice a day. She stated that she missed her Eliquis dose yesterday night since she forgot. Otherwise she is compliant with her medication. Patient currently is feeling slightly better but not back to baseline. She denies any history of seizures in the past. Patient follows up with a neurologist as outpatient (Dr. Suyapa Gallagher). She also follows up with a raw products director (Dr. Briseno). Patient is also on gabapentin 300 mg 1 tablet twice a day as well as folic acid. Patient denies being on the statins since that she had the side effects she gets cramping muscle pain and she said that she tried different medication but continued to have side-effects. She notified me that as a result of her stroke in the past she has mild dementia. Workup in the hospital consisted of: Initial vital signs: Blood pressure 139/97, heart rate of 87, respiratory of 18, temperature of 98 Fahrenheit and pulse ox of 99% room air. The basic metabolic panel is normal. Patient initial serum glucose is 88 and the POC glucose is 89. The CT of the head is reported as no acute intracranial abnormality seen. Redemonstrated encephalomalacia from the old infarct in the lateral left frontal lobe. If symptoms persist, follow-up CT or MRI. So reviewed the CT of the head and I felt was more frontal temporal encephalomalacia. CTA head and neck is reported as for the neck atheromatous calcification at the right bifurcation and smooth mixed plaque at the left bifurcation causing mild, approximately 30% narrowing at the bilateral proximal ICAs. Mediastinal left ad no opacity which is particularly calcified largely unchanged from 2019 and the Midrin up to 1.4 cm. Suspect sequela of prior granulomatous disease. While this CT angiography of the head is reported as mild smooth narrowing distal before segment right vertebral artery and also supraclinoid left ICA. No large vessel intracranial arterial occlusion, significant stenosis or aneurysm changes seen. Chest x-ray is reported as stable 1.3 cm left basilar calcified granuloma. PFO closure device. No definite of acute process. Review of Systems Review of system: The 12 point system was reviewed and apparent positive and negative per HPI. 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 12/06/2017 IVC filter blood clot left femoral. sarcoidosis involving lungs. PFO with surgery. chronic L abdominal pain past 2 yrs but constant since 08/2017. R eye glaucoma. hiatal hernia. colon polyp removed 01/14/18. occasional low back pain. tremors but states with anxiety. TATUM no longer needs to use CPAP History of Any Multi-Drug Resistant Organisms: None Reported Past Surgical History: Adenoidectomy, Back Surgery, Cholecystectomy, Hysterectomy, Tonsillectomy Additional Past Surgical History / Comment(s): 01/14/18 EGD with bx/colonoscopy with polypectomy benign, 01/09/18 needle biopsy lungs d/t enlarged lymph nodes benign, 12/06/17 R groin accessed and IVC clot "broken up and removed but some pieces left", GFF, PFO repair at [facility] [place], 09/2017 cervical fusion, lumbar surgery 1988, deviated septal surgery, bilateral cataract removal with lens, R eye laser surgery for glaucoma, benign skin lesion removed. Past Anesthesia/Blood Transfusion Reactions: Postoperative Nausea & Vomiting (PONV) Past Psychological History: Anxiety, Depression Smoking Status: Never smoker Past Alcohol Use History: None Reported Past Drug Use History: None Reported - Past Family History Mother Family Medical History: Coronary Artery Disease (CAD), Myocardial Infarction ([place]) Additional Family Medical History / Comment(s): Mother at the age of 64yrs from [place]. Maternal grandmother from a [place] at the age of 63 yrs. Father History Unknown: Yes Additional Family Medical History / Comment(s): committed suicide Brother(s) Family Medical History: Coronary Artery Disease (CAD), Myocardial Infarction ([place]) Additional Family Medical History / Comment(s): Brother at 59yrs from [place]/cardiac arrest. Sister(s) Additional Family Medical History / Comment(s): multiple sclerosis Medications and Allergies Home Medications Medication Instructions Recorded Confirmed Type Potassium Chloride [Klor-Con 8] 8 meq PO BID 10/16/16 01/03/21 History Apixaban [Eliquis] 5 mg PO BID 12/12/17 01/03/21 History Aspirin [Adult Low Dose Aspirin EC] 81 mg PO HS 01/10/18 01/03/21 History Clopidogrel [Plavix] 75 mg PO DAILY 07/30/18 01/03/21 History Citalopram Hydrobromide [CeleXA] 20 mg PO DAILY 10/06/18 01/03/21 History Folic Acid 1 mg PO DAILY 10/06/18 01/03/21 History Estradiol Cream [Estrace Cream 1 gm VAGINAL SUWE 01/03/21 01/03/21 History 0.01%] Gabapentin [Neurontin] 300 mg PO BID 01/03/21 01/03/21 History L.acidoph,Paracasei, B.lactis 1 cap PO DAILY 01/03/21 01/03/21 History [Probiotic] Young Living Inner Defense 1 cap PO DAILY 01/03/21 01/03/21 History Allergies Allergy/AdvReac Type Severity Reaction Status Date / Time adhesive tape Allergy Rash/Hives Verified 01/03/21 12:00 celecoxib [From Celebrex] Allergy Unknown Verified 01/03/21 12:00 ciprofloxacin [From Cipro] Allergy Unknown Verified 01/03/21 12:00 Sulfa (Sulfonamide Allergy Unknown Verified 01/03/21 12:00 Antibiotics) morphine AdvReac Vomiting Verified 01/03/21 12:00 phenazopyridine AdvReac Unknown Verified 01/03/21 12:00 [From Pyridium] Physical Examination - Vital Signs Vital Signs: Vital Signs Temp Pulse Resp BP Pulse Ox 01/03/21 12:06 67 18 141/84 96 01/03/21 11:33 63 12 157/97 96 01/03/21 10:53 76 20 139/97 98 01/03/21 10:37 98 F 87 18 99 Intake and Output 01/02/21 01/03/21 01/03/21 22:59 06:59 14:59 Other: Weight 95.254 kg GENERAL: The patient is lying in bed and is not in acute distress. CHEST: The heart rate is regular rate rhythm. No murmurs to auscultation. No carotid bruit bilaterally. LUNG: Clear to auscultation bilaterally no wheezing noted throughout. Not labored breathing. ABDOMEN/GI: Bowel sounds present in all 4 quadrants. No tenderness to palpation throughout. NEUROLOGICAL: Higher mental function: The patient is awake, alert, oriented to self, place and time. Patient is following commands. No aphasia and no neglect. Cranial nerves: The pupils are round, equal and reactive to light and accommodation. Visual rock are full to confrontation throughout. Extraocular movement is intact no nystagmus is noted. Facial sensation is normal to touch throughout. The facial strength is normal throughout. Hearing is normal bilaterally to hand rub. Tongue is midline and moved [id number] without any difficulty. No dysarthria is noted. Shoulder shrug is normal bilaterally. Motor: Gait is deferred. The strength is right upper and lower is 4-/5. While left upper is 5- and left lower is 4+ to 5- . Normal tone and bulk. Cerebellum: Normal finger to nose but had tremor toward end of action on right. Sensation: Sensation is normal to touch throughout. Reflexes (right/left): 2+ Plantars is upgoing over the right but mute over the left. Results Coagulation study: PT 10.5, INR 1.0 and PTT of 22.4 - Laboratory Findings CBC and BMP: 01/03/21 10:58 01/03/21 10:58 Abnormal Lab Findings: Abnormal Labs 01/03/21 10:58 Hct 46.9 H Plt Count 122 L Assessment and Plan Assessment: Worsening of right sided weakness, tingling and difficulty getting words out. She missed her night dose of eliquis (01/02/2021). [place] TIA vs acute ischemic stroke. Old stroke (encephalomalacia over left fronto-temporal region) with mild residual right sided weakness and numbness History PFO status post closure Story of proximal left DVT status post green filter (2016) History of pulmonary sarcoidosis Patient was notified that she had a clotting disorder but not sure due to what Plan: I ordered MRI of the brain STAT. I ordered 2-D echo. In the ED the patient was given aspirin 325 once. I started the patient back on aspirin 81 and Plavix 75. Regarding the Eliquis like to hold the Eliquis edges for today until we get the MRI to see the extent of the stroke and then to resume Eliquis tomorrow. I notified that the patient since she missed her Eliquis not change her medication regimen as inpatient. Possibly consider stopping Plavix and instead adding Brilinta but she wants her raw products director to be responsible for that so we'll defer it as an outpatient. Statin was not started since the patient could not tolerate the any statins in the past because of the side effects. Lipid panel is ordered by the ED team is pending. Every 4 hours neuro checks She is placed on continuous cardiac monitoring. PT OT and SEWING MACHINE BOBBIN WINDER are consulted. Covid 19 PCR at is ordered and is pending. Thank you for the consultation. Blake Pennington M.D. Neuro-hospitalist Time with Patient: Greater than 30
[2021-01-03] MEDS ORDERED: ACETAMINOPHEN TAB 500 MG TAB PO STA (15:45)
--- NOTE | 2021-01-03 20:23 | P.HPIM ---
History of Present Illness H&P Date: 01/03/21 Chief Complaint: Right-sided weakness History of present complaint: This is a very pleasant 60-year-old patient of Dr. Jennifer Clement. 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 Patient does not have any prior cardiac history. presented today for worsening right-sided weakness and tingling as well as difficulty getting her words out. started today around 9:15 AM .while trying to hold the fork in her hand she noticed that she has difficulty . As well as noticed just worsening of her baseline right-sided weakness and new tingling. Baseline she has numbness which is mild over the right side. Difficulty of getting her words has been improving. Otherwise denies any visual disturbance, difficulty swallowing. Patient stated that she is on aspirin 81 mg Plavix 75 mg and Eliquis 5 mg tablet the twice a day. She stated that she missed her Eliquis dose yesterday night since she forgot. Otherwise she is compliant with her medication. When I saw the patient feeling much better. No not entirely back to baseline. Review of systems: GEN.: Tired EYES: None HEENT: None NECK: None RESPIRATORY: None CARDIOVASCULAR: As above GASTROINTESTINAL: None GENITOURINARY: None MUSCULOSKELETAL: None LYMPHATICS: None HEMATOLOGICAL: None PSYCHIATRY: None NEUROLOGICAL: As above with some baseline right-sided weakness] Past medical history to include: CVA, fibromyalgia, obstructive sleep apnea-does not use CPAP, right-sided weakness from a prior stroke, IVC blood clot with a filter in November 2017, sarcoidosis, PFO surgery, hiatal hernia, Social history: . No smoking or alcohol. Physical examination: VITAL SIGNS: 98, 87, 18, 108/73, 99% on room air GENERAL: BMI 32.9, laying in bed, comfortable EYES: Pupils equal. Conjunctiva normal. HEENT: External appearance of nose and ears normal, oral cavity grossly normal. NECK: JVD not raised; masses not palpable. HEART: First and second heart sounds are normal; no edema. LUNGS: Respiratory rate normal; clear to auscultation. ABDOMEN: Soft, nontender, liver spleen not palpable, no masses palpable. PSYCH: Alert and oriented x3; mood and affect normal. NEUROLOGICAL: [Cranial nerves grossly intact; no facial asymmetry, power on the right side 4/5. Speech appears to be minimally slow if any MUSCULAR skeletal: Evidence of OA especially in the hands LYMPHATICS: No lymph nodes palpable in the axilla and neck INVESTIGATIONS, reviewed in the clinical context: WBC 5.7 hemoglobin 13.1 platelets 122 potassium 4.3 creatinine 0.9 to Coronavirus [PCR] not detected EKG tracing personally reviewed by me-normal sinus rhythm Chest x-ray film personally reviewed by me-lungs clear CT angiogram of the brain: Atherosclerotic calcification with no significant stenosis. Computed tomography scan of the brain: Encephalomalacia from old infarct in the left frontal lobe. Assessment and plan: -TIA, suspect in the left middle cerebral artery area, causing right-sided weakness and some dysarthria with significant improvement in symptoms. Initial computed tomography scan negative. Patient to continue on aspirin, Plavix, eliquis -Chronic fibromyalgia Continue with pain medications -Obstructive sleep apnea does not use CPAP Follow clinically -Right hemiparesis from prior stroke At baseline -History of IVC blood clot was removed with a IVC filter -Sarcoidosis of the lungs Stable -History of PFO with surgery Stable -Hiatal hernia Asymptomatic -Anxiety depression otherwise specified Continue Celexa Neurology was consulted. Home medications resumed. Patient is already on good anticoagulation coverage. [Patient not able to tolerate antilipid medications in the past.] Patient be placed in observation Past Medical History Past Medical History: CVA/TIA, Fibromyalgia, Memory Impairment, Sleep Apnea/CPAP/BIPAP Additional Past Medical History / Comment(s): CVA x 2 with some R arm/leg weakness and mild dysphasia. 12/06/2017 IVC filter blood clot left femoral. sarcoidosis involving lungs. PFO with surgery. chronic L abdominal pain past 2 yrs but constant since 08/2017. R eye glaucoma. hiatal hernia. colon polyp removed 01/14/18. occasional low back pain. tremors but states with anxiety. TATUM no longer needs to use CPAP History of Any Multi-Drug Resistant Organisms: None Reported Past Surgical History: Adenoidectomy, Back Surgery, Cholecystectomy, Hysterec erick, Tonsillectomy Additional Past Surgical History / Comment(s): 01/14/18 EGD with bx/colonoscopy with polypectomy benign, 01/09/18 needle biopsy lungs d/t enlarged lymph nodes benign, 3/15/18 R groin accessed and IVC clot "broken up and removed but some pieces left", GFF, PFO repair at [facility] [place], 09/2017 cervical fusion, lumbar surgery 1988, deviated septal surgery, bilateral cataract removal with lens, R eye laser surgery for glaucoma, benign skin lesion removed. Past Anesthesia/Blood Transfusion Reactions: Postoperative Nausea & Vomiting (PONV) Past Psychological History: Anxiety, Depression Smoking Status: Never smoker Past Alcohol Use History: None Reported Past Drug Use History: None Reported - Past Family History Mother Family Medical History: Coronary Artery Disease (CAD), Myocardial Infarction (MA) Additional Family Medical History / Comment(s): Mother at the age of 64yrs from MA. Maternal grandmother from a MA at the age of 63 yrs. Father History Unknown: Yes Additional Family Medical History / Comment(s): committed suicide Brother(s) Family Medical History: Coronary Artery Disease (CAD), Myocardial Infarction (MA) Additional Family Medical History / Comment(s): Brother at 59yrs from MA/cardiac arrest. Sister(s) Additional Family Medical History / Comment(s): multiple sclerosis Medications and Allergies Home Medications Medication Instructions Recorded Confirmed Type Potassium Chloride [Klor-Con 8] 8 meq PO BID 10/16/16 01/03/21 History Apixaban [Eliquis] 5 mg PO BID 12/12/17 01/03/21 History Aspirin [Adult Low Dose Aspirin EC] 81 mg PO HS 01/10/18 01/03/21 History Clopidogrel [Plavix] 75 mg PO DAILY 07/30/18 01/03/21 History Citalopram Hydrobromide [CeleXA] 20 mg PO DAILY 10/06/18 01/03/21 History Folic Acid 1 mg PO DAILY 10/06/18 01/03/21 History Estradiol Cream [Estrace Cream 1 gm VAGINAL SUWE 01/03/21 01/03/21 History 0.01%] Gabapentin [Neurontin] 300 mg PO BID 01/03/21 01/03/21 History L.acidoph,Paracasei, B.lactis 1 cap PO DAILY 01/03/21 01/03/21 History [Probiotic] [employer] 1 cap PO DAILY 01/03/21 01/03/21 History Allergies Allergy/AdvReac Type Severity Reaction Status Date / Time adhesive tape Allergy Rash/Hives Verified 01/03/21 12:00 celecoxib [From Celebrex] Allergy Unknown Verified 01/03/21 12:00 ciprofloxacin [From Cipro] Allergy Unknown Verified 01/03/21 12:00 Sulfa (Sulfonamide Allergy Unknown Verified 01/03/21 12:00 Antibiotics) morphine AdvReac Vomiting Verified 01/03/21 12:00 phenazopyridine AdvReac Unknown Verified 01/03/21 12:00 [From Pyridium] Physical Exam Vitals: Vital Signs Temp Pulse Resp BP Pulse Ox 01/03/21 17:33 98.8 F 67 20 131/91 97 01/03/21 15:00 68 22 139/99 96 01/03/21 12:06 67 18 141/84 96 01/03/21 11:33 63 12 157/97 96 01/03/21 10:53 76 20 139/97 98 01/03/21 10:37 98 F 87 18 99 Intake and Output 01/03/21 01/03/21 01/03/21 06:59 14:59 22:59 Other: Weight 95.254 kg Results CBC & Chem 7: 01/03/21 10:58 01/03/21 10:58 Labs: Abnormal Lab Results - Last 24 Hours (Table) 01/03/21 Range/Units 10:58 Hct 46.9 H (34.0-46.0) % Plt Count 122 L (150-450) k/uL
[2021-01-03] MEDS: GABAPENTIN 300 MG CAP PO SCH (20:25)
[2021-01-03] MEDS ORDERED: APIXABAN 5 MG TAB PO SCH (21:00)
[2021-01-03] MEDS ORDERED: ASPIRIN 81 MG PO SCH (21:00)
[2021-01-03] MEDS ORDERED: ATORVASTATIN 40 MG TAB PO SCH (21:00)
[2021-01-03] MEDS ORDERED: SODIUM CHLORIDE 0.9% 1,000 ML IV ONE (21:18)
[2021-01-03] MEDS ORDERED: TICAGRELOR 90 MG TAB PO STA (21:18)
--- NOTE | 2021-01-03 21:24 | CT ---
CT scan of the brain. History weakness. Comparison today. FINDINGS: Exam performed without contrast. There is 3.5 x 2.5 cm area of grade white matter hypodensity left po sterior temporal lobe consistent with infarct. There is no mass effect nor midline shift. There is no evidence of intracranial hemorrhage. The calvarium is intact. Sella turcica appears normal. Skull ba se is intact. IMPRESSION: Old left posterior temporal lobe infarct without change compared to exam today and also 10/17/2019. No acute intracranial abnormality.
[2021-01-03] MEDS: POTASSIUM CHLORIDE ER 10 MEQ TAB.ER.PRT PO SCH (21:51)
[2021-01-03] MEDS: TICAGRELOR 90 MG TAB PO SCH (22:10)
--- NOTE | 2021-01-03 22:16 | CT ---
EXAMINATION TYPE: CODE STROKE: CTA head neck DATE OF EXAM: 01/03/2021 COMPARISON: Today HISTORY: New neuro symptoms since this morning, shaking, RT arm/leg weakness. CT DLP: 614.5 mGycm Automated exposure control for dose reduction was used. CONTRAST: Performed with IV Contrast, patient injected with 65 mL of Isovue 370. Images obtained from the aortic arch to the vertex of the brain with IV contrast. There are 3-D post processed images. There is normal branching pattern of the great vessels on the aortic arch. There is bilateral arteria l flow in the subclavian arteries. There is arterial flow in the common internal and external carotid arteries bilaterally. There are multiple paratracheal and anterior mediastinal probably calcified ly mph nodes that measure up to 1.5 cm. There is mild aneurysm ascending aorta measures 3.9 cm. There is no dissection. There is some plaque formation and some narrowing of the proximal left internal carotid artery 35%. T here is similar plaque formation and narrowing at the origin right internal carotid artery also 35%. There is arterial flow in both vertebral arteries. There is no evidence of carotid or vertebral arter y aneurysm or dissection. There is arterial flow in the anterior middle and posterior cerebral arteries. There is diminutive A1 segment of the left anterior cerebral artery. The left anterior cerebral artery appears to fill sign ificantly through the anterior communicating artery from the right side. I see no evidence of mass ef fect. There is no intracranial aneurysm or neovascularity. There is fusiform luminal narrowing of the left middle cerebral artery at the anterior sylvian fissure. There is approximate 50% stenosis. There is no evidence of mass effect. There is normal enhancement of the venous sinuses. There is a la teral arterial flow in the posterior communicating arteries which contribute significantly to the arabella w in the posterior cerebral arteries. IMPRESSION: Mild fusiform narrowing of the mid left middle cerebral artery unchanged. Mild plaque formation at th e carotid artery bifurcations unchanged.
[2021-01-03] MEDS ORDERED: ACETAMINOPHEN TAB 325 MG TAB PO PRN (22:45)
[2021-01-04] MEDS ORDERED: ACETAMINOPHEN TAB 325 MG TAB PO PRN (03:56)
[2021-01-04 04:28] LABS: Folate, Serum >24.0 ng/mL
[2021-01-04 04:33] LABS: Basophils % (A) 1 %; Eosinophils # (A) 0.1 k/uL (0-0.7); Eosinophils % (A) 2 %; HCT 39.7 % (34.0-46.0); HGB 13.9 gm/dL (11.4-16.0); Lymphocytes # (A) 1.7 k/uL (1.0-4.8); Lymphocytes % (A) 37 %; MCH 32.5 pg (25.0-35.0); MCHC 35.1 g/dL (31.0-37.0); MCV 92.6 fL (80.0-100.0); Mean Platelet Volume 6.7; Monocytes # (A) 0.3 k/uL (0-1.0); Monocytes % (A) 6 %; Neutrophils # (A) 2.3 k/uL (1.3-7.7); Neutrophils % (A) 52 %; Platelet Count 111 k/uL (150-450); RBC 4.29 m/uL (3.80-5.40); RDW 12.3 % (11.5-15.5); WBC 4.5 k/uL (3.8-10.6)
[2021-01-04 05:07] LABS: African American GFR (CKD) >90 (>60 ml/min/1.73 sqM); Anion Gap 4 mmol/L; Blood Urea Nitrogen 13 mg/dL (7-17); Calcium 8.6 mg/dL (8.4-10.2); Carbon Dioxide 27 mmol/L (22-30); Chloride 108 mmol/L (98-107); Cholesterol 184 mg/dL (<200); Glucose 87 mg/dL (74-99); HDL Cholesterol 40 mg/dL (40-60); LDL Cholesterol,Calculated 120 mg/dL (0-99); Non-African American GFR(CKD) 82 (>60 ml/min/1.73 sqM); Potassium 3.8 mmol/L (3.5-5.1); Sodium 139 mmol/L (137-145); Triglycerides 121 mg/dL (<150)
[2021-01-04] MEDS: POTASSIUM CHLORIDE ER 10 MEQ TAB.ER.PRT PO SCH (08:44)
[2021-01-04] MEDS: TICAGRELOR 90 MG TAB PO SCH (08:44)
[2021-01-04] MEDS: GABAPENTIN 300 MG CAP PO SCH (08:44)
[2021-01-04] MEDS ORDERED: FOLIC ACID 1 MG TAB PO SCH (09:00)
[2021-01-04] MEDS ORDERED: TOPIRAMATE 25 MG TAB PO SCH (09:00)
[2021-01-04] MEDS ORDERED: CITALOPRAM HYDROBROMIDE 20 MG TAB PO SCH (09:00)
[2021-01-04] MEDS ORDERED: ASPIRIN 81 MG PO SCH (09:00)
[2021-01-04] MEDS ORDERED: LACTOBACILLUS ACIDOPH & BULGAR 1 EACH PACKET PO SCH (09:00)
[2021-01-04] MEDS ORDERED: CLOPIDOGREL 75 MG TAB PO SCH ×2 (09:00)
--- NOTE | 2021-01-04 11:00 | ECHOF ---
Referral Reason:stroke MEASUREMENTS -------- HEIGHT: 170.2 cm WEIGHT: 94.8 kg BP: 126/57 IVSd: 0.9 cm (0.6 - 1.1) LVIDd: 3.0 cm (3.9 - 5.3) LVPWd: 1.3 cm (0.6 - 1.1) IVSs: 1.4 cm LVIDs: 1.1 cm LVPWs: 1.1 cm LAESV Index (A-L): 25.91 ml/m Ao Diam: 3.2 cm (2.0 - 3.7) AV Cusp: 1.4 cm (1.5 - 2.6) LA Diam: 2.6 cm (2.7 - 3.8) MV EXCURSION: 10.759 mm (> 18.000) MV EF SLOPE: 50 mm/s (70 - 150) EPSS: 2.4 cm MV E Emiliano: 0.86 m/s MV DecT: 254 ms MV A Emiliano: 1.07 m/s MV E/A Ratio: 0.80 AV maxP.48 mmHg AV meanP.02 mmHg AR PHT: 1033 ms RAP: 15.00 mmHg RVSP: 17.86 mmHg FINDINGS -------- This was a technically good study. The left ventricular size is normal. Left ventricular wall thickness is normal. Overall left vent ricular systolic function is normal with, an EF between 55 - 60 %. The diastolic filling pattern is normal for the age of the patient 11.00. The right ventricle is normal in size. The left atrial size is normal. Normal LA size by volume 22+/-6 ml/m2. The right atrial size is normal. There is an interatrial closure device in place without evidence of shunt. Aortic valve is trileaflet and is moderately thickened. There is mild aortic regurgitation. There is moderate aortic stenosis present. Peak/mean gradient across the Aortic Valve is 37.48mmHg / 25. 02mmHg. AOV is possible Bicuspid. The mitral valve is normal. The mitral valve leaflets are mildly thickened. Mild mitral regurgita tion is present. The tricuspid valve appears structurally normal. Mild tricuspid regurgitation present. Right vent ricular systolic pressure is normal at < 35 mmHg. There is no pulmonic regurgitation present. The aortic root size is normal. The inferior vena cava is mildly dilated. There is no pericardial effusion. CONCLUSIONS -------- 1. The left ventricular size is normal. 2. Left ventricular wall thickness is normal. 3. Overall left ventricular systolic function is normal with, an EF between 55 - 60 %. 4. The diastolic filling pattern is normal for the age of the patient 11.00 5. There is an interatrial closure device in place without evidence of shunt. 6. Aortic valve is trileaflet and is moderately thickened. 7. There is mild aortic regurgitation. 8. There is moderate aortic stenosis present. 9. Peak/mean gradient across the Aortic Valve is 37.48mmHg / 25.02mmHg. 10. AOV is possible Bicuspid. 11. The mitral valve leaflets are mildly thickened. 12. Mild mitral regurgitation is present. 13. Mild tricuspid regurgitation present. 14. The inferior vena cava is mildly dilated. 15. There is no pericardial effusion. INFORMATION RESOURCE CONSULTANT: Charlene Worrell RDCS
--- NOTE | 2021-01-04 13:05 | P.PN ---
Subjective Progress Note Date: 01/04/21 The patient was seen at bedside and the she feels better today compared to yesterday. She said she has been having headache with shaking for long peroid of time. Around the 2100 on 01/03/2021 the patient had a stroke code activated that because she had the shaken and right arm and leg weakness. Initially she had headache over the left frontal, seem throbbing. Denies photophobia, phonophobia, nausea or vomitting. Then was having shaking of the right side. CT of the head is reported as old left posterior temporal lobe infarct without change compared to the exam today and also as of 10/17/2019. No acute intracranial abnormality. Upon reviewing the CT that is seems more left frontotemporal encephaly malacia. CT angiography of the head and neck was reported as mild fusiform narrowing of the mid left middle cerebral artery unchanged. Mild plaque formation at the carotid artery bifurcation unchanged. Was notified by the patient nurse that they spoke with Dr. Singh (stroke/intervention) attending and no intervention. The patient was given a Brilant 180 mg once and was started on Berlant 90 mg 1 tablet twice a day by Dr. Narendra Singh. 2-D echo was reported as left ventricular wall thickness is normal. Overall left ventricle systolic function is normal with ejection fraction of 55-60%. There is a intra-arterial closure device in place without evidence of shunt. There is moderate aortic stenosis present. Lipid panel: Triglyceride 121; cholestrol 184; LDL 120 and HDL 40. Vitamin B12: 417 (normal) and folate is >24 (normal). Objective - Vital Signs Vital signs: Vital Signs Temp 97.9 F 01/04/21 08:00 Pulse 55 L 01/04/21 08:00 Resp 18 01/04/21 08:00 BP 127/85 01/04/21 08:00 Pulse Ox 100 01/04/21 08:00 Intake & Output 01/03/21 01/04/21 01/04/21 18:59 06:59 18:59 Weight 95.254 kg 95 kg Other: Voiding Method Toilet # Voids 1 - Exam GENERAL: The patient is lying in bed and is not in acute distress. NEUROLOGICAL: Higher mental function: The patient is awake, alert, oriented to self, place and time. Patient is following commands. No aphasia and no neglect. Cranial nerves: The pupils are round, equal and reactive to light and accommodation. Visual rock are full to confrontation throughout. Extraocular movement is intact no nystagmus is noted. Facial sensation is normal to touch throughout. The facial strength is normal throughout. Hearing is normal bilaterally to hand rub. Tongue is midline and moved [id number] without any difficulty. No dysarthria is noted. Shoulder shrug is normal bilaterally. Motor: Gait is deferred. The strength is right upper and lower is 5-/5 and seems there is some effort related component (which initially is 4+ and with motivation she will push harder). While right lower extremity is 4+ to 5- (and seem there is effort related component. While left side is 5/5. She had no shaking or tremor on my examination. Normal tone and bulk. Cerebellum: Normal finger to nose but had tremor toward end of action on right. Sensation: Sensation is normal to touch throughout. Reflexes (right/left): 2+ Plantars is upgoing over the right but mute over the left. - Labs CBC & Chem 7: 01/04/21 04:19 01/04/21 04:19 Labs: Abnormal Lab Results - Last 24 Hours (Table) 01/04/21 01/04/21 Range/Units 04:19 04:19 Plt Count 111 L (150-450) k/uL Chloride 108 H (98-107) mmol/L LDL Cholesterol, Calc 120 H (0-99) mg/dL Assessment and Plan Assessment: Worsening of right sided weakness, tingling and difficulty getting words out. She missed her night dose of eliquis (01/02/2021). Possilby TIA. Another possibilty is Complicated migraines vs seizures Has nonrhythmic shaking on examination on 01/03/21 and some effort related on strength as well speech therapy felt patient spech is inconsistent with the stroke and some significant exacerbation---possiblly due to underlying stress/anxiety Old stroke (encephalomalacia over left fronto-temporal region) with mild residual right sided weakness and numbness History PFO status post closure Story of proximal left DVT status post green filter (2015) History of pulmonary sarcoidosis Patient was notified that she had a clotting disorder but not sure due to what Plan: I ordered MRI of the brain STAT and pending to be done since pending paperwork for Greenfilter. Around the 2100 on 01/03/2021 the patient had a stroke code activated that because she had the shaken and right arm and leg weakness. CT of the head is reported as old left posterior temporal lobe infarct without change compared to the exam today and also as of 10/17/2019. No acute intracranial abnormality. Upon reviewing the CT that is seems more left frontotemporal encephaly malacia. CT angiography of the head and neck was reported as mild fusiform narrowing of t he mid left middle cerebral artery unchanged. Mild plaque formation at the carotid artery bifurcation unchanged. Was notified by the patient nurse that they spoke with Dr. Singh (stroke/intervention) attending and no intervention at. He recommended Birlinta. 2-D echo was reported as left ventricular wall thickness is normal. Overall left ventricle systolic function is normal with ejection fraction of 55-60%. There is a intra-arterial closure device in place without evidence of shunt. There is moderate aortic stenosis present. Lipid panel: Triglyceride 121; cholestrol 184; LDL 120 and HDL 40. Vitamin B12: 417 (normal) and folate is >24 (normal). ON aspirin 81mg and Plavix 75mg daily. I stopped Plavix and instead added Brilinta and she is in agreement. Regarding the Eliquis we can resume it (this was notified to the patient's nurse). Statin was not started since the patient could not tolerate the any statins in the past because of the side effects. It seems to the patient was started on Lipitor 40 mg daily by the primary team and the patient wants it stopped. Continue Every 4 hours neuro checks She is placed on continuous cardiac monitoring. PT OT and CONNIE SCRATCHER are consulted. Speech therapy feels her speech is inconsistent with the stroke and demonstrate excessive prolongation stuttering behavioral hesitation and feels that she has some significant exacerbation of the symptoms and they recommend psychiatry consultation. I ordered a routine EEG to rule out any underlying seizures especially it's being reported that she has shaking of the extremities with history of old stroke that increases risk of seizure. I start the patient on Topamax 25 mg 1 tablet twice a day since it would help with the headache as well as with his seizures. Down the line we'll consider increasing it to 50 mg 1 tablet twice a day. Will defer the rest of medical management to the primary team. Upon discharge the patient needs to follow-up with her neurologist as outpatient (Dr. Suyapa Gallagher). Possibly if no further events and if no seizure on EEG, possibly clear from neurology tomorrow. The plan is discussed with the patient's nurse. UPDATE: Since the patient condition has improved and preliminary EEG did not show epileptiform discharges or seizure then patient can be discharged today. She needs to follow-up with neurology as outpatient within 1-2 weeks. Blake Pennington M.D. Neuro-hospitalist Time with Patient: Less than 30
[2021-01-04 16:45] VITALS: BP 115/77; PULSE 58; RESP 18; TEMP 97.6
--- NOTE | 2021-01-04 23:12 | P.DS ---
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 Jennifer Clement. 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 Patient does not have any prior cardiac history. presented today for worsening right-sided weakness and tingling as well as difficulty getting her words out. started today around 9:15 AM .while trying to hold the fork in her hand she noticed that she has difficulty . As well as noticed just worsening of her baseline right-sided weakness and new tingling. Baseline she has numbness which is mild over the right side. Difficulty of getting her words has been improving. Otherwise denies any visual disturbance, difficulty swallowing. Patient stated that she is on aspirin 81 mg Plavix 75 mg and Eliquis 5 mg tablet the twice a day. She stated that she missed her Eliquis dose yesterday night since she forgot. Otherwise she is compliant with her medication. When I saw the patient feeling much better. No not entirely back to baseline. Today: Feels daily back to baseline. EEG was done. Negative. Discussed with Dr. Pennington from neurology. We didn't think MRI would be much of a benefit at this point. She will follow-up with her neurologist. Plavix is being substituted Brilinta. Eliquis is being resumed. Discussion and discharge planning more than 35 minutes Consultation: Dr. Pennington from neurology Past medical history to include: CVA, fibromyalgia, obstructive sleep apnea-does not use CPAP, right-sided weakness from a prior stroke, IVC blood clot with a filter in November 2017, sarcoidosis, PFO surgery, hiatal hernia, Social history: . No smoking or alcohol. Physical examination: VITAL SIGNS: 97.6, 58, 18, 115/77, 98% room air GENERAL: BMI 32.9, laying in bed, comfortable EYES: Pupils equal. Conjunctiva normal. HEENT: External appearance of nose and ears normal, oral cavity grossly normal. NECK: JVD not raised; masses not palpable. HEART: First and second heart sounds are normal; no edema. LUNGS: Respiratory rate normal; clear to auscultation. ABDOMEN: Soft, nontender, liver spleen not palpable, no masses palpable. PSYCH: Alert and oriented x3; mood and affect normal. NEUROLOGICAL: [Cranial nerves grossly intact; no facial asymmetry, power on the right side 4/5. Speech appears to be minimally slow if any INVESTIGATIONS, reviewed in the clinical context: 2-D echocardiogram: EF 55-60%. Moderate aortic stenosis EEG: Negative for seizure activity WBC 5.7 hemoglobin 13.1 platelets 122 potassium 4.3 creatinine 0.9 to Coronavirus [PCR] not detected EKG tracing personally reviewed by me-normal sinus rhythm Chest x-ray film personally reviewed by me-lungs clear CT angiogram of the brain: Atherosclerotic calcification with no significant stenosis. Computed tomography scan of the brain: Encephalomalacia from old infarct in the left frontal lobe. Assessment and plan: -TIA, suspect in the left middle cerebral artery area, causing right-sided weakness and some dysarthria with significant improvement in symptoms. Initial computed tomography scan negative. Patient to continue on aspirin, eliquis, and Brilinta. Plavix discontinued. Follow-up with his neurologist -Chronic fibromyalgia Continue with pain medications -Obstructive sleep apnea does not use CPAP Follow clinically -Right hemiparesis from prior stroke At baseline -History of IVC blood clot was removed with a IVC filter -Sarcoidosis of the lungs Stable -History of PFO with surgery Stable -Hiatal hernia Asymptomatic -Anxiety depression otherwise specified Continue Celexa Disposition: Home Patient Condition at Discharge: Stable Plan - Discharge Summary New Discharge Prescriptions: New Ticagrelor [Brilinta] 90 mg PO BID #60 tab Topiramate [Topamax] 25 mg PO BID #60 tab Continue Potassium Chloride [Klor-Con 8] 8 meq PO BID Apixaban [Eliquis] 5 mg PO BID Aspirin [Adult Low Dose Aspirin EC] 81 mg PO HS Citalopram Hydrobromide [CeleXA] 20 mg PO DAILY Folic Acid 1 mg PO DAILY Gabapentin [Neurontin] 300 mg PO BID Estradiol Cream [Estrace Cream 0.01%] 1 gm VAGINAL SUWE L.acidoph,Paracasei, B.lactis [Probiotic] 1 cap PO DAILY Discontinued Clopidogrel [Plavix] 75 mg PO DAILY No Action [facility] 1 cap PO DAILY Discharge Medication List Potassium Chloride [Klor-Con 8] 8 meq PO BID 10/16/16 [History] Apixaban [Eliquis] 5 mg PO BID 12/12/17 [History] Aspirin [Adult Low Dose Aspirin EC] 81 mg PO HS 01/10/18 [History] Citalopram Hydrobromide [CeleXA] 20 mg PO DAILY 10/06/18 [History] Folic Acid 1 mg PO DAILY 10/06/18 [History] Estradiol Cream [Estrace Cream 0.01%] 1 gm VAGINAL SUWE 01/03/21 [History] Gabapentin [Neurontin] 300 mg PO BID 01/03/21 [History] L.acidoph,Paracasei, B.lactis [Probiotic] 1 cap PO DAILY 01/03/21 [History] [facility] 1 cap PO DAILY 01/03/21 [History] Ticagrelor [Brilinta] 90 mg PO BID #60 tab 01/04/21 [Rx] Topiramate [Topamax] 25 mg PO BID #60 tab 01/04/21 [Rx] Follow up Appointment(s)/Referral(s): diana-neurologdr augie [Other] - 1 Week (Patient to make appointment as office is closed at time of discharge.) Alexander Clement DO [Primary Care Provider] - 1-2 days (Patient to make appointment as office is closed at time of discharge.) Kathleen Gray [NON-STAFF] - (Patient to make appointment as office is closed at time of discharge.) Patient Instructions/Handouts: Ischemic Stroke (DC)
[2021-01-05] MEDS ORDERED: ESTRADIOL 0.1 MG/GM VAGINAL CREAM 42.5 GM TUBE VAGINAL SCH (09:00)
--- NOTE | 2021-01-05 09:11 | EEG ---
ELECTROENCEPHALOGRAM REPORT DATE OF SERVICE: 01/04/2021. CLINICAL HISTORY: This is a 60-year-old woman with a history of old left frontotemporal encephalomalacia who is having shaking of the right side. This video EEG is obtained to evaluate for seizure and epileptiform activity. RELEVANT MEDICATION: Patient is on Topamax. EEG TYPE: A routine 21-channel EEG is performed with video using the 10/20 electrode placement system. DESCRIPTION: Wakefulness is only obtained. During wakefulness, there is a posterior-dominant rhythm of low to moderate voltage, reactive, well modulated, of 9.5 to 10.5 hertz. There is no physiological sleep architecture seen during the study. There is rare left temporal slowing. There is a moderate to significant amount of myogenic artifact during the study that is seen throughout. Interictal and ictal: None. ACTIVATION PROCEDURES: Photic stimulation did not evoke a posterior driving response. There is no abnormality during the photic stimulation. Hyperventilation is not performed. CLINICAL INTERPRETATION: This is an abnormal routine EEG. The rare slowing over the left temporal is consistent with the patient's history of old stroke. There are no epileptiform discharges or seizure on the EEG. The background is normal. Clinical correlation is recommended. MMODL / IJN: [id number] / MTDD
== END 2021-01-04 18:33 | disposition home or self-care (01) | DRG 69 ==
LOC: EC 10:34 → 3SCARD 12:17 → INTOOBSV 12:17 → 3SCARD 12:20 → OBSVTOIN 01-04 07:29
PROVIDERS: ADMIT Hospitalist; ATTEND Hospitalist
DX: G45.9 Transient cerebral ischemic attack, unspecified (principal); I69.351 Hemiplegia and hemiparesis following cerebral infarction affecting right dominant side; F01.50 Vascular dementia, unspecified severity, without behavioral disturbance, psychotic disturbance, mood disturbance, and anxiety; I35.0 Nonrheumatic aortic (valve) stenosis; D86.0 Sarcoidosis of lung; K44.9 Diaphragmatic hernia without obstruction or gangrene; M79.7 Fibromyalgia; F41.8 Other specified anxiety disorders; Z20.822 Contact with and (suspected) exposure to COVID-19; Z96.1 Presence of intraocular lens; G47.33 Obstructive sleep apnea (adult) (pediatric); Z98.890 Other specified postprocedural states; Z90.49 Acquired absence of other specified parts of digestive tract; Z90.710 Acquired absence of both cervix and uterus; Z98.42 Cataract extraction status, left eye; Z98.41 Cataract extraction status, right eye; Z86.010 Personal history of colon polyps; Z82.49 Family history of ischemic heart disease and other diseases of the circulatory system; Z82.0 Family history of epilepsy and other diseases of the nervous system; Z79.01 Long term (current) use of anticoagulants; Z79.02 Long term (current) use of antithrombotics/antiplatelets; Z79.82 Long term (current) use of aspirin; Z79.899 Other long term (current) drug therapy; Z88.6 Allergy status to analgesic agent; Z88.1 Allergy status to other antibiotic agents; Z88.5 Allergy status to narcotic agent; Z88.2 Allergy status to sulfonamides; Z88.8 Allergy status to other drugs, medicaments and biological substances; Z91.048 Other nonmedicinal substance allergy status; Z87.19 Personal history of other diseases of the digestive system; Z87.74 Personal history of (corrected) congenital malformations of heart and circulatory system; Z82.41 Family history of sudden cardiac death
CPT/HCPCS: 36415; 70450; 70496; 70498; 71046; 80048; 80053; 80061; 82607; 82746; 82747; 84484; 85025; 85610; 85730; 87635; 93005; 93306; 95816; 99285

== ENCOUNTER → 2021-04-05 | Outpatient (CLI) | payer OTHER ==
--- NOTE | 2021-04-05 14:16 | P.SLEEP ---
History of Present Illness H&P Date: 04/05/21 This is a 60-year-old female patient is coming in for sleep apnea evaluation and treatment. The patient is known to have multiple medical problems and comorbidities. She was in the hospital recently back in December 2020 4 right- sided weakness. The patient was diagnosed having a TIA/CVA along the left MCA causing right-sided weakness and some dysarthria. The patient was continued to be treated with a combination of aspirin, plavix, and Eliquis. She is known to have other comorbidities including chronic fibromyalgia, previous history of a PFO, chronic anxiety/depression,, previous history of a IVC thrombus and the patient has undergone a thrombectomy and insertion of IVC filter, in addition to sarcoidosis of the lungs. Note that her EF was been but appears. She also has history of obstructive sleep apnea, not using her CPAP therapy for now. During her most recent hospitalization, an echocardiogram was done that showed an ejection fraction of 55-60%, moderate aortic stenosis, CT of the brain showed encephalomalacia and old infarct along the left frontal lobe, chest x-ray was clear, COVID-19 testing was negative This patient. The diagnosis of obstructive sleep apnea back in the year nd at that time the patient had [id number] disease with an AHI of 15.. I took her off the treatment in 2012 as the patient did not have any significant symptoms of sleep apnea. She's been off treatment since. She is coming back with symptoms of snoring, witnessed apneas, chronic fatigue and tiredness and sleepiness. She is going to bed at around 10 PM waking up 8 AM in the morning averaging around 8 hours of sleep. Despite that, she is feeling somnolent and sleepy. She is requesting a reevaluation. She has multiple comorbidities as indicated earlier in the records. No recent weight gain. In fact she has lost weight in the order of 20 pounds over the past 5-10 years. Review of Systems Constitutional: Reports weight loss Eyes: denies as per HPI, denies blurred vision, denies bulging eye, denies decre ased vision, denies diplopia, denies discharge, denies dry eye, denies irritation, denies itching, denies pain, denies photophobia, denies loss of peripheral vision, denies loss of vision, denies tunnel vision/blind spots Ears, nose, mouth and throat: Reports as per HPI Breasts: absent: as per HPI, change in shape, gynecomastia, masses, nipple disc harge, pain, skin changes, swelling Cardiovascular: Reports as per HPI Respiratory: Reports sleep apnea, Reports snoring Gastrointestinal: Reports as per HPI Genitourinary: Reports as per HPI Menstruation: Reports as per HPI Musculoskeletal: Reports as per HPI Musculoskeletal: absent: ankle pain, ankle stiffness, ankle swelling Integumentary: Reports as per HPI Neurological: Reports weakness Psychiatric: Reports as per HPI Endocrine: Reports as per HPI, Reports fatigue Hematologic/Lymphatic: Reports as per HPI Allergic/Immunologic: Reports as per HPI Past Medical History Past Medical History: CVA/TIA, Fibromyalgia, Memory Impairment, Sleep Apnea/CPAP/BIPAP Additional Past Medical History / Comment(s): CVA x 2 with some R arm/leg weakness and mild dysphasia. 12/06/2017 IVC filter blood clot left femoral. sarcoidosis involving lungs. PFO with surgery. chronic L abdominal pain past 2 yrs but constant since 08/2017. R eye glaucoma. hiatal hernia. colon polyp removed 01/14/18. occasional low back pain. tremors but states with anxiety. TATUM no longer needs to use CPAP History of Any Multi-Drug Resistant Organisms: None Reported Past Surgical History: Adenoidectomy, Back Surgery, Cholecystectomy, Hysterectomy, Tonsillectomy Additional Past Surgical History / Comment(s): 01/14/18 EGD with bx/colonoscopy with polypectomy benign, 01/09/18 needle biopsy lungs d/t enlarged lymph nodes benign, 12/06/17 R groin accessed and IVC clot "broken up and removed but some pieces left", GFF, PFO repair at [facility] [place], 09/2017 cervical fusion, lumbar surgery 1988, deviated septal surgery, bilateral cataract removal with lens, R eye laser surgery for glaucoma, benign skin lesion removed. Past Anesthesia/Blood Transfusion Reactions: Postoperative Nausea & Vomiting (PONV) Past Psychological History: Anxiety, Depression Smoking Status: Never smoker Past Alcohol Use History: None Reported Past Drug Use History: None Reported - Past Family History Mother Family Medical History: Coronary Artery Disease (CAD), Myocardial Infarction ([place]) Additional Family Medical History / Comment(s): Mother at the age of 64yrs from [place]. Maternal grandmother from a [place] at the age of 63 yrs. Father History Unknown: Yes Additional Family Medical History / Comment(s): committed suicide Brother(s) Family Medical History: Coronary Artery Disease (CAD), Myocardial Infarction ([place]) Additional Family Medical History / Comment(s): Brother at 59yrs from [place]/cardiac arrest. Sister(s) Additional Family Medical History / Comment(s): multiple sclerosis Medications and Allergies Home Medications Medication Instructions Recorded Confirmed Type Potassium Chloride [Klor-Con 8] 8 meq PO BID 10/16/16 01/03/21 History Apixaban [Eliquis] 5 mg PO BID 12/12/17 01/03/21 History Aspirin [Adult Low Dose Aspirin EC] 81 mg PO HS 01/10/18 01/03/21 History Citalopram Hydrobromide [CeleXA] 20 mg PO DAILY 10/06/18 01/03/21 History Folic Acid 1 mg PO DAILY 10/06/18 01/03/21 History Estradiol Cream [Estrace Cream 1 gm VAGINAL SUWE 01/03/21 01/03/21 History 0.01%] Gabapentin [Neurontin] 300 mg PO BID 01/03/21 01/03/21 History L.acidoph,Paracasei, B.lactis 1 cap PO DAILY 01/03/21 01/03/21 History [Probiotic] [facility] 1 cap PO DAILY 01/03/21 01/03/21 History Ticagrelor [Brilinta] 90 mg PO BID #60 tab 01/04/21 Rx Topiramate [Topamax] 25 mg PO BID #60 tab 01/04/21 Rx Allergies Allergy/AdvReac Type Severity Reaction Status Date / Time adhesive tape Allergy Rash/Hives Verified 01/03/21 12:00 celecoxib [From Celebrex] Allergy Unknown Verified 01/03/21 12:00 ciprofloxacin [From Cipro] Allergy Unknown Verified 01/03/21 12:00 Sulfa (Sulfonamide Allergy Unknown Verified 01/03/21 12:00 Antibiotics) morphine AdvReac Vomiting Verified 01/03/21 12:00 phenazopyridine AdvReac Unknown Verified 01/03/21 12:00 [From Pyridium] Physical Exam Gen. appearance the patient is calm and comfortable and she is not having any major respiratory distress EYES: Pupils equal. Conjunctiva normal. HEENT: External appearance of nose and ears normal, oral cavity grossly normal.Mallampati class IV with significant crowding of the posterior oropharynx NECK: JVD not raised; masses not palpable. HEART: First and second heart sounds are normal; no edema. LUNGS: Respiratory rate normal; clear to auscultation. ABDOMEN: Soft, nontender, liver spleen not palpable, no masses palpable. Examination of the extremities revealed easily palpable radial, femoral and pedal pulses. There was no cyanosis, clubbing or edema. Examination of the skin revealed no evidence of significant rashes, suspicious appearing nevi or other concerning lesions. PSYCH: Alert and oriented x3; mood and affect normal. NEUROLOGICAL: Neurologically, the patient is awake and alert and the patient does not have any focal neurological deficit. Cranial nerves are essentially intact. Assessment and Plan Plan: 1 obstructive sleep apnea. The patient carries a diagnosis of mild obstructive sleep apnea back in 2005. At that time of apnea popping index was 15. She had a REM-related apneas and hypercapnia as an AHI during REM was as high as 24. Her disease was also positional, worse in supine body position. I offered this patient CPAP therapy and subsequently she was able to get herself off CPAP treatment. She is coming in for reevaluation of the patient become much more symptomatic. Her current Rice score is 8. She has become more symptomatic especially after recent stroke 2 hypersomnia and fatigue secondary to above 3 history of sarcoidosis currently inactive in stable 4 history of CVA 5 History of PFO, post closure 6 history of IVC thrombosis post-thrombectomy followed by IVC filter placement and the patient is demented on long-term anticoagulation 7 fibromyalgia Plan We'll proceed with screening polysomnogram Re established the presence and severity of sleep apnea Consider treatment based on the above-mentioned findings implement leep hygiene measures Weight-loss we'll continue to follow Sleep Note - Sleep Data Previous Sleep Study: Yes PAP Device: CPAP - Sleep Note Sleep Note: Temperature: 97 8 Pulse Rate: 88 Respiratory Rate: 16 Blood Pressure: 108/76 SpO2: 96 Height: 5feet 6 inches Weight: 210 BMI: 33 Neck Circumference: 15 inches epworth score is 8
== END | disposition home or self-care (01) ==
LOC: SLEEP 13:20
PROVIDERS: ATTEND Internal Medicine Critical Care Medicine
DX: G47.33 Obstructive sleep apnea (adult) (pediatric) (principal); M79.7 Fibromyalgia; Z87.09 Personal history of other diseases of the respiratory system; Z86.73 Personal history of transient ischemic attack (TIA), and cerebral infarction without residual deficits; Z87.74 Personal history of (corrected) congenital malformations of heart and circulatory system; Z86.718 Personal history of other venous thrombosis and embolism; Z79.82 Long term (current) use of aspirin; Z88.2 Allergy status to sulfonamides; Z88.5 Allergy status to narcotic agent; Z91.048 Other nonmedicinal substance allergy status; Z88.1 Allergy status to other antibiotic agents; Z88.8 Allergy status to other drugs, medicaments and biological substances
CPT/HCPCS: 99211

== ENCOUNTER 2021-07-29 22:37 | Inpatient (IN) | payer OTHER ==
[2021-07-29] MEDS ORDERED: KETOROLAC 15 MG/ML 1 ML VIAL IVP STA (22:51)
[2021-07-29] MEDS ORDERED: DEXAMETHASONE SOD PHOSPHATE 10 MG/ML 1 ML VIAL IVP STA (22:51)
[2021-07-29] MEDS ORDERED: ACETAMINOPHEN TAB 500 MG TAB PO STA (22:51)
[2021-07-29] MEDS ORDERED: SODIUM CHLORIDE 0.9% 1,000 ML IV STA (22:51)
[2021-07-29] MEDS ORDERED: ALBUTEROL HFA INHALER INHALATION STA (22:51)
[2021-07-29 23:36] LABS: Basophils % (A) 0 %; Eosinophils # (A) 0.1 k/uL (0-0.7); Eosinophils % (A) 1 %; HCT 45.3 % (34.0-46.0); HGB 15.1 gm/dL (11.4-16.0); Lymphocytes # (A) 1.3 k/uL (1.0-4.8); Lymphocytes % (A) 12 %; MCH 31.6 pg (25.0-35.0); MCHC 33.4 g/dL (31.0-37.0); MCV 94.8 fL (80.0-100.0); Mean Platelet Volume 8.1; Monocytes # (A) 0.4 k/uL (0-1.0); Monocytes % (A) 4 %; Neutrophils # (A) 9.2 k/uL (1.3-7.7); Neutrophils % (A) 83 %; Platelet Count 132 k/uL (150-450); RBC 4.78 m/uL (3.80-5.40); RDW 11.9 % (11.5-15.5); WBC 11.2 k/uL (3.8-10.6)
[2021-07-29 23:45] LABS: Albumin 3.3 g/dL (3.5-5.0); Calcium 8.7 mg/dL (8.4-10.2); Magnesium 2.1 mg/dL (1.6-2.3); Potassium 3.9 mmol/L (3.5-5.1); Total Protein 6.2 g/dL (6.3-8.2)
--- NOTE | 2021-07-30 00:04 | ED ---
Recheck HPI - General Chief Complaint: Chest Pain Stated Complaint: SABRINA, Back Pain Time Seen by Provider: 07/29/21 22:50 Source: patient, EMS Mode of arrival: EMS Limitations: no limitations - Related Data Home Medications Medication Instructions Recorded Confirmed Potassium Chloride [Klor-Con 8 ER] 8 meq PO BID 10/16/16 01/03/21 Apixaban [Eliquis] 5 mg PO BID 12/12/17 01/03/21 Aspirin [Adult Low Dose Aspirin EC] 81 mg PO HS 01/10/18 01/03/21 Citalopram Hydrobromide [CeleXA] 20 mg PO DAILY 10/06/18 01/03/21 Folic Acid 1 mg PO DAILY 10/06/18 01/03/21 Estradiol Cream [Estrace Cream 1 gm VAGINAL SUWE 01/03/21 01/03/21 0.01%] Gabapentin [Neurontin] 300 mg PO BID 01/03/21 01/03/21 L.acidoph,Paracasei, B.lactis 1 cap PO DAILY 01/03/21 01/03/21 [Probiotic] [facility] 1 cap PO DAILY 01/03/21 01/03/21 Previous Rx's Medication Instructions Recorded Ticagrelor [Brilinta] 90 mg PO BID #60 tab 01/04/21 Topiramate [Topamax] 25 mg PO BID #60 tab 01/04/21 Allergies Allergy/AdvReac Type Severity Reaction Status Date / Time adhesive tape Allergy Rash/Hives Verified 01/03/21 12:00 celecoxib [From Celebrex] Allergy Unknown Verified 01/03/21 12:00 ciprofloxacin [From Cipro] Allergy Unknown Verified 01/03/21 12:00 Sulfa (Sulfonamide Allergy Unknown Verified 01/03/21 12:00 Antibiotics) morphine AdvReac Vomiting Verified 01/03/21 12:00 phenazopyridine AdvReac Unknown Verified 01/03/21 12:00 [From Pyridium] Review of Systems ROS Statement: Those systems with pertinent positive or pertinent negative responses have been documented in the HPI. ROS Other: All systems not noted in ROS Statement are negative. 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 12/06/2017 IVC filter blood clot left femoral. sarcoidosis involving lungs. PFO with surgery. chronic L abdominal pain past 2 yrs but constant since 08/2017. R eye glaucoma. hiatal hernia. colon polyp removed 01/14/18. occasional low back pain. tremors but states with anxiety. TATUM no longer needs to use CPAP History of Any Multi-Drug Resistant Organisms: None Reported Past Surgical History: Adenoidectomy, Back Surgery, Cholecystectomy, Hysterectomy, Tonsillectomy Additional Past Surgical History / Comment(s): 01/14/18 EGD with bx/colonoscopy with polypectomy benign, 01/09/18 needle biopsy lungs d/t enlarged lymph nodes benign, 12/06/17 R groin accessed and IVC clot "broken up and removed but some pieces left", GFF, PFO repair at [facility] [place], 09/2017 cervical fusion, lumbar surgery 1988, deviated septal surgery, bilateral cataract removal with lens, R eye laser surgery for glaucoma, benign skin lesion removed. Past Anesthesia/Blood Transfusion Reactions: Postoperative Nausea & Vomiting (PONV) Past Psychological History: Anxiety, Depression Smoking Status: Never smoker Past Alcohol Use History: None Reported Past Drug Use History: None Reported - Past Family History Mother Family Medical History: Coronary Artery Disease (CAD), Myocardial Infarction ([place]) Additional Family Medical History / Comment(s): Mother at the age of 64yrs from [place]. Maternal grandmother from a [place] at the age of 63 yrs. Father History Unknown: Yes Additional Family Medical History / Comment(s): committed suicide Brother(s) Family Medical History: Coronary Artery Disease (CAD), Myocardial Infarction ([place]) Additional Family Medical History / Comment(s): Brother at 59yrs from [place]/cardiac arrest. Sister(s) Additional Family Medical History / Comment(s): multiple sclerosis General Exam Limitations: no limitations Course Vital Signs 07/29/21 07/29/21 07/29/21 22:42 23:33 23:35 Temperature 98.7 F Pulse Rate 81 72 Respiratory 18 18 18 Rate Blood Pressure 115/75 119/72 O2 Sat by Pulse 96 95 Oximetry 07/30/21 00:29 Temperature Pulse Rate 74 Respiratory 18 Rate Blood Pressure 103/54 O2 Sat by Pulse 96 Oximetry Medical Decision Making - Lab Data Result diagrams: 07/29/21 23:15 11/05/21 23:15 Lab Results 07/29/21 07/29/21 07/29/21 Range/Units 23:15 23:15 23:15 WBC 11.2 H (3.8-10.6) k/uL RBC 4.78 (3.80-5.40) m/uL Hgb 15.1 (11.4-16.0) gm/dL Hct 45.3 (34.0-46.0) % MCV 94.8 (80.0-100.0) fL MCH 31.6 (25.0-35.0) pg MCHC 33.4 (31.0-37.0) g/dL RDW 11.9 (11.5-15.5) % Plt Count 132 L (150-450) k/uL MPV 8.1 Neutrophils % 83 % Lymphocytes % 12 % Monocytes % 4 % Eosinophils % 1 % Basophils % 0 % Neutrophils # 9.2 H (1.3-7.7) k/uL Lymphocytes # 1.3 (1.0-4.8) k/uL Monocytes # 0.4 (0-1.0) k/uL Eosinophils # 0.1 (0-0.7) k/uL Basophils # 0.0 (0-0.2) k/uL PT 10.6 (9.0-12.0) sec INR 1.0 (<1.2) APTT 19.3 L (22.0-30.0) sec Sodium 135 L (137-145) mmol/L Potassium 3.9 (3.5-5.1) mmol/L Chloride 106 (98-107) mmol/L Carbon Dioxide 25 (22-30) mmol/L Anion Gap 4 mmol/L BUN 24 H (7-17) mg/dL Creatinine 0.84 (0.52-1.04) mg/dL Est GFR (CKD-EPI)AfAm 87 (>60 ml/min/1.73 sqM) Est GFR (CKD-EPI)NonAf 75 (>60 ml/min/1.73 sqM) Glucose 142 H (74-99) mg/dL Plasma Lactic Acid Lee (0.7-2.0) mmol/L Calcium 8.7 (8.4-10.2) mg/dL Magnesium 2.1 (1.6-2.3) mg/dL Total Bilirubin 2.0 H (0.2-1.3) mg/dL AST 143 H (14-36) U/L ALT 67 H (4-34) U/L Alkaline Phosphatase 101 (38-126) U/L Lactate Dehydrogenase 1062 H (313-618) U/L C-Reactive Protein 5.4 H (<1.0) mg/dL Total Protein 6.2 L (6.3-8.2) g/dL Albumin 3.3 L (3.5-5.0) g/dL 07/29/21 Range/Units 23:15 WBC (3.8-10.6) k/uL RBC (3.80-5.40) m/uL Hgb (11.4-16.0) gm/dL Hct (34.0-46.0) % MCV (80.0-100.0) fL MCH (25.0-35.0) pg MCHC (31.0-37.0) g/dL RDW (11.5-15.5) % Plt Count (150-450) k/uL MPV Neutrophils % % Lymphocytes % % Monocytes % % Eosinophils % % Basophils % % Neutrophils # (1.3-7.7) k/uL Lymphocytes # (1.0-4.8) k/uL Monocytes # (0-1.0) k/uL Eosinophils # (0-0.7) k/uL Basophils # (0-0.2) k/uL PT (9.0-12.0) sec INR (<1.2) APTT (22.0-30.0) sec Sodium (137-145) mmol/L Potassium (3.5-5.1) mmol/L Chloride (98-107) mmol/L Carbon Dioxide (22-30) mmol/L Anion Gap mmol/L BUN (7-17) mg/dL Creatinine (0.52-1.04) mg/dL Est GFR (CKD-EPI)AfAm (>60 ml/min/1.73 sqM) Est GFR (CKD-EPI)NonAf (>60 ml/min/1.73 sqM) Glucose (74-99) mg/dL Plasma Lactic Acid Lee 1.3 (0.7-2.0) mmol/L Calcium (8.4-10.2) mg/dL Magnesium (1.6-2.3) mg/dL Total Bilirubin (0.2-1.3) mg/dL AST (14-36) U/L ALT (4-34) U/L Alkaline Phosphatase (38-126) U/L Lactate Dehydrogenase (313-618) U/L C-Reactive Protein (<1.0) mg/dL Total Protein (6.3-8.2) g/dL Albumin (3.5-5.0) g/dL - EKG Data -: EKG Interpreted by Me (EKG sinus rhythm 72 NE 182 QRS 86 QTc 409) Disposition Clinical Impression: Chest pain, Coronavirus infection, Pneumonia due to COVID-19 virus Disposition: ADMITTED IP TO THIS HOSP Condition: Serious Is patient prescribed a controlled substance at d/c from ED?: No Referrals: Alexander Clement DO [Primary Care Provider] - 1-2 days
[2021-07-30 00:05] LABS: C Reactive Protein 5.4 mg/dL (<1.0)
[2021-07-30 00:06] LABS: Prothrombin Time 10.6 sec (9.0-12.0)
--- NOTE | 2021-07-30 00:13 | CT ---
EXAMINATION TYPE: CT angio chest DATE OF EXAM: 07/29/2021 COMPARISON: 12/06/2017 HISTORY: PE CT DLP: 377.1 mGycm Automated exposure control for dose reduction was used. CONTRAST: Performed with IV Contrast, patient injected with 65 mL of Isovue 370. Images obtained from the thoracic inlet to the diaphragm with IV contrast. There are 3-D post process ed images. There are extensive bilateral patchy groundglass interstitial pulmonary infiltrates. No suspicious pu lmonary mass. There is no pleural effusion. Heart size is normal. There is no pericardial effusion. T here are a few enlarged paratracheal lymph nodes up to 1.5 cm. There is calcified mediastinal lymph n odes. There are calcified left bronchial lymph nodes. There is no evidence of filling defect in the p ulmonary arteries. There is calcified 1.5 cm granuloma left lower lobe. The thoracic spine is intact. There is no compression fracture. Sternum is intact. There is some dege nerative spurring in the thoracic spine. There is no pleural effusion. IMPRESSION: No evidence of pulmonary embolism. Extensive pulmonary interstitial infiltrates. Old granulomatous disease. Pulmonary interstitial infiltrates are mostly new compared to old exam. No change in the granulomatous disease.
[2021-07-30 00:18] LABS: Partial Thromboplastin Time 19.3 sec (22.0-30.0)
[2021-07-30] MEDS ORDERED: HYDROmorphone 1 MG/ML 1 ML SYRINGE IVP STA (01:07)
[2021-07-30] MEDS ORDERED: ONDANSETRON 4 MG/2 ML VIAL IVP PRN (01:07)
[2021-07-30] MEDS ORDERED: LORazepam 2 MG/ML INJ IV PRN (01:07)
[2021-07-30] MEDS ORDERED: NALOXONE 0.4 MG/ML 1 ML VIAL IV PRN (01:07)
[2021-07-30] MEDS: SODIUM CHLORIDE 0.9% 1,000 ML IV SCH ×3 (02:17→15:56)
[2021-07-30] MEDS: DEXAMETHASONE SOD PHOSPHATE 4 MG/ML 1 ML VIAL IVP SCH ×2 (05:16→12:04)
[2021-07-30] MEDS ORDERED: ENOXAPARIN 40 MG/0.4 ML SYRINGE SQ SCH (09:00)
[2021-07-30] MEDS: HYDROmorphone 1 MG/ML 1 ML SYRINGE IVP PRN ×2 (10:06→22:37)
[2021-07-30] MEDS: FAMOTIDINE 20 MG TAB PO SCH (10:06)
[2021-07-30] MEDS: ZINC SULFATE 220 MG CAP PO SCH (10:06)
[2021-07-30] MEDS: ASCORBIC ACID 500 MG TAB PO SCH (10:06)
[2021-07-30] MEDS: CHOLECALCIFEROL 25 MCG (1000 IU) TABLET PO SCH (10:06)
[2021-07-30 10:49] LABS: Basophils % (A) 0 %; Eosinophils % (A) 0 %; HCT 42.7 % (34.0-46.0); HGB 14.1 gm/dL (11.4-16.0); Lymphocytes # (A) 0.6 k/uL (1.0-4.8); Lymphocytes % (A) 13 %; MCH 31.7 pg (25.0-35.0); MCV 96.1 fL (80.0-100.0); Mean Platelet Volume 8.2; Monocytes # (A) 0.1 k/uL (0-1.0); Monocytes % (A) 2 %; Neutrophils # (A) 3.9 k/uL (1.3-7.7); Neutrophils % (A) 85 %; Platelet Count 125 k/uL (150-450); RBC 4.45 m/uL (3.80-5.40); RDW 11.9 % (11.5-15.5); WBC 4.6 k/uL (3.8-10.6)
[2021-07-30 11:01] LABS: ALT 303 U/L (4-34); AST 330 U/L (14-36); African American GFR (CKD) >90 (>60 ml/min/1.73 sqM); Albumin 3.1 g/dL (3.5-5.0); Albumin/Globulin Ratio 1.2; Alkaline Phosphatase 150 U/L (38-126); Anion Gap 4 mmol/L; Blood Urea Nitrogen 18 mg/dL (7-17); C Reactive Protein 5.3 mg/dL (<1.0); Calcium 8.4 mg/dL (8.4-10.2); Carbon Dioxide 24 mmol/L (22-30); Chloride 106 mmol/L (98-107); Globulin 2.6 g/dL; Glucose 139 mg/dL (74-99); LDH 1621 U/L (313-618); Magnesium 2.1 mg/dL (1.6-2.3); Non-African American GFR(CKD) >90 (>60 ml/min/1.73 sqM); Potassium 4.3 mmol/L (3.5-5.1); Sodium 134 mmol/L (137-145); Total Bilirubin 1.2 mg/dL (0.2-1.3); Total Protein 5.7 g/dL (6.3-8.2)
--- NOTE | 2021-07-30 13:05 | P.HPIM ---
History of Present Illness This is a pleasant 60 years old female with past medical history of CVA/TIA, Fibromyalgia, Memory Impairment, Sleep Apnea/CPAP/BIPAP, CVA x 2 with some R arm/leg weakness and mild dysphasia. 12/06/2017 IVC filter blood clot left femoral. sarcoidosis involving lungs. PFO with surgery. chronic L abdominal pain past 2 yrs but constant since 08/2017. R eye glaucoma. hiatal hernia. occasional low back pain. tremors but states with anxiety. TATUM no longer needs to use CPAP, Anxiety, Depression Patient presents because of chest pain and upper abdominal pain. Patient says that her pain has been going on for about a week 68/10, currently down to 0/10 after she received Dilaudid this morning. Like something bunching her. No nausea vomiting. She vomited more than one day ago. She denies diarrhea. No urinary complaints. She tested positive for Covid on 07/14 and to this after that she was treated for UTI. No significant coughing. She denies smoking, alcohol or illicit drugs. She denies depression or suicidal ideation. Her statistical machine servicer is Dr. Briseno for open heart repair. And her neurologist is Dr. Gallagher for her history of stroke and right hemiparesis. Patient currently saturating 95% on room air. Done showing mild leukocytosis of 11.2, rest of CBC is unremarkable. Platelets are low at 132. INR 1.0. BMP is unremarkable except for mildly low sodium at 135., Creatinine 0.8. Liver enzymes slightly elevated with AST 143 and ALT 67 and bilirubin of 2.0. Lactated dehydrogenase is elevated at 1062 and C-reactive protein at 5.4 EKG showing normal sinus rhythm at [address]-T changes and QTC is 409. In the emergency room patient received normal saline, breathing treatment and pain medication and dexamethasone with pulmonary team consulted Review of Systems CONSTITUTIONAL: No fever, no malaise, no fatigue. HEENT: No recent visual problems or hearing problems. Denied any sore throat. CARDIOVASCULAR: No orthopnea, PND, no palpitations, no syncope. PULMONARY: No chest wall tenderness, no hemoptysis. GASTROINTESTINAL: No diarrhea, no nausea, Normoactive bowel sounds. NEUROLOGICAL: No headaches, no weakness, no numbness. HEMATOLOGICAL: Denies any bleeding or petechiae. GENITOURINARY: Denies any burning micturition, frequency, or urgency. MUSCULOSKELETAL/RHEUMATOLOGICAL: Denies any joint pain, swelling, or any muscle pain. ENDOCRINE: Denies any polyuria or polydipsia. 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 12/06/2017 IVC filter blood clot left femoral. sarcoidosis involving lungs. PFO with surgery. chronic L abdominal pain past 2 yrs but constant since 08/2017. R eye glaucoma. hiatal hernia. colon polyp removed 01/14/18. occasional low back pain. tremors but states with anxiety. TATUM no longer needs to use CPAP History of Any Multi-Drug Resistant Organisms: None Reported Past Surgical History: Adenoidectomy, Back Surgery, Cholecystectomy, Hysterectomy, Tonsillectomy Additional Past Surgical History / Comment(s): 01/14/18 EGD with bx/colonoscopy with polypectomy benign, 01/09/18 needle biopsy lungs d/t enlarged lymph nodes benign, 12/06/17 R groin accessed and IVC clot "broken up and removed but some pieces left", GFF, PFO repair at [facility] [place], 09/2017 cervical fusion, lumbar surgery 1988, deviated septal surgery, bilateral cataract removal with lens, R eye laser surgery for glaucoma, benign skin lesion removed. Past Anesthesia/Blood Transfusion Reactions: Postoperative Nausea & Vomiting (PONV) Past Psychological History: Anxiety, Depression Additional Psychological History / Comment(s): Pt resides with her spouse of 36yrs. She uses no assistive device. Smoking Status: Never smoker Past Alcohol Use History: None Reported Past Drug Use History: None Reported - Past Family History Mother Family Medical History: Coronary Artery Disease (CAD), Myocardial Infarction ([place]) Additional Family Medical History / Comment(s): Mother at the age of 64yrs from [place]. Maternal grandmother from a [place] at the age of 63 yrs. Father History Unknown: Yes Additional Family Medical History / Comment(s): committed suicide Brother(s) Family Medical History: Coronary Artery Disease (CAD), Myocardial Infarction ([place]) Additional Family Medical History / Comment(s): Brother at 59yrs from [place]/cardiac arrest. Sister(s) Family Medical History: Deep Vein Thrombosis (DVT) Additional Family Medical History / Comment(s): multiple sclerosis Medications and Allergies Home Medications Medication Instructions Recorded Confirmed Type Potassium Chloride [Klor-Con 8 ER] 8 meq PO BID 10/16/16 07/30/21 History Apixaban [Eliquis] 5 mg PO BID 12/12/17 07/30/21 History Aspirin [Adult Low Dose Aspirin EC] 81 mg PO HS 01/10/18 07/30/21 History Citalopram Hydrobromide [CeleXA] 20 mg PO DAILY 10/06/18 07/30/21 History Folic Acid 1 mg PO DAILY 10/06/18 07/30/21 History Gabapentin [Neurontin] 300 mg PO BID 01/03/21 07/30/21 History L.acidoph,Paracasei, B.lactis 1 cap PO DAILY 01/03/21 07/30/21 History [Probiotic] Young Living Inner Defense 1 cap PO DAILY 01/03/21 07/30/21 History Clopidogrel [Plavix] 75 mg PO DAILY 07/30/21 07/30/21 History Allergies Allergy/AdvReac Type Severity Reaction Status Date / Time adhesive tape Allergy Rash/Hives Verified 07/30/21 09:27 celecoxib [From Celebrex] Allergy Unknown Verified 07/30/21 09:27 ciprofloxacin [From Cipro] Allergy Unknown Verified 07/30/21 09:27 Sulfa (Sulfonamide Allergy Unknown Verified 07/30/21 09:27 Antibiotics) morphine AdvReac Vomiting Verified 07/30/21 09:27 phenazopyridine AdvReac Unknown Verified 07/30/21 09:27 [From Pyridium] Physical Exam Vitals: Vital Signs Temp Pulse Pulse Resp BP BP Pulse Ox 07/30/21 05:55 97.5 F L 55 L 19 126/77 95 07/30/21 03:29 94 L 07/30/21 03:08 98.3 F 72 15 103/68 94 L 07/30/21 02:31 74 18 94 L 07/30/21 02:21 76 18 105/73 94 L 07/30/21 00:29 74 18 103/54 96 07/29/21 23:35 72 18 119/72 95 07/29/21 23:33 18 07/29/21 22:42 98.7 F 81 18 115/75 96 Intake and Output 07/29/21 07/30/21 07/30/21 22:59 06:59 14:59 Other: # Voids 0 Weight 97.522 kg 97.522 kg GENERAL: The patient is alert and oriented x3, not in any acute distress. Well developed, well nourished. HEENT: Pupils are round and equally reacting to light. EOMI. No scleral icterus. No conjunctival pallor. Normocephalic, atraumatic. No pharyngeal erythema. No thyromegaly. CARDIOVASCULAR: S1 and S2 present. No murmurs, rubs, or gallops. PULMONARY: Chest is clear to auscultation, no wheezing or crackles. -ABDOMEN: Soft, RUQ tenderness, no rebound tenderness, nondistended, normoactive bowel sounds. No palpable organomegaly. MUSCULOSKELETAL: No joint swelling or deformity. EXTREMITIES: No cyanosis, clubbing, or pedal edema. NEUROLOGICAL: Gross neurological examination did not reveal any focal deficits. SKIN: No rashes. No petechiae Results CBC & Chem 7: 07/30/21 09:56 07/30/21 09:56 Labs: Abnormal Lab Results - Last 24 Hours (Table) 07/29/21 07/29/21 07/29/21 Range/Units 23:15 23:15 23:15 WBC 11.2 H (3.8-10.6) k/uL Plt Count 132 L (150-450) k/uL Neutrophils # 9.2 H (1.3-7.7) k/uL APTT 19.3 L (22.0-30.0) sec Sodium 135 L (137-145) mmol/L BUN 24 H (7-17) mg/dL Glucose 142 H (74-99) mg/dL Total Bilirubin 2.0 H (0.2-1.3) mg/dL AST 143 H (14-36) U/L ALT 67 H (4-34) U/L Lactate Dehydrogenase 1062 H (313-618) U/L C-Reactive Protein 5.4 H (<1.0) mg/dL Total Protein 6.2 L (6.3-8.2) g/dL Albumin 3.3 L (3.5-5.0) g/dL Thrombosis Risk Factor Assmnt - Choose All That Apply Any of the Below Risk Factors Present?: No Other Risk Factors: Yes Each Risk Factor Represents 2 Points: Age 61-74 years Each Risk Factor Represents 3 Points: History of DVT/PE Thrombosis Risk Factor Assessment Total Risk Factor Score: 5 Thrombosis Risk Factor Assessment Level: High Risk Assessment and Plan Assessment: Bilateral pneumonia suspicious for acute bilateral Covid infection Increased inflammatory markers Lower anterior chest pain Right upper quadrant abdominal pain, rule out gallbladder disease History of CVA with right hemiparesis History of fibromyalgia History of sleep apnea, not on CPAP History of left femoral DVT status post IVC filter in 2018 History of sarcoidosis History of PFO status post surgery Chronic abdominal pain for more than 2 years History of hiatal hernia History of chronic low back pain History of anxiety, depression, not an active issue Plan: This is a pleasant 60 years old female who presents with bilateral pneumonia suspicious for Covid pneumonia. Also she has chest pain and RUQ tenderness. recheck coronavirus test Continue with multiple vitamins including vitamin C, vitamin D and zinc and oxygen as needed Pulmonary consult cardiology consult for chest pain. Check for ultrasound of the liver Monitor WBC and liver test Labs and medication were reviewed.. Continue same treatment. Continue with symptomatic treatment. Resume home medication. Monitor lytes and vitals. DVT and GI prophylaxis. Further recommendations depends on the clinical course of the patient DVT prophylaxis: Subcutaneous Lovenox GI Prophylaxis: Pepcid Prognosis is guarded
--- NOTE | 2021-07-30 14:29 | P.CNPUL ---
History of Present Illness Consult date: 07/30/21 Requesting physician: Wesley Farley Reason for consult: dyspnea, chest pain, abnormal CXR/CT Chief complaint: Chest pain. History of present illness: Pulmonary consult dated 07/30/2021. 60-year-old female who presents to the hospital, with complaints of chest and back pain. She also apparently has some minimal shortness of breath. The patient apparently tested positive for coronavirus, on July 22, and found out the test results the following day. She's been sick for at least 3 or 4 days prior to that. Her complaints include primarily chest discomfort, and pain in the chest on deep breathing. She denies any fever or chills. She denies nausea, vomiting, diarrhea, abdominal pain. The patient is not vaccinated against coronavirus. She has a history of CVA, fibromyalgia, memory impairment, sleep apnea, sarcoidosis, patent foramen ovale, sleep apnea syndrome, anxiety, benign essential tremor, and glaucoma. She apparently also some sort of clotting disorder. She has a previous history of inferior vena caval filter. White count 4.6, hemoglobin 14.1, hematocrit 2.7, platelet count 125,000. D- dimer is 0.66. Sodium 134, potassium 4.3, chlorides 106, CO2 24, anion gap 4, BUN 18, creatinine 0.54. AST is 330, ALT 303, and LDH is 1621. Testing for tovar virus was positive. C-reactive protein is 5.3. CT angiogram was negative for pulmonary embolism, but did show diffuse bilateral groundglass infiltrates consistent with coronavirus pneumonia. The patient is not requiring any supplemental oxygen. Review of Systems REVIEW OF SYSTEMS: CONSTITUTIONAL: [Negative.] NEUROLOGIC: [ Negative.] HEENT: [ Negative.] CARDIAC: Chest pain. PULMONARY: [Negative.] GI: [Negative.] : [Negative.] RHEUMATOLOGIC: [ Negative.] IMMUNOLOGIC: [ Negative.] ENDOCRINE: [Negative. ] DERMATOLOGIC: [Negative.] Past Medical History Past Medical History: CVA/TIA, Fibromyalgia, Memory Impairment, Sleep Apnea/CPA P/BIPAP Additional Past Medical History / Comment(s): CVA x 2 with some R arm/leg weakness and mild dysphasia. 12/06/2017 IVC filter blood clot left femoral. sarcoidosis involving lungs. PFO with surgery. chronic L abdominal pain past 2 yrs but constant since 08/2017. R eye glaucoma. hiatal hernia. colon polyp removed 01/14/18. occasional low back pain. tremors but states with anxiety. TATUM no longer needs to use CPAP History of Any Multi-Drug Resistant Organisms: None Reported Past Surgical History: Adenoidectomy, Back Surgery, Cholecystectomy, Hysterectomy, Tonsillectomy Additional Past Surgical History / Comment(s): 01/14/18 EGD with bx/colonoscopy with polypectomy benign, 01/09/18 needle biopsy lungs d/t enlarged lymph nodes benign, 12/06/17 R groin accessed and IVC clot "broken up and removed but some pieces left", GFF, [place] [facility] [place] cervical fusion, lumbar surgery 1 989, deviated septal surgery, bilateral cataract removal with lens, R eye laser surgery for glaucoma, benign skin lesion removed. Past Anesthesia/Blood Transfusion Reactions: Postoperative Nausea & Vomiting (PONV) Past Psychological History: Anxiety, Depression Additional Psychological History / Comment(s): Pt resides with her spouse of 36yrs. She uses no assistive device. Smoking Status: Never smoker Past Alcohol Use History: None Reported Past Drug Use History: None Reported - Past Family History Mother Family Medical History: Coronary Artery Disease (CAD), Myocardial Infarction ([place]) Additional Family Medical History / Comment(s): Mother at the age of 64yrs from [place]. Maternal grandmother from a [place] at the age of 63 yrs. Father History Unknown: Yes Additional Family Medical History / Comment(s): committed suicide Brother(s) Family Medical History: Coronary Artery Disease (CAD), Myocardial Infarction ([place]) Additional Family Medical History / Comment(s): Brother at 59yrs from [place]/cardiac arrest. Sister(s) Family Medical History: Deep Vein Thrombosis (DVT) Additional Family Medical History / Comment(s): multiple sclerosis Medications and Allergies Home Medications Medication Instructions Recorded Confirmed Type Potassium Chloride [Klor-Con 8 ER] 8 meq PO BID 10/16/16 07/30/21 History Apixaban [Eliquis] 5 mg PO BID 12/12/17 07/30/21 History Aspirin [Adult Low Dose Aspirin EC] 81 mg PO HS 01/10/18 07/30/21 History Citalopram Hydrobromide [CeleXA] 20 mg PO DAILY 10/06/18 07/30/21 History Folic Acid 1 mg PO DAILY 10/06/18 07/30/21 History Gabapentin [Neurontin] 300 mg PO BID 01/03/21 07/30/21 History L.acidoph,Paracasei, B.lactis 1 cap PO DAILY 01/03/21 07/30/21 History [Probiotic] Young Living Inner Defense 1 cap PO DAILY 01/03/21 07/30/21 History Clopidogrel [Plavix] 75 mg PO DAILY 07/30/21 07/30/21 History Allergies Allergy/AdvReac Type Severity Reaction Status Date / Time adhesive tape Allergy Rash/Hives Verified 07/30/21 09:27 celecoxib [From Celebrex] Allergy Unknown Verified 07/30/21 09:27 ciprofloxacin [From Cipro] Allergy Unknown Verified 07/30/21 09:27 Sulfa (Sulfonamide Allergy Unknown Verified 07/30/21 09:27 Antibiotics) morphine AdvReac Vomiting Verified 07/30/21 09:27 phenazopyridine AdvReac Unknown Verified 07/30/21 09:27 [From Pyridium] Physical Exam Osteopathic Statement: *. No significant issues noted on an osteopathic structural exam other than those noted in the History and Physical/Consult. Vitals: Vital Signs Temp Pulse Pulse Resp BP BP Pulse Ox 07/30/21 10:33 97.4 F L 60 18 128/83 94 L 07/30/21 05:55 97.5 F L 55 L 19 126/77 95 07/30/21 03:29 94 L 07/30/21 03:08 98.3 F 72 15 103/68 94 L 07/30/21 02:31 74 18 94 L 07/30/21 02:21 76 18 105/73 94 L 07/30/21 00:29 74 18 103/54 96 07/29/21 23:35 72 18 119/72 95 07/29/21 23:33 18 07/29/21 22:42 98.7 F 81 18 115/75 96 Intake and Output 07/29/21 07/30/21 07/30/21 22:59 06:59 14:59 Other: # Voids 0 Weight 97.522 kg 97.522 kg No acute distress, oriented 3. Not requiring any supplemental oxygen. Room air saturations are 95%. HEENT examination is grossly unremarkable. Neck supple. Full range of motion. No adenopathy thyromegaly or neck vein distention. Cardiovascular examination reveals regular rhythm rate. S1-S2 normal. No S3 or S4. No discernible murmur noted. Heart rate 60 bpm. Lungs reveal clear breath sounds. Breath sounds are equal bilaterally. No adventitious lung sounds including wheezes rhonchi or crackles. Abdomen soft bowel sounds are heard. No masses or tenderness. Extremities are intact. No cyanosis clubbing or edema. Skin is without rash or lesion. Neurologic examination is brief but nonfocal. Results - Laboratory Findings CBC and BMP: 07/30/21 09:56 07/30/21 09:56 PT/INR, D-dimer PT 10.6 sec (9.0-12.0) 07/29/21 23:15 INR 1.0 (<1.2) 07/29/21 23:15 D-Dimer 0.66 mg/L FEU (<0.60) H 07/30/21 09:56 Abnormal lab findings: Abnormal Labs 07/29/21 07/29/21 07/29/21 23:15 23:15 23:15 WBC 11.2 H Plt Count 132 L Neutrophils # 9.2 H Lymphocytes # APTT 19.3 L D-Dimer Sodium 135 L BUN 24 H Glucose 142 H Total Bilirubin 2.0 H AST 143 H ALT 67 H Alkaline Phosphatase Lactate Dehydrogenase 1062 H C-Reactive Protein 5.4 H Total Protein 6.2 L Albumin 3.3 L Coronavirus (PCR) 07/30/21 07/30/21 07/30/21 09:56 09:56 09:56 WBC Plt Count 125 L Neutrophils # Lymphocytes # 0.6 L APTT D-Dimer 0.66 H Sodium 134 L BUN 18 H Glucose 139 H Total Bilirubin AST 330 H ALT 303 H Alkaline Phosphatase 150 H Lactate Dehydrogenase 1621 H C-Reactive Protein 5.3 H Total Protein 5.7 L Albumin 3.1 L Coronavirus (PCR) 07/30/21 11:56 WBC Plt Count Neutrophils # Lymphocytes # APTT D-Dimer Sodium BUN Glucose Total Bilirubin AST ALT Alkaline Phosphatase Lactate Dehydrogenase C-Reactive Protein Total Protein Albumin Coronavirus (PCR) Detected A - Diagnostic Findings CT scan - chest: image reviewed Assessment and Plan Assessment: Coronavirus infection, with radiographic evidence of coronavirus pneumonia, but without any shortness of breath, or hypoxemia. Chest pain, of unclear etiology. CT angiogram was negative for pulmonary embolism. History of CVA 2. History of fibromyalgia. Memory impairment. History of sleep apnea syndrome. History of clotting disorder, status post IVC filter. History of sarcoidosis. History of patent foramen ovale, with surgical repair. History of glaucoma. Plan: Plan dated 07/30/2021. For some reason, the patient's Eliquis was discontinued, and Lovenox was started. The patient's Lovenox was discontinued, by me, and the patient was restarted on Eliquis. The patient is not a candidate for Decadron, or REM. The patient is on vitamins including vitamin C, vitamin D3, and zinc. The patient apparently will be seen by cardiology for the chest pain. From the pulmonary standpoint, because the patient's respiratory status is stable, she could be considered for possible discharge. We'll leave that up to the primary. She can always come back to the hospital should her breathing worsen. Time with Patient: Greater than 30
[2021-07-30] MEDS: APIXABAN 5 MG TAB PO SCH (20:08)
[2021-07-30] MEDS: GABAPENTIN 300 MG CAP PO SCH (20:28)
[2021-07-31] MEDS: SODIUM CHLORIDE 0.9% 1,000 ML IV SCH ×4 (00:05→23:02)
--- NOTE | 2021-07-31 08:17 | US ---
EXAMINATION TYPE: US liver DATE OF EXAM: 07/31/2021 COMPARISON: US 2019 CLINICAL HISTORY: adominal pain. RUQ pain Exam done portable EXAM MEASUREMENTS: Liver Length: 16.3 cm CBD: 0.7 cm Right Kidney: 10.4 x 4.7 x 4.7 cm Pancreas: visualized portions appear hyperechoic, limited by overlying midline bowel gas Liver: wnl Gallbladder: surgically absent Evidence for sonographic Curtis's sign: yes CBD: wnl Right Kidney: wnl IMPRESSION: 1. No abnormality of the liver. 2. Surgical absence of the gallbladder and no biliary ductal dilatation. 3. prominent hyperechoic pancreas. Cannot exclude inflammation/pancreatitis. Clinical correlation is recommended. CT abdomen might be useful for further evaluation.
[2021-07-31 08:50] LABS: Prothrombin Time 10.3 sec (9.0-12.0)
[2021-07-31 09:01] LABS: ALT 178 U/L (4-34); AST 74 U/L (14-36); African American GFR (CKD) >90 (>60 ml/min/1.73 sqM); Albumin 2.7 g/dL (3.5-5.0); Albumin/Globulin Ratio 1.1; Alkaline Phosphatase 106 U/L (38-126); Amylase 60 U/L (30-110); Anion Gap 0 mmol/L; Blood Urea Nitrogen 13 mg/dL (7-17); Calcium 8.4 mg/dL (8.4-10.2); Carbon Dioxide 27 mmol/L (22-30); Chloride 109 mmol/L (98-107); Globulin 2.5 g/dL; Glucose 94 mg/dL (74-99); Lipase 82 U/L (23-300); Magnesium 2.2 mg/dL (1.6-2.3); Non-African American GFR(CKD) >90 (>60 ml/min/1.73 sqM); Sodium 136 mmol/L (137-145); Total Bilirubin 1.1 mg/dL (0.2-1.3); Total Protein 5.2 g/dL (6.3-8.2)
[2021-07-31] MEDS: GABAPENTIN 300 MG CAP PO SCH ×2 (09:14→20:10)
[2021-07-31] MEDS: FAMOTIDINE 20 MG TAB PO SCH (09:14)
[2021-07-31] MEDS: CHOLECALCIFEROL 25 MCG (1000 IU) TABLET PO SCH (09:15)
[2021-07-31] MEDS: ZINC SULFATE 220 MG CAP PO SCH (09:15)
[2021-07-31] MEDS: ASCORBIC ACID 500 MG TAB PO SCH (09:15)
[2021-07-31] MEDS: APIXABAN 5 MG TAB PO SCH ×2 (09:15→20:10)
[2021-07-31] MEDS: CITALOPRAM HYDROBROMIDE 20 MG TAB PO SCH (10:32)
[2021-07-31] MEDS: IOPAMIDOL CONTRAST (ORAL USE) VIAL PO PRN ×2 (10:32→11:53)
[2021-07-31] MEDS: HYDROmorphone 1 MG/ML 1 ML SYRINGE IVP PRN ×2 (10:52→21:55)
--- NOTE | 2021-07-31 11:35 | P.PN ---
Subjective This is a pleasant 60 years old female with past medical history of CVA/TIA, Fibromyalgia, Memory Impairment, Sleep Apnea/CPAP/BIPAP, CVA x 2 with some R arm/leg weakness and mild dysphasia. 12/06/2017 IVC filter blood clot left femoral. sarcoidosis involving lungs. PFO with surgery. chronic L abdominal pain past 2 yrs but constant since 08/2017. R eye glaucoma. hiatal hernia. occasional low back pain. tremors but states with anxiety. TATUM no longer needs to use CPAP, Anxiety, Depression Patient presents because of chest pain and upper abdominal pain. Patient says that her pain has been going on for about a week 68/10, currently down to 0/10 after she received Dilaudid this morning. Like something bunching her. No nausea vomiting. She vomited more than one day ago. She denies diarrhea. No urinary complaints. She tested positive for Covid on 07/14 and to this after that she was treated for UTI. No significant coughing. She denies smoking, alcohol or illicit drugs. She denies depression or suicidal ideation. Her display and banner designer is Dr. Briseno for open heart repair. And her neurologist is Dr. Gallagher for her history of stroke and right hemiparesis. Patient currently saturating 95% on room air. Done showing mild leukocytosis of 11.2, rest of CBC is unremarkable. Platelets are low at 132. INR 1.0. BMP is unremarkable except for mildly low sodium at 135., Creatinine 0.8. Liver enzymes slightly elevated with AST 143 and ALT 67 and bilirubin of 2.0. Lactated dehydrogenase is elevated at 1062 and C-reactive protein at 5.4 EKG showing normal sinus rhythm at [address]-T changes and QTC is 409. In the emergency room patient received normal saline, breathing treatment and pain medication and dexamethasone with pulmonary team consulted 07/31/2021 Patient is still complaining of from epigastric and right upper quadrant abdominal pain and tenderness, no nausea or vomiting but generally can eat laury use of pain. No bowel movements. No diarrhea. Vital signs stable, she is slightly bradycardic 45-56 but asymptomatic. Blood pressure is stable. Liver enzymes are trending down with AST 3:30 down to 74 and ALT 3 3 down to 178. Liver ultrasound showing no gallbladder, no biliary duct dilatation but there is suspicion of pancreatic disease or pancreatitis. We checked lipase and amylase and they were normal at 82 and 60 respectively. Pro-calcitonin is negative at 0.09. Keep patient nothing by mouth, continue with D5 normal saline at 130 milliliters per hour (discussed with the bedside nurse Lavinia ) and check CT of the abdomen and pelvis recommended by radiologist with IV contrast. Risks of nephrotoxicity are explained for the patient and she verbalized understanding and acceptance as she had CTA yesterday and her creatinine was normal this morning at 0.5 similar to yesterday Review of Systems CONSTITUTIONAL: No fever, no malaise, no fatigue. HEENT: No recent visual problems or hearing problems. Denied any sore throat. CARDIOVASCULAR: No orthopnea, PND, no palpitations, no syncope. PULMONARY: No chest wall tenderness, no hemoptysis. GASTROINTESTINAL: No diarrhea, no nausea, Normoactive bowel sounds. NEUROLOGICAL: No headaches, no weakness, no numbness. Active Medications Generic Name Dose Route Start Last Admin Trade Name Freq PRN Reason Stop Dose Admin Apixaban 5 mg 07/30/21 21:00 07/31/21 09:15 Apixaban 5 Mg Tab PO 5 mg BID ROMAN Administration Protocol Ascorbic Acid 1,000 mg 07/30/21 09:30 07/31/21 09:15 Ascorbic Acid 500 Mg Tab PO 1,000 mg DAILY ROMAN Administration Aspirin 81 mg 07/31/21 21:00 Aspirin 81 Mg PO HS ROMAN Cholecalciferol 50 mcg 07/30/21 09:30 07/31/21 09:15 Cholecalciferol 25 Mcg (1000 Iu) Tablet PO 50 mcg DAILY ROMAN Administration Citalopram Hydrobromide 20 mg 07/31/21 10:30 07/31/21 10:32 Citalopram Hydrobromide 20 Mg Tab PO 20 mg DAILY ROMAN Administration Famotidine 40 mg 07/30/21 09:30 07/31/21 09:14 Famotidine 20 Mg Tab PO 40 mg DAILY ROMAN Administration Gabapentin 300 mg 07/30/21 21:00 07/31/21 09:14 Gabapentin 300 Mg Cap PO 300 mg BID ROMAN Administration Hydromorphone HCl 1 mg 07/30/21 01:09 07/31/21 10:52 Hydromorphone 1 Mg/Ml 1 Ml Syringe IVP 1 mg Q4HR PRN Administration Pain Sodium Chloride 1,000 mls @ 130 mls/hr 07/30/21 01:15 07/31/21 10:54 Saline 0.9% IV 130 mls/hr .[id number] ROMAN Administration Iopamidol 30 ml 07/31/21 10:15 07/31/21 10:32 Iopamidol Contrast (Oral Use) Vial PO 08/01/21 10:15 30 ml Q60M PRN Administration CT Scan Lorazepam 0.5 mg 07/30/21 01:07 Lorazepam 2 Mg/Ml Inj IV Q6HR PRN Anxiety Naloxone HCl 0.2 mg 07/30/21 01:07 Naloxone 0.4 Mg/Ml 1 Ml Vial IV Q2M PRN Opioid Reversal Ondansetron HCl 4 mg 07/30/21 01:07 Ondansetron 4 Mg/2 Ml Vial IVP Q8HR PRN Nausea And Vomiting Zinc Sulfate 220 mg 07/30/21 09:15 07/31/21 09:15 Zinc Sulfate 220 Mg Cap PO 220 mg DAILY ROMAN Administration Objective - Vital Signs Vital signs: Vital Signs Temp 97.5 F L 07/31/21 08:00 Pulse 56 L 07/31/21 08:00 Resp 18 07/31/21 08:00 BP 118/64 07/31/21 08:00 Pulse Ox 96 07/31/21 08:00 Intake & Output 07/30/21 07/31/21 07/31/21 19:59 06:59 18:59 Other: # Voids 1 - Exam GENERAL: The patient is alert and oriented x3, not in any acute distress. Well developed, well nourished. HEENT: Pupils are round and equally reacting to light. EOMI. No scleral icterus. No conjunctival pallor. Normocephalic, atraumatic. No pharyngeal erythema. No thyromegaly. CARDIOVASCULAR: S1 and S2 present. No murmurs, rubs, or gallops. PULMONARY: Chest is clear to auscultation, no wheezing or crackles. -ABDOMEN: Soft, epigastric tenderness with no rebound tenderness, RUQ tenderness but no rebound tenderness or guarding, nondistended, normoactive bowel sounds. No palpable organomegaly. MUSCULOSKELETAL: No joint swelling or deformity. EXTREMITIES: No cyanosis, clubbing, or pedal edema. NEUROLOGICAL: Gross neurological examination did not reveal any focal deficits. SKIN: No rashes. no petechiae. - Labs CBC & Chem 7: 07/30/21 09:56 07/31/21 08:07 Labs: Abnormal Lab Results - Last 24 Hours (Table) 07/30/21 07/31/21 Range/Units 11:56 08:07 Sodium 136 L (137-145) mmol/L Chloride 109 H (98-107) mmol/L AST 74 H (14-36) U/L ALT 178 H (4-34) U/L Total Protein 5.2 L (6.3-8.2) g/dL Albumin 2.7 L (3.5-5.0) g/dL Coronavirus (PCR) Detected A (Not Detectd) Microbiology - Last 24 Hours (Table) 07/29/21 23:15 Blood Culture - Preliminary Blood No Growth after 24 hours Assessment and Plan Assessment: Bilateral pneumonia suspicious for acute bilateral Covid infection Increased inflammatory markers Epigastric pain and tenderness rather than Lower anterior chest pain. There is suspicion of pancreatic disease. With mildly elevated liver enzymes History of CVA with right hemiparesis History of fibromyalgia History of sleep apnea, not on CPAP History of left femoral DVT status post IVC filter in 2018 History of sarcoidosis History of PFO status post surgery Chronic abdominal pain for more than 2 years History of hiatal hernia History of chronic low back pain History of anxiety, depression, not an active issue Plan: This is a pleasant 60 years old female who presents with bilateral pneumonia suspicious for Covid pneumonia. Also she has chest pain and RUQ tenderness. Keep patient nothing by mouth, IV fluids. Check a CT of the abdomen and pelvis with contrast Continue with multiple vitamins including vitamin C, vitamin D and zinc and oxygen as needed Pulmonary consult cardiology consult for chest pain. Monitor WBC and liver test Labs and medication were reviewed.. Continue same treatment. Continue with symptomatic treatment. Resume home medication. Monitor lytes and vitals. DVT and GI prophylaxis. Further recommendations depends on the clinical course of the patient DVT prophylaxis: Subcutaneous Lovenox GI Prophylaxis: Pepcid Prognosis is guarded
[2021-07-31 12:56] LABS: Basophils # (A) 0.01 X 10*3/uL (0.00-0.10); Basophils % (A) 0.1 %; Eosinophils # (A) 0.01 X 10*3/uL (0.04-0.35); Eosinophils % (A) 0.1 %; HCT 38.1 % (37.2-46.3); HGB 12.5 g/dL (12.0-15.0); Lymphocytes # (A) 1.64 X 10*3/uL (0.90-5.00); Lymphocytes % (A) 21.1 %; MCH 30.9 pg (27.0-32.0); MCHC 32.8 g/dL (32.0-37.0); MCV 94.3 fL (80.0-97.0); Monocytes # (A) 0.45 X 10*3/uL (0.20-1.00); Monocytes % (A) 5.8 %; Neutrophils # (A) 5.65 X 10*3/uL (1.80-7.70); Neutrophils % (A) 72.5 %; Platelet Count 127 X 10*3/uL (140-440); RBC 4.04 X 10*6/uL (4.10-5.20); RDW 12.1 % (11.5-14.5); WBC 7.79 X 10*3/uL (4.50-10.00)
--- NOTE | 2021-07-31 13:21 | CT ---
EXAMINATION TYPE: CT abdomen pelvis w con DATE OF EXAM: 07/31/2021 COMPARISON: 03/25/2019 HISTORY: Pancreatitis, abn US CT DLP: 1842.3 mGycm Automated exposure control for dose reduction was used. CONTRAST: CT scan of the abdomen pelvis is performed with IV Contrast, patient injected with 100 mL of Isovue 3 70. FINDINGS- LUNG BASES-subsegmental changes are seen at the lung bases compatible with infiltrate. There is a charleen cified granuloma left lung base.. LIVER/GB-postcholecystectomy changes with mild intra and extrahepatic biliary dilation likely postsur gical.. PANCREAS- No gross abnormality is seen. SPLEEN- No gross abnormality is seen. ADRENALS- No gross abnormality is seen. KIDNEYS/BLADDER- no hydronephrosis nephrolithiasis or renal mass. BOWEL- no bowel dilatation. Normal appendix. LYMPH NODES- No greater than 1cm abdominal or pelvic lymph nodes areappreciated. OSSEOUS STRUCTURES-hypertrophic and degenerative changes of the spine.. OTHER- IVC filter noted. IMPRESSION- 1. No evidence of pancreatitis. 2. Post surgical change compatible prior cholecystectomy. 3. Granuloma left lower lobe with bilateral lower lobe infiltrate correlate for pneumonitis or pneumo sathish.
--- NOTE | 2021-07-31 14:29 | P.PN ---
Subjective Progress Note Date: 07/31/21 Principal diagnosis: Weakness. Pulmonary consult dated 07/30/2021. 60-year-old female who presents to the hospital, with complaints of chest and back pain. She also apparently has some minimal shortness of breath. The patient apparently tested positive for coronavirus, on July 22, and found out the test results the following day. She's been sick for at least 3 or 4 days prior to that. Her complaints include primarily chest discomfort, and pain in the chest on deep breathing. She denies any fever or chills. She denies nausea, vomiting, diarrhea, abdominal pain. The patient is not vaccinated against coronavirus. She has a history of CVA, fibromyalgia, memory impairment, sleep apnea, sarcoidosis, patent foramen ovale, sleep apnea syndrome, anxiety, benign essential tremor, and glaucoma. She apparently also some sort of clotting disorder. She has a previous history of inferior vena caval filter. White count 4.6, hemoglobin 14.1, hematocrit 2.7, platelet count 125,000. D- dimer is 0.66. Sodium 134, potassium 4.3, chlorides 106, CO2 24, anion gap 4, BUN 18, creatinine 0.54. AST is 330, ALT 303, and LDH is 1621. Testing for tovar virus was positive. C-reactive protein is 5.3. CT angiogram was negative for pulmonary embolism, but did show diffuse bilateral groundglass infiltrates consistent with coronavirus pneumonia. The patient is not requiring any supplemental oxygen. Progress note dated 07/31/2021. 60-year-old female admitted to the hospital with complaints of chest and back pain. She also had minimal shortness of breath. The patient did test positive for coronavirus on July 22, and has not been feeling well for about 3 or 4 days prior to that. Her complaints include primarily chest discomfort, and some pain in the chest on deep inspiration. She is not short of breath, and not requiring any supplemental oxygen. White count 7.79, hemoglobin 12.5, hematocrit 38.1, and platelet count 127,000. PT 10.3, INR 1. Sodium 136, potassium 4, chlorides 109, CO2 27, BUN 13, creatinine 0.56. A liver ultrasound showed no abnormality of the liver, but did show possible pancreatitis. A CT of the abdomen and pelvis showed no evidence of pancreatitis, prior cholecystectomy, and a granuloma in the left lower lobe with bilateral lower lobe infiltrates. Objective - Vital Signs Vital signs: Vital Signs Temp 97.5 F L 07/31/21 08:00 Pulse 56 L 07/31/21 08:00 Resp 18 07/31/21 08:00 BP 118/64 07/31/21 08:00 Pulse Ox 96 07/31/21 08:00 Intake & Output 07/30/21 07/31/21 07/31/21 19:59 06:59 18:59 Other: # Voids 1 - Exam No acute distress, oriented 3. Not requiring any supplemental oxygen. Room air saturations are 96%. HEENT examination is grossly unremarkable. Neck supple. Full range of motion. No adenopathy thyromegaly or neck vein distention. Cardiovascular examination reveals regular rhythm rate. S1-S2 normal. No S3 or S4. No discernible murmur noted. Heart rate 56 bpm. Lungs reveal clear breath sounds. Breath sounds are equal bilaterally. No adventitious lung sounds including wheezes rhonchi or crackles. Abdomen soft bowel sounds are heard. No masses or tenderness. Extremities are intact. No cyanosis clubbing or edema. Skin is without rash or lesion. Neurologic examination is brief but nonfocal. - Labs CBC & Chem 7: 07/31/21 08:07 07/31/21 08:07 Labs: Abnormal Lab Results - Last 24 Hours (Table) 07/31/21 07/31/21 Range/Units 08:07 08:07 RBC 4.04 L (4.10-5.20) X 10*6/uL Plt Count 127 L (140-440) X 10*3/uL Eosinophils # 0.01 L (0.04-0.35) X 10*3/uL Sodium 136 L (137-145) mmol/L Chloride 109 H (98-107) mmol/L AST 74 H (14-36) U/L ALT 178 H (4-34) U/L Total Protein 5.2 L (6.3-8.2) g/dL Albumin 2.7 L (3.5-5.0) g/dL Microbiology - Last 24 Hours (Table) 07/29/21 23:15 Blood Culture - Preliminary Blood No Growth after 24 hours Assessment and Plan Assessment: Coronavirus infection, with radiographic evidence of coronavirus pneumonia, but without any shortness of breath, or hypoxemia. Chest pain, of unclear etiology. CT angiogram was negative for pulmonary embolism. History of CVA 2. History of fibromyalgia. Memory impairment. History of sleep apnea syndrome. History of clotting disorder, status post IVC filter. History of sarcoidosis. History of patent foramen ovale, with surgical repair. History of glaucoma. Plan: Plan dated 07/30/2021. For some reason, the patient's Eliquis was discontinued, and Lovenox was started. The patient's Lovenox was discontinued, by me, and the patient was restarted on Eliquis. The patient is not a candidate for Decadron, or REM. The patient is on vitamins including vitamin C, vitamin D3, and zinc. The patient apparently will be seen by cardiology for the chest pain. From the pulmonary standpoint, because the patient's respiratory status is stable, she could be considered for possible discharge. We'll leave that up to the primary. She can always come back to the hospital should her breathing worsen. Plan dated 07/31/2021. The patient's ultrasound the liver was negative for any acute liver abnormality. Suggest pancreatitis, but that was not confirmed on computed tomography scan of the abdomen and pelvis. The patient is currently not having any pulmonary complaints. She's not short of breath, coughing, wheezing, producing any phlegm. She is also not requiring any supplemental oxygen. From the pulmonary standpoint, the patient's respiratory status is stable. Additional recommendations and suggestions are forthcoming. We will see the patient moving forward as needed. Time with Patient: Less than 30
--- NOTE | 2021-07-31 19:31 | P.CRDCN ---
History of Present Illness History of present illness: HISTORY OF PRESENTING ILLNESS Patient is a pleasant 60-year-old female with a history of stroke felt related to a PFO, status post PFO closure, IVC filter, moderate aortic stenosis, fibromyalgia, questionable sarcoidosis involving the lungs, hiatal hernia, obstructive sleep apnea noncompliant with CPAP. She follows with Dr. Briseno. She states she developed COVID-19 approximate 2 weeks ago which was very mild with some fatigue and shortness breath however additionally has been having fairly constant epigastric pain which goes straight through to her back. She denies anything that helps or worsens the pain. No association with eating. Denies any hematochezia or melena or diarrhea. Admits to chronic hematuria however no change. She had a previous stress test from 07/2020 which showed no inducible ischemia. Last echo was from December 2020 which showed EF 55-60%, moderate aortic stenosis, intra-atrial closure device intact without any shunt. Troponin is pending. EKG showed normal sinus rhythm, normal axis, no significant ST or T wave abnormalities. Amylase was 60, lipase was 82, albumin was 2.7, AST 74, ALP 178, total bilirubin initially 2.0 down to 1.1, creatinine 0.56, d-dimer 0.66, white blood cell count 11.2, hemoglobin 15.1. She admits that mainly pain medication such as Dilaudid help with the pain. Denies any actual chest pain or shortness breath. REVIEW OF SYSTEMS At the time of my exam: CONSTITUTIONAL: Denies fever or chills. CARDIOVASCULAR: Denies chest pain, shortness of breath, orthopnea, PND or palpitations. RESPIRATORY: Denies cough. GASTROINTESTINAL: +abdominal pain, no diarrhea, constipation, nausea or vomiting. MUSCULOSKELETAL: Denies myalgias. NEUROLOGIC: Denies numbness, tingling or weakness. ENDOCRINE: Denies fatigue, weight change, polydipsia or polyurina. GENITOURINARY: Denies burning, hematuria or urgency with micturation. HEMATOLOGIC: Denies history of anemia or bleeding. PHYSICAL EXAMINATION Vital signs reviewed. Patient seen from the hallway however was not examined secondary COVID-19 ASSESSMENT 1. Atypical abdominal pain, does not appear typical of angina 2. History of PFO status post PFO closure 3. Moderate aortic stenosis by last echo 12/2020 4. Hypertension 5. History of stroke PLAN Patient's chest pain appears very atypical. Check troponin as this had not been drawn. We will check 2-D echo to evaluate left ventricular function. If no significant change in EF and no significant change in aortic stenosis would continue with further abdominal etiologies of pain. 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 12/06/2017 IVC filter blood clot left femoral. sarcoidosis involving lungs. PFO with surgery. chronic L abdominal pain past 2 yrs but constant since 08/2017. R eye glaucoma. hiatal hernia. colon polyp removed 01/14/18. occasional low back pain. tremors but states with anxiety. TATUM no longer needs to use CPAP History of Any Multi-Drug Resistant Organisms: None Reported Past Surgical History: Adenoidectomy, Back Surgery, Cholecystectomy, Hysterectomy, Tonsillectomy Additional Past Surgical History / Comment(s): 01/14/18 EGD with bx/colonoscopy with polypectomy benign, 01/09/18 needle biopsy lungs d/t enlarged lymph nodes benign, 12/06/17 R groin accessed and IVC clot "broken up and removed but some pieces left", GFF, PFO repair at [facility] [place], 09/2017 cervical fusion, lumbar surgery 1988, deviated septal surgery, bilateral cataract removal with lens, R eye laser surgery for glaucoma, benign skin lesion removed. Past Anesthesia/Blood Transfusion Reactions: Postoperative Nausea & Vomiting (PONV) Past Psychological History: Anxiety, Depression Additional Psychological History / Comment(s): Pt resides with her spouse of 36yrs. She uses no assistive device. Smoking Status: Never smoker Past Alcohol Use History: None Reported Past Drug Use History: None Reported - Past Family History Mother Family Medical History: Coronary Artery Disease (CAD), Myocardial Infarction (NC) Additional Family Medical History / Comment(s): Mother at the age of 64yrs from NC. Maternal grandmother from a NC at the age of 63 yrs. Father History Unknown: Yes Additional Family Medical History / Comment(s): committed suicide Brother(s) Family Medical History: Coronary Artery Disease (CAD), Myocardial Infarction (NC) Additional Family Medical History / Comment(s): Brother at 59yrs from [place]/cardiac arrest. Sister(s) Family Medical History: Deep Vein Thrombosis (DVT) Additional Family Medical History / Comment(s): multiple sclerosis Medications and Allergies Home Medications Medication Instructions Recorded Confirmed Type Potassium Chloride [Klor-Con 8 ER] 8 meq PO BID 10/16/16 07/30/21 History Apixaban [Eliquis] 5 mg PO BID 12/12/17 07/30/21 History Aspirin [Adult Low Dose Aspirin EC] 81 mg PO HS 01/10/18 07/30/21 History Citalopram Hydrobromide [CeleXA] 20 mg PO DAILY 10/06/18 07/30/21 History Folic Acid 1 mg PO DAILY 10/06/18 07/30/21 History Gabapentin [Neurontin] 300 mg PO BID 01/03/21 07/30/21 History L.acidoph,Paracasei, B.lactis 1 cap PO DAILY 01/03/21 07/30/21 History [Probiotic] [employer] 1 cap PO DAILY 01/03/21 07/30/21 History Clopidogrel [Plavix] 75 mg PO DAILY 07/30/21 07/30/21 History Allergies Allergy/AdvReac Type Severity Reaction Status Date / Time adhesive tape Allergy Rash/Hives Verified 07/30/21 09:27 celecoxib [From Celebrex] Allergy Unknown Verified 07/30/21 09:27 ciprofloxacin [From Cipro] Allergy Unknown Verified 07/30/21 09:27 Sulfa (Sulfonamide Allergy Unknown Verified 07/30/21 09:27 Antibiotics) morphine AdvReac Vomiting Verified 07/30/21 09:27 phenazopyridine AdvReac Unknown Verified 07/30/21 09:27 [From Pyridium] Physical Exam Vitals: Vital Signs Temp Pulse Resp BP Pulse Ox 07/31/21 18:58 97.8 F 78 18 146/83 97 07/31/21 14:00 97.4 F L 51 L 18 100/68 96 07/31/21 08:00 97.5 F L 56 L 18 118/64 96 07/31/21 05:24 97.5 F L 45 L 18 125/61 95 07/31/21 01:48 EDT 97.4 F L 48 L 15 153/76 94 L 07/30/21 21:31 98.3 F 61 16 150/76 93 L Intake and Output 07/31/21 07/31/21 07/31/21 06:59 14:59 22:59 Other: # Voids 1 Results 07/31/21 08:07 07/31/21 08:07 Cardiac Enzymes 07/31/21 Range/Units 08:07 AST 74 H (14-36) U/L Coagulation 07/31/21 Range/Units 08:07 PT 10.3 (9.0-12.0) sec CBC 07/31/21 Range/Units 08:07 WBC 7.79 (4.50-10.00) X 10*3/uL RBC 4.04 L (4.10-5.20) X 10*6/uL Hgb 12.5 (12.0-15.0) g/dL Hct 38.1 (37.2-46.3) % Plt Count 127 L (140-440) X 10*3/uL Comprehensive Metabolic Panel 07/31/21 Range/Units 08:07 Sodium 136 L (137-145) mmol/L Potassium 4.0 (3.5-5.1) mmol/L Chloride 109 H (98-107) mmol/L Carbon Dioxide 27 (22-30) mmol/L BUN 13 (7-17) mg/dL Creatinine 0.56 (0.52-1.04) mg/dL Glucose 94 (74-99) mg/dL Calcium 8.4 (8.4-10.2) mg/dL AST 74 H (14-36) U/L ALT 178 H (4-34) U/L Alkaline Phosphatase 106 (38-126) U/L Total Protein 5.2 L (6.3-8.2) g/dL Albumin 2.7 L (3.5-5.0) g/dL Current Medications Generic Name Dose Route Start Last Admin Trade Name Freq PRN Reason Stop Dose Admin Apixaban 5 mg 07/30/21 21:00 07/31/21 09:15 Apixaban 5 Mg Tab PO 5 mg BID [facility] Administration Protocol Ascorbic Acid 1,000 mg 07/30/21 09:30 07/31/21 09:15 Ascorbic Acid 500 Mg Tab PO 1,000 mg DAILY [facility] Administration Aspirin 81 mg 07/31/21 21:00 Aspirin 81 Mg PO [facility] Cholecalciferol 50 mcg 07/30/21 09:30 07/31/21 09:15 Cholecalciferol 25 Mcg (1000 Iu) Tablet PO 50 mcg DAILY ROMAN Administration Citalopram Hydrobromide 20 mg 07/31/21 10:30 07/31/21 10:32 Citalopram Hydrobromide 20 Mg Tab PO 20 mg DAILY ROMAN Administration Famotidine 40 mg 07/30/21 09:30 07/31/21 09:14 Famotidine 20 Mg Tab PO 40 mg DAILY ROMAN Administration Gabapentin 300 mg 07/30/21 21:00 07/31/21 09:14 Gabapentin 300 Mg Cap PO 300 mg BID ROMAN Administration Hydromorphone HCl 1 mg 07/30/21 01:09 07/31/21 10:52 Hydromorphone 1 Mg/Ml 1 Ml Syringe IVP 1 mg Q4HR PRN Administration Pain Sodium Chloride 1,000 mls @ 130 mls/hr 07/30/21 01:15 07/31/21 17:17 Saline 0.9% IV 130 mls/hr .[id number] ROMAN Administration Lorazepam 0.5 mg 07/30/21 01:07 Lorazepam 2 Mg/Ml Inj IV Q6HR PRN Anxiety Naloxone HCl 0.2 mg 07/30/21 01:07 Naloxone 0.4 Mg/Ml 1 Ml Vial IV Q2M PRN Opioid Reversal Ondansetron HCl 4 mg 07/30/21 01:07 Ondansetron 4 Mg/2 Ml Vial IVP Q8HR PRN Nausea And Vomiting Zinc Sulfate 220 mg 07/30/21 09:15 07/31/21 09:15 Zinc Sulfate 220 Mg Cap PO 220 mg DAILY ROMAN Administration Intake and Output 07/31/21 07/31/21 07/31/21 06:59 14:59 22:59 Other: # Voids 1 07/31/21 08:07 07/31/21 08:07
[2021-07-31] MEDS: ASPIRIN 81 MG PO SCH (20:10)
[2021-08-01] MEDS: HYDROmorphone 1 MG/ML 1 ML SYRINGE IVP PRN ×2 (07:44→21:43)
[2021-08-01] MEDS: CITALOPRAM HYDROBROMIDE 20 MG TAB PO SCH (07:45)
[2021-08-01] MEDS: FAMOTIDINE 20 MG TAB PO SCH (07:45)
[2021-08-01] MEDS: GABAPENTIN 300 MG CAP PO SCH ×2 (07:45→21:44)
[2021-08-01] MEDS: ZINC SULFATE 220 MG CAP PO SCH (07:45)
[2021-08-01] MEDS: ASCORBIC ACID 500 MG TAB PO SCH (07:45)
[2021-08-01] MEDS: APIXABAN 5 MG TAB PO SCH ×2 (07:45→21:44)
[2021-08-01] MEDS: CHOLECALCIFEROL 25 MCG (1000 IU) TABLET PO SCH (07:45)
[2021-08-01] MEDS: SODIUM CHLORIDE 0.9% 1,000 ML IV SCH ×3 (07:46→23:29)
[2021-08-01 10:58] LABS: Basophils # (A) 0.01 X 10*3/uL (0.00-0.10); Basophils % (A) 0.1 %; Eosinophils # (A) 0.03 X 10*3/uL (0.04-0.35); Eosinophils % (A) 0.4 %; HCT 38.6 % (37.2-46.3); HGB 12.8 g/dL (12.0-15.0); Lymphocytes # (A) 1.79 X 10*3/uL (0.90-5.00); Lymphocytes % (A) 26.1 %; MCH 30.9 pg (27.0-32.0); MCHC 33.2 g/dL (32.0-37.0); MCV 93.2 fL (80.0-97.0); Mean Platelet Volume 10.2 fL (9.5-12.2); Monocytes # (A) 0.59 X 10*3/uL (0.20-1.00); Monocytes % (A) 8.6 %; Neutrophils % (A) 64.4 %; Platelet Count 147 X 10*3/uL (140-440); RBC 4.14 X 10*6/uL (4.10-5.20); RDW 12.3 % (11.5-14.5); WBC 6.85 X 10*3/uL (4.50-10.00)
[2021-08-01 11:01] LABS: African American GFR (CKD) 108.4 (60.0-200.0); Albumin/Globulin Ratio 1.5 (1.60-3.17); Anion Gap 7.9 mmol/L (4.00-12.00); BUN/Creat Ratio 12.86 Ratio (12.00-20.00); Calcium 8.3 mg/dL (8.7-10.3); Carbon Dioxide 25.1 mmol/L (21.6-31.8); Non-African American GFR(CKD) 93.5 (60.0-200.0); Total Bilirubin 1.1 mg/dL (0.30-1.20)
--- NOTE | 2021-08-01 11:19 | P.PN ---
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 She follows with Dr. Briseno. She states she developed COVID-19 approximate 2 weeks ago which was very mild with some fatigue and shortness breath however additionally she presented with constant epigastric pain which goes straight through to her back. Patient seen and examined at bedside, no distress. She denies any shortness of breath or chest pain. She does endorse some nausea and dry heaves. Labs reviewed, CBC unremarkable, sodium 142, potassium 4.0, BUN 9, serum creatinine 0.7, troponin negative 1. Patient is currently maintained on Eliquis 5 mg twice a day, aspirin 81mg daily, Pepcid, gabapentin, zinc. PHYSICAL EXAMINATION Vital signs reviewed. Patient seen from the hallway however was not examined secondary COVID-19 ASSESSMENT Atypical abdominal pain, does not appear typical of angina History of PFO status post PFO closure Moderate aortic stenosis by last echo 12/2020 Hypertension History of CVA with right hemiparesis History of left femoral DVT status post IVC filter in 2018, on eliquis PLAN Patient's chest pain appears very atypical. Troponin negative. We will check 2-D echo to evaluate left ventricular function. If no significant change in EF and no significant change in aortic stenosis would continue with further abdominal etiologies of pain and no further workup from a cardiology perspective. Objective - Vital Signs Vital signs: Vital Signs Temp 97.7 F 08/01/21 05:31 Pulse 56 L 08/01/21 05:31 Resp 18 08/01/21 02:19 BP 131/77 08/01/21 05:31 Pulse Ox 93 L 08/01/21 05:31 Intake & Output 07/31/21 08/01/21 08/01/21 18:59 06:59 18:59 Other: # Voids 1 2 - Labs CBC & Chem 7: 08/01/21 08:07 08/01/21 08:07 Labs: Abnormal Lab Results - Last 24 Hours (Table) 07/31/21 08/01/21 08/01/21 Range/Units 08:07 08:07 08:07 RBC 4.04 L (4.10-5.20) X 10*6/uL Plt Count 127 L (140-440) X 10*3/uL Eosinophils # 0.01 L 0.03 L (0.04-0.35) X 10*3/uL Calcium 8.3 L (8.7-10.3) mg/dL ALT 124 H (8-44) U/L Total Protein 5.0 L (6.2-8.2) g/dL Albumin 3.0 L (3.8-4.9) g/dL Albumin/Globulin Ratio 1.50 L (1.60-3.17) g/dL Microbiology - Last 24 Hours (Table) 07/29/21 23:15 Blood Culture - Preliminary Blood No Growth after 48 hours
[2021-08-01] MEDS: SENNOSIDES 8.6 MG TAB PO SCH ×2 (14:21→21:44)
[2021-08-01] MEDS: polyethylene glycoL 3350 17 GM POWD.PACK PO SCH (14:21)
--- NOTE | 2021-08-01 15:30 | P.PN ---
Subjective Progress Note Date: 08/01/21 This is a pleasant 60 years old female with past medical history of CVA/TIA, Fibromyalgia, Memory Impairment, Sleep Apnea/CPAP/BIPAP, CVA x 2 with some R arm/leg weakness and mild dysphasia. 12/06/2017 IVC filter blood clot left femoral. sarcoidosis involving lungs. PFO with surgery. chronic L abdominal pain past 2 yrs but constant since 08/2017. R eye glaucoma. hiatal hernia. occasional low back pain. tremors but states with anxiety. TATUM no longer needs to use CPAP, Anxiety, Depression Patient presents because of chest pain and upper abdominal pain. Patient says that her pain has been going on for about a week 68/10, currently down to 0/10 after she received Dilaudid this morning. Like something bunching her. No nausea vomiting. She vomited more than one day ago. She denies diarrhea. No urinary complaints. She tested positive for Covid on 07/14 and to this after that she was treated for UTI. No significant coughing. She denies smoking, alcohol or illicit drugs. She denies depression or suicidal ideation. Her ruby software developer is Dr. Briseno for open heart repair. And her neurologist is Dr. Gallagher for her history of stroke and right hemiparesis. Patient currently saturating 95% on room air. Done showing mild leukocytosis of 11.2, rest of CBC is unremarkable. Platelets are low at 132. INR 1.0. BMP is unremarkable except for mildly low sodium at 135., Creatinine 0.8. Liver enzymes slightly elevated with AST 143 and ALT 67 and bilirubin of 2.0. Lactated dehydrogenase is elevated at 1062 and C-reactive protein at 5.4 EKG showing normal sinus rhythm at [address]-T changes and QTC is 409. In the emergency room patient received normal saline, breathing treatment and pain medication and dexamethasone with pulmonary team consulted 07/31/2021 Patient is still complaining of from epigastric and right upper quadrant abdominal pain and tenderness, no nausea or vomiting but generally can eat because of pain. No bowel movements. No diarrhea. Vital signs stable, she is slightly bradycardic 45-56 but asymptomatic. Blood pressure is stable. Liver enzymes are trending down with AST 3:30 down to 74 and ALT 3 3 down to 178. Liver ultrasound showing no gallbladder, no biliary duct dilatation but there is suspicion of pancreatic disease or pancreatitis. We checked lipase and amylase and they were normal at 82 and 60 respectively. Pro-calcitonin is negative at 0.09. Keep patient nothing by mouth, continue with D5 normal saline at 130 milliliters per hour (discussed with the bedside nurse Lavinia ) and check CT of the abdomen and pelvis recommended by radiologist with IV contrast. Risks of nephrotoxicity are explained for the patient and she verbalized understanding and acceptance as she had CTA yesterday and her creatinine was normal this morning at 0.5 similar to yesterday 08/01/2021 Patient is seen and evaluated in follow-up this morning stating last night she was feeling well and this morning woke up with abdominal pain in the mid epigastric area and states she refused breakfast. Patient is not having any vomiting but is nauseated. Patient has Zofran as needed. Will add clear liquid diet and advance as tolerated. Pulmonary and cardiology following. Labs: White blood count is 6.85, hemoglobin is 12.8, platelets are 147, sodium is 142, potassium is 4.0, creatinine is 0.7, AST is 31, ALT trending down at 124, alk phos is 99 Review of Systems CONSTITUTIONAL: No fever, no malaise, no fatigue. HEENT: No recent visual problems or hearing problems. Denied any sore throat. CARDIOVASCULAR: No orthopnea, PND, no palpitations, no syncope. PULMONARY: No chest wall tenderness, no hemoptysis. GASTROINTESTINAL: No diarrhea, reports nausea, no reports of vomiting, Normoactive bowel sounds. Reports abdominal pain in the midepigastric area NEUROLOGICAL: No headaches, no weakness, no numbness. Active Medications Apixaban (Apixaban 5 Mg Tab) 5 mg PO BID [facility]; Protocol Last Admin: 08/01/21 07:45 Dose: 5 mg Documented by: Ascorbic Acid (Ascorbic Acid 500 Mg Tab) 1,000 mg PO DAILY [facility] Last Admin: 08/01/21 07:45 Dose: 1,000 mg Documented by: Aspirin (Aspirin 81 Mg) 81 mg PO HS [facility] Last Admin: 07/31/21 20:10 Dose: 81 mg Documented by: Cholecalciferol (Cholecalciferol 25 Mcg (1000 Iu) Tablet) 50 mcg PO DAILY [facility] Last Admin: 08/01/21 07:45 Dose: 50 mcg Documented by: Citalopram Hydrobromide (Citalopram Hydrobromide 20 Mg Tab) 20 mg PO DAILY [facility] Last Admin: 08/01/21 07:45 Dose: 20 mg Documented by: Famotidine (Famotidine 20 Mg Tab) 40 mg PO DAILY [facility] Last Admin: 08/01/21 07:45 Dose: 40 mg Documented by: Gabapentin (Gabapentin 300 Mg Cap) 300 mg PO BID [facility] Last Admin: 08/01/21 07:45 Dose: 300 mg Documented by: Hydromorphone HCl (Hydromorphone 1 Mg/Ml 1 Ml Syringe) 1 mg IVP Q4HR PRN PRN Reason: Pain Last Admin: 08/01/21 07:44 Dose: 1 mg Documented by: Sodium Chloride (Saline 0.9%) 1,000 mls @ 130 mls/hr IV .Q7H42M [facility] Last Admin: 08/01/21 07:46 Dose: 130 mls/hr Documented by: Lorazepam (Lorazepam 2 Mg/Ml Inj) 0.5 mg IV Q6HR PRN PRN Reason: Anxiety Naloxone HCl (Naloxone 0.4 Mg/Ml 1 Ml Vial) 0.2 mg IV Q2M PRN PRN Reason: Opioid Reversal Ondansetron HCl (Ondansetron 4 Mg/2 Ml Vial) 4 mg IVP Q8HR PRN PRN Reason: Nausea And Vomiting Last Admin: 08/01/21 07:44 Dose: 4 mg Documented by: Polyethylene Glycol (Polyethylene Glycol 3350 17 Gm Powd.Pack) 17 gm PO DAILY [facility] Last Admin: 08/01/21 14:21 Dose: 17 gm Documented by: Senna (Sennosides 8.6 Mg Tab) 8.6 mg PO BID [facility] Last Admin: 08/01/21 14:21 Dose: 8.6 mg Documented by: Zinc Sulfate (Zinc Sulfate 220 Mg Cap) 220 mg PO DAILY [facility] Last Admin: 08/01/21 07:45 Dose: 220 mg Documented by: Physical exam: GENERAL: The patient is alert and oriented x3, not in any acute distress. Well developed, well nourished. HEENT: Pupils are round and equally reacting to light. EOMI. No scleral icterus. No conjunctival pallor. Normocephalic, atraumatic. No pharyngeal erythema. No thyromegaly. CARDIOVASCULAR: S1 and S2 present. No murmurs, rubs, or gallops. PULMONARY: Chest is clear to auscultation, no wheezing or crackles. ABDOMEN: Soft, mid-epigastric tenderness with no rebound tenderness, RUQ tenderness but no rebound tenderness or guarding, non-distended, normoactive bowel sounds. No palpable organomegaly. MUSCULOSKELETAL: No joint swelling or deformity. EXTREMITIES: No cyanosis, clubbing, or pedal edema. NEUROLOGICAL: Gross neurological examination did not reveal any focal deficits. SKIN: No rashes. no petechiae. Assessment: Bilateral pneumonia suspicious for acute bilateral Covid infection Increased inflammatory markers Epigastric pain and tenderness rather than Lower anterior chest pain. There is suspicion of pancreatic disease. With mildly elevated liver enzymes History of CVA with right hemiparesis History of fibromyalgia History of sleep apnea, not on CPAP History of left femoral DVT status post IVC filter in 2018 History of sarcoidosis History of PFO status post surgery Chronic abdominal pain for more than 2 years History of hiatal hernia History of chronic low back pain History of anxiety, depression, not an active issue GI prophylaxis: Pepcid DVT prophylaxis: Eliquis Full code Plan: Recommend to continue with current medications, management, and symptomatic treatment. Patient continues with mid epigastric abdominal discomfort and states she is having some nausea with no vomiting. Patient underwent CT abdomen which was negative and showing no evidence of pancreatitis, postsurgical changes compatible with prior cholecystectomy, granuloma of the left lower lobe with bilateral lobe infiltrate correlate for pneumonitis or pneumonia. Will add clear liquid diet and encouraged meals and monitor for tolerance. Will continue Zofran as needed for nausea. Pulmonary and cardiology also following and patient is maintained on vitamin and zinc supplements and patient currently takes Eliquis and will continue. A 2-D echo was ordered and pending at this time. Further recommendations to follow based on the clinical course of the patient. Prognosis is guarded. Objective - Vital Signs Vital signs: Vital Signs Temp 97.7 F 08/01/21 05:31 Pulse 56 L 08/01/21 05:31 Resp 18 08/01/21 02:19 BP 131/77 08/01/21 05:31 Pulse Ox 93 L 08/01/21 05:31 Intake & Output 07/31/21 08/01/21 08/01/21 18:59 06:59 18:59 Other: # Voids 1 2 - Labs CBC & Chem 7: 08/01/21 08:07 08/01/21 08:07 Labs: Abnormal Lab Results - Last 24 Hours (Table) 07/31/21 Range/Units 08:07 RBC 4.04 L (4.10-5.20) X 10*6/uL Plt Count 127 L (140-440) X 10*3/uL Eosinophils # 0.01 L (0.04-0.35) X 10*3/uL Microbiology - Last 24 Hours (Table) 07/29/21 23:15 Blood Culture - Preliminary Blood No Growth after 48 hours
[2021-08-01] MEDS: ASPIRIN 81 MG PO SCH (21:44)
[2021-08-01 22:20] VITALS: RESP 17
--- NOTE | 2021-08-02 10:16 | P.PN ---
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 She follows with Dr. Briseno. She states she developed COVID-19 approximate 2 weeks ago which was very mild with some fatigue and shortness breath however additionally she presented with constant epigastric pain which goes straight through to her back. Patient seen and examined at bedside, no distress. She continues to have abdominal pain and back pain. She denies any shortness of breath or chest pain. Patient is currently maintained on Eliquis 5 mg twice a day, aspirin 81mg daily, Pepcid, gabapentin, zinc. Echocardiogram reviewed from December 2020 EF 5560 percent, interatrial closure device in place without evidence of shunt, mild aortic regurgitation, moderate aortic stenosis peak/mean gradient of 38 mmHg/25 mmHg. PHYSICAL EXAMINATION Vital signs blood pressure 134/79, heart rate 56, afebrile oxygen saturation is 94% on room air Patient seen from the hallway however was not examined secondary COVID-19 ASSESSMENT Atypical abdominal pain, does not appear typical of angina History of PFO status post PFO closure Moderate aortic stenosis by last echo 12/2020 Hypertension History of CVA with right hemiparesis History of left femoral DVT status post IVC filter in 2018, on eliquis PLAN Patient's chest pain appears very atypical. Troponin negative. Echocardiogram reviewed from December 2020. We will not repeat echocardiogram at this time. No further workup from a cardiology perspective. Please reach out with any further questions or concerns. Recommend follow up with her primary cemetery worker Dr. Briseno outpatient. Objective - Vital Signs Vital signs: Vital Signs Temp 97.5 F L 08/02/21 05:57 Pulse 56 L 08/02/21 05:57 Resp 17 08/02/21 05:57 BP 134/79 08/02/21 05:57 Pulse Ox 94 L 08/02/21 05:57 Intake & Output 08/01/21 08/02/21 08/02/21 18:59 06:59 18:59 Other: Voiding Method Toilet # Voids 4 4 - Labs CBC & Chem 7: 08/01/21 08:07 08/01/21 08:07 Labs: Abnormal Lab Results - Last 24 Hours (Table) 08/01/21 08/01/21 Range/Units 08:07 08:07 Eosinophils # 0.03 L (0.04-0.35) X 10*3/uL Calcium 8.3 L (8.7-10.3) mg/dL ALT 124 H (8-44) U/L Total Protein 5.0 L (6.2-8.2) g/dL Albumin 3.0 L (3.8-4.9) g/dL Albumin/Globulin Ratio 1.50 L (1.60-3.17) g/dL Microbiology - Last 24 Hours (Table) 07/29/21 23:15 Blood Culture - Preliminary Blood No Growth after 72 hours
[2021-08-02] MEDS: FAMOTIDINE 20 MG TAB PO SCH (10:42)
[2021-08-02] MEDS: ZINC SULFATE 220 MG CAP PO SCH (10:42)
[2021-08-02] MEDS: CHOLECALCIFEROL 25 MCG (1000 IU) TABLET PO SCH (10:42)
[2021-08-02] MEDS: SENNOSIDES 8.6 MG TAB PO SCH (10:42)
[2021-08-02] MEDS: GABAPENTIN 300 MG CAP PO SCH (10:42)
[2021-08-02] MEDS: CITALOPRAM HYDROBROMIDE 20 MG TAB PO SCH (10:42)
[2021-08-02] MEDS: APIXABAN 5 MG TAB PO SCH (10:43)
[2021-08-02] MEDS: ASCORBIC ACID 500 MG TAB PO SCH (10:43)
[2021-08-02] MEDS: polyethylene glycoL 3350 17 GM POWD.PACK PO SCH (10:43)
[2021-08-02] MEDS ORDERED: NA PHOS,M-B/NA PHOS,DI-BA 133 ML ENEMA RECTAL ONE (10:44)
[2021-08-02 11:32] VITALS: BP 119/77; PULSE 57; TEMP 97.8
== END 2021-08-02 16:11 | disposition home or self-care (01) | DRG 177 ==
LOC: EC 22:37 → 4SSUR 07-30 01:07
PROVIDERS: ADMIT Hospitalist; ATTEND Hospitalist
DX: U07.1 COVID-19 (principal); J12.82 Pneumonia due to coronavirus disease 2019; D68.9 Coagulation defect, unspecified; I69.351 Hemiplegia and hemiparesis following cerebral infarction affecting right dominant side; D86.9 Sarcoidosis, unspecified; F41.9 Anxiety disorder, unspecified; G25.0 Essential tremor; G47.33 Obstructive sleep apnea (adult) (pediatric); G89.29 Other chronic pain; H40.9 Unspecified glaucoma; I10 Essential (primary) hypertension; K44.9 Diaphragmatic hernia without obstruction or gangrene; M79.7 Fibromyalgia; I35.0 Nonrheumatic aortic (valve) stenosis; F32.9 Major depressive disorder, single episode, unspecified; R74.8 Abnormal levels of other serum enzymes; R31.9 Hematuria, unspecified; M54.9 Dorsalgia, unspecified; Z79.01 Long term (current) use of anticoagulants; Z79.02 Long term (current) use of antithrombotics/antiplatelets; Z79.82 Long term (current) use of aspirin; Z79.899 Other long term (current) drug therapy; Z82.0 Family history of epilepsy and other diseases of the nervous system; Z82.41 Family history of sudden cardiac death; Z82.49 Family history of ischemic heart disease and other diseases of the circulatory system; Z86.718 Personal history of other venous thrombosis and embolism; Z87.19 Personal history of other diseases of the digestive system; Z87.74 Personal history of (corrected) congenital malformations of heart and circulatory system; Z90.710 Acquired absence of both cervix and uterus; Z95.828 Presence of other vascular implants and grafts
CPT/HCPCS: 36415; 71275; 74177; 76705; 80048; 80053; 80076; 82150; 83605; 83615; 83690; 83735; 84145; 84484; 85025; 85379; 85610; 85730; 86140; 87040; 87635; 93005; 94640; 96361; 96374; 96375; 99285

== ENCOUNTER → 2022-02-23 | Outpatient (CLI) | payer OTHER ==
--- NOTE | 2022-02-24 15:23 | MM ---
Reason for Exam: Screening (asymptomatic). Last mammogram was performed 2 year(s) and 10 month(s) ago. Patient History: Menarche at age 11. First Full-Term at age 25. Hysterectomy at age 49. Postmenopausal. Currently using Estrogen, for 3 years. 08/20/2018, Benign Core Biopsy on the right side. Risk Values: Gaviota 5 year model risk: 2.0%. NCI Lifetime model risk: 9.0%. Prior Study Comparison: 07/12/2018 Bilateral Screening Mammogram, [facility]. 07/24/2018 Bilateral Diagnostic Mammogram, [facility]. 05/01/2019 Bilateral Diagnostic Mammogram, [facility]. Tissue Density: There are scattered fibroglandular densities. Findings: Analyzed By CAD. Multiple benign spherical calcifications are within the right breast. No significant interval changes are evident. Benign calcifications in the left breast. Markers within the right breast. Overall Assessment: Benign, BI-RAD 2 Management: Screening Mammogram of both breasts in 1 year. A clinical breast exam by your physician is recommended on an annual basis and results should be correlated with mammographic findings. Electronically signed and approved by: Frantz Piedra D.O. Radiologis
== END | disposition home or self-care (01) ==
LOC: RADMAMWWP 13:35
PROVIDERS: ATTEND Family Medicine
DX: Z12.31 Encounter for screening mammogram for malignant neoplasm of breast (principal)
CPT/HCPCS: 77067

== ENCOUNTER → 2023-03-15 | Outpatient (CLI) | payer OTHER ==
--- NOTE | 2023-03-15 18:50 | XR ---
EXAMINATION: XR chest 2V: 03/15/2023 5:57 PM CLINICAL INDICATION: J90 TECHNIQUE: Departmental protocol Additional: Post op without replacement surgery 2 weeks ago COMPARISON: 01/03/2021 CXR FINDINGS: There are scattered ill-defined opacities in the lung bases bilaterally, seen on both the frontal and lateral radiographs. The mid and upper lungs are clear and well expanded. Left lung base 12 mm calcification redemonstrated. The pleural spaces show mild blunting of the costophrenic angles. Sternal sutures and mediastinal clips, valve prosthesis. The cardiac silhouette appears mildly enlarg ed. The remainder of the mediastinal silhouette is unremarkable. The skeletal structures and soft tissues are negative for acute findings. IMPRESSION: Mild scattered bibasilar findings which can represent scattered atelectasis/scar, provided there is n o clinical concern for infection.
== END | disposition home or self-care (01) ==
LOC: RADXRMAIN 17:30
PROVIDERS: ATTEND Thoracic Surgery (Cardiothoracic Vascular Surgery)
DX: J90 Pleural effusion, not elsewhere classified (principal)
CPT/HCPCS: 71046

== ENCOUNTER → 2023-10-25 | Outpatient (CLI) | payer OTHER ==
--- NOTE | 2023-10-25 21:05 | MM ---
Reason for Exam: Screening (asymptomatic). Last mammogram was performed 1 year(s) and 8 month(s) ago. Patient History: Menarche at age 11. First Full-Term at age 25. Hysterectomy at age 49. Postmenopausal. Patient used Estrogen for 3 years. 08/20/2018, Benign Core Biopsy on the right side. Risk Values: Gaviota 5 year model risk: 2.1%. NCI Lifetime model risk: 8.7%. Prior Study Comparison: 01/27/2016 Screening Mammogram, [facility]. 07/12/2018 Bilateral Screening Mammogram, [facility]. 07/24/2018 Bilateral Diagnostic Mammogram, [facility]. 05/01/2019 Bilateral Diagnostic Mammogram, [facility]. 02/23/2022 Bilateral MG screening mammo w CAD, [facility]. Tissue Density: There are scattered fibroglandular densities. Findings: Analyzed By CAD. Benign oil cyst calcifications on the right. There is no suspicious group of microcalcifications or new suspicious mass in either breast. Overall Assessment: Benign, BI-RAD 2 Management: Screening Mammogram of both breasts in 1 year. . Patient should continue monthly self-breast exams. A clinical breast exam by your physician is recommended on an annual basis. This exam should not preclude additional follow-up of suspicious palpable abnormalities. Note on Gaviota scores and lifetime risk: 1. A Gaviota score greater than 3% is considered moderate risk. If this is the case, consider specialist referral to assess eligibility for a risk reducing agent. 2. If overall lifetime risk for the development of breast cancer is 20% or higher, the patient may qualify for future screening with alternating mammogram and breast MRI. Electronically signed and approved by: Keira Rhodes M.D. Radiologist
== END | disposition home or self-care (01) ==
LOC: RADMAMWWP 09:46
PROVIDERS: ATTEND Family Medicine
DX: Z12.31 Encounter for screening mammogram for malignant neoplasm of breast (principal); Z78.0 Asymptomatic menopausal state
CPT/HCPCS: 77063; 77067

== ENCOUNTER 2023-10-31 08:49 | Emergency (ER) | payer OTHER ==
--- NOTE | 2023-10-31 09:22 | ED ---
General Adult HPI - General Chief complaint: Abdominal Pain Stated complaint: PAIN RIGHT BACK/LEG Time Seen by Provider: 10/31/23 08:54 Source: patient, RN notes reviewed, old records reviewed Mode of arrival: ambulatory Limitations: no limitations - History of Present Illness Initial comments: 62-year-old female presenting for evaluation of right-sided lower abdominal pain. Patient's pain has been present over the past 24 hours. There is associated nausea without vomiting. Patient had normal bowel movements yesterday. No dysuria, no hematuria. Pain does radiate into the right anterior thigh and right flank. - Related Data Home Medications Medication Instructions Recorded Confirmed Apixaban [Eliquis] 5 mg PO BID 12/12/17 07/30/21 Aspirin [Adult Low Dose Aspirin EC] 81 mg PO HS 01/10/18 07/30/21 Citalopram Hydrobromide [CeleXA] 20 mg PO DAILY 10/06/18 07/30/21 Folic Acid 1 mg PO DAILY 10/06/18 07/30/21 Gabapentin [Neurontin] 300 mg PO BID 01/03/21 07/30/21 L.acidoph,Paracasei, B.lactis 1 cap PO DAILY 01/03/21 07/30/21 [Probiotic] [employer] 1 cap PO DAILY 01/03/21 07/30/21 Previous Rx's Medication Instructions Recorded Ascorbic Acid [Vitamin C] 1,000 mg PO DAILY 30 Days #60 tab 08/02/21 Cholecalciferol [Vitamin D3 (25 50 mcg PO DAILY 30 Days #60 tablet 08/02/21 Mcg = 1000 Iu)] Famotidine [Pepcid] 40 mg PO DAILY 30 Days #60 tab 08/02/21 HYDROcodone/APAP 5-325MG [Cincinnatus 1 tab PO Q6HR PRN 3 Days #10 tab 08/02/21 5-325] Sennosides [Senokot] 8.6 mg PO BID 30 Days #60 tab 08/02/21 Zinc Sulfate [Orazinc] 220 mg PO DAILY 30 Days #30 cap 08/02/21 Allergies Allergy/AdvReac Type Severity Reaction Status Date / Time adhesive tape Allergy Rash/Hives Verified 10/31/23 08:54 celecoxib [From Celebrex] Allergy Unknown Verified 10/31/23 08:54 ciprofloxacin [From Cipro] Allergy Unknown Verified 10/31/23 08:54 Sulfa (Sulfonamide Allergy Unknown Verified 10/31/23 08:54 Antibiotics) morphine AdvReac Vomiting Verified 10/31/23 08:54 phenazopyridine AdvReac Unknown Verified 10/31/23 08:54 [From Pyridium] Review of Systems ROS Statement: Those systems with pertinent positive or pertinent negative responses have been documented in the HPI. ROS Other: All systems not noted in ROS Statement are negative. 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 12/06/2017 IVC filter blood clot left femoral. sarcoidosis involving lungs. PFO with surgery. chronic L abdominal pain past 2 yrs but constant since 08/2017. R eye glaucoma. hiatal hernia. colon polyp r emoved 01/14/18. occasional low back pain. tremors but states with anxiety. TATUM no longer needs to use CPAP History of Any Multi-Drug Resistant Organisms: None Reported Past Surgical History: Adenoidectomy, Back Surgery, Cholecystectomy, Hysterecto my, Tonsillectomy Additional Past Surgical History / Comment(s): 01/14/18 EGD with bx/colonoscopy with polypectomy benign, 01/09/18 needle biopsy lungs d/t enlarged lymph nodes benign, 12/06/17 R groin accessed and IVC clot "broken up and removed but some pieces left", GFF, PFO repair at [facility] [place], 09/2017 cervical fusion, lumbar surgery 1988, deviated septal surgery, bilateral cataract removal with lens, R eye laser surgery for glaucoma, benign skin lesion removed. Past Anesthesia/Blood Transfusion Reactions: Postoperative Nausea & Vomiting (PONV) Past Psychological History: Anxiety, Depression Smoking Status: Never smoker Past Alcohol Use History: None Reported Past Drug Use History: None Reported - Past Family History Mother Family Medical History: Coronary Artery Disease (CAD), Myocardial Infarction (GA) Additional Family Medical History / Comment(s): Mother at the age of 64yrs from GA. Maternal grandmother from a GA at the age of 63 yrs. Father History Unknown: Yes Additional Family Medical History / Comment(s): committed suicide Brother(s) Family Medical History: Coronary Artery Disease (CAD), Myocardial Infarction (GA) Additional Family Medical History / Comment(s): Brother at 59yrs from GA/cardiac arrest. Sister(s) Family Medical History: Deep Vein Thrombosis (DVT) Additional Family Medical History / Comment(s): multiple sclerosis General Exam Limitations: no limitations General appearance: alert, in no apparent distress Head exam: Present: atraumatic, normocephalic Eye exam: Present: normal appearance, PERRL ENT exam: Present: normal exam Neck exam: Present: normal inspection. Absent: tenderness, meningismus Respiratory exam: Present: normal lung sounds bilaterally. Absent: respiratory distress, wheezes Cardiovascular Exam: Present: regular rate, normal rhythm GI/Abdominal exam: Present: soft, tenderness (Right-sided tenderness). Absent: distended, guarding, rebound Extremities exam: Present: normal inspection, normal capillary refill Neurological exam: Present: alert, oriented X3 Psychiatric exam: Present: normal affect, normal mood Skin exam: Present: warm, dry, intact Course Vital Signs 10/31/23 10/31/23 08:50 09:54 Temperature 98.4 F Pulse Rate 73 68 Respiratory 18 18 Rate Blood Pressure 121/68 123/60 O2 Sat by Pulse 96 95 Oximetry Medical Decision Making - Medical Decision Making Was pt. sent in by a medical professional or institution (, PA, ETL ARCHITECT, urgent care, hospital, or fci...) When possible be specific @ -No Did you speak to anyone other than the patient for history (EMS, parent, family, police, friend...)? What history was obtained from this source @ -No Did you review nursing and triage notes (agree or disagree)? Why? @ -I reviewed and agree with nursing and triage notes Were old charts reviewed (outside hosp., previous admission, EMS record, old EKG, old radiological studies, urgent care reports/EKG's, fci records)? Report findings @ -No old charts were reviewed Differential Diagnosis (chest pain, altered mental status, abdominal pain women, abdominal pain men, vaginal bleeding, weakness, fever, dyspnea, syncope, headache, dizziness, GI bleed, back pain, seizure, CVA, palpatations, mental health, musculoskeletal)? @ -Not applicable EKG interpreted by me (3pts min.). @ -As above X-rays interpreted by me (1pt min.). @ -None done CT interpreted by me (1pt min.). @ -CT abdomen pelvis negative for obstructive uropathy, negative for appendicitis, showing likely enteritis of the ileum U/S interpreted by me (1pt. min.). @ -None done What testing was considered but not performed or refused? (CT, X-rays, U/S, labs)? Why? @ -None What meds were considered but not given or refused? Why? @ -None Did you discuss the management of the patient with other professionals (professionals i.e. , PA, ETL ARCHITECT, lab, RT, psych nurse, social media community manager, butcher, teacher, inshore undersea warfare officer, hospice case manager)? Give summary @ -No Was smoking cessation discussed for >3mins.? @ -No Was critical care preformed (if so, how long)? @ -No Were there social determinants of health that impacted care today? How? (Homelessness, low income, unemployed, alcoholism, drug addiction, transportation, low edu. Level, literacy, decrease access to med. care, fci, rehab)? @ -No Was there de-escalation of care discussed even if they declined (Discuss DNR or withdrawal of care, Hospice)? DNR status @ -No What co-morbidities impacted this encounter? (DM, HTN, Smoking, COPD, CAD, Cancer, CVA, ARF, Chemo, Hep., AIDS, mental health diagnosis, sleep apnea, morbid obesity)? @ -Valvular heart disease, IVC filter, previous cholecystectomy Was patient admitted / discharged? Hospital course, mention meds given and route, prescriptions, significant lab abnormalities, going to OR and other pertinent info. @ -[62-year-old female with right lower quadrant abdominal pain. Patient is tender on the right side of her abdomen without rebound or guarding. Vital signs are stable. She has normal CBC, normal CMP, urinalysis showing trace hematuria otherwise unremarkable. CT of the abdomen pelvis with contrast shows an enteritis without other acute findings. Patient will monitor symptoms at home. Follow-up with primary care provider. Undiagnosed new problem with uncertain prognosis? @ -No Drug Therapy requiring intensive monitoring for toxicity (Heparin, Nitro, Insulin, Cardizem)? @ -No Were any procedures done? @ -No Diagnosis/symptom? @Abdominal pain Acute, or Chronic, or Acute on Chronic? @ -[Acute Uncomplicated (without systemic symptoms) or Complicated (systemic symptoms)? @ -Complicated Side effects of treatment? @ -No Exacerbation, Progression, or Severe Exacerbation? @ -No Poses a threat to life or bodily function? How? (Chest pain, USA, GA, pneumonia, PE, COPD, DKA, ARF, appy, cholecystitis, CVA, Diverticulitis, Homicidal, Suicidal, threat to staff... and all critical care pts) @ -Low risk at this time - Lab Data Result diagrams: 10/31/23 09:32 10/31/23 09:32 Lab Results 10/31/23 10/31/23 10/31/23 Range/Units 09:32 09:32 09:32 WBC 5.6 (3.8-10.6) k/uL RBC 4.44 (3.80-5.40) m/uL Hgb 13.7 (11.4-16.0) gm/dL Hct 41.5 (34.0-46.0) % MCV 93.4 (80.0-100.0) fL MCH 30.9 (25.0-35.0) pg MCHC 33.1 (31.0-37.0) g/dL RDW 13.8 (11.5-15.5) % Plt Count 116 L (150-450) k/uL MPV 7.7 Neutrophils % 46 % Lymphocytes % 35 % Monocytes % 11 % Eosinophils % 5 % Basophils % 0 % Neutrophils # 2.6 (1.3-7.7) k/uL Lymphocytes # 2.0 (1.0-4.8) k/uL Monocytes # 0.6 (0-1.0) k/uL Eosinophils # 0.3 (0-0.7) k/uL Basophils # 0.0 (0-0.2) k/uL PT 10.5 (10.0-12.5) sec INR 0.9 (<1.2) APTT 23.4 (22.0-30.0) sec Sodium (137-145) mmol/L Potassium (3.5-5.1) mmol/L Chloride (98-107) mmol/L Carbon Dioxide (22-30) mmol/L Anion Gap mmol/L BUN (7-17) mg/dL Creatinine (0.52-1.04) mg/dL Est GFR (CKD-EPI)AfAm (>60 ml/min/1.73 sqM) Est GFR (CKD-EPI)NonAf (>60 ml/min/1.73 sqM) Glucose (74-99) mg/dL Plasma Lactic Acid Lee (0.7-2.0) mmol/L Calcium (8.4-10.2) mg/dL Total Bilirubin (0.2-1.3) mg/dL AST (14-36) U/L ALT (4-34) U/L Alkaline Phosphatase (38-126) U/L Total Protein (6.3-8.2) g/dL Albumin (3.5-5.0) g/dL Amylase (30-110) U/L Lipase (23-300) U/L Urine Color Yellow Urine Appearance Clear (Clear) Urine pH 7.0 (5.0-8.0) Ur Specific [place] 1.024 (1.001-1.035) Urine Protein Negative (Negative) Urine Glucose (UA) Negative (Negative) Urine Ketones Negative (Negative) Urine Blood Trace H (Negative) Urine Nitrite Negative (Negative) Urine Bilirubin Negative (Negative) Urine Urobilinogen <2.0 (<2.0) mg/dL Ur Leukocyte Esterase Negative (Negative) Urine RBC 12 H (0-5) /hpf Urine WBC 1 (0-5) /hpf Ur Squamous Epith Cells 2 (0-4) /hpf Urine Mucus Occasional H (None) /hpf 10/31/23 10/31/23 Range/Units 09:32 09:32 WBC (3.8-10.6) k/uL RBC (3.80-5.40) m/uL Hgb (11.4-16.0) gm/dL Hct (34.0-46.0) % MCV (80.0-100.0) fL MCH (25.0-35.0) pg MCHC (31.0-37.0) g/dL RDW (11.5-15.5) % Plt Count (150-450) k/uL MPV Neutrophils % % Lymphocytes % % Monocytes % % Eosinophils % % Basophils % % Neutrophils # (1.3-7.7) k/uL Lymphocytes # (1.0-4.8) k/uL Monocytes # (0-1.0) k/uL Eosinophils # (0-0.7) k/uL Basophils # (0-0.2) k/uL PT (10.0-12.5) sec INR (<1.2) APTT (22.0-30.0) sec Sodium 139 (137-145) mmol/L Potassium 4.6 (3.5-5.1) mmol/L Chloride 107 (98-107) mmol/L Carbon Dioxide 28 (22-30) mmol/L Anion Gap 4 mmol/L BUN 18 H (7-17) mg/dL Creatinine 0.84 (0.52-1.04) mg/dL Est GFR (CKD-EPI)AfAm 86 (>60 ml/min/1.73 sqM) Est GFR (CKD-EPI)NonAf 74 (>60 ml/min/1.73 sqM) Glucose 96 (74-99) mg/dL Plasma Lactic Acid Lee 1.1 (0.7-2.0) mmol/L Calcium 9.0 (8.4-10.2) mg/dL Total Bilirubin 0.8 (0.2-1.3) mg/dL AST 30 (14-36) U/L ALT 15 (4-34) U/L Alkaline Phosphatase 78 (38-126) U/L Total Protein 7.0 (6.3-8.2) g/dL Albumin 3.9 (3.5-5.0) g/dL Amylase 85 (30-110) U/L Lipase 128 (23-300) U/L Urine Color Urine Appearance (Clear) Urine pH (5.0-8.0) Ur Specific [place] (1.001-1.035) Urine Protein (Negative) Urine Glucose (UA) (Negative) Urine Ketones (Negative) Urine Blood (Negative) Urine Nitrite (Negative) Urine Bilirubin (Negative) Urine Urobilinogen (<2.0) mg/dL Ur Leukocyte Esterase (Negative) Urine RBC (0-5) /hpf Urine WBC (0-5) /hpf Ur Squamous Epith Cells (0-4) /hpf Urine Mucus (None) /hpf Disposition Clinical Impression: Abdominal pain Disposition: HOME SELF-CARE Condition: Good Instructions (If sedation given, give patient instructions): Abdominal Pain (ED) Is patient prescribed a controlled substance at d/c from ED?: No Referrals: Alexander Clement DO [Primary Care Provider] - 1-2 days Time of Disposition: 10:37
[2023-10-31 09:42] VITALS: RESP 18; TEMP 98.4
[2023-10-31] MEDS: HYDROmorphone 0.5 MG/0.5 ML SYRINGE IVP STA ×2 (09:43→10:49)
[2023-10-31] MEDS: ONDANSETRON 4 MG/2 ML VIAL IVP STA (09:54)
[2023-10-31 09:56] LABS: Basophils % (A) 0 %; Eosinophils # (A) 0.3 k/uL (0-0.7); Eosinophils % (A) 5 %; HCT 41.5 % (34.0-46.0); HGB 13.7 gm/dL (11.4-16.0); Lymphocytes % (A) 35 %; MCH 30.9 pg (25.0-35.0); MCHC 33.1 g/dL (31.0-37.0); MCV 93.4 fL (80.0-100.0); Mean Platelet Volume 7.7; Monocytes # (A) 0.6 k/uL (0-1.0); Monocytes % (A) 11 %; Neutrophils # (A) 2.6 k/uL (1.3-7.7); Neutrophils % (A) 46 %; Platelet Count 116 k/uL (150-450); RBC 4.44 m/uL (3.80-5.40); RDW 13.8 % (11.5-15.5); WBC 5.6 k/uL (3.8-10.6)
[2023-10-31 10:01] LABS: Appearance,Urine Clear (Clear); Bilirubin,Urine Negative (Negative); Blood,Urine Trace (Negative); Color,Urine Yellow; Glucose,Urine (UA) Negative (Negative); INR 0.9 (<1.2); Ketones,Urine Negative (Negative); Leukocyte Esterase,Urine Negative (Negative); Mucus,Urine Occasional /hpf; Nitrite,Urine Negative (Negative); Partial Thromboplastin Time 23.4 sec (22.0-30.0); Protein,Urine Negative (Negative); Prothrombin Time 10.5 sec (10.0-12.5); RBC,Urine 12 /hpf (0-5); Specific Gravity,Urine 1.024 (1.001-1.035); Squamous Epithelial Cell,Urine 2 /hpf (0-4); Urobilinogen,Urine <2.0 mg/dL (<2.0); WBC,Urine 1 /hpf (0-5)
[2023-10-31 10:05] LABS: ALT 15 U/L (4-34); African American GFR (CKD) 86 (>60 ml/min/1.73 sqM); Amylase 85 U/L (30-110); Anion Gap 4 mmol/L; Blood Urea Nitrogen 18 mg/dL (7-17); Carbon Dioxide 28 mmol/L (22-30); Chloride 107 mmol/L (98-107); Glucose 96 mg/dL (74-99); Lipase 128 U/L (23-300); Non-African American GFR(CKD) 74 (>60 ml/min/1.73 sqM); Sodium 139 mmol/L (137-145); Total Bilirubin 0.8 mg/dL (0.2-1.3)
[2023-10-31 10:10] LABS: AST 30 U/L (14-36); Albumin 3.9 g/dL (3.5-5.0); Alkaline Phosphatase 78 U/L (38-126); Potassium 4.6 mmol/L (3.5-5.1)
--- NOTE | 2023-10-31 10:32 | CT ---
EXAMINATION TYPE: CT abdomen pelvis w con DATE OF EXAM: 10/31/2023 COMPARISON: 07/31/2021 HISTORY: RLQ pain CT DLP: 1628.4 mGycm CONTRAST: CT scan of the abdomen and pelvis is performed without Oral Contrast and with IV Contrast, patient in jected with 100 mL of Isovue 300. FINDINGS: LUNG BASES-: No visible nodule. No infiltrate. There is evidence of remote granulomatous disease. LIVER/GB: The gallbladder is surgically absent. No space occupying hepatic lesion. Biliary tree is of normal caliber. PANCREAS: No inflammation. No distinct mass. SPLEEN: No splenic enlargement. No lesion seen. ADRENALS: No nodule. No thickening. KIDNEYS/BLADDER: No hydronephrosis. No nephrolithiasis. No distinct renal mass. Urinary bladder g rossly unremarkable. BOWEL: Normal appendix. Fluid disc loops measuring up to 2.6 cm and reflect enteritis. Correlate clin ically. No evidence of free air or abscess. No inflammatory process appreciated. GENITAL ORGANS: Hysterectomy changes noted. No evidence for adnexal mass. LYMPH NODES: No greater than 1cm abdominal or pelvic lymph nodes are appreciated. AORTA: No significant abnormality. OSSEOUS STRUCTURES: No significant abnormality is seen. OTHER: IVC filter is noted to be in place. IMPRESSION: 1. Correlate for ileal enteritis. 2. Remote granulomatous disease. 3. Normal appendix.
[2023-10-31 11:14] VITALS: BP 143/90; PULSE 63
== END 2023-10-31 11:01 | disposition home or self-care (01) ==
LOC: EC 08:49
DX: K52.9 Noninfective gastroenteritis and colitis, unspecified (principal); G47.30 Sleep apnea, unspecified; F41.9 Anxiety disorder, unspecified; F32.A Depression, unspecified; Z86.73 Personal history of transient ischemic attack (TIA), and cerebral infarction without residual deficits; Z79.82 Long term (current) use of aspirin; Z79.01 Long term (current) use of anticoagulants; Z91.09 Other allergy status, other than to drugs and biological substances; Z88.2 Allergy status to sulfonamides; Z88.5 Allergy status to narcotic agent; Z88.8 Allergy status to other drugs, medicaments and biological substances; Z79.899 Other long term (current) drug therapy; Z88.1 Allergy status to other antibiotic agents; Z88.6 Allergy status to analgesic agent
CPT/HCPCS: 99284 ×2; 96374 ×2; 96375 ×2; 96376 ×2; 12011; 36415; 80053; 82150; 83605; 83690; 85025; 85610; 85730; 81001; 74177; J2405; J1170; Q9967

== ENCOUNTER 2023-12-05 07:23 | Day surgery (SDC) | payer OTHER ==
[2023-12-03 14:40] VITALS: BMI 33.9
[~2023-12-05 07:23] MED LIST changes: +LIDOCAINE 1% (10MG/ML) FOR IV START INTRADERMA PRN; -REGADENOSON 0.4 MG/5 ML SYRINGE IV ONE
[2023-12-05] MEDS: LACTATED RINGERS 1,000 ML IV SCH (07:55)
[2023-12-05 08:12] VITALS: TEMP 97.3
[2023-12-05] MEDS ORDERED: ONDANSETRON 4 MG/2 ML VIAL ONE (08:53)
[2023-12-05] MEDS ORDERED: PROPOFOL 10 MG/ML 20 ML VIAL IV ONE (08:53)
[2023-12-05 09:25] VITALS: PULSE 60
--- NOTE | 2023-12-05 09:33 | P.PCN ---
Date of Procedure: 12/05/23 Procedure(s) Performed: BRIEF HISTORY: Patient is a 62-year-old pleasant white female scheduled for an elective colonoscopy as a part of screening for colon cancer PROCEDURE PERFORMED: Colonoscopy with snare polypectomy. PREOPERATIVE DIAGNOSIS: Screening for colon cancer. IV sedation per Anesthesia. PROCEDURE: After informed consent was obtained, the patient, was brought into the endoscopy unit. IV sedation was administered by Anesthesia under continuous monitoring. Digital rectal examination was normal. Initially the Olympus CF-160 flexible video colonoscope was then inserted in the rectum, gradually advanced into the cecum without any difficulty. Careful examination was performed as the scope was gradually being withdrawn. Ileocecal valve and the appendiceal orifice were visualized and appeared normal. Prep was excellent. Mucosa of the cecum and 8 mm sessile polyp that was removed by cold snare polypectomy. Rest of the, ascending colon, transverse colon, descending colon, sigmoid colon, and rectum appeared normal. Scattered sigmoid diverticulosis Retroflexion was performed in the rectum and no lesions were seen. The patient tolerated the procedure well. IMPRESSION: 8 mm cecal polyp status post cold snare polypectomy Scattered sigmoid diverticulosis RECOMMENDATIONS: Findings of this examination were discussed with the patient as well as a family. She was advised to follow with the biopsy results. If the biopsy reveals adenoma she can have a repeat colonoscopy in 5 years..
[2023-12-05 10:00] VITALS: BP 97/63; RESP 18
== END 2023-12-05 09:58 | disposition home or self-care (01) ==
LOC: ORWHC2ENDO 07:23
PROVIDERS: ATTEND Internal Medicine Gastroenterology
DX: Z12.11 Encounter for screening for malignant neoplasm of colon (principal); D12.0 Benign neoplasm of cecum; K57.30 Diverticulosis of large intestine without perforation or abscess without bleeding; I10 Essential (primary) hypertension; E78.5 Hyperlipidemia, unspecified; I25.10 Atherosclerotic heart disease of native coronary artery without angina pectoris; G47.33 Obstructive sleep apnea (adult) (pediatric); F41.9 Anxiety disorder, unspecified; F32.A Depression, unspecified; Z79.01 Long term (current) use of anticoagulants; Z86.73 Personal history of transient ischemic attack (TIA), and cerebral infarction without residual deficits; Z88.1 Allergy status to other antibiotic agents; Z88.6 Allergy status to analgesic agent; Z88.5 Allergy status to narcotic agent; Z88.2 Allergy status to sulfonamides; Z79.899 Other long term (current) drug therapy
CPT/HCPCS: 45385; J2405; J2704; 88305

== ENCOUNTER 2024-04-27 13:05 | Observation (INO) | payer OTHER ==
--- NOTE | 2024-04-27 15:03 | ED ---
Chest Pain HPI - General Source: patient, RN notes reviewed, old records reviewed Mode of arrival: ambulatory Limitations: no limitations - History of Present Illness MD Complaint: chest pain -: hour(s) Onset: during rest, during exertion Pain Location: substernal, left chest Pain Radiation: none Severity: mild Severity scale (1-10): 2 Quality: aching Consistency: constant Improves With: nothing Worsens With: nothing Anginal Symptoms: sense of impending doom Other Symptoms: palpitations Treatments Prior to Arrival: none <Max Ruiz - Last Filed: 05/21/24 02:41> <Ranjana Gilliland - Last Filed: 05/28/24 19:16> - General Chief Complaint: Chest Pain Stated Complaint: Chest pain, Vomiting Time Seen by Provider: 04/27/24 14:48 - History of Present Illness Initial Comments: This is a 63-year-old female to the ER for today. Patient presents today for evaluation regards to chest pain. Patient has history of reflux type chest pain but this does feel different, she awoke feeling fine went to bed feeling fine last night but has left-sided chest pain that developed this afternoon and persistent here in the ER she does feel weak, no shortness of breath here currently but has had shortness of breath today and no diaphoresis (Max Ruiz) - Related Data Home Medications Medication Instructions Recorded Confirmed Apixaban [Eliquis] 5 mg PO BID 12/12/17 04/27/24 Citalopram Hydrobromide [CeleXA] 20 mg PO DAILY 10/06/18 04/27/24 Clopidogrel [Plavix] 75 mg PO DAILY 12/03/23 04/27/24 Rosuvastatin Calcium 5 mg PO HS 12/03/23 04/27/24 Cyanocobalamin (Vitamin B-12) 1,000 mcg PO DAILY 04/27/24 04/27/24 [Vitamin B-12] Famotidine [Pepcid] 20 mg PO BID 04/27/24 04/27/24 Folic Acid 1 mg PO DAILY 04/27/24 04/27/24 Gabapentin [Neurontin] 600 mg PO DAILY 04/27/24 04/27/24 Metoprolol Tartrate [Lopressor] 12.5 mg PO BID 04/27/24 04/27/24 Nitroglycerin Sl Tabs [Nitrostat] 0.4 mg SUBLINGUAL Q5M PRN 04/27/24 04/27/24 Allergies Allergy/AdvReac Type Severity Reaction Status Date / Time adhesive tape Allergy Rash/Hives Verified 04/27/24 17:32 celecoxib [From Celebrex] Allergy Rash/Hives Verified 04/27/24 17:32 ciprofloxacin [From Cipro] Allergy Nausea & Verified 04/27/24 17:32 Vomiting Sulfa (Sulfonamide Allergy Rash/Hives Verified 04/27/24 17:32 Antibiotics) morphine AdvReac Vomiting Verified 04/27/24 17:32 phenazopyridine AdvReac blood Verified 04/27/24 17:32 [From Pyridium] pressure changes. Review of Systems ROS Other: All systems not noted in ROS Statement are negative. <Max Ruiz - Last Filed: 05/21/24 02:41> ROS Other: All systems not noted in ROS Statement are negative. <Ranjana Gilliland - Last Filed: 05/28/24 19:16> ROS Statement: Those systems with pertinent positive or pertinent negative responses have been documented in the HPI. 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 12/06/2017 IVC filter blood clot left femoral. sarcoidosis involving lungs. PFO with surgery. hx colon polyps , hearing aids, sleep apnea resolved with heart surgery. History of Any Multi-Drug Resistant Organisms: None Reported Past Surgical History: Adenoidectomy, Back Surgery, Cholecystectomy, Hysterectomy, Tonsillectomy Additional Past Surgical History / Comment(s): 01/14/18 EGD with bx/colonoscopy with polypectomy benign, 01/09/18 needle biopsy lungs d/t enlarged lymph nodes benign, 12/06/17 R groin accessed and IVC clot "broken up and removed but some pieces left", GFF, PFO repair at [facility], 09/2017 cervical fusion, lumbar surgery 1989, deviated septal surgery, bilateral cataract removal with lens, R eye laser surgery for glaucoma, benign skin lesion removed. Past Anesthesia/Blood Transfusion Reactions: Postoperative Nausea & Vomiting (PONV) Past Psychological History: Anxiety, Depression Smoking Status: Never smoker Past Alcohol Use History: None Reported Past Drug Use History: None Reported - Past Family History Mother Family Medical History: Coronary Artery Disease (CAD), Myocardial Infarction ([place]) Additional Family Medical History / Comment(s): Mother at the age of 64yrs from [place]. Maternal grandmother from a [place] at the age of 63 yrs. Father History Unknown: Yes Additional Family Medical History / Comment(s): committed suicide Brother(s) Family Medical History: Coronary Artery Disease (CAD), Myocardial Infarction ([place]) Additional Family Medical History / Comment(s): Brother at 59yrs from [place]/cardiac arrest. Sister(s) Family Medical History: Deep Vein Thrombosis (DVT) Additional Family Medical History / Comment(s): multiple sclerosis <Max Ruiz - Last Filed: 05/21/24 02:41> General Exam Limitations: no limitations General appearance: alert, in no apparent distress, anxious Head exam: Present: atraumatic, normocephalic, normal inspection Eye exam: Present: normal appearance, PERRL, EOMI. Absent: scleral icterus, conjunctival injection, periorbital swelling ENT exam: Present: normal exam, mucous membranes moist Neck exam: Present: normal inspection. Absent: tenderness, meningismus, lymphadenopathy Respiratory exam: Present: normal lung sounds bilaterally. Absent: respiratory distress, wheezes, rales, rhonchi, stridor Cardiovascular Exam: Present: regular rate, normal rhythm, normal heart sounds. Absent: systolic murmur, diastolic murmur, rubs, gallop, clicks GI/Abdominal exam: Present: soft, normal bowel sounds. Absent: distended, tenderness, guarding, rebound, rigid Extremities exam: Present: normal inspection, full ROM, normal capillary refill. Absent: tenderness, pedal edema, joint swelling, calf tenderness Back exam: Present: normal inspection Neurological exam: Present: alert, oriented X3, CN II-XII intact Psychiatric exam: Present: normal affect, normal mood Skin exam: Present: warm, dry, intact, normal color. Absent: rash <Max Ruiz - Last Filed: 05/21/24 02:41> Course <Max Ruiz - Last Filed: 05/21/24 02:41> Vital Signs 04/27/24 04/27/24 13:16 21:00 Temperature 97.7 F Pulse Rate 96 64 Respiratory 18 16 Rate Blood Pressure 145/96 123/56 O2 Sat by Pulse 94 L 95 Oximetry - Reevaluation(s) Reevaluation #1: 04/27/24 15:01 Records reviewed (BillietylerMax Brito) Reevaluation #2: 04/27/24 17:08 Patient symptoms unchanged here in the ER still with chest pain (Max Ruiz) Reevaluation #3: 04/27/24 17:09 Patient informed of results and questions answered (Max Ruiz) Reevaluation #4: Was pt. sent in by a medical professional or institution (, PA, CASTING FINISHER, urgent care, hospital, or [facility]...) When possible be specific @ -no Did you speak to anyone other than the patient for history (EMS, parent, family, police, friend...)? What history was obtained from this source @ -no Did you review nursing and triage notes (agree or disagree)? Why? @ -agree Are old charts reviewed (outside hosp., previous admission, EMS record, old EKG, old radiological studies, urgent care reports/EKG's, [facility] records)? Report findings @ -yes Differential Diagnosis (chest pain, altered mental status, abdominal pain women, abdominal pain men, vaginal bleeding, weakness, fever, dyspnea, syncope, headache, dizziness, GI bleed, back pain, seizure, CVA, palpatations, mental health, musculoskeletal)? @ -prior EKG interpreted by me (3pts min.). @ -yes X-rays interpreted by me (1pt min.). @ -yes negative for acute disease CT interpreted by me (1pt min.). @ -no U/S interpreted by me (1pt. min.). @ -no What testing was considered but not performed or refused? (CT, X-rays, U/S, labs)? Why? @ -none What meds were considered but not given or refused? Why? @ -none Did you discuss the management of the patient with other professionals (professionals i.e. DrClint, PA, CASTING FINISHER, lab, RT, psych nurse, social economist, manager of compliance, teacher, seaman officer, insurance case manager)? Give summary @ -no Was smoking cessation discussed for >3mins.? @ -no Was critical care preformed (if so, how long)? @ -yes31 Were there social determinants of health that impacted care today? How? (Homelessness, low income, unemployed, alcoholism, drug addiction, transportation, low edu. Level, literacy, decrease access to med. care, residential, rehab)? @ -none Was there de-escalation of care discussed even if they declined (Discuss DNR or withdrawal of care, Hospice)? DNR status @ -no What co-morbidities impacted this encounter? (DM, HTN, Smoking, COPD, CAD, Cancer, CVA, ARF, Chemo, Hep., AIDS, mental health diagnosis, sleep apnea, morbid obesity)? @ -none Was patient admitted / discharged? Hospital course, mention meds given and route, prescriptions, significant lab abnormalities, going to OR and other pertinent info. @ - 63 female to the ER for evaluation presenting with chest pain today. Patient will be admitted for chest pain observation Admitted Undiagnosed new problem with uncertain prognosis? @ -no Drug Therapy requiring intensive monitoring for toxicity (Heparin, Nitro, Insulin, Cardizem)? @ -no Were any procedures done? @ -no Diagnosis/symptom? @ -Chest pain Acute, or Chronic, or Acute on Chronic? @ -Acute Uncomplicated (without systemic symptoms) or Complicated (systemic symptoms)? @ -Complicated Side effects of treatment? @ -no Exacerbation, Progression, or Severe Exacerbation? @ -exacerbation Poses a threat to life or bodily function? How? (Chest pain, [place], [place], pneumonia, PE, COPD, DKA, ARF, appy, cholecystitis, CVA, Diverticulitis, Homicidal, Suicidal, threat to staff... and all critical care pts) @ -yes with chest pain (Max Ruiz) Reevaluation #5: Differential Chest Pain: Stable Angina, Unstable Angina, STEMI, NSTEMI Aortic Dissection, Pneumothorax, Musculoskeletal, Esophageal Spasm GERD, Cholecystitis, Pancreatitis, Zoster, this is not meant to be an all-inclusive list. (Max Ruiz) - Consultations Consultation #1: Spoke with [facility] who agrees to admit this patient (Max Ruiz) Chest Pain MDM <Max Ruiz - Last Filed: 05/21/24 02:41> <Ranjana Gilliland - Last Filed: 05/28/24 19:16> - MDM 63 female to the ER for evaluation presenting with chest pain today. Patient will be admitted for chest pain observation (Max Ruiz) I was called to bedside by RN, as the ED phsician available in the ER, when patient began having "right sided facial and RUE, RLE tingling", patient admitted to Dr. Farley earlier this evening and RN unable to get in touch with admitting team so I responded to assess patient. On assessment patient AOx4, NIH1-2 for mild decreased sensation to right sided extremities, clear speech for me however RN who has been caring for her throughout the night feels speech may be more slowed compared to earlier. Stroke alert was called due to endorsed new neuro deficits, however pt not tNK candidate, on eliquis and plavix. Spoke with Dr. Cespedes, Neurointerventionalist. Dr. Farley updated to pt's change in status. CT brain, CTA negative for acute process. CT brain w/ old posterior left temporal parietal infarct. (Ranjana Gilliland) Critical Care Time Critical Care Time: Yes Total Critical Care Time: 31 <Max Ruiz - Last Filed: 05/21/24 02:41> Disposition Is patient prescribed a controlled substance at d/c from ED?: No Time of Disposition: 17:00 <Max Ruiz - Last Filed: 05/21/24 02:41> <Ranjana Gilliland - Last Filed: 05/28/24 19:16> Clinical Impression: Chest pain, Altered mental state, Delirium, Acute drug withdrawal syndrome, Abdominal pain, Atypical chest pain Disposition: ADMITTED IP TO THIS HOSP Condition: Serious
--- NOTE | 2024-04-27 15:19 | XR ---
EXAMINATION TYPE: XR chest 2V DATE OF EXAM: 04/27/2024 3:14 PM CLINICAL INDICATION:Female, 63 years old with history of Chest Pain; [facility] COMPARISON: Chest radiographs from 03/15/2023 TECHNIQUE: XR chest 2V Frontal and lateral views of the chest. FINDINGS: Lungs/Pleura: There is no evidence of pleural effusion, focal consolidation, or pneumothorax. Stable left lung nodule. Pulmonary vascularity: Unremarkable. Heart/mediastinum: Cardiomediastinal silhouette is unremarkable. Musculoskeletal: No acute osseous pathology. Cervical fusion hardware again identified. Sternotomy wi res are present and intact. IMPRESSION: No acute cardiopulmonary disease/process.
[2024-04-27] MEDS: ONDANSETRON 4 MG/2 ML VIAL IVP STA (16:03)
[2024-04-27] MEDS: SODIUM CHLORIDE 0.9% 1,000 ML IV STA (16:06)
[2024-04-27 16:25] LABS: Basophils % (A) 0 %; Eosinophils # (A) 0.3 k/uL (0-0.7); Eosinophils % (A) 3 %; HCT 45.8 % (34.0-46.0); Lymphocytes # (A) 1.5 k/uL (1.0-4.8); Lymphocytes % (A) 17 %; MCH 31.7 pg (25.0-35.0); MCHC 32.8 g/dL (31.0-37.0); MCV 96.7 fL (80.0-100.0); Mean Platelet Volume 7.4; Monocytes # (A) 0.5 k/uL (0-1.0); Monocytes % (A) 6 %; Neutrophils # (A) 6.4 k/uL (1.3-7.7); Neutrophils % (A) 73 %; Platelet Count 123 k/uL (150-450); RBC 4.73 m/uL (3.80-5.40); RDW 12.9 % (11.5-15.5); WBC 8.8 k/uL (3.8-10.6)
[2024-04-27 16:36] LABS: INR 1.1 (<1.2); Partial Thromboplastin Time 25.9 sec (22.0-30.0); Prothrombin Time 11.7 sec (10.0-12.5)
[2024-04-27 16:37] LABS: ALT 13 U/L (4-34); AST 29 U/L (14-36); African American GFR (CKD) >90 (>60 ml/min/1.73 sqM); Alkaline Phosphatase 72 U/L (38-126); Anion Gap 7 mmol/L; Blood Urea Nitrogen 15 mg/dL (7-17); Calcium 9.1 mg/dL (8.4-10.2); Carbon Dioxide 23 mmol/L (22-30); Chloride 109 mmol/L (98-107); Glucose 94 mg/dL (74-99); Non-African American GFR(CKD) 81 (>60 ml/min/1.73 sqM); Potassium 4.2 mmol/L (3.5-5.1); Sodium 139 mmol/L (137-145); Total Bilirubin 1.1 mg/dL (0.2-1.3); Total Protein 6.8 g/dL (6.3-8.2)
[2024-04-27] MEDS ORDERED: NITROGLYCERIN SL TABS 0.4 MG TAB SUBLINGUAL PRN (18:35)
--- NOTE | 2024-04-27 18:38 | P.HPIM ---
History of Present Illness H&P Date: 04/27/24 Chief Complaint: Chest pain 63-year-old female, history of hyperlipidemia, fibromyalgia, sleep apnea, TIA/CVA, hypertension, presents to the ER for today. Patient presents today for evaluation regards to chest pain. Patient has history of reflux type chest pain but this does feel different, she awoke feeling fine went to bed feeling fine last night but has left-sided chest pain that developed this afternoon and persistent here in the ER she does feel weak, no shortness of breath here currently but has had shortness of breath today and no diaphoresis Blood work reveals WBC of 8.8, hemoglobin of 15 and platelet count of 123, sodium 139, potassium 4.2, BUNs/creatinine of 15/0.78, troponin less than 0.012 EKG completed in ED does not reveal any acute ST or T wave changes Chest x-ray reveals no acute cardiopulmonary process Review of Systems REVIEW OF SYSTEMS: CONSTITUTIONAL: No fever, no malaise, no fatigue. HEENT: No recent visual problems or hearing problems. Denied any sore throat. CARDIOVASCULAR: No chest pain, orthopnea, PND, no palpitations, no syncope. PULMONARY: No shortness of breath, no cough, no hemoptysis. GASTROINTESTINAL: No diarrhea, no nausea, no vomiting, no abdominal pain. NEUROLOGICAL: No headaches, no weakness, no numbness. HEMATOLOGICAL: Denies any bleeding or petechiae. GENITOURINARY: Denies any burning micturition, frequency, or urgency. MUSCULOSKELETAL/RHEUMATOLOGICAL: Denies any joint pain, swelling, or any muscle pain. ENDOCRINE: Denies any polyuria or polydipsia. The rest of the 14-point review of systems is negative. Past Medical History Past Medical History: CVA/TIA, Fibromyalgia, Hyperlipidemia, Memory Impairment, Sleep Apnea/CPAP/BIPAP Additional Past Medical History / Comment(s): CVA x 2 with some R arm/leg weakness and mild dysphasia. 12/06/2017 IVC filter blood clot left femoral. sarcoidosis involving lungs. PFO with surgery. hx colon polyps , hearing aids, sleep apnea resolved with heart surgery. History of Any Multi-Drug Resistant Organisms: None Reported Past Surgical History: Adenoidectomy, Back Surgery, Cholecystectomy, Hysterectomy, Tonsillectomy Additional Past Surgical History / Comment(s): 01/14/18 EGD with bx/colonoscopy with polypectomy benign, 01/09/18 needle biopsy lungs d/t enlarged lymph nodes benign, 12/06/17 R groin accessed and IVC clot "broken up and removed but some pieces left", GFF, PFO repair at [facility] [place], 09/2017 cervical fusion, lumbar surgery 1988, deviated septal surgery, bilateral cataract removal with lens, R eye laser surgery for glaucoma, benign skin lesion removed. Past Anesthesia/Blood Transfusion Reactions: Postoperative Nausea & Vomiting (PONV) Past Psychological History: Anxiety, Depression Smoking Status: Never smoker Past Alcohol Use History: None Reported Past Drug Use History: None Reported - Past Family History Mother Family Medical History: Coronary Artery Disease (CAD), Myocardial Infarction ([place]) Additional Family Medical History / Comment(s): Mother at the age of 64yrs from [place]. Maternal grandmother from a [place] at the age of 63 yrs. Father History Unknown: Yes Additional Family Medical History / Comment(s): committed suicide Brother(s) Family Medical History: Coronary Artery Disease (CAD), Myocardial Infarction ([place]) Additional Family Medical History / Comment(s): Brother at 59yrs from [place]/cardiac arrest. Sister(s) Family Medical History: Deep Vein Thrombosis (DVT) Additional Family Medical History / Comment(s): multiple sclerosis Medications and Allergies Home Medications Medication Instructions Recorded Confirmed Type Apixaban [Eliquis] 5 mg PO BID 12/12/17 04/27/24 History Citalopram Hydrobromide [CeleXA] 20 mg PO DAILY 10/06/18 04/27/24 History Clopidogrel [Plavix] 75 mg PO DAILY 12/03/23 04/27/24 History Rosuvastatin Calcium 5 mg PO HS 12/03/23 04/27/24 History Cyanocobalamin (Vitamin B-12) 1,000 mcg PO DAILY 04/27/24 04/27/24 History [Vitamin B-12] Famotidine [Pepcid] 20 mg PO BID 04/27/24 04/27/24 History Folic Acid 1 mg PO DAILY 04/27/24 04/27/24 History Gabapentin [Neurontin] 600 mg PO DAILY 04/27/24 04/27/24 History Metoprolol Tartrate [Lopressor] 12.5 mg PO BID 04/27/24 04/27/24 History Nitroglycerin Sl Tabs [Nitrostat] 0.4 mg SUBLINGUAL Q5M PRN 04/27/24 04/27/24 History Allergies Allergy/AdvReac Type Severity Reaction Status Date / Time adhesive tape Allergy Rash/Hives Verified 04/27/24 17:32 celecoxib [From Celebrex] Allergy Rash/Hives Verified 04/27/24 17:32 ciprofloxacin [From Cipro] Allergy Nausea & Verified 04/27/24 17:32 Vomiting Sulfa (Sulfonamide Allergy Rash/Hives Verified 04/27/24 17:32 Antibiotics) morphine AdvReac Vomiting Verified 04/27/24 17:32 phenazopyridine AdvReac blood Verified 04/27/24 17:32 [From Pyridium] pressure changes. Physical Exam Vitals: Vital Signs Temp Pulse Resp BP Pulse Ox 04/27/24 13:16 97.7 F 96 18 145/96 94 L Intake and Output 04/27/24 04/27/24 04/27/24 06:59 14:59 22:59 Other: Weight 97.522 kg General appearance: alert, in no apparent distress Head exam: Present: atraumatic, normocephalic, normal inspection Eye exam: Present: normal appearance, PERRL, EOMI. Absent: scleral icterus, conjunctival injection, periorbital swelling ENT exam: Present: normal exam, mucous membranes moist Neck exam: Present: normal inspection. Absent: tenderness, meningismus, lymphadenopathy Respiratory exam: Present: normal lung sounds bilaterally. Absent: respiratory distress, wheezes, rales, rhonchi, stridor Cardiovascular Exam: Present: regular rate, normal rhythm, normal heart sounds. Absent: systolic murmur, diastolic murmur, rubs, gallop, clicks GI/Abdominal exam: Present: soft, normal bowel sounds. Absent: distended, tenderness, guarding, rebound, rigid Extremities exam: Present: normal inspection, full ROM, normal capillary refill. Absent: tenderness, pedal edema, joint swelling, calf tenderness Neurological exam: Present: alert, oriented X3, CN II-XII intact Psychiatric exam: Present: normal affect, normal mood Skin exam: Present: warm, dry, intact, normal color. Absent: rash Results CBC & Chem 7: 04/27/24 14:46 04/27/24 14:46 Labs: Abnormal Lab Results - Last 24 Hours (Table) 04/27/24 04/27/24 Range/Units 14:46 14:46 Plt Count 123 L (150-450) k/uL Chloride 109 H (98-107) mmol/L Assessment and Plan Assessment: 1. Chest pain rule out acute coronary syndrome -Patient will be admitted to telemetry; need for EKG and trend troponin -EKG completed in ED does not reveal any acute process Patient has been placed on aspirin, statins, Plavix and Eliquis -Will consult cardiology for further evaluation 2. Hypertension; continue home dose of metoprolol 25 mg twice daily 3. Hyperlipidemia; Crestor 5 mg p.o. nightly 4. History of CVA/TIA; patient remains on aspirin statin and Plavix 5. History of DVT; continue with home dose of Eliquis; patient is status post IVC filter placement 6. Fibromyalgia; Neurontin 600 mg daily 7. Vitamin B12 and vitamin D deficiency; continue with home supplement 8. Depression anxiety; Celexa 20 mg daily DVT prophylaxis; SCDs/Eliquis CODE STATUS; full code
[2024-04-27] MEDS: NITROGLYCERIN SL TABS 0.4 MG TAB SUBLINGUAL PRN (19:55)
[2024-04-27] MEDS: METOPROLOL TARTRATE 12.5 MG TAB PO SCH (21:48)
[2024-04-27] MEDS: ATORVASTATIN 10 MG TAB PO SCH (21:48)
[2024-04-27] MEDS: FAMOTIDINE 20 MG TAB PO SCH (21:49)
[2024-04-27] MEDS: ASPIRIN 81 MG PO STA (21:49)
[2024-04-27] MEDS: APIXABAN 5 MG TAB PO SCH (21:49)
[2024-04-28 00:02] LABS: Glucose,Whole Blood 92 mg/dL (70-110)
--- NOTE | 2024-04-28 00:41 | CT ---
EXAM: CT Head Without Intravenous Contrast CLINICAL HISTORY: Neuro deficit, acute, stroke suspected TECHNIQUE: Axial computed tomography images of the head/brain without intravenous contrast. CTDI is 48.8 mGy and DLP is 1143 mGy-cm. This CT exam was performed using one or more of the following dose reduction techniques: automated exposure control, adjustment of the mA and/or kV according to patient size, and/or use of iterative reconstruction technique. COMPARISON: 01/03/2021. FINDINGS: Brain: Old posterior left temporal-parietal infarct. Ventricle and sulci are otherwise normal in size and configuration for age. No acute stroke. No acute hemorrhage. No abnormal extra-axial fluid collection. Ventricles: No hydrocephalus. No midline shift. Bones/joints: Unremarkable. No acute fracture. Soft tissues: Unremarkable. Sinuses: Unremarkable as visualized. No acute sinusitis. IMPRESSION: No acute stroke or hemorrhage. Old posterior left temporal-parietal infarct
--- NOTE | 2024-04-28 01:05 | XR ---
EXAM: XR Chest, 1 View CLINICAL HISTORY: XR Reason: altered mental status TECHNIQUE: Frontal view of the chest. COMPARISON: April 27, 2024 FINDINGS: Lungs: There is a calcified granuloma measuring 1.3 cm in the left lower lobe, unchanged. Pleural space: Unremarkable. No pneumothorax. Heart: See below. Mediastinum: Unremarkable. Normal mediastinal contour. Bones/joints: Previous 2 level fusion in the lower cervical spine. Multiple sternal wires. The cardiac silhouette is enlarged. No acute fracture. Vasculature: Prominent vascular and interstitial markings in the perihilar regions and lung bases, increased since previous. Upper abdomen: Unremarkable as visualized. No pneumoperitoneum under the diaphragm. IMPRESSION: 1. Multiple sternal wires. The cardiac silhouette is enlarged. 2. Prominent vascular and interstitial markings in the perihilar regions and lung bases, increased since previous. This is likely due to lower lung volumes although some component of CHF and atelectasis may also be present.
--- NOTE | 2024-04-28 01:14 | CT ---
EXAM: CT Angiography Head With Intravenous Contrast CLINICAL HISTORY: Neuro deficit, acute, stroke suspected TECHNIQUE: Axial computed tomographic angiography images of the head with intravenous contrast. CTDI is 20.8 mGy and DLP is 287 mGy-cm. This CT exam was performed using one or more of the following dose reduction techniques: automated exposure control, adjustment of the mA and/or kV according to patient size, and/or use of iterative reconstruction technique. 3D and MIP reconstructed images were created and reviewed. COMPARISON: CT Brain 04-27-2024. CTA Head 01/03/2021 FINDINGS: Right internal carotid artery: Minimal calcified plaque at the cavernous internal carotid artery with intact distal runoff. No aneurysm. Right anterior cerebral artery: Unremarkable. No occlusion or significant stenosis. No aneurysm. Right middle cerebral artery: Unremarkable. No occlusion or significant stenosis. No aneurysm. Right posterior cerebral artery: Unremarkable. No occlusion or significant stenosis. No aneurysm. Right vertebral artery: Unremarkable as visualized. Left internal carotid artery: Minimal calcified plaque at the cavernous internal carotid artery with intact distal runoff. No aneurysm. Left anterior cerebral artery: Unremarkable. No occlusion or significant stenosis. No aneurysm. Left middle cerebral artery: Mild narrowing of the distal left middle cerebral artery and proximal trifurcation branches, unchanged. No occlusion or significant stenosis. No aneurysm. Left posterior cerebral artery: Unremarkable. No occlusion or significant stenosis. No aneurysm. Left vertebral artery: Unremarkable as visualized. Basilar artery: Unremarkable. No occlusion or significant stenosis. No aneurysm. IMPRESSION: No large vessel occlusion. Mild narrowing of the distal left middle cerebral artery and proximal trifurcation branches, unchanged. EXAM: CT Angiography Neck With Intravenous Contrast CLINICAL HISTORY: Neuro deficit, acute, stroke suspected TECHNIQUE: Routine carotid CT angiography protocol was performed with intravenous contrast. NASCET criteria using the distal ICAs for comparison were used for evaluation of stenoses. CTDI is 20.8 mGy and DLP is 287 mGy-cm. This CT exam was performed using one or more of the following dose reduction techniques: automated exposure control, adjustment of the mA and/or kV according to patient size, and/or use of iterative reconstruction technique. 3D and MIP reconstructed images were created and reviewed. COMPARISON: CTA Neck 01/03/2021 FINDINGS: VASCULATURE: Right common carotid artery: Unremarkable. No occlusion or significant stenosis. No dissection. Right internal carotid artery: Mild calcified plaque at the right carotid bulb without a hemodynamically significant stenosis. No dissection. Right external carotid artery: Unremarkable. No occlusion. Right vertebral artery: Unremarkable. No occlusion or significant stenosis. No dissection. Left common carotid artery: Unremarkable. No occlusion or significant stenosis. No dissection. Left internal carotid artery: Moderate calcified plaque at the left carotid bulb without a hemodynamically significant stenosis. No dissection. Left external carotid artery: Unremarkable. No occlusion. Left vertebral artery: Unremarkable. No occlusion or significant stenosis. No dissection. NECK: Bones/joints: Postoperative and degenerative changes of the cervical spine. Status post sternotomy. Bilateral probable apical scarring. No acute fracture. Soft tissues: Unremarkable. Lung apices: Clear. CAROTID STENOSIS REFERENCE USING NASCET CRITERIA: % ICA stenosis = (1 - narrowest ICA diameter/diameter of distal cervical ICA) x 100. Mild - <50% stenosis. Moderate - 50-69% stenosis. Severe - 70-94% stenosis. Near occlusion - 95-99% stenosis. Occluded - 100% stenosis. IMPRESSION: No hemodynamically significant stenosis.
[2024-04-28] MEDS: ONDANSETRON 4 MG/2 ML VIAL IVP STA (02:10)
[2024-04-28] MEDS: MORPHINE SULFATE 4 MG/ML SYRINGE IVP STA (02:10)
[2024-04-28 03:42] VITALS: TEMP 97.1
[2024-04-28] MEDS: diphenhydrAMINE 50 MG/ML 1 ML VIAL IVP STA (03:49)
[2024-04-28 04:11] LABS: Glucose,Whole Blood 86 mg/dL (70-110)
[2024-04-28 04:30] VITALS: BP 110/63
[2024-04-28 06:08] VITALS: PULSE 64; RESP 12
[2024-04-28] MEDS ORDERED: ATORVASTATIN 80 MG TAB PO SCH (09:00)
[2024-04-28] MEDS ORDERED: CYANOCOBALAMIN 500 MCG TAB PO SCH (09:00)
[2024-04-28] MEDS ORDERED: CITALOPRAM HYDROBROMIDE 20 MG TAB PO SCH (09:00)
[2024-04-28] MEDS ORDERED: GABAPENTIN 300 MG CAP PO SCH (09:00)
[2024-04-28] MEDS ORDERED: CLOPIDOGREL 75 MG TAB PO SCH (09:00)
[2024-04-28] MEDS ORDERED: FOLIC ACID 1 MG TAB PO SCH (09:00)
[2024-04-28] MEDS ORDERED: ASPIRIN 325 MG TAB PO SCH (09:00)
[2024-04-28] MEDS ORDERED: GABAPENTIN 300 MG CAP ONE (09:18)
[2024-04-28] MEDS ORDERED: CLOPIDOGREL 75 MG TAB ONE (09:18)
[2024-04-28] MEDS ORDERED: FAMOTIDINE 20 MG TAB ONE ×2 (09:18→20:02)
[2024-04-28] MEDS ORDERED: ASPIRIN 325 MG TAB ONE (09:18)
[2024-04-28] MEDS ORDERED: METOPROLOL TARTRATE 12.5 MG TAB ONE ×2 (09:20→20:10)
[2024-04-28] MEDS ORDERED: ATORVASTATIN 80 MG TAB ONE (09:21)
[2024-04-28] MEDS ORDERED: APIXABAN 5 MG TAB ONE ×2 (09:21→20:02)
[2024-04-28] MEDS ORDERED: FOLIC ACID 1 MG TAB ONE (09:21)
[2024-04-28] MEDS ORDERED: CYANOCOBALAMIN 500 MCG TAB ONE (09:21)
[2024-04-28] MEDS ORDERED: CITALOPRAM HYDROBROMIDE 20 MG TAB ONE (09:21)
[2024-04-28] MEDS ORDERED: ATORVASTATIN 10 MG TAB ONE (20:02)
--- NOTE | 2024-05-16 15:51 | HP ---
HISTORY AND PHYSICAL HISTORY OF PRESENT ILLNESS: The patient is a pleasant 63-year-old female who came in with complaints of tingling and numbness started yesterday in the left hand. The patient does have some residual weakness from her previous stroke in the past. The patient denies any increased weakness at this time. Her tingling and numbness lasted for about 3 hours. The patient does take Eliquis and aspirin at home. Patient does have history of some clotting disorder for which patient takes Eliquis. REVIEW OF SYSTEMS: All other review of systems are negative except those mentioned above. PAST MEDICAL HISTORY: Significant for CVA, blood clotting disorder. HOME MEDICATIONS: I do not have any home medication list available at this time. All the labs are essentially within normal limits. SOCIAL HISTORY: Not available at this time. FAMILY HISTORY: Not available at this time. PHYSICAL EXAMINATION: VITAL SIGNS: Blood pressure 110/63, heart rate 60, saturating at 94% on room air. The patient is afebrile. PHYSICAL EXAMINATION: GENERAL: The patient is alert and oriented x3, not in any acute distress. Well developed, well nourished. HEENT: Pupils are round and equally reacting to light. EOMI. No scleral icterus. No conjunctival pallor. Normocephalic, atraumatic. No pharyngeal erythema. No thyromegaly. CARDIOVASCULAR: S1 and S2 present. No murmurs, rubs, or gallops. PULMONARY: Chest is clear to auscultation, no wheezing or crackles. ABDOMEN: Soft, nontender, nondistended, normoactive bowel sounds. No palpable organomegaly. MUSCULOSKELETAL: No joint swelling or deformity. EXTREMITIES: No cyanosis, clubbing, or pedal edema. SKIN: No rashes. NEUROLOGIC: The patient does not have any new focal deficits, but the patient does have some chronic weakness with 4+/5 strength in the right upper and lower extremities. LABORATORY DATA: Troponins are negative. BNP is 1580. Rest of the labs are essentially within normal limits. The patient is receiving fluids at 75 mL/hour. ASSESSMENT/PLAN: 1. Pure sensory TIA/stroke, probably in the thalamic area. Neurology was consulted and the patient had a CT of the head and CT angio of the head and neck, all of which were negative. The patient underwent echocardiogram, results are pending. Recommendation regarding MRI as per Neurology. The patient will be resumed on Eliquis and aspirin. 2. History of some clotting disorder for which the patient is on Eliquis, which will be resumed and continued. For the rest of her chronic medical problems, the patient will be resumed on appropriate home medications. All the rest of her medical problems and medications are not available at this time. The patient appears to be on Eliquis, citalopram, Plavix, Cyanocobalamin, famotidine, Neurontin, and metoprolol all of which can be resumed. 3. Depression. The patient will be resumed on citalopram. 4. Peripheral neuropathy for which patient is on Neurontin, which will be resumed. MMODL / IJN: [id number] / OMARI
== END 2024-04-29 13:00 | disposition home or self-care (01) ==
LOC: EC 13:05 → 6NMEDSUR 17:08
PROVIDERS: ADMIT Hospitalist; ATTEND Hospitalist
DX: R07.89 Other chest pain (principal); I10 Essential (primary) hypertension; E78.5 Hyperlipidemia, unspecified; G47.30 Sleep apnea, unspecified; F32.A Depression, unspecified; F41.9 Anxiety disorder, unspecified; G62.9 Polyneuropathy, unspecified; E53.8 Deficiency of other specified B group vitamins; E55.9 Vitamin D deficiency, unspecified; M79.7 Fibromyalgia; I69.321 Dysphasia following cerebral infarction; I69.351 Hemiplegia and hemiparesis following cerebral infarction affecting right dominant side; Z86.718 Personal history of other venous thrombosis and embolism; Z79.82 Long term (current) use of aspirin; Z79.01 Long term (current) use of anticoagulants; Z79.899 Other long term (current) drug therapy; Z79.02 Long term (current) use of antithrombotics/antiplatelets; Z88.1 Allergy status to other antibiotic agents; Z88.2 Allergy status to sulfonamides; Z88.5 Allergy status to narcotic agent
CPT/HCPCS: 36415; 93005; 80053; 83690; 83735; 84484; 85025; 85610; 85730; 71046; J2405; 70450; 70496; 70498; 71045; 80048; 80061; 93306; 96361; 96374; 96375; 96376; 99291

== ENCOUNTER → 2024-06-23 | Outpatient (CLI) | payer OTHER ==
--- NOTE | 2024-06-23 11:43 | US ---
EXAMINATION TYPE: US venous doppler duplex LE LT DATE OF EXAM: 06/23/2024 11:34 AM COMPARISON: CLINICAL INDICATION: Female, 63 years old with history of M79.605 PAIN LEFT LEG; Factor 5. On blood thinners x 2. Left groin green screen. Patient states she feel x 1 week ago. No redness. Pain. SIDE PERFORMED: Left TECHNIQUE: The lower extremity deep venous system is examined utilizing real time linear array sonog florentin with graded compression, doppler sonography and color-flow sonography. VESSELS IMAGED: Common Femoral Vein Deep Femoral Vein Greater Saphenous Vein * Femoral Vein Popliteal Vein Small Saphenous Vein * Proximal Calf Veins (* superficial vessels) Left Leg: Appears negative for DVT IMPRESSION: Grayscale, color doppler, spectral doppler imaging performed of the deep veins of the lo wer extremities. There is normal flow, compressibility, vascular waveforms. [facility], , 06/23/2024 11:41 AM
== END | disposition home or self-care (01) ==
LOC: RADUSWWP 11:13
PROVIDERS: ATTEND Family Medicine
DX: M79.605 Pain in left leg

== ENCOUNTER → 2024-09-02 | Outpatient (CLI) | payer OTHER ==
[2024-09-02 15:45] VITALS: BP 114/71; PULSE 84; RESP 16; TEMP 97.9
--- NOTE | 2024-09-02 16:31 | P.SLEEP ---
History of Present Illness H&P Date: 09/02/24 39-year-old female patient is coming in for reevaluation regarding obstructive sleep apnea. Patient has history of obstructive sleep apnea. She was diagnosed back in 2005. At that time, the patient continued to have 1500 disease with worsening of sleep with an AHI of 24 during REM. Her disease was also positional worsened in supine body position. I offered her CPAP therapy and the patient used the treatment for quite some time and subsequently she quits. She came in for an evaluation back in April 2020 she underwent a medical visit 920 and at that time, the patient was found to have mild positional obstructive sleep apnea with AHI of 5.3, her disease was worse in supine with a position with an AHI of 16.3 while being supine. No significant nocturnal oxygen saturation. Her sleep efficiency was reduced at 74%. Treatment was offered. Note that back exam, the patient used to weigh around 290 pounds. Since then, the patient has lost additional weight and currently she is weighing 214. Nevertheless, she was found to have valvular heart disease and aortic valve stenosis and the patient underwent a aortic valve replacement February 2023. She also has history of. For which she has undergone closure. 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 She also encountered atrial fibrillation. Following her cardiac surgery and the patient is current on anticoagulation with Eliquis. She continues to snore. She has increased fatigue and tiredness which is more than the usual. She is going to bed around 10 PM and waking up 8 AM in the morning. No nocturia. No grinding. No sleepwalking. No restlessness in lower extremities. She is feeling fatigued and and sleepy during the day. The [place] score is at 7. She is currently sleeping on her side. Mostly paralysis. No hallucinations. No cataplexy. No anxiety. No depression. Review of Systems Constitutional: Reports daytime sleepiness, Reports fatigue Eyes: denies as per HPI, denies blurred vision, denies bulging eye, denies decreased vision, denies diplopia, denies discharge, denies dry eye, denies irri tation, denies itching, denies pain, denies photophobia, denies loss of peripheral vision, denies loss of vision, denies tunnel vision/blind spots Ears: deny: decreased hearing, ear discharge, earache, tinnitus Ears, nose, mouth and throat: Reports as per HPI Breasts: absent: as per HPI, change in shape, gynecomastia, masses, nipple discharge, pain, skin changes, swelling Cardiovascular: Reports as per HPI Respiratory: Reports sleep apnea, Reports snoring Gastrointestinal: Reports as per HPI Genitourinary: Reports as per HPI Menstruation: Reports as per HPI Musculoskeletal: Reports as per HPI Musculoskeletal: absent: ankle pain, ankle stiffness, ankle swelling, as per HPI, elbow pain, elbow stiffness, elbow swelling, foot pain, foot stiffness, foot swelling, hand pain, hand stiffness, hand swelling, hip pain, hip stiffness, hip swelling, knee pain, knee stiffness, knee swelling, shoulder pain, shoulder stiffness, shoulder swelling, wrist pain, wrist stiffness, wrist swelling Integumentary: Reports as per HPI Neurological: Reports as per HPI Psychiatric: Reports as per HPI Endocrine: Reports as per HPI, Reports fatigue Hematologic/Lymphatic: Reports as per HPI Allergic/Immunologic: Reports as per HPI Past Medical History Past Medical History: CVA/TIA, Fibromyalgia, Hyperlipidemia, Memory Impairment, Sleep Apnea/CPAP/BIPAP Additional Past Medical History / Comment(s): CVA x 2 with some R arm/leg weakness and mild dysphasia. 12/06/2017 IVC filter blood clot left femoral. sarcoidosis involving lungs. PFO with surgery. hx colon polyps , hearing aids. Heart disease with previous aortic valve placement History of Any Multi-Drug Resistant Organisms: None Reported Past Surgical History: Adenoidectomy, Back Surgery, Cholecystectomy, Hysterectomy, Tonsillectomy Additional Past Surgical History / Comment(s): 01/14/18 EGD with bx/colonoscopy with polypectomy benign, 01/09/18 needle biopsy lungs d/t enlarged lymph nodes benign, 12/06/17 R groin accessed and IVC clot "broken up and removed but some pieces left", GFF, PFO repair at [facility] [place], 09/2017 cervical fusion, lumbar surgery 1988, deviated septal surgery, bilateral cataract removal with lens, R eye laser surgery for glaucoma, benign skin lesion removed. Past Anesthesia/Blood Transfusion Reactions: Postoperative Nausea & Vomiting (PONV) Past Psychological History: Anxiety, Depression Additional Psychological History / Comment(s): . Smoking Status: Never smoker Past Alcohol Use History: None Reported Past Drug Use History: None Reported - Past Family History Mother Family Medical History: Coronary Artery Disease (CAD), GERD/Reflux, Hypertension, Myocardial Infarction ([place]) Additional Family Medical History / Comment(s): Mother at the age of 64yrs from [place]. Maternal grandmother from a [place] at the age of 63 yrs. Father History Unknown: Yes Additional Family Medical History / Comment(s): committed suicide Brother(s) Family Medical History: Coronary Artery Disease (CAD), Myocardial Infarction ([place]) Additional Family Medical History / Comment(s): Brother at 59yrs from [place]/cardiac arrest. Sister(s) Family Medical History: Deep Vein Thrombosis (DVT) Additional Family Medical History / Comment(s): multiple sclerosis Medications and Allergies Home Medications Medication Instructions Recorded Confirmed Type Apixaban [Eliquis] 5 mg PO BID 12/12/17 09/02/24 History Citalopram Hydrobromide [CeleXA] 20 mg PO DAILY 10/06/18 09/02/24 History Clopidogrel [Plavix] 75 mg PO DAILY 12/03/23 09/02/24 History Rosuvastatin Calcium 5 mg PO HS 12/03/23 09/02/24 History Cyanocobalamin (Vitamin B-12) 1,000 mcg PO DAILY 04/27/24 04/27/24 History [Vitamin B-12] Famotidine [Pepcid] 20 mg PO BID 04/27/24 09/02/24 History Folic Acid 1 mg PO DAILY 04/27/24 09/02/24 History Gabapentin [Neurontin] 600 mg PO DAILY 04/27/24 09/02/24 History Metoprolol Tartrate [Lopressor] 12.5 mg PO BID 04/27/24 09/02/24 History Nitroglycerin Sl Tabs [Nitrostat] 0.4 mg SUBLINGUAL Q5M PRN 04/27/24 04/27/24 History Allergies Allergy/AdvReac Type Severity Reaction Status Date / Time adhesive tape Allergy Rash/Hives Verified 04/27/24 17:32 celecoxib [From Celebrex] Allergy Rash/Hives Verified 04/27/24 17:32 ciprofloxacin [From Cipro] Allergy Nausea & Verified 04/27/24 17:32 Vomiting Sulfa (Sulfonamide Allergy Rash/Hives Verified 04/27/24 17:32 Antibiotics) morphine AdvReac Vomiting Verified 04/27/24 17:32 phenazopyridine AdvReac blood Verified 04/27/24 17:32 [From Pyridium] pressure changes. Physical Exam Vitals: Vital Signs Temp Pulse Resp BP Pulse Ox 09/02/24 15:43 97.9 F 84 16 114/71 96 The patient appeared well nourished and normally developed. Vital signs as documented. Head exam is unremarkable. No scleral icterus or corneal arcus noted. Neck is without jugular venous distension, thyromegaly, or carotid bruits. Carotid upstrokes are brisk bilaterally.-Patient has a Mallampati class IV with crowding of the posterior pharynx Lungs are clear to auscultation and percussion. Cardiac exam reveals the PMI to be normally sized and situated. Rhythm is regular. First and second heart sounds normal. No murmurs, rubs or gallops. Abdominal exam reveals normal bowel sounds, no masses, no organomegaly and no aortic enlargement. Extremities are nonedematous and both femoral and pedal pulses are normal. Examination of the skin revealed no evidence of significant rashes, suspicious appearing nevi or other concerning lesions. Neurologically, the patient is awake and alert and the patient does not have any focal neurological deficit. Cranial nerves are essentially intact. Assessment and Plan Plan: Obstructive sleep apnea. Original diagnosis of established back in 2005 with an AHI of 15, during REM with an AHI of 24 during REM and worsened in supine position. Subsequent evaluation back in 04/25/2021 showed mild obstructive sleep apnea with an AHI of 5.3, severe supine body position with an AHI of 13.3 while supine. Currently off treatment. Obesity with significant amount of weight loss over the years. The patient used to weigh around 290 pounds back in April 2021 and current weight is down to 214 with a BMI of 34.5 Chronic fatigue/sleepiness with concern of worsening her symptoms following cardiac surgery, her current Wheaton score is at 7 Aortic valve replacement. 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 I think the likelihood of significant sleep apnea is low especially the patient has lost considerable mount of weight over the years. Her disease was worse during REM sleep and worsened in supine body position. For now, the patient is complaining of excessive fatigue and sleepiness and her current Wheaton score is at 7. He is coming in for reevaluation. Will proceed with another polysomnography and decide if CPAP therapy is of benefit to this patient. Meanwhile, continue efforts to lose weight, maintain good sleep hygiene measures, maintain regular sleep schedule and treat above-mentioned comorbidities. Will follow and make further recommendations based on the results of the sleep study. Sleep Note - Sleep Data ESS Total: 7 - Sleep Note Sleep Note: Temperature: 97.9 F Pulse Rate: 84 Respiratory Rate: 16 Blood Pressure: 114/71 SpO2: 96 Height: Weight: BMI: Neck Circumference: 14
== END ==
LOC: 3 N SLEEP 14:19
PROVIDERS: ATTEND Internal Medicine Critical Care Medicine
DX: G47.33 Obstructive sleep apnea (adult) (pediatric) (principal); G47.52 REM sleep behavior disorder; E66.9 Obesity, unspecified; Z68.34 Body mass index [BMI] 34.0-34.9, adult; I48.0 Paroxysmal atrial fibrillation; E78.5 Hyperlipidemia, unspecified; F32.A Depression, unspecified; Z91.048 Other nonmedicinal substance allergy status; Z88.1 Allergy status to other antibiotic agents; Z88.2 Allergy status to sulfonamides; Z88.5 Allergy status to narcotic agent; Z88.6 Allergy status to analgesic agent; Z88.8 Allergy status to other drugs, medicaments and biological substances; Z98.890 Other specified postprocedural states; Z86.79 Personal history of other diseases of the circulatory system; Z79.01 Long term (current) use of anticoagulants; Z79.02 Long term (current) use of antithrombotics/antiplatelets; Z79.899 Other long term (current) drug therapy
CPT/HCPCS: 99211

== ENCOUNTER 2024-10-05 19:40 | Outpatient (CLI) | payer OTHER ==
--- NOTE | 2024-10-07 22:19 | P.PCN ---
Date of Procedure: 10/05/24 Operative Findings: Polysomnography report Date of service is 10/05/2024 History 39-year-old female patient is coming in for reevaluation regarding obstructive sleep apnea. Patient has history of obstructive sleep apnea. She was diagnosed back in 2005. At that time, the patient had a mild TATUM with AHI of 15 with worsening of sleep with an AHI of 24 during REM. Her disease was also positional worsened in supine body position. I offered her CPAP therapy and the patient used the treatment for quite some time and subsequently she quits. She came in for an evaluation back in April 2020 she underwent a follow-up study 2020 and at that time, the patient was found to have mild positional obstructive sleep apnea with AHI of 5.3, her disease was worse in supine with a position with an AHI of 16.3 while being supine. No significant nocturnal oxygen saturation. Her sleep efficiency was reduced at 74%. Treatment was offered. Note that back then, the patient used to weigh around 290 pounds. Since then, the patient has lost additional weight and currently she is weighing 214. Nevertheless, she was found to have valvular heart disease and aortic valve stenosis and the patient underwent a aortic valve replacement February 2023. She also has history of. For which she has undergone closure. 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 She also encountered atrial fibrillation. Following her cardiac surgery and the patient is current on anticoagulation with Eliquis. She continues to snore. She has increased fatigue and tiredness which is more than the usual. She is going to bed around 10 PM and waking up 8 AM in the morning. No nocturia. No grinding. No sleepwalking. No restlessness in lower extremities. She is feeling fatigued and and sleepy during the day. The [place] score is at 7. She is currently sleeping on her side. No sleep paralysis. No hallucinations. No cataplexy. No anxiety. No depression. Physical findings Weight is 214 pounds with a body mass index is 34.5 Technical description The patient was studied using a standard complex polysomnography protocol that included recording of the Lead II EKG, Central, occipital and frontal EEG, right and left outer canthus EOG, submental EMG, right and left anterior tibialis EMG, respiratory airflow by thermocouple and or pressure/flow transducer, respiratory efforts by abdominal and thoracic PVDF belts, oxygen saturation by cable oximetry. Position by observation synchronized the PSG. Equipment used: [employer]. Sleep architecture Total recording duration was 143 minutes. The total sleep time was 30 minutes. The overall sleep efficiency was 79.7%. Sleep latency was 7.5 minutes. The latency to the was 138 minutes. The sleep architecture was characterized by 7.9% stage I sleep, 59.3% stage II sleep, 8.5% stage III sleep and a total of 23.9% REM sleep. The total arousal index was 10.7. Latency to sleep onset was 57.5 minutes. Latency to REM sleep was 138 minutes. Respiratory analysis The respiratory analysis demonstrated a total of 27 obstructive respiratory events of which 2 were obstructive apneas, 0 were mixed apneas and 25 were obstructive hypopneas. The resulting AHI was 4.4. No central apneas were noted and the central apnea index was 0. Oxygenation analysis The baseline pulse ox was 95% while awake. The lowest oxygen saturation was 84% and the patient spent approximately 1.5 minutes of the sleep time below pulse ox of 89% and this accounted for 0.3% of overall sleep time. Cardiac summary Average heart rate was 65, minimum heart rate of 62 and a maximum heart rate was 70, normal sinus rhythm Periodic limb movements A total of 134 periodic limb movement activity with an index of 22.8. In addition, there was a total of 5 periodic limb movement activity with arousals with an arousal index of 0.8 Arousal events A total of 63 arousals were noted with an index of 10.7. The respiratory arousal index was 2.2 Assessment No evidence of any significant sleep breathing disorder. The patient's apnea hypopnea index was 4.4 and there was no significant nocturnal oxygen desaturation. Normal sleep architecture No significant nocturnal oxygen desaturations Previous history of Obstructive sleep apnea. Original diagnosis of established back in 2005 with an AHI of 15, during REM with an AHI of 24 during REM and worsened in supine position. Subsequent evaluation back in 04/25/2021 showed mild obstructive sleep apnea with an AHI of 5.3, severe supine body position with an AHI of 13.3 while supine. Currently off treatment. Patient lost considerable amount of weight Obesity with significant amount of weight loss over the years. The patient used to weigh around 290 pounds back in April 2021 and current weight is down to 214 with a BMI of 34.5 Chronic fatigue/sleepiness with concern of worsening her symptoms following cardiac surgery, her current [place] score is at 7 Aortic valve replacement. 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
== END 2024-10-06 06:00 | disposition home or self-care (01) ==
LOC: 3 N SLEEP 19:40
PROVIDERS: ATTEND Internal Medicine Critical Care Medicine
DX: G47.33 Obstructive sleep apnea (adult) (pediatric) (principal); E78.5 Hyperlipidemia, unspecified; D86.9 Sarcoidosis, unspecified; I82.221 Chronic embolism and thrombosis of inferior vena cava; E66.9 Obesity, unspecified; I48.0 Paroxysmal atrial fibrillation; F32.A Depression, unspecified; Z86.73 Personal history of transient ischemic attack (TIA), and cerebral infarction without residual deficits; Z68.34 Body mass index [BMI] 34.0-34.9, adult; Z91.09 Other allergy status, other than to drugs and biological substances; Z87.74 Personal history of (corrected) congenital malformations of heart and circulatory system; Z95.2 Presence of prosthetic heart valve; Z88.2 Allergy status to sulfonamides; Z79.01 Long term (current) use of anticoagulants
CPT/HCPCS: 95810

== ENCOUNTER → 2024-11-21 | Outpatient (CLI) | payer OTHER ==
--- NOTE | 2024-11-24 08:16 | MM ---
Reason for Exam: Screening (asymptomatic). Last screening mammogram was performed 12 month(s) ago. Patient History: Menarche at age 11. First Full-Term at age 25. Hysterectomy at age 49. Postmenopausal. Patient used Estrogen for 3 years. 08/20/2018, Benign Core Biopsy on the right side. Risk Values: Gaviota 5 year model risk: 2.1%. NCI Lifetime model risk: 8.4%. Prior Study Comparison: 05/01/2019 Bilateral Diagnostic Mammogram, [facility]. 02/23/2022 Bilateral MG screening mammo w CAD, [facility]. 10/25/2023 Bilateral MG 3D screening mammo w/cad, [facility]. Tissue Density: There are scattered areas of fibroglandular density. Findings: Analyzed By CAD. Numerous benign oil cyst calcifications redemonstrated on the right. Areas of low density nodularity on the left are unchanged. Microclip right breast from biopsy. There is no suspicious group of microcalcifications or new suspicious mass in either breast. Overall Assessment: Benign, BI-RAD 2 Management: Screening Mammogram of both breasts in 1 year. Patient should continue monthly self-breast exams. A clinical breast exam by your physician is recommended on an annual basis. This exam should not preclude additional follow-up of suspicious palpable abnormalities. Note on Gaviota scores and lifetime risk: 1. A Gaviota score greater than 3% is considered moderate risk. If this is the case, consider specialist referral to assess eligibility for a risk reducing agent. 2. If overall lifetime risk for the development of breast cancer is 20% or higher, the patient may qualify for future screening with alternating mammogram and breast MRI. [facility], , 11/24/2024 8:13 AM. Electronically signed and approved by: Keira Rhodes M.D. Radiologist
== END | disposition home or self-care (01) ==
LOC: RADMAMWWP 15:17
PROVIDERS: ATTEND Family Medicine
DX: Z12.31 Encounter for screening mammogram for malignant neoplasm of breast (principal); R92.323 Mammographic fibroglandular density, bilateral breasts; Z78.0 Asymptomatic menopausal state
CPT/HCPCS: 77063; 77067

== ENCOUNTER → 2025-01-15 | Outpatient (CLI) | payer MEDICARE, OTHER ==
--- NOTE | 2025-01-16 12:53 | XR ---
EXAMINATION TYPE: XR chest 2V DATE OF EXAM: 01/15/2025 5:25 PM COMPARISON: 04/28/2024 CLINICAL INDICATION: Female, 64 years old with history of D86.9 SARCOIDOSIS, UNSPECIFIED, TECHNIQUE: XR chest 2V view(s) obtained. FINDINGS: The heart size is normal. The pulmonary vasculature is normal. There is a 1.3 cm nodule at the left lung base present previously . No suspicious infiltrates. Sternotomy wires are present. Postsurgical anterior cervical fusion change s. IMPRESSION: 1. No acute pulmonary process. 2. Stable appearing nodule left lung base. Follow-up for confirmation of stability is recommended in one year. [facility], Workstation: [facility], 01/16/2025 12:51 PM
== END | disposition home or self-care (01) ==
LOC: RADXRMAIN 17:07
PROVIDERS: ATTEND Family Medicine
DX: D86.9 Sarcoidosis, unspecified (principal); R91.1 Solitary pulmonary nodule
CPT/HCPCS: 71046